=== PATIENT | male | born 2000 | race Caucasian/White ===

== ENCOUNTER 2020-09-17 20:11 | Emergency (ER) | payer OTHER, SELFPAY ==
[2020-09-17 20:17] VITALS: BP 132/70; BP 144/84; PULSE 76; PULSE 92; RESP 16; TEMP 37.2; O2SAT 97; O2SAT 98; BMI 31.1
--- NOTE | 2020-09-17 20:51 | ECG_ITS ---
Test Reason : ABDPAIN Blood Pressure : / mmHG Vent. Rate : 075 BPM Atrial Rate : 075 BPM P-R Int : 170 ms QRS Dur : 098 ms QT Int : 378 ms P-R-T Axes : 050 078 019 degrees QTc Int : 422 ms Normal sinus rhythm Nonspecific ST abnormality Abnormal ECG When compared with ECG of 02-JUN-2020 20:26, No significant change was found Referred By: Mara Burris Electronically Signed By:AMPARO HARRY MD
--- NOTE | 2020-09-17 20:52 | CT_ITS ---
EXAM: Noncontrast CT scan of the head and cervical spine. INDICATION: Syncopal episode with fall and head trauma/neck pain COMPARISON: Head CT 06/17/2020 TECHNIQUE: Axial slices were obtained from skull base to vertex and displayed. This was followed by helical, multislice, multidetector axial images from the occiput to the upper thorax. Coronal and sagittal reformats of the cervical spine in addition to coronal reformats of the head were obtained at the technologist workstation. DLP: 1928 mGy-cm FINDINGS: HEAD: There is no evidence of acute intracranial hemorrhage or territorial infarction. No abnormal mass effect or midline shift is appreciated. Cuadra-white differentiation is well preserved. No extra-axial fluid collections. The ventricular system and cortical sulci are normal in size. The osseous structures and soft tissues are normal. The visualized paranasal sinuses and mastoid air cells are well aerated. SPINE: Normal alignment of the cervical spine. Normal C1/C2 articulation. Vertebral body heights and disc spaces are well-maintained. No prevertebral soft tissue swelling. No degenerative changes of the cervical spine. Visualized lung apices are well aerated. The thyroid gland is unremarkable. CT/CT cervical spine wo con IMPRESSION: 1. No acute intracranial pathology. 2. No fractures or dislocations of the cervical spine. This CT examination was performed using dose optimization techniques as appropriate, variously including the following: *Automated exposure control *Adjustment of mA and/or kV according to patient size (this includes techniques or standardized protocols for targeted exams where dose is matched to indication/reason for exam; i.e. extremities or head) *Use of iterative reconstruction technique
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
[2020-09-17 21:13] LABS: Basophils Percent Auto 0.5 % (0-2); Eosinophils Absolute Auto 0.2 X10*3/uL (0.0-0.4); Eosinophils Percent Auto 2.5 % (0-4); Hematocrit 48.6 % (42-52); Hemoglobin 16.7 g/dl (14.0-18.0); Imm Gran Abs Auto 0.02 X10*3/uL (0.00-0.03); Imm Gran Pct Auto 0.3 % (0.0-0.4); Lymphocytes Absolute Auto 1.3 X10*3/uL (1.2-4.9); Lymphocytes Percent Auto 20.1 % (20-40); Mean Corpuscular HGB Conc 34.4 g/dl (31.0-36.0); Mean Corpuscular Hemoglobin 29.5 pg (27.0-33.0); Mean Corpuscular Volume 85.9 fL (80-98); Mean Platelet Volume 10.7 fL (9.4-12.4); Monocytes Absolute Auto 0.4 X10*3/uL (0.1-1.2); Monocytes Percent Auto 6.5 % (2-11); Neutrophils Absolute Auto 4.4 X10*3/uL (2.0-8.3); Neutrophils Percent Auto 70.1 % (45-73); Platelet Count 174 X10*3/uL (160-400); Red Blood Count 5.66 X10*6/uL (4.60-5.80); Red Cell Distribution Width 11.9 % (11.0-16.0); White Blood Count 6.3 X10*3/uL (4.8-10.8)
[2020-09-17 21:14] LABS: MANUAL DIFF FLAG NO
[2020-09-17 21:39] LABS: Alanine Aminotransferase 23 U/L (0-40); Albumin Level 4.3 g/dL (3.5-5.0); Alkaline Phosphatase 69 U/L (39-117); Anion Gap 13 (12-20); Aspartate Amino Transferase 15 U/L (5-37); Bilirubin Direct < 0.2 mg/dL (0.0-0.5); Bilirubin Total 0.5 mg/dL (0.0-1.0); Blood Urea Nitrogen 13 mg/dL (9-16); Calcium 8.7 mg/dL (8.4-10.2); Carbon Dioxide 28 mmol/L (22-29); Chloride 105 mmol/L (96-108); Creatinine Clr Calc Pharmacy 165.3; Estimated Glomerular Filt Rate > 60; Glucose Random 82 mg/dL (60-115); Lipase 31 U/L (8-78); Potassium 4.2 mmol/l (3.3-5.1); Sodium 142 mmol/L (135-145)
[2020-09-17 21:45] LABS: Troponin-I High Sensitivity < 3.5 ng/L (<3.5-35.0)
[2020-09-17 21:46] VITALS: BP 130/67; PULSE 75; PULSE 81; RESP 14; TEMP 36.6; O2SAT 96; O2SAT 97
== END 2020-09-17 22:40 | disposition home or self-care (01) ==
PROVIDERS: Emergency Provider Emergency Medicine; PCP Pediatrics
DX: R55 Syncope and collapse (principal); R42 Dizziness and giddiness; Z79.899 Other long term (current) drug therapy
CPT/HCPCS: 36415; 70450; 72125; 80048; 80076; 83690; 84484; 85025; 93005; 99284; 99285

== ENCOUNTER 2020-10-14 19:23 | Emergency (ER) | payer OTHER, SELFPAY ==
[2020-10-14 19:55] VITALS: BP 139/69; PULSE 66; RESP 18; TEMP 36.9; O2SAT 96; BMI 24.4
[2020-10-14 20:00] VITALS: BP 139/69; PULSE 65; RESP 18; TEMP 36.9; O2SAT 96
--- NOTE | 2020-10-14 20:06 | ED.HA ---
HPI - Headache General Chief Complaint: Headache Stated Complaint: Headache Time Seen by Provider: 10/14/20 19:34 Source: patient Mode of arrival: ambulatory Limitations: no limitations History of Present Illness HPI Narrative: 19-year-old male presents with 3 days of a headache and upper respiratory symptoms. He is asking for a COVID-19 test. MD elicited complaint: headache Onset (ago): day(s) (3) Onset description: gradually Severity: moderate Pain scale (0-10): 5 Quality & Timing: aching Exacerbating factors: none Relieving factors: nothing Associated symptoms: cough Treatments prior to arrival: none Related Data Home Medications Medication Instructions Recorded Confirmed aripiprazole 15 mg PO QAM 09/17/20 09/17/20 hydroxyzine HCl 25 mg PO TID 09/17/20 09/17/20 oxcarbazepine 300 mg PO DAILY 09/17/20 09/17/20 prazosin 5 mg PO BEDTIME PRN 09/17/20 09/17/20 trazodone 150 mg PO BEDTIME PRN 09/17/20 09/17/20 Allergies Allergy/AdvReac Type Severity Reaction Status Date / Time apple AdvReac Severe DIARRHEA Verified 09/17/20 20:25 POTATO JUICE Allergy Intermediate RASH Uncoded 09/17/20 21:43 Review of Systems Review of Systems: Constitutional: No Fever, No Chills, positive headache ENT/Mouth: No Ear Pain, No Hoarseness, No sore throat Eyes: No Eye Pain, No Swelling, No Redness, No Foreign Body Cardiovascular: No Chest Pain, No SOB Respiratory: Positive Cough, No Dyspnea Gastrointestinal: No Nausea, No Vomiting, No Diarrhea, No abdominal Pain Genitourinary: No Dysuria, No Hematuria Musculoskeletal: No joint pain, No Myalgias, No Joint Swelling Skin: No Skin lacerations, No rash Neuro: No Weakness, No Numbness, No Paresthesias, No Loss of Consciousness, No Dizziness, No Headache Psych: No Anxiety/Panic, No Depression Heme/Lymph: no easy bruising, no Lymphadenopathy Endocrine: No Polyuria, No Polydipsia Yes all other systems are reviewed and are negative [facility] Past Medical History Attestation statement: The following information was validated with the patient. Source: old records reviewed Medical History (Updated 10/14/20 @ 20:08 by Lucy Rees NP) No known health problems Social History Social History Alcohol intake: never Smoking Status: Heavy tobacco smoker Smoked in Last 30 Days: No Use of substances other than those prescribed or required for medical reasons: No Advance Directives: No Advance Directives Information Provided: No Physical Exam Vital Signs: Vital Signs: Last Vital Signs Temp 98.4 F 10/14/20 20:00 Pulse 65 10/14/20 20:00 Resp 18 10/14/20 20:00 BP 139/69 10/14/20 20:00 Pulse Ox 96 10/14/20 20:00 Body Mass Index 24.4 Appearance: Alert. Oriented X3. No acute distress. Eyes: Pupils equal, round and reactive to light. ENT: Pharynx normal. Neck: Normal inspection. Neck supple. CVS: Normal heart rate and rhythm. Pulses normal. Respiratory: No respiratory distress. Breath sounds normal. Abdomen: Soft and nontender. Skin: Skin warm and dry. Normal skin color. Normal skin turgor. Extremities: No lower extremity edema. Neuro: No motor deficit. No sensory deficit. Course Course Course Narrative: 19-year-old male presents with upper respiratory symptoms and headache requesting a COVID-19 test. He appears nontoxic, vital signs are hemodynamically stable, lung sounds clear to auscultation all lobes. Patient does appear to have academic impairment, but is able to answer all questions appropriately. Plan of care is for COVID-19 test and did discharge home. Patient does understand that he must socially isolate per state and Federal guidelines. MDM - Headache MDM Narrative Medical decision making narrative: COVID-19, upper respiratory viral infection Differential Diagnosis Differential diagnosis: Likely headache Medical Records Attestation: I reviewed the patient's medical records. Lab Data Attestation: I reviewed the patient's lab results. Discharge Plan Discharge Clinical Impression: COVID-19 Headache Qualifiers: Headache type: unspecified Headache chronicity pattern: acute headache Intractability: not intractable Qualified Code(s): R51.9 - Headache, unspecified Patient Disposition: Home, Self-Care Instructions: COVID-19 (Coronavirus Disease 2019) (ED) Additional Instructions: You were evaluated for headache and requested a COVID-19 test. Please maintain social isolation per state and Federal guidelines. It is your responsibility to maintain these guidelines. Your test results will return in 4 days. We will call you with the results. Thank you for choosing this emergency department for evaluation. Please follow-up with primary care physician as needed. Return to the emergency department for any new, concerning, or worsening symptoms. Prescriptions: No Action oxcarbazepine 300 mg tablet 300 mg PO DAILY RF: 0 prazosin 5 mg capsule 5 mg PO BEDTIME PRN (Reason: Sleep) RF: 0 trazodone 150 mg tablet 150 mg PO BEDTIME PRN (Reason: Sleep) RF: 0 hydroxyzine HCl 25 mg tablet 25 mg PO TID RF: 0 aripiprazole 15 mg tablet 15 mg PO QAM RF: 0 Interventions: ED Discharge Assessment Last Done: 10/14/20 20:25 Discharge Date/Time: 10/14/20 20:26
== END 2020-10-14 20:26 | disposition home or self-care (01) ==
PROVIDERS: Nurse Practitioner Family; Emergency Provider Emergency Medicine
DX: U07.1 COVID-19 (principal); R51.9 Headache, unspecified; F17.200 Nicotine dependence, unspecified, uncomplicated; Z71.6 Tobacco abuse counseling; Z79.899 Other long term (current) drug therapy
CPT/HCPCS: 99283; 99284; U0003

== ENCOUNTER 2020-12-04 21:16 | Emergency (ER) | payer OTHER, SELFPAY ==
[2020-12-04 21:52] VITALS: BP 128/88; PULSE 106; RESP 18; TEMP 37; O2SAT 97; BMI 33.0
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
[2020-12-05 00:25] LABS: Basophils Percent Auto 0.5 % (0-2); Eosinophils Absolute Auto 0.2 X10*3/uL (0.0-0.4); Eosinophils Percent Auto 2.9 % (0-4); Hematocrit 46.2 % (42-52); Imm Gran Abs Auto 0.04 X10*3/uL (0.00-0.03); Imm Gran Pct Auto 0.5 % (0.0-0.4); Lymphocytes Absolute Auto 1.9 X10*3/uL (1.2-4.9); Lymphocytes Percent Auto 23.6 % (20-40); MANUAL DIFF FLAG NO; Mean Corpuscular HGB Conc 34.6 g/dl (31.0-36.0); Mean Corpuscular Hemoglobin 29.5 pg (27.0-33.0); Mean Corpuscular Volume 85.2 fL (80-98); Mean Platelet Volume 10.8 fL (9.4-12.4); Monocytes Absolute Auto 0.5 X10*3/uL (0.1-1.2); Monocytes Percent Auto 6.6 % (2-11); Neutrophils Absolute Auto 5.2 X10*3/uL (2.0-8.3); Neutrophils Percent Auto 65.9 % (45-73); Platelet Count 191 X10*3/uL (160-400); Red Blood Count 5.42 X10*6/uL (4.60-5.80); Red Cell Distribution Width 11.6 % (11.0-16.0); White Blood Count 7.9 X10*3/uL (4.8-10.8)
[2020-12-05 00:50] LABS: Ethanol < 10 mg/dL
[2020-12-05 00:53] LABS: Alanine Aminotransferase 32 U/L (0-40); Alkaline Phosphatase 73 U/L (39-117); Anion Gap 14 (12-20); Aspartate Amino Transferase 23 U/L (5-37); Bilirubin Direct < 0.2 mg/dL (0.0-0.5); Bilirubin Total 0.2 mg/dL (0.0-1.0); Blood Urea Nitrogen 13 mg/dL (9-16); Calcium 8.6 mg/dL (8.4-10.2); Carbon Dioxide 26 mmol/L (22-29); Chloride 105 mmol/L (96-108); Creatinine Clr Calc Pharmacy 170.8; Estimated Glomerular Filt Rate > 60; Glucose Random 95 mg/dL (60-115); Potassium 4.1 mmol/L (3.3-5.1); Sodium 141 mmol/L (135-145); Total Protein 6.7 g/dL (6.5-8.0)
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
--- NOTE | 2020-12-05 02:23 | PC.NURSE ---
FRANSICO faxed and called.
[2020-12-05] MEDS: Acetaminophen 325 MG TABLET 650 MG PO (06:42)
[2020-12-05 06:45] VITALS: BP 145/76; PULSE 99; RESP 17; TEMP 36.7; O2SAT 96
--- NOTE | 2020-12-05 06:57 | PC.NURSE ---
Report received. Pt currently attempting to give urine sample, pt calm and cooperative. Denies complaints, polite in conversation. Pt waiting to be seen by N.
[2020-12-05 07:32] LABS: Amphetamine Screen Urine Not Detected (Not Detect); Barbiturates, Urine Not Detected (Not Detect); Benzodiazepines Screen Urine Not Detected (Not Detect); Cannabinoid Screen Urine Not Detected (Not Detect); Cocaine Screen Urine Not Detected (Not Detect); Opiate Screen Urine Not Detected (Not Detect); Phencyclidine Screen Urine Not Detected (Not Detect)
[2020-12-05 08:43] VITALS: BP 107/62; PULSE 78; RESP 16; TEMP 36.3; O2SAT 95
--- NOTE | 2020-12-05 09:17 | PC.NURSE ---
[facility] at bedside for eval.
[2020-12-05] MEDS: OXcarbazepine 300 MG TABLET PO (09:43)
[2020-12-05] MEDS: ARIPiprazole 15 MG TABLET PO (09:43)
--- NOTE | 2020-12-05 13:07 | PC.NURSE ---
PT calm and cooperative, pleasant in conversation. Pt denies complaints. PT currently resting. [facility] to follow up with PT later today or tomorrow.
--- NOTE | 2020-12-05 15:11 | PC.NURSE ---
Report received. Pt resting in bed at current, no signs of distress
--- NOTE | 2020-12-05 16:59 | PC.NURSE ---
Pt resting in bed at current, no signs of distress, respirations even and unlabored.
[2020-12-05 18:42] VITALS: BP 133/70; PULSE 80; RESP 18; TEMP 36.6; O2SAT 94
--- NOTE | 2020-12-05 18:44 | PC.NURSE ---
Pt using restroom at current. No complaints. Calm and cooperative.
--- NOTE | 2020-12-05 19:01 | PC.NURSE ---
REPORT RECEIVED. PATIENT RESTING IN ROOM WATCHING TV. BREATHING EVEN, NON-LABORED. NO APPARENT DISTRESS.
[2020-12-05] MEDS: OXcarbazepine 300 MG TABLET 450 MG PO (20:32)
[2020-12-06] VITALS (7 sets, daily range): BP systolic 132–148; BP diastolic 78–91; PULSE 90–104; RESP 16–20; TEMP 36–36.8; O2SAT 95–97
--- NOTE | 2020-12-06 07:05 | PC.NURSE ---
Report received from DIONICIO Temple. Pt awake, affect even, no concerns reported.
[2020-12-06] MEDS: OXcarbazepine 300 MG TABLET PO (08:02)
[2020-12-06] MEDS: ARIPiprazole 15 MG TABLET PO (08:02)
--- NOTE | 2020-12-06 09:21 | PC.NURSE ---
Pt resting, resp unlabored, awaiting crisis evaluation.
--- NOTE | 2020-12-06 10:41 | PC.NURSE ---
Pt resting, resp unlabored. [facility] called re: evaluation- state they will not be able to arrive after noon, unable to specify time range. CARE team aware.
--- NOTE | 2020-12-06 11:51 | PC.NURSE ---
Pt resting, resp unlabored.
--- NOTE | 2020-12-06 11:52 | PC.NURSE ---
Pt resting, resp unlabored
--- NOTE | 2020-12-06 13:20 | PC.NURSE ---
Pt awake- showered, ate lunch. Pt pleasant, cooperative with care, no concerns reported.
[2020-12-06 13:57] LABS: COVID-19 Test Negative (Negative); IDNOW Serial# 9DD0AD1C
--- NOTE | 2020-12-06 15:37 | PC.NURSE ---
Pt pleasant, out on unit briefly, conversing with staff at times.
--- NOTE | 2020-12-06 16:23 | PC.NURSE ---
Pt seen by FRANSICO
--- NOTE | 2020-12-06 17:49 | PC.NURSE ---
Pt awake, alert- anxious about dispo, conversing with staff.
[2020-12-06] MEDS: OXcarbazepine 300 MG TABLET 450 MG PO (20:10)
[2020-12-06] MEDS: traZODone HCL 50 MG TABLET 150 MG PO (20:10)
[2020-12-06] MEDS: Prazosin HCL 5 MG CAPSULE PO (20:11)
--- NOTE | 2020-12-06 20:31 | PC.NURSE ---
Patient in hallway socializing with staff member, pleasant mood, denied distress, VSS, compliant with HS PO medication, will continue to monitor.
[2020-12-06] MEDS: Magnesium Hydrox/Alum Hydrox 30 ML ORAL.SUSP 15 ML PO (23:30)
[2020-12-07 05:56] VITALS: BP 142/76; PULSE 87; RESP 17; TEMP 36.8; O2SAT 96
--- NOTE | 2020-12-07 07:16 | PC.NURSE ---
report received from arthur Yoon walking freely about the pod, socialable, ate 100% of his breakfast.
[2020-12-07 09:20] VITALS: BP 138/72; PULSE 95; RESP 16; TEMP 36.6; O2SAT 96
[2020-12-07] MEDS: ARIPiprazole 15 MG TABLET PO (09:28)
[2020-12-07] MEDS: OXcarbazepine 300 MG TABLET PO (09:29)
--- NOTE | 2020-12-07 09:47 | PC.NURSE ---
Pt is alert, rr even, speaks in full sentences,skin is pwdi, and he is in nad. He is calm and cooperative when in engaging with staff. He is awaiting N re-eval.
[2020-12-07] MEDS: hydrOXYzine HCL 25 MG TABLET PO (13:09)
--- NOTE | 2020-12-07 15:13 | PC.NURSE ---
Per N, bed search exhausted. They plan on re-evaluating today.
[2020-12-07 17:08] VITALS: BP 125/74; PULSE 92; RESP 20; TEMP 37.2; O2SAT 95
[2020-12-07 20:33] VITALS: BP 159/89; PULSE 150
[2020-12-07] MEDS: Prazosin HCL 5 MG CAPSULE PO (20:33)
[2020-12-07] MEDS: traZODone HCL 50 MG TABLET 150 MG PO (20:34)
[2020-12-07] MEDS: OXcarbazepine 300 MG TABLET 450 MG PO (20:34)
[2020-12-08 01:13] VITALS: BP 136/80; PULSE 119; RESP 20; TEMP 36.2; O2SAT 96
== END 2020-12-08 02:10 | disposition home or self-care (01) ==
PROVIDERS: Nurse Practitioner Family; Physician Assistant; Emergency Provider Emergency Medicine
DX: R06.00 Dyspnea, unspecified (principal); Z63.79 Other stressful life events affecting family and household; Z20.822 Contact with and (suspected) exposure to COVID-19; Z79.899 Other long term (current) drug therapy
CPT/HCPCS: 36415; 80053; 80076; 80307; 80320; 82248; 85025; 87635; 99285

== ENCOUNTER 2021-01-10 16:38 | Emergency (ER) | payer OTHER, SELFPAY ==
--- NOTE | ~2021-01-10 | XR_ITS ---
EXAMINATION: XR CHEST CLINICAL INFORMATION: Chest pain COMPARISON: Chest 06/02/2020 TECHNIQUE: 2 views of the chest were obtained. FINDINGS: No significant abnormality is noted involving the heart, lungs, mediastinum, bony thorax or soft tissues. XR/XR chest 2V IMPRESSION: Unremarkable chest examination.
[2021-01-10 16:45] VITALS: BP 141/83; PULSE 115; RESP 20; TEMP 36.9; O2SAT 96; BMI 30.4
--- NOTE | 2021-01-10 16:50 | ECG_ITS ---
Test Reason : CP Blood Pressure : / mmHG Vent. Rate : 098 BPM Atrial Rate : 098 BPM P-R Int : 156 ms QRS Dur : 096 ms QT Int : 360 ms P-R-T Axes : 034 073 011 degrees QTc Int : 459 ms Normal sinus rhythm Normal ECG When compared with ECG of 17-SEP-2020 20:56, No significant change was found Referred By: Generic ED Physician Electronically Signed By:LYNDSEY IVEY MD
[2021-01-10 18:04] VITALS: BP 119/72; PULSE 87; RESP 16; TEMP 37.2; O2SAT 98
[2021-01-10 18:18] LABS: MANUAL DIFF FLAG NO
[2021-01-10 18:22] LABS: Basophils Absolute Auto 0.1 X10*3/uL (0.0-0.2); Basophils Percent Auto 0.7 % (0-2); Eosinophils Absolute Auto 0.2 X10*3/uL (0.0-0.4); Eosinophils Percent Auto 2.6 % (0-4); Hematocrit 46.6 % (42-52); Imm Gran Abs Auto 0.05 X10*3/uL (0.00-0.03); Imm Gran Pct Auto 0.7 % (0.0-0.4); Lymphocytes Absolute Auto 1.7 X10*3/uL (1.2-4.9); Lymphocytes Percent Auto 23.9 % (20-40); Mean Corpuscular HGB Conc 34.3 g/dl (31.0-36.0); Mean Corpuscular Hemoglobin 29.6 pg (27.0-33.0); Mean Corpuscular Volume 86.1 fL (80-98); Mean Platelet Volume 11.2 fL (9.4-12.4); Monocytes Absolute Auto 0.6 X10*3/uL (0.1-1.2); Neutrophils Absolute Auto 4.5 X10*3/uL (2.0-8.3); Neutrophils Percent Auto 64.1 % (45-73); Platelet Count 187 X10*3/uL (160-400); Red Blood Count 5.41 X10*6/uL (4.60-5.80); Red Cell Distribution Width 12.1 % (11.0-16.0)
[2021-01-10] MEDS: Ibuprofen 800 MG TABLET PO (18:25)
[2021-01-10 18:39] LABS: D Dimer < 200 NG/ML
[2021-01-10 18:46] LABS: Alanine Aminotransferase 53 U/L (0-40); Albumin Level 4.2 g/dL (3.5-5.0); Alkaline Phosphatase 75 U/L (39-117); Anion Gap 15 (12-20); Aspartate Amino Transferase 29 U/L (5-37); Bilirubin Total 0.6 mg/dL (0.0-1.0); Blood Urea Nitrogen 12 mg/dL (9-16); Calcium 8.8 mg/dL (8.4-10.2); Carbon Dioxide 23 mmol/L (22-29); Chloride 105 mmol/L (96-108); Estimated Glomerular Filt Rate > 60; Glucose Random 88 mg/dL (60-115); Potassium 3.9 mmol/L (3.3-5.1); Sodium 139 mmol/L (135-145)
--- NOTE | 2021-01-10 19:05 | ED_ITS ---
HPI - General Adult General Chief complaint: General Medical Stated complaint: chest pain Time Seen by Provider: 01/10/21 17:34 Source: patient Mode of arrival: ambulatory Limitations: no limitations History of Present Illness HPI narrative: Patient presents to ED for chest pain that began at 15:00 after shooting a basketball. Patient states left chest wall pain that is worse on movement of torso and bilateral upper extremities. Patient states he probably pulled a muscle in his chest wall showing the basketball but came to the ED to be evaluated. Patient denied passing out while playing basketball. Patient denies any shortness of breath, coughing, fever, or chills. Patient denies any swelling of lower extremity, calf pain, coughing up blood, recent long travel, recent surgery, estrogen hormone use, or history of blood clots. Related Data Home Medications Medication Instructions Recorded Confirmed aripiprazole 15 mg PO QAM 09/17/20 12/05/20 hydroxyzine HCl 25 mg PO BID PRN 09/17/20 12/05/20 oxcarbazepine 300 mg PO DAILY 09/17/20 12/05/20 prazosin 5 mg PO BEDTIME PRN 09/17/20 12/05/20 trazodone 150 mg PO BEDTIME PRN 09/17/20 12/05/20 oxcarbazepine 450 mg PO BEDTIME 12/05/20 12/05/20 Allergies Allergy/AdvReac Type Severity Reaction Status Date / Time apple AdvReac Severe DIARRHEA Verified 09/17/20 20:25 POTATO JUICE Allergy Intermediate RASH Uncoded 09/17/20 21:43 Review of Systems Review of Systems: Yes all other systems are reviewed and are negative Constitutional: Constitutional: Reports as per HPI and Reports no additional constitutional complaints Eyes: Eyes: Reports as per HPI and Reports no additional eye complaints ENT: Reports system reviewed and no additional complaints, except as documented and Reports as per HPI Cardiovascular: Cardiovascular: Reports as per HPI, Reports no additional cardiovascular complaints and Reports chest pain Respiratory: Respiratory: Reports as per HPI and Reports no additional respiratory complaints Gastrointestinal: Gastrointestinal: Reports as per HPI and Reports no additional gastrointestinal complaints Genitourinary: Genitourinary: Reports no additional male genitourinary complaints and Reports as per HPI Musculoskeletal: Musculoskeletal: Reports no additional musculoskeletal complaints and Reports as per HPI Neurologic: Reports system reviewed and no additional complaints, except as documented and Reports as per HPI Psychiatric: Psychiatric: Reports no additional psychiatric complaints and Reports as per HPI [facility] Past Medical History Medical History No known health problems Social History Social History Alcohol intake: never Smoking Status: Never smoker Advance Directives: No Advance Directives Information Provided: No Physical Exam Vital Signs: Vital Signs: Last Vital Signs Temp 97.9 F 01/10/21 20:27 Pulse 82 01/10/21 20:27 Resp 20 01/10/21 20:27 BP 127/68 01/10/21 20:27 Pulse Ox 97 01/10/21 20:27 Body Mass Index 30.4 Const: General: cooperative, healthy appearing, comfortable, no acute distress, well developed, alert and awake Orientation/consciousness: patient oriented x3 HENMT: Head: Yes normal to inspection, Yes No palpable skull fracture present, Yes normocephalic and Yes atraumatic Eyes: General: appearance normal, both eyes and all related structures Neck: Neck: Yes normal visual inspection, Yes full ROM, Yes no lymphadenopathy, Yes no meningeal signs, Yes trachea midline, Yes supple and No tender Chest: Other: Positive for midsternal chest wall tenderness on palpation. Negative for any crepitus, erythema, or redness. Chest palpation & inspection: normal inspection of the chest Resp: Effort & Inspection: normal respiratory effort and able to speak in complete sentences Auscultation: clear to auscultation bilaterally Cardio: Jugular venous distension: no JVD Heart sounds: S1 normal heart sound present and S2 normal heart sound present GI: Inspection: Yes normal to inspection and No abdominal wall ecchymosis Palpation (GI): Soft to palpation, not firm, nontender, no guarding and not rigid : General: No CVA tenderness and Yes no CVA tenderness Back/Spine/Pelvis: Back: no CVA tenderness, No CVA tenderness and No back tend erness Skin: General skin exam: no rashes or lesions noted and elasticity normal Neuro: General: patient oriented x3, no meningeal signs and CN's II-XI intact bilaterally Cranial nerves: Yes CN's II-XII intact bilaterally Extrem: General: Yes normal to inspection and Yes full ROM Psych: Appearance: grossly normal, well kempt and not disheveled Course Course Course Narrative: Chest wall pain. Reevaluation(s) Reevaluation #1: Chest x-ray came back negative. Initial troponin came back negative. D-dimer negative. Perc score 1. EKG Time: 21:51 Reevaluation #2: Repeat troponin came back negative Time: 22:02 Medical Decision Making MDM Narrative Medical decision making narrative: Chest wall strain Lab Data Result diagrams: 01/10/21 18:12 01/10/21 18:12 Labs: Lab Results 01/10/21 01/10/21 01/10/21 Range/Units 18:12 18:12 18:12 WBC 7.0 (4.8-10.8) X10*3/uL RBC 5.41 (4.60-5.80) X10*6/uL Hgb 16.0 (14.0-18.0) g/dl Hct 46.6 (42-52) % MCV 86.1 (80-98) fL MCH 29.6 (27.0-33.0) pg MCHC 34.3 (31.0-36.0) g/dl RDW 12.1 (11.0-16.0) % Plt Count 187 (160-400) X10*3/uL MPV 11.2 (9.4-12.4) fL Immature Gran % (Auto) 0.7 H (0.0-0.4) % Neut % (Auto) 64.1 (45-73) % Lymph % (Auto) 23.9 (20-40) % [place] % (Auto) 8.0 (2-11) % Eos % (Auto) 2.6 (0-4) % Baso % (Auto) 0.7 (0-2) % Lymph # (Auto) 1.7 (1.2-4.9) X10*3/uL [place] # (Auto) 0.6 (0.1-1.2) X10*3/uL Eos # (Auto) 0.2 (0.0-0.4) X10*3/uL Baso # (Auto) 0.1 (0.0-0.2) X10*3/uL Abs Immat Gran (auto) 0.05 H (0.00-0.03) X10*3/uL Absolute Neuts (auto) 4.5 (2.0-8.3) X10*3/uL Absolute Nucleated RBC 0.000 (0.0-0.012) X10*3/uL Nucleated RBC % (auto) 0.0 (0.0-0.2) /100WBC D-Dimer < 200 NG/ML Sodium 139 (135-145) mmol/L Potassium 3.9 (3.3-5.1) mmol/L Chloride 105 (96-108) mmol/L Carbon Dioxide 23 (22-29) mmol/L Anion Gap 15 (12-20) BUN 12 (9-16) mg/dL Creatinine 0.83 (0.5-1.4) mg/dL Estim Creat Clear Calc 194.0 Estimated GFR > 60 Random Glucose 88 (60-115) mg/dL Calcium 8.8 (8.4-10.2) mg/dL Total Bilirubin 0.6 (0.0-1.0) mg/dL AST 29 (5-37) U/L ALT 53 H (0-40) U/L Alkaline Phosphatase 75 (39-117) U/L Troponin I High Sens (<3.5-35.0) ng/L B-Natriuretic Peptide (<100) pg/mL Total Protein 7.0 (6.5-8.0) g/dL Albumin 4.2 (3.5-5.0) g/dL 01/10/21 01/10/21 Range/Units 18:12 21:18 WBC (4.8-10.8) X10*3/uL RBC (4.60-5.80) X10*6/uL Hgb (14.0-18.0) g/dl Hct (42-52) % MCV (80-98) fL MCH (27.0-33.0) pg MCHC (31.0-36.0) g/dl RDW (11.0-16.0) % Plt Count (160-400) X10*3/uL MPV (9.4-12.4) fL Immature Gran % (Auto) (0.0-0.4) % Neut % (Auto) (45-73) % Lymph % (Auto) (20-40) % [place] % (Auto) (2-11) % Eos % (Auto) (0-4) % Baso % (Auto) (0-2) % Lymph # (Auto) (1.2-4.9) X10*3/uL [place] # (Auto) (0.1-1.2) X10*3/uL Eos # (Auto) (0.0-0.4) X10*3/uL Baso # (Auto) (0.0-0.2) X10*3/uL Abs Immat Gran (auto) (0.00-0.03) X10*3/uL Absolute Neuts (auto) (2.0-8.3) X10*3/uL Absolute Nucleated RBC (0.0-0.012) X10*3/uL Nucleated RBC % (auto) (0.0-0.2) /100WBC D-Dimer NG/ML Sodium (135-145) mmol/L Potassium (3.3-5.1) mmol/L Chloride (96-108) mmol/L Carbon Dioxide (22-29) mmol/L Anion Gap (12-20) BUN (9-16) mg/dL Creatinine (0.5-1.4) mg/dL Estim Creat Clear Calc Estimated GFR Random Glucose (60-115) mg/dL Calcium (8.4-10.2) mg/dL Total Bilirubin (0.0-1.0) mg/dL AST (5-37) U/L ALT (0-40) U/L Alkaline Phosphatase (39-117) U/L Troponin I High Sens < 3.5 < 3.5 (<3.5-35.0) ng/L B-Natriuretic Peptide < 10 (<100) pg/mL Total Protein (6.5-8.0) g/dL Albumin (3.5-5.0) g/dL ECG Data Interpretation: Normal sinus rhythm. Normal EKG. Ventricular rate 98. Parenting 156. QRS 96. QTC 459. Negative STEMI Discharge Plan Discharge Clinical Impression: Acute chest wall pain Patient Disposition: Home, Self-Care Instructions: Chest Pain (ED), Chest Wall Pain (ED) Additional Instructions: Return to the ED immediately for chest pain, shortness of breath, chest pain on inspiration, swelling of lower extremities, calf pain, coughing up blood, fever, chills, or any other concerning symptoms. He can take [id number] Motrin. EKG came back normal. Chest x-ray came back normal. Two troponins were negative. And D-dimer came back negative. Prescriptions: No Action oxcarbazepine 300 mg tablet 300 mg PO DAILY RF: 0 prazosin 5 mg capsule 5 mg PO BEDTIME PRN (Reason: Sleep) RF: 0 trazodone 150 mg tablet 150 mg PO BEDTIME PRN (Reason: Sleep) RF: 0 hydroxyzine HCl 25 mg tablet 25 mg PO BID PRN (Reason: Anxiety) RF: 0 aripiprazole 15 mg tablet 15 mg PO QAM RF: 0 oxcarbazepine 300 mg Tablet 450 mg PO BEDTIME RF: 0 Print Language: Divehi
[2021-01-10 19:08] LABS: B Type Natriuretic Peptide < 10 pg/mL (<100); Troponin-I High Sensitivity < 3.5 ng/L (<3.5-35.0)
[2021-01-10 20:27] VITALS: BP 127/68; PULSE 82; RESP 20; TEMP 36.6; O2SAT 97
[2021-01-10 21:53] LABS: Troponin-I High Sensitivity < 3.5 ng/L (<3.5-35.0)
== END 2021-01-10 22:22 | disposition home or self-care (01) ==
PROVIDERS: Physician Assistant; Emergency Provider Emergency Medicine
DX: R07.89 Other chest pain (principal); Z86.16 Personal history of COVID-19
CPT/HCPCS: 36415; 71046; 80053; 83880; 84484; 85025; 85379; 93005; 99283; 99284

== ENCOUNTER 2021-01-13 19:06 | Emergency (ER) | payer OTHER, SELFPAY ==
--- NOTE | 2021-01-13 | ECG_ITS ---
Test Reason : CHEST PAIN,DIZZY Blood Pressure : / mmHG Vent. Rate : 077 BPM Atrial Rate : 077 BPM P-R Int : 164 ms QRS Dur : 102 ms QT Int : 370 ms P-R-T Axes : 021 083 024 degrees QTc Int : 418 ms Normal sinus rhythm Normal ECG When compared with ECG of 10-JAN-2021 17:13, No significant change was found Referred By: Generic ED Physician Electronically Signed By:LYNDSEY IVEY MD
--- NOTE | ~2021-01-13 | XR_ITS ---
EXAMINATION: XR CHEST CLINICAL INFORMATION: Chest pain COMPARISON: 01/10/2021 TECHNIQUE: 2 views of the chest were obtained. FINDINGS: No significant abnormality is noted involving the heart, lungs, mediastinum, bony thorax or soft tissues. XR/XR chest 2V IMPRESSION: Unremarkable examination.
[2021-01-13 19:31] VITALS: BP 129/70; PULSE 87; RESP 20; TEMP 36.8; O2SAT 96; BMI 29.2
[2021-01-13 21:26] LABS: MANUAL DIFF FLAG NO
[2021-01-13 21:28] LABS: Basophils Percent Auto 0.5 % (0-2); Eosinophils Absolute Auto 0.3 X10*3/uL (0.0-0.4); Hematocrit 47.1 % (42-52); Imm Gran Abs Auto 0.03 X10*3/uL (0.00-0.03); Imm Gran Pct Auto 0.5 % (0.0-0.4); Lymphocytes Absolute Auto 1.6 X10*3/uL (1.2-4.9); Lymphocytes Percent Auto 25.9 % (20-40); Mean Corpuscular Hemoglobin 29.6 pg (27.0-33.0); Mean Corpuscular Volume 87.1 fL (80-98); Monocytes Absolute Auto 0.5 X10*3/uL (0.1-1.2); Monocytes Percent Auto 7.2 % (2-11); Neutrophils Absolute Auto 3.8 X10*3/uL (2.0-8.3); Neutrophils Percent Auto 61.9 % (45-73); Platelet Count 201 X10*3/uL (160-400); Red Blood Count 5.41 X10*6/uL (4.60-5.80); Red Cell Distribution Width 11.9 % (11.0-16.0); White Blood Count 6.2 X10*3/uL (4.8-10.8)
--- NOTE | 2021-01-13 21:38 | PC.NURSE ---
Pt ambulating from the waiting room into room 6 with a steady gait. Pt pain free at this time, denies SOB. VSS. NSR on the monitor. Continue to monitor.
[2021-01-13 21:39] VITALS: BP 130/84; PULSE 78; RESP 16
[2021-01-13 21:46] LABS: Anion Gap 13 (12-20); Blood Urea Nitrogen 16 mg/dL (9-16); Calcium 8.7 mg/dL (8.4-10.2); Carbon Dioxide 25 mmol/L (22-29); Chloride 104 mmol/L (96-108); Creatinine Clr Calc Pharmacy 195.1; Estimated Glomerular Filt Rate > 60; Glucose Random 97 mg/dL (60-115); Potassium 4.1 mmol/L (3.3-5.1); Sodium 138 mmol/L (135-145)
[2021-01-13 21:53] LABS: Troponin-I High Sensitivity < 3.5 ng/L (<3.5-35.0)
--- NOTE | 2021-01-13 21:57 | ED_ITS ---
HPI - Chest Pain General Chief Complaint: Chest Pain Stated Complaint: chest pain Time Seen by Provider: 01/13/21 21:46 History of Present Illness HPI narrative: Patient is 20 years old presented today with having chest pain. Patient has lots of stressors as now he is going back to school. He was going to [employer] at the time. Patient had chest pain as sharp. Did not pass out. No nausea no vomiting. No diaphoresis came back to the emergency department for further evaluation. Patient was seen in the emergency department for chest pain while playing basketball 2 days ago. Had a D-dimer and cardiac enzymes done they are all negative. Patient claims the pain is very similar. He has a history of being autistic. No leg swelling. No diaphoresis. No loss of consciousness. Patient is from home. Related Data Home Medications Medication Instructions Recorded Confirmed aripiprazole 15 mg PO QAM 09/17/20 12/05/20 hydroxyzine HCl 25 mg PO BID PRN 09/17/20 12/05/20 oxcarbazepine 300 mg PO DAILY 09/17/20 12/05/20 prazosin 5 mg PO BEDTIME PRN 09/17/20 12/05/20 trazodone 150 mg PO BEDTIME PRN 09/17/20 12/05/20 oxcarbazepine 450 mg PO BEDTIME 12/05/20 12/05/20 Allergies Allergy/AdvReac Type Severity Reaction Status Date / Time apple AdvReac Severe DIARRHEA Verified 09/17/20 20:25 POTATO JUICE Allergy Intermediate RASH Uncoded 09/17/20 21:43 Review of Systems Review of Systems: Constitutional: No Weight loss, No Fever, No Chills, No Night Sweats, No Fatigue, No Malaise ENT/Mouth: No Hearing loss, No Ear Pain, No Nasal Congestion, No Sinus Pain, No Hoarseness, No sore throat, No Rhinorrhea, No Swallowing Difficulty Eyes: No Eye Pain, No Swelling, No Redness, No Foreign Body, No Discharge, No Vision Changes Cardiovascular: Positive chest pain Respiratory: No Cough, No Sputum, No Wheezing, No Smoke Exposure, No Dyspnea Gastrointestinal: No Nausea, No Vomiting, No Diarrhea, No Constipation, No abdominal Pain, No Hematochezia, No Melena Genitourinary: no irregular bleeding, No Dysuria, No Urinary Frequency, No Hematuria, No Urinary Incontinence, No Urgency, No Flank Pain, No Urinary Flow Changes, No Hesitancy Musculoskeletal: No joint pain, No Myalgias, No Joint Swelling Skin: No Skin Lesions, No rash Neuro: No Weakness, No Numbness, No Paresthesias, No Loss of Consciousness, No Dizziness, No Headache Psych: No Anxiety/Panic, No Depression, No SI/HI/AH/VH, No Social Issues, Heme/Lymph: No Bruising, No Bleeding,No Lymphadenopathy Endocrine: No Polyuria, No Polydipsia, No Temperature Intolerance [facility] Past Medical History Attestation statement: The following information was validated with the patient. Medical History No known health problems Social History Social History Alcohol intake: never Smoking Status: Never smoker Advance Directives: No Advance Directives Information Provided: Yes Physical Exam Vital Signs: Vital Signs: Last Vital Signs Temp 98.2 F 01/13/21 19:31 Pulse 78 01/13/21 21:39 Resp 16 01/13/21 21:39 BP 130/84 01/13/21 21:39 Pulse Ox 96 01/13/21 19:31 Body Mass Index 29.2 Appearance: Alert. Oriented X3. No acute distress. Eyes: Pupils equal, round and reactive to light. ENT: Pharynx normal. Neck: Normal inspection. Neck supple. No lymph nodes noted. No crepitus CVS: Normal heart rate and rhythm. Pulses normal. Normal S1 and S2 Respiratory: No respiratory distress. Breath sounds normal. No Wheezing. No rales Abdomen: Soft and nontender. No rigidity. No distention. good BS x4 Skin: Skin warm and dry. Normal skin color. Normal skin turgor. Extremities: No lower extremity edema. Neurovascular intact to all extremities. No Lacerations. No Rash Neuro: Oriented X 3. No motor deficit. No sensory deficit. Moving all extermities. No slurred speech MDM - Chest Pain MDM Narrative Medical decision making narrative: Patient's electrolytes were unremarkable. Just had D-dimer and cardiac enzymes done 2 days prior that were negative. Chest x-ray showed no focal infiltrate. No pneumothorax. Patient well-appearing. Will ask family to keep patient away from sports for now. Follow-up with Pediatric on an outpatient basis. In stable condition. Question secondary to stress. Lab Data Attestation: I reviewed the patient's lab results. Result diagrams: 01/13/21 21:21 01/13/21 21:21 Labs: Lab Results 01/13/21 01/13/21 01/13/21 Range/Units 21:21 21:21 21:21 WBC 6.2 (4.8-10.8) X10*3/uL RBC 5.41 (4.60-5.80) X10*6/uL Hgb 16.0 (14.0-18.0) g/dl Hct 47.1 (42-52) % MCV 87.1 (80-98) fL MCH 29.6 (27.0-33.0) pg MCHC 34.0 (31.0-36.0) g/dl RDW 11.9 (11.0-16.0) % Plt Count 201 (160-400) X10*3/uL MPV 11.0 (9.4-12.4) fL Immature Gran % (Auto) 0.5 H (0.0-0.4) % Neut % (Auto) 61.9 (45-73) % Lymph % (Auto) 25.9 (20-40) % [place] % (Auto) 7.2 (2-11) % Eos % (Auto) 4.0 (0-4) % Baso % (Auto) 0.5 (0-2) % Lymph # (Auto) 1.6 (1.2-4.9) X10*3/uL [place] # (Auto) 0.5 (0.1-1.2) X10*3/uL Eos # (Auto) 0.3 (0.0-0.4) X10*3/uL Baso # (Auto) 0.0 (0.0-0.2) X10*3/uL Abs Immat Gran (auto) 0.03 (0.00-0.03) X10*3/uL Absolute Neuts (auto) 3.8 (2.0-8.3) X10*3/uL Absolute Nucleated RBC 0.000 (0.0-0.012) X10*3/uL Nucleated RBC % (auto) 0.0 (0.0-0.2) /100WBC Hold Blue Top SEE NOTE Sodium 138 (135-145) mmol/L Potassium 4.1 (3.3-5.1) mmol/L Chloride 104 (96-108) mmol/L Carbon Dioxide 25 (22-29) mmol/L Anion Gap 13 (12-20) BUN 16 (9-16) mg/dL Creatinine 0.81 (0.5-1.4) mg/dL Estim Creat Clear Calc 195.1 Estimated GFR > 60 Random Glucose 97 (60-115) mg/dL Calcium 8.7 (8.4-10.2) mg/dL Troponin I High Sens (<3.5-35.0) ng/L 01/13/21 Range/Units 21:21 WBC (4.8-10.8) X10*3/uL RBC (4.60-5.80) X10*6/uL Hgb (14.0-18.0) g/dl Hct (42-52) % MCV (80-98) fL MCH (27.0-33.0) pg MCHC (31.0-36.0) g/dl RDW (11.0-16.0) % Plt Count (160-400) X10*3/uL MPV (9.4-12.4) fL Immature Gran % (Auto) (0.0-0.4) % Neut % (Auto) (45-73) % Lymph % (Auto) (20-40) % [place] % (Auto) (2-11) % Eos % (Auto) (0-4) % Baso % (Auto) (0-2) % Lymph # (Auto) (1.2-4.9) X10*3/uL [place] # (Auto) (0.1-1.2) X10*3/uL Eos # (Auto) (0.0-0.4) X10*3/uL Baso # (Auto) (0.0-0.2) X10*3/uL Abs Immat Gran (auto) (0.00-0.03) X10*3/uL Absolute Neuts (auto) (2.0-8.3) X10*3/uL Absolute Nucleated RBC (0.0-0.012) X10*3/uL Nucleated RBC % (auto) (0.0-0.2) /100WBC Hold Blue Top Sodium (135-145) mmol/L Potassium (3.3-5.1) mmol/L Chloride (96-108) mmol/L Carbon Dioxide (22-29) mmol/L Anion Gap (12-20) BUN (9-16) mg/dL Creatinine (0.5-1.4) mg/dL Estim Creat Clear Calc Estimated GFR Random Glucose (60-115) mg/dL Calcium (8.4-10.2) mg/dL Troponin I High Sens < 3.5 (<3.5-35.0) ng/L Discharge Plan Discharge Clinical Impression: Atypical chest pain Patient Disposition: Home, Self-Care Instructions: Chest Pain (ED) Prescriptions: No Action oxcarbazepine 300 mg tablet 300 mg PO DAILY RF: 0 prazosin 5 mg capsule 5 mg PO BEDTIME PRN (Reason: Sleep) RF: 0 trazodone 150 mg tablet 150 mg PO BEDTIME PRN (Reason: Sleep) RF: 0 hydroxyzine HCl 25 mg tablet 25 mg PO BID PRN (Reason: Anxiety) RF: 0 aripiprazole 15 mg tablet 15 mg PO QAM RF: 0 oxcarbazepine 300 mg Tablet 450 mg PO BEDTIME RF: 0 Referrals: Dana Crockett MD [Primary Care Provider] - 2 days
[2021-01-13 22:15] VITALS: BP 136/77; PULSE 78; RESP 21; O2SAT 96
== END 2021-01-13 22:35 | disposition home or self-care (01) ==
PROVIDERS: Emergency Provider Emergency Medicine Emergency Medical Services; PCP Pediatrics
DX: R07.9 Chest pain, unspecified (principal); F43.9 Reaction to severe stress, unspecified; Z79.899 Other long term (current) drug therapy
CPT/HCPCS: 36415; 71046; 80048; 84484; 85025; 93005; 99284

== ENCOUNTER 2021-04-28 18:51 | Emergency (ER) | payer OTHER, SELFPAY ==
[2021-04-28 18:53] VITALS: BP 130/91; PULSE 104; RESP 15; TEMP 36.6; O2SAT 98; BMI 34.7
[2021-04-28 19:52] LABS: COVID-19 Test Negative (Negative)
[2021-04-28 20:02] LABS: Amphetamine Screen Urine Not Detected (Not Detect); Barbiturates, Urine Not Detected (Not Detect); Benzodiazepines Screen Urine Not Detected (Not Detect); Cannabinoid Screen Urine Not Detected (Not Detect); Cocaine Screen Urine Not Detected (Not Detect); Opiate Screen Urine Not Detected (Not Detect); Phencyclidine Screen Urine Not Detected (Not Detect)
--- NOTE | 2021-04-28 20:14 | ED_ITS ---
HPI - Psych General Chief Complaint: Psychiatric Symptoms <Ellen Lennon PA-C - Last Filed: 04/28/21 20:19> Stated Complaint: CRISIS <BIBI Marcelino Last Filed: 04/28/21 20:19> Time Seen by Provider: 04/28/21 20:07 <BIBI Marcelino Last Filed: 04/28/21 20:19> Source: patient <BIBI Marcelino Last Filed: 04/28/21 20:19> Mode of arrival: ambulatory <BIBI Marcelino Last Filed: 04/28/21 20:19> Limitations: no limitations <BIBI Marcelino Last Filed: 04/28/21 20:19> History of Present Illness HPI Narrative: Patient is a 20-year-old male with a past medical history of ASD who was BIBA from his home after he was throwing items. Patient tells me he got upset and he has trouble regulating his emotions so he grabbed something and threw it. He states he lives at home with his mom and dad. He tells me he has no thoughts of hurting his mom or his dad her anyone else who lives in his house. He also states he has no thoughts of hurting himself. He has no physical complaints at this time but he would like to go home because he feels he is very calm <BIBI Marcelino Last Filed: 04/28/21 20:19> Related Data Home Medications: Home Medications Medication Instructions Recorded Confirmed aripiprazole 15 mg PO QAM 09/17/20 04/28/21 hydroxyzine HCl 25 mg PO BID PRN 09/17/20 04/28/21 oxcarbazepine 300 mg PO DAILY 09/17/20 04/28/21 prazosin 5 mg PO BEDTIME PRN 09/17/20 04/28/21 trazodone 150 mg PO BEDTIME PRN 09/17/20 04/28/21 oxcarbazepine 450 mg PO BEDTIME 12/05/20 04/28/21 <BIBI Marcelino Last Filed: 04/28/21 20:19> Allergies/Adverse Reactions: Allergies Allergy/AdvReac Type Severity Reaction Status Date / Time apple AdvReac Severe DIARRHEA Verified 09/17/20 20:25 POTATO JUICE Allergy Intermediate RASH Uncoded 09/17/20 21:43 <Ellen Lennon PA-C - Last Filed: 04/28/21 20:19> Review of Systems Review of Systems: Yes all other systems are reviewed and are negative <Ellen Lennon PA-C - Last Filed: 04/28/21 20:19> [facility] Past Medical History Medical History: Medical History No known health problems <Ellen Lennon PA-C - Last Filed: 04/28/21 20:19> Social History Social History: Social History Alcohol intake: never Advance Directives: No Advance Directives Information Provided: Yes <Ellen Lennon PA-C - Last Filed: 04/28/21 20:19> Physical Exam Vital Signs: Vital Signs: Last Vital Signs Temp 97.0 F 04/29/21 07:44 Pulse 81 04/29/21 07:44 Resp 04/29/21 07:44 BP 142/81 H 04/29/21 07:44 Pulse Ox 98 04/28/21 18:53 Body Mass Index 34.7 <Ellen Lennon PA-C - Last Filed: 04/28/21 20:19> Vital Signs: Last Vital Signs Temp 97.0 F 04/29/21 07:44 Pulse 81 04/29/21 07:44 Resp 04/29/21 07:44 BP 142/81 H 04/29/21 07:44 Pulse Ox 98 04/28/21 18:53 Body Mass Index 34.7 <Lorraine Wilson MD - Last Filed: 04/29/21 02:29> Vital Signs: Last Vital Signs Temp 97.0 F 04/29/21 07:44 Pulse 81 04/29/21 07:44 Resp 04/29/21 07:44 BP 142/81 H 04/29/21 07:44 Pulse Ox 98 04/28/21 18:53 Body Mass Index 34.7 <VIVI Sim Last Filed: 04/29/21 10:05> Const: General: cooperative, healthy appearing, comfortable and no acute distress <Ellen Lennon PA-C - Last Filed: 04/28/21 20:19> Nutritional Appearance: obese <KESHA Marcelino - Last Filed: 04/28/21 20:19> Orientation/consciousness: patient oriented x3 <KESHA Marcelino - Last Filed: 04/28/21 20:19> HENMT: Head: Yes normal to inspection, Yes No palpable skull fracture present, Yes normocephalic and Yes atraumatic <KESHA Marcelino - Last Filed: 04/28/21 20:19> Ears: hearing grossly normal bilaterally <KESHA Marcelino - Last Filed: 04/28/21 20:19> General nose exam: Normal external nose present <Ellen Lennon PA-C - Last Filed: 04/28/21 20:19> Eyes: General: appearance normal, both eyes and all related structures <KESHA Marcelino - Last Filed: 04/28/21 20:19> Resp: Effort & Inspection: normal respiratory effort and able to speak in complete sentences <Ellen Lennon PA-C - Last Filed: 04/28/21 20:19> Neuro: General: patient oriented x3 <KESHA Marcelino - Last Filed: 04/28/21 20:19> Psych: Appearance: grossly normal <BIBI Marcelino Last Filed: 04/28/21 20:19> Mental Status: mental status grossly normal <KESHA Marcelino [employer] Last Filed: 04/28/21 20:19> Speech and movement: Normal speech and movement present <BIBI Marcelino Last Filed: 04/28/21 20:19> Affect: normal affect <KESHA Marcelino - Last Filed: 04/28/21 20:19> Attitude: cooperative <Ellen Lennon PA-C - Last Filed: 04/28/21 20:19> Thought process: Normal thought process present <BIBI Marcelino Last Filed: 04/28/21 20:19> Thought content: suicidality, no homicidality, no delusions, No delusions and no hallucinations <Ellen Lennon PA-C - Last Filed: 04/28/21 20:19> Insight: Fair insight present (Psych) <Ellen Lennon PA-C - Last Filed: 04/28/21 20:19> Judgement: Fair judgement present (Psych) <Ellen Lennon PA-C - Last Filed: 04/28/21 20:19> Course Course Course Narrative: Patient is a 20-year-old male with a past medical history of ASD who was BIBA from his home after he was throwing items. vital signs are stable, patient is very calm and would like to return home. Care Team consult to evaluate and discussed with patient's parents to see if they are agreeable to have him return home. Tox screen is negative, COVID negative. <Ellen Lennon PA-C - Last Filed: 04/28/21 20:19> I discuss the case with if behavioral team who states that the patient has good outpatient support systems and although he does have a history grabbing knives when he becomes overwhelmed he otherwise has no history of suicide attempt or injury to others and that a component of the underlying problem is his autism in an otherwise busy household ( approximately 5 inhabitants). The behavioral team feels that patient has good outpatient support systems and had a lengthy discussion with the mom regarding arrangements with [facility] for possible future residential planning, but that currently the patient has all decision making capacity and that if the mother wishes to pursue guardianship she will need to start proceedings through the court system. On re-evaluation the patient is denying any suicidal or homicidal ideation and denies any AVH. He appears to be remorseful, and otherwise has been cleared by the behavioral team for discharge to home. <Lorraine Wilson MD - Last Filed: 04/29/21 02:29> MDM - Psych Lab Data Labs: Lab Results 04/28/21 04/28/21 Range/Units 19:28 19:28 Urine Opiates Screen Not Detected (Not Detect) Ur Barbiturates Screen Not Detected (Not Detect) Ur Phencyclidine Scrn Not Detected (Not Detect) Ur Amphetamines Screen Not Detected (Not Detect) U Benzodiazepines Scrn Not Detected (Not Detect) Urine Cocaine Screen Not Detected (Not Detect) U Marijuana (THC) Screen Not Detected (Not Detect) COVID-19 (MARCIO) Negative (Negative) COVID-19 Clin Com See Note <Ellen Lennon PA-C - Last Filed: 04/28/21 20:19> Lab Results 04/28/21 04/28/21 Range/Units 19:28 19:28 Urine Opiates Screen Not Detected (Not Detect) Ur Barbiturates Screen Not Detected (Not Detect) Ur Phencyclidine Scrn Not Detected (Not Detect) Ur Amphetamines Screen Not Detected (Not Detect) U Benzodiazepines Scrn Not Detected (Not Detect) Urine Cocaine Screen Not Detected (Not Detect) U Marijuana (THC) Screen Not Detected (Not Detect) COVID-19 (MARCIO) Negative (Negative) COVID-19 Clin Com See Note <Lorraine Wilson MD - Last Filed: 04/29/21 02:29> Lab Results 04/28/21 04/28/21 Range/Units 19:28 19:28 Urine Opiates Screen Not Detected (Not Detect) Ur Barbiturates Screen Not Detected (Not Detect) Ur Phencyclidine Scrn Not Detected (Not Detect) Ur Amphetamines Screen Not Detected (Not Detect) U Benzodiazepines Scrn Not Detected (Not Detect) Urine Cocaine Screen Not Detected (Not Detect) U Marijuana (THC) Screen Not Detected (Not Detect) COVID-19 (MARCIO) Negative (Negative) COVID-19 Clin Com See Note <VIVI Sim - Last Filed: 04/29/21 10:05> Discharge Plan Discharge Clinical Impression: Bipolar 2 disorder, Autism, Outbursts of explosive behavior <Ellen Lennon PA-C - Last Filed: 04/28/21 20:19> Patient Disposition: Home, Self-Care <Ellen Lennon PA-C - Last Filed: 04/28/21 20:19> Prescriptions: No Action oxcarbazepine 300 mg tablet 300 mg PO DAILY RF: 0 prazosin 5 mg capsule 5 mg PO BEDTIME PRN (Reason: Sleep) RF: 0 trazodone 150 mg tablet 150 mg PO BEDTIME PRN (Reason: Sleep) RF: 0 hydroxyzine HCl 25 mg tablet 25 mg PO BID PRN (Reason: Anxiety) RF: 0 aripiprazole 15 mg tablet 15 mg PO QAM RF: 0 oxcarbazepine 300 mg Tablet 450 mg PO BEDTIME RF: 0 <Ellen Lennno PA-C - Last Filed: 04/28/21 20:19> ED Observation ED Observation Progress Notes 1: Progress Note: 04/29/21 - 10:04 VIVI Sim - Patient was placed in position observation because the patient needed more time to be evaluated by crisis. The patient had an uneventful night. Was evaluated by crisis overnight and patient was remorseful denied any SI/ HI/auditory visual sensation or thoughts of self injury therefore patient was cleared by crisis and patient will be picked up by family this morning. Otherwise patient denies any additional complaints or concerns at this time. No focal Neuro deficits are noted. Lungs clear to auscultation. CV RRR. Abdomen is soft and nontender. Will continue to monitor patient's picked up this morning. <VIVI Sim - Last Filed: 04/29/21 10:05>
[2021-04-28 22:50] VITALS: BP 144/83; PULSE 84
[2021-04-28] MEDS: Prazosin HCL 5 MG CAPSULE PO (22:50)
[2021-04-28] MEDS: ARIPiprazole 15 MG TABLET PO (22:51)
[2021-04-28] MEDS: hydrOXYzine HCL 25 MG TABLET PO (22:51)
[2021-04-28] MEDS: OXcarbazepine 150 MG TABLET 450 MG PO (22:51)
[2021-04-28] MEDS: traZODone HCL 50 MG TABLET 150 MG PO (22:52)
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
--- NOTE | 2021-04-29 02:00 | PC.NURSE ---
[facility] at bedside
--- NOTE | 2021-04-29 06:15 | PC.NURSE ---
Patient was up until 329 and appears sleeping since then, disposition is d/c in the morning by calling his mother [place] at [phone], patient is in good behavioral control, VSS, will continue to monitor.
--- NOTE | 2021-04-29 07:15 | PC.NURSE ---
patient awakened early this am smiling and friendly toward staff. appears in no distress
[2021-04-29 07:44] VITALS: BP 142/81; PULSE 81; RESP 19; TEMP 36.1
[2021-04-29] MEDS: OXcarbazepine 300 MG TABLET PO (09:07)
[2021-04-29] MEDS: ARIPiprazole 15 MG TABLET PO (09:07)
--- NOTE | 2021-04-29 10:44 | PC.NURSE ---
called and left message with mother's VM summarizing readiness for dc of client
== END 2021-04-29 12:42 | disposition home or self-care (01) ==
PROVIDERS: Physician Assistant; Emergency Provider Emergency Medicine Emergency Medical Services
DX: F31.81 Bipolar II disorder (principal); F63.81 Intermittent explosive disorder; F84.0 Autistic disorder; Z79.899 Other long term (current) drug therapy; Z20.822 Contact with and (suspected) exposure to COVID-19
CPT/HCPCS: 36415; 80307; 87635; 99283; 99285

== ENCOUNTER 2021-05-12 22:27 | Emergency (ER) | payer OTHER, SELFPAY ==
[2021-05-12 22:54] VITALS: BP 123/77; PULSE 98; RESP 16; TEMP 36.6; O2SAT 95; BMI 34.7
--- NOTE | 2021-05-13 00:50 | ED.EYEPROB ---
HPI - Eye Problem General Chief complaint: Eye Problems Stated complaint: ?pink eye Time Seen by Provider: 05/13/21 00:50 Source: patient and other Mode of arrival: ambulatory History of Present Illness HPI Narrative: 20-year-old male sent in from senior living for redness in bilateral eyes that started this morning, but left is noted to be greater than the right, and reports were that patient was sent home from the summer program for possible pinkeye. Patient denies any itchiness, discolored drainage from either eye, change in vision, or pain on eye movement. Related Data Home Medications Medication Instructions Recorded Confirmed aripiprazole 15 mg PO QAM 09/17/20 04/28/21 hydroxyzine HCl 25 mg PO BID PRN 09/17/20 04/28/21 oxcarbazepine 300 mg PO DAILY 09/17/20 04/28/21 prazosin 5 mg PO BEDTIME PRN 09/17/20 04/28/21 trazodone 150 mg PO BEDTIME PRN 09/17/20 04/28/21 oxcarbazepine 450 mg PO BEDTIME 12/05/20 04/28/21 Allergies Allergy/AdvReac Type Severity Reaction Status Date / Time apple AdvReac Severe DIARRHEA Verified 09/17/20 20:25 POTATO JUICE Allergy Intermediate RASH Uncoded 09/17/20 21:43 Review of Systems Review of Systems: Pertinent positives and negatives as stated in HPI 10 point review of systems is otherwise negative. PMFSH Past Medical History Source: nursing notes reviewed Medical History No known health problems Social History Social History Alcohol intake: never Advance Directives: No Physical Exam Vital Signs: Vital Signs: Last Vital Signs Temp 97.8 F 05/12/21 22:54 Pulse 98 05/12/21 22:54 Resp 16 05/12/21 22:54 BP 123/77 05/12/21 22:54 Pulse Ox 95 05/12/21 22:54 Body Mass Index 34.7 VITAL SIGNS: Reviewed. GENERAL: Well developed, well nourished, in no acute distress. HEAD: Normocephalic/atraumatic EYES: PERRLA, EOMI, bilateral conjunctival injection with cobblestoning noted, no evidence of mucopus purulence at discharge, no evidence of abscess at eye lash base EARS: Ext canals without abnormality NOSE: Nares patent bilateral OROPHARYNX: no oral lesions noted, posterior pharynx clear LUNGS: Normal breath sounds. No adventitious sounds or accessory muscle use. SpO2<95> CARDIOVASCULAR: Regular rate and rhythm without noted murmurs ABDOMEN: Soft, non-tender, non-distended with bowel sounds. SKIN: Inspection of the skin reveals no rashes NEUROLOGIC: Alert and oriented x 4. Course Course Course Narrative: 20-year-old male with history and clinical presentation consistent with allergic conjunctivitis and recommendations will be given for the use of [id number] eyedrops designed to reduce irritation and redness. Discharge Plan Discharge Clinical Impression: Allergic conjunctivitis Patient Disposition: Home, Self-Care Instructions: Conjunctivitis (ED) Additional Instructions: Recommend using [id number] Visine or generic brand allergy eyedrops as directed on the outside packaging for symptom relief of bilateral conjunctivitis. Return to the ER for acute worsening of symptoms. Prescriptions: No Action oxcarbazepine 300 mg tablet 300 mg PO DAILY RF: 0 prazosin 5 mg capsule 5 mg PO BEDTIME PRN (Reason: Sleep) RF: 0 trazodone 150 mg tablet 150 mg PO BEDTIME PRN (Reason: Sleep) RF: 0 hydroxyzine HCl 25 mg tablet 25 mg PO BID PRN (Reason: Anxiety) RF: 0 aripiprazole 15 mg tablet 15 mg PO QAM RF: 0 oxcarbazepine 300 mg Tablet 450 mg PO BEDTIME RF: 0 Referrals: Physician,None [Primary Care Provider] - 2 days
== END 2021-05-13 01:38 | disposition home or self-care (01) ==
PROVIDERS: Emergency Provider Student in an Organized Health Care Education/Training Program
DX: H10.10 Acute atopic conjunctivitis, unspecified eye (principal)
CPT/HCPCS: 99282; 99283

== ENCOUNTER 2021-06-01 11:51 | Emergency (ER) | payer OTHER, SELFPAY ==
[2021-06-01 12:11] VITALS: BP 131/89; PULSE 200; RESP 16; TEMP 36.7; O2SAT 99; BMI 27.0
--- NOTE | 2021-06-01 12:22 | PC.NURSE ---
at triage pt monitored with pulse oximeter to obtain HR. He was noted to have rate 260 via the monitor. pulse taken manually, too fast to count. EKG obtained, while pt was waiting for EKG his HR lowered to 113 and was regular and strong on palpation. EGG obtained
[2021-06-01 13:33] VITALS: BP 144/90; PULSE 89; RESP 16; O2SAT 95
--- NOTE | 2021-06-01 13:48 | ECG_ITS ---
Test Reason : CP Blood Pressure : / mmHG Vent. Rate : 100 BPM Atrial Rate : 100 BPM P-R Int : 152 ms QRS Dur : 092 ms QT Int : 352 ms P-R-T Axes : 052 120 029 degrees QTc Int : 454 ms Normal sinus rhythm Right axis deviation Abnormal ECG When compared with ECG of 13-JAN-2021 19:26, QRS axis Shifted right Referred By: Marcie Salazar Electronically Signed By:Brandon Tolliver
[2021-06-01] MEDS: 0.9 % Sodium Chloride 1,000 ML 999 ML IVCONT (14:02)
[2021-06-01 14:10] LABS: MANUAL DIFF FLAG NO
[2021-06-01 14:15] LABS: Basophils Percent Auto 0.3 % (0-2); Eosinophils Absolute Auto 0.2 X10*3/uL (0.0-0.4); Hematocrit 50.1 % (42-52); Hemoglobin 17.2 g/dl (14.0-18.0); Imm Gran Abs Auto 0.03 X10*3/uL (0.00-0.03); Imm Gran Pct Auto 0.3 % (0.0-0.4); Lymphocytes Percent Auto 9.9 % (20-40); Mean Corpuscular HGB Conc 34.3 g/dl (31.0-36.0); Mean Corpuscular Hemoglobin 28.8 pg (27.0-33.0); Mean Corpuscular Volume 83.9 fL (80-98); Mean Platelet Volume 11.2 fL (9.4-12.4); Monocytes Absolute Auto 0.6 X10*3/uL (0.1-1.2); Monocytes Percent Auto 5.6 % (2-11); Neutrophils Absolute Auto 8.6 X10*3/uL (2.0-8.3); Neutrophils Percent Auto 81.9 % (45-73); Platelet Count 211 X10*3/uL (160-400); Red Blood Count 5.97 X10*6/uL (4.60-5.80); White Blood Count 10.5 X10*3/uL (4.8-10.8)
[2021-06-01 14:27] LABS: COVID-19 Test Negative (Negative)
--- NOTE | 2021-06-01 14:28 | ED.ABDPAIN ---
HPI - Abdominal Pain General Chief Complaint: Abdominal Pain Stated Complaint: abd pain, diarrhea Time Seen by Provider: 06/01/21 13:47 Source: patient and family Mode of arrival: ambulatory Limitations: no limitations History of Present Illness HPI narrative: 20 y/o male with history of Autism who presents to the ED with 1 day history of nausea, vomiting, diarrhea and epigastric abdominal pain. He denies fever, chills, bloody diarrhea or bloody vomitus. No sick contacts or food borne illness exposure. No one at home is ill. He did not sleep well last night because he kept having to do to the bathroom to have diarrhea. He last vomited this morning. His abdominal pain is in the epigastric area and described as burning in nature. It radiates down toward his umbilicius. It comes and goes. MD elicited complaint: abdominal pain Pertinent past history: none Onset (ago): day(s) (1) Pain Consistency: intermittent Location: epigastric Severity: moderate Quality: stabbing Radiation: other (periumbilical) Migration to: no migration Exacerbating factors: eating Relieving factors: nothing Associated symptoms: nausea, vomiting and diarrhea Related Data Home Medications Medication Instructions Recorded Confirmed aripiprazole 15 mg tablet 15 mg PO QAM 09/17/20 04/28/21 hydroxyzine HCl 25 mg tablet 25 mg PO BID PRN 09/17/20 04/28/21 oxcarbazepine 300 mg tablet 300 mg PO DAILY 09/17/20 04/28/21 prazosin 5 mg capsule 5 mg PO BEDTIME PRN 09/17/20 04/28/21 trazodone 150 mg tablet 150 mg PO BEDTIME PRN 09/17/20 04/28/21 oxcarbazepine 300 mg tablet 450 mg PO BEDTIME 12/05/20 04/28/21 Previous Rx's Medication Instructions Recorded ondansetron 4 mg disintegrating 4 mg PO Q8H PRN #10 tab 06/01/21 tablet Allergies Allergy/AdvReac Type Severity Reaction Status Date / Time apple AdvReac Severe DIARRHEA Verified 06/01/21 12:11 POTATO JUICE Allergy Intermediate RASH Uncoded 09/17/20 21:43 Review of Systems Constitutional: Denies chills, Denies fever(s), Reports malaise and Denies weakness Eyes: Reports no additional eye complaints Reports system reviewed and no additional complaints, except as documented Cardiovascular: Denies Abdominal Distension, Reports chest pain, Reports Epigastric Pain, Denies rapid heart rate, Denies lightheadedness and Denies dyspnea Respiratory: Denies cough, Denies dyspnea and Denies wheezing Gastrointestinal: Reports abdominal pain, Denies melena, Reports bloating, Denies constipation, Reports GI cramping, Reports dyspepsia, Reports diarrhea, Reports nausea, Reports vomiting and Denies hematemesis Genitourinary: Denies dysuria Musculoskeletal: Reports myalgias Skin/Breast: Reports system reviewed and no additional complaints, except as docu Reports system reviewed and no additional complaints, except as documented and Denies weakness Endocrine: Reports no additional endocrine complaints Hematologic/Lymphatic: Reports no additional hematologic/lymphatic complaints Allergic/Immunologic: Reports no additional allergic/immunologic complaints and Denies wheezing Physical Exam Vital Signs: Vital Signs: Last Vital Signs Temp 98.1 F 06/01/21 12:11 Pulse 83 06/01/21 14:57 Resp 16 06/01/21 14:57 BP 136/85 06/01/21 14:57 Pulse Ox 97 06/01/21 14:57 Body Mass Index 27.0 Appearance: Alert. Oriented X3. No acute distress. Eyes: Pupils equal, round and reactive to light. ENT: Pharynx normal. Neck: Normal inspection. Neck supple. CVS: Normal heart rate and rhythm. Pulses normal. Respiratory: No respiratory distress. Breath sounds normal. Abdomen: Obese, soft with mild epigastric tenderness, no rebound or guarding. no RUQ or RLQ tenderness.. +BS x4 Skin: Skin warm and dry. Normal skin color. Normal skin turgor. No rashes. Extremities: No lower extremity edema. Neuro: Oriented X 3. No motor deficit. No sensory deficit. Course Course Course Narrative: 20 y/o male with history of Autism presenting with N/V/D and abdominal pain since last night. In triage his HR was documented as 200 ?error. When placed on the monitor and storage bin tender HR 80-90's. EKG ordered as well as basic labs, IVF and zofran. Reevaluation(s) Reevaluation #1: Labs are unremarkable. UA negative for infection. COVID negative. Patient feels improved. Given PO trial. Reevaluation #2: Tolerating PO well and feels much improved. Stable for d/c home. Discussed likely gastroenteritis, management and expected course. KATIANAN joshua sent to pharmacy. Stable for d/c home with supportive care. MDM - Abdominal Pain Lab Data Result diagrams: 06/01/21 14:01 06/01/21 14:01 Labs: Lab Results 06/01/21 06/01/21 06/01/21 Range/Units 14:01 14:01 14:01 WBC 10.5 (4.8-10.8) X10*3/uL RBC 5.97 H (4.60-5.80) X10*6/uL Hgb 17.2 (14.0-18.0) g/dl Hct 50.1 (42-52) % MCV 83.9 (80-98) fL MCH 28.8 (27.0-33.0) pg MCHC 34.3 (31.0-36.0) g/dl RDW 12.0 (11.0-16.0) % Plt Count 211 (160-400) X10*3/uL MPV 11.2 (9.4-12.4) fL Immature Gran % (Auto) 0.3 (0.0-0.4) % Neut % (Auto) 81.9 H (45-73) % Lymph % (Auto) 9.9 L (20-40) % [place] % (Auto) 5.6 (2-11) % Eos % (Auto) 2.0 (0-4) % Baso % (Auto) 0.3 (0-2) % Lymph # (Auto) 1.0 L (1.2-4.9) X10*3/uL [place] # (Auto) 0.6 (0.1-1.2) X10*3/uL Eos # (Auto) 0.2 (0.0-0.4) X10*3/uL Baso # (Auto) 0.0 (0.0-0.2) X10*3/uL Abs Immat Gran (auto) 0.03 (0.00-0.03) X10*3/uL Absolute Neuts (auto) 8.6 H (2.0-8.3) X10*3/uL Absolute Nucleated RBC 0.000 (0.0-0.012) X10*3/uL Nucleated RBC % (auto) 0.0 (0.0-0.2) /100WBC Sodium 139 (135-145) mmol/L Potassium 4.6 (3.3-5.1) mmol/L Chloride 108 (96-108) mmol/L Carbon Dioxide 24 (22-29) mmol/L Anion Gap 12 (12-20) BUN 13 (9-16) mg/dL Creatinine 0.87 (0.5-1.4) mg/dL Estim Creat Clear Calc 178.0 Estimated GFR > 60 Random Glucose 105 (60-115) mg/dL Calcium 9.5 D (8.4-10.2) mg/dL Magnesium 1.7 (1.6-2.6) mg/dL Total Bilirubin 0.4 (0.0-1.0) mg/dL Direct Bilirubin 0.2 (0.0-0.5) mg/dL AST 31 (5-37) U/L ALT 63 H (0-40) U/L Alkaline Phosphatase 85 (39-117) U/L Troponin I High Sens < 3.5 (<3.5-35.0) ng/L Total Protein 7.2 (6.5-8.0) g/dL Albumin 4.3 (3.5-5.0) g/dL Lipase (8-78) U/L Urine Color Urine Appearance Urine pH (5.0-8.0) Ur Specific [place] (1.005-1.025) Urine Protein (NEG-TRACE) MG/DL Urine Glucose (UA) (NEG) MG/DL Urine Ketones (NEG) MG/DL Urine Blood (NEG) Urine Nitrite (NEG) Ur Leukocyte Esterase (NEG) Urine Opiates Screen (Not Detect) Ur Barbiturates Screen (Not Detect) Ur Phencyclidine Scrn (Not Detect) Ur Amphetamines Screen (Not Detect) U Benzodiazepines Scrn (Not Detect) Urine Cocaine Screen (Not Detect) U Marijuana (THC) Screen (Not Detect) Ethyl Alcohol mg/dL COVID-19 (MARCIO) (Negative) COVID-19 Clin Com 06/01/21 06/01/21 06/01/21 Range/Units 14:01 14:01 14:06 WBC (4.8-10.8) X10*3/uL RBC (4.60-5.80) X10*6/uL Hgb (14.0-18.0) g/dl Hct (42-52) % MCV (80-98) fL MCH (27.0-33.0) pg MCHC (31.0-36.0) g/dl RDW (11.0-16.0) % Plt Count (160-400) X10*3/uL MPV (9.4-12.4) fL Immature Gran % (Auto) (0.0-0.4) % Neut % (Auto) (45-73) % Lymph % (Auto) (20-40) % [place] % (Auto) (2-11) % Eos % (Auto) (0-4) % Baso % (Auto) (0-2) % Lymph # (Auto) (1.2-4.9) X10*3/uL [place] # (Auto) (0.1-1.2) X10*3/uL Eos # (Auto) (0.0-0.4) X10*3/uL Baso # (Auto) (0.0-0.2) X10*3/uL Abs Immat Gran (auto) (0.00-0.03) X10*3/uL Absolute Neuts (auto) (2.0-8.3) X10*3/uL Absolute Nucleated RBC (0.0-0.012) X10*3/uL Nucleated RBC % (auto) (0.0-0.2) /100WBC Sodium (135-145) mmol/L Potassium (3.3-5.1) mmol/L Chloride (96-108) mmol/L Carbon Dioxide (22-29) mmol/L Anion Gap (12-20) BUN (9-16) mg/dL Creatinine (0.5-1.4) mg/dL Estim Creat Clear Calc Estimated GFR Random Glucose (60-115) mg/dL Calcium (8.4-10.2) mg/dL Magnesium (1.6-2.6) mg/dL Total Bilirubin (0.0-1.0) mg/dL Direct Bilirubin (0.0-0.5) mg/dL AST (5-37) U/L ALT (0-40) U/L Alkaline Phosphatase (39-117) U/L Troponin I High Sens (<3.5-35.0) ng/L Total Protein (6.5-8.0) g/dL Albumin (3.5-5.0) g/dL Lipase 20 (8-78) U/L Urine Color Urine Appearance Urine pH (5.0-8.0) Ur Specific [place] (1.005-1.025) Urine Protein (NEG-TRACE) MG/DL Urine Glucose (UA) (NEG) MG/DL Urine Ketones (NEG) MG/DL Urine Blood (NEG) Urine Nitrite (NEG) Ur Leukocyte Esterase (NEG) Urine Opiates Screen (Not Detect) Ur Barbiturates Screen (Not Detect) Ur Phencyclidine Scrn (Not Detect) Ur Amphetamines Screen (Not Detect) U Benzodiazepines Scrn (Not Detect) Urine Cocaine Screen (Not Detect) U Marijuana (THC) Screen (Not Detect) Ethyl Alcohol < 10 mg/dL COVID-19 (MARCIO) Negative (Negative) COVID-19 Clin Com See Note 06/01/21 06/01/21 Range/Units 15:01 15:01 WBC (4.8-10.8) X10*3/uL RBC (4.60-5.80) X10*6/uL Hgb (14.0-18.0) g/dl Hct (42-52) % MCV (80-98) fL MCH (27.0-33.0) pg MCHC (31.0-36.0) g/dl RDW (11.0-16.0) % Plt Count (160-400) X10*3/uL MPV (9.4-12.4) fL Immature Gran % (Auto) (0.0-0.4) % Neut % (Auto) (45-73) % Lymph % (Auto) (20-40) % [place] % (Auto) (2-11) % Eos % (Auto) (0-4) % Baso % (Auto) (0-2) % Lymph # (Auto) (1.2-4.9) X10*3/uL [place] # (Auto) (0.1-1.2) X10*3/uL Eos # (Auto) (0.0-0.4) X10*3/uL Baso # (Auto) (0.0-0.2) X10*3/uL Abs Immat Gran (auto) (0.00-0.03) X10*3/uL Absolute Neuts (auto) (2.0-8.3) X10*3/uL Absolute Nucleated RBC (0.0-0.012) X10*3/uL Nucleated RBC % (auto) (0.0-0.2) /100WBC Sodium (135-145) mmol/L Potassium (3.3-5.1) mmol/L Chloride (96-108) mmol/L Carbon Dioxide (22-29) mmol/L Anion Gap (12-20) BUN (9-16) mg/dL Creatinine (0.5-1.4) mg/dL Estim Creat Clear Calc Estimated GFR Random Glucose (60-115) mg/dL Calcium (8.4-10.2) mg/dL Magnesium (1.6-2.6) mg/dL Total Bilirubin (0.0-1.0) mg/dL Direct Bilirubin (0.0-0.5) mg/dL AST (5-37) U/L ALT (0-40) U/L Alkaline Phosphatase (39-117) U/L Troponin I High Sens (<3.5-35.0) ng/L Total Protein (6.5-8.0) g/dL Albumin (3.5-5.0) g/dL Lipase (8-78) U/L Urine Color YELLOW Urine Appearance CLEAR Urine pH 6.0 (5.0-8.0) Ur Specific [place] >= 1.030 H (1.005-1.025) Urine Protein TRACE (NEG-TRACE) MG/DL Urine Glucose (UA) NEG (NEG) MG/DL Urine Ketones NEG (NEG) MG/DL Urine Blood NEG (NEG) Urine Nitrite NEG (NEG) Ur Leukocyte Esterase NEG (NEG) Urine Opiates Screen Not Detected (Not Detect) Ur Barbiturates Screen Not Detected (Not Detect) Ur Phencyclidine Scrn Not Detected (Not Detect) Ur Amphetamines Screen Not Detected (Not Detect) U Benzodiazepines Scrn Not Detected (Not Detect) Urine Cocaine Screen Not Detected (Not Detect) U Marijuana (THC) Screen Not Detected (Not Detect) Ethyl Alcohol mg/dL COVID-19 (MARCIO) (Negative) COVID-19 Clin Com Critical Care Time Critical Care Time Critical Care Time: No Discharge Plan Discharge Clinical Impression: Gastroenteritis Patient Disposition: Home, Self-Care Instructions: Gastroenteritis (ED) Additional Instructions: Your lab workup today was unremarkable. Your COVID test was negative. Recommend taking the prescribed medication as needed for nausea. Recommend over the counter Pepto Bismol or Imodium as needed for upset stomach and diarrhea. Rest and stay hydrated. Stick to a bland diet while you are not feeling well. Follow up with your doctor as needed. If you develop new or worsening symptoms call 911 or come back to the ER for further evaluation. Prescriptions: New ondansetron 4 mg tablet,disintegrating 4 mg PO Q8H PRN (Reason: nausea and vomiting) Qty: 10 RF: 0 No Action oxcarbazepine 300 mg tablet 300 mg PO DAILY RF: 0 prazosin 5 mg capsule 5 mg PO BEDTIME PRN (Reason: Sleep) RF: 0 trazodone 150 mg tablet 150 mg PO BEDTIME PRN (Reason: Sleep) RF: 0 hydroxyzine HCl 25 mg tablet 25 mg PO BID PRN (Reason: Anxiety) RF: 0 aripiprazole 15 mg tablet 15 mg PO QAM RF: 0 oxcarbazepine 300 mg Tablet 450 mg PO BEDTIME RF: 0 PMFSH Past Medical History Medical History No known health problems Social History Social History Alcohol intake: never Advance Directives: No Advance Directives Information Provided: No
[2021-06-01 14:39] LABS: Ethanol < 10 mg/dL
[2021-06-01 14:41] LABS: Alanine Aminotransferase 63 U/L (0-40); Albumin Level 4.3 g/dL (3.5-5.0); Alkaline Phosphatase 85 U/L (39-117); Anion Gap 12 (12-20); Aspartate Amino Transferase 31 U/L (5-37); Bilirubin Direct 0.2 mg/dL (0.0-0.5); Bilirubin Total 0.4 mg/dL (0.0-1.0); Blood Urea Nitrogen 13 mg/dL (9-16); Calcium 9.5 mg/dL (8.4-10.2); Carbon Dioxide 24 mmol/L (22-29); Chloride 108 mmol/L (96-108); Estimated Glomerular Filt Rate > 60; Glucose Random 105 mg/dL (60-115); Lipase 20 U/L (8-78); Magnesium 1.7 mg/dL (1.6-2.6); Potassium 4.6 mmol/L (3.3-5.1); Sodium 139 mmol/L (135-145); Total Protein 7.2 g/dL (6.5-8.0)
[2021-06-01 14:44] LABS: Troponin-I High Sensitivity < 3.5 ng/L (<3.5-35.0)
[2021-06-01 14:57] VITALS: BP 136/85; PULSE 83; RESP 16; O2SAT 97
[2021-06-01 15:16] LABS: Glucose Urine UA NEG (NEG); Leukocyte Esterase Urine NEG (NEG); Nitrite Urine NEG (NEG); Specific Gravity - Urine >= 1.030 (1.005-1.025); Urine Blood NEG (NEG); Urine Ketones NEG (NEG); Urine Protein TRACE MG/DL (NEG-TRACE)
[2021-06-01 15:17] LABS: Appearance Urine CLEAR; Color Urine YELLOW
[2021-06-01 15:38] LABS: Amphetamine Screen Urine Not Detected (Not Detect); Barbiturates, Urine Not Detected (Not Detect); Benzodiazepines Screen Urine Not Detected (Not Detect); Cannabinoid Screen Urine Not Detected (Not Detect); Cocaine Screen Urine Not Detected (Not Detect); Opiate Screen Urine Not Detected (Not Detect); Phencyclidine Screen Urine Not Detected (Not Detect)
== END 2021-06-01 15:59 | disposition home or self-care (01) ==
PROVIDERS: Physician Assistant; Emergency Provider Emergency Medicine
DX: K52.9 Noninfective gastroenteritis and colitis, unspecified (principal); Z20.822 Contact with and (suspected) exposure to COVID-19; R11.2 Nausea with vomiting, unspecified; F84.0 Autistic disorder; Z79.899 Other long term (current) drug therapy
CPT/HCPCS: 36415; 80048; 80076; 80307; 81003; 82077; 83690; 83735; 84484; 85025; 87635; 93005; 96361; 96374; 99284; J2405

== ENCOUNTER 2021-06-12 19:12 | Emergency (ER) | payer OTHER, SELFPAY ==
--- NOTE | ~2021-06-12 | CT_ITS ---
EXAMINATION: CT HEAD WITHOUT CONTRAST CT CERVICAL SPINE WITHOUT CONTRAST CLINICAL INFORMATION: Syncope. COMPARISON: CT head and CT cervical spine September 17, 2020 TECHNIQUE: Imaging was performed from the skull base to vertex without intravenous administration of contrast. In addition, helical noncontrast CT imaging was acquired through the cervical spine and source images were reviewed along with axial reconstructions and sagittal and coronal MPRs. [This CT examination was performed using dose optimization techniques as appropriate, variously including the following: *Automated exposure control *Adjustment of mA and/or kV according to patient size (this includes techniques or standardized protocols for targeted exams where dose is matched to indication/reason for exam; i.e. extremities or head) *Use of iterative reconstruction technique] DLP: 1587 mGy-cm FINDINGS: HEAD: No intracranial mass, hemorrhage, or midline shift is visualized. The ventricles and sulci are proportional. No extra-axial collections are identified. The paranasal sinuses and mastoid air cells are well aerated. CERVICAL SPINE: There is no evidence of acute cervical spine fracture. Vertebral bodies remain normal in height. Cervical vertebrae have normal alignment. Cervical disc heights are normal. The facet joints are normal. No pre- or paravertebral soft tissue abnormality is identified. Limited assessment of the lung apices is unremarkable. CT/CT cervical spine wo con IMPRESSION: 1. No acute intracranial pathology. 2. No CT evidence of acute cervical spine fracture or traumatic subluxation
--- NOTE | ~2021-06-12 | CT_ITS ---
EXAMINATION: CT HEAD WITHOUT CONTRAST CT CERVICAL SPINE WITHOUT CONTRAST CLINICAL INFORMATION: Syncope. COMPARISON: CT head and CT cervical spine September 17, 2020 TECHNIQUE: Imaging was performed from the skull base to vertex without intravenous administration of contrast. In addition, helical noncontrast CT imaging was acquired through the cervical spine and source images were reviewed along with axial reconstructions and sagittal and coronal MPRs. [This CT examination was performed using dose optimization techniques as appropriate, variously including the following: *Automated exposure control *Adjustment of mA and/or kV according to patient size (this includes techniques or standardized protocols for targeted exams where dose is matched to indication/reason for exam; i.e. extremities or head) *Use of iterative reconstruction technique] DLP: 1587 mGy-cm FINDINGS: HEAD: No intracranial mass, hemorrhage, or midline shift is visualized. The ventricles and sulci are proportional. No extra-axial collections are identified. The paranasal sinuses and mastoid air cells are well aerated. CERVICAL SPINE: There is no evidence of acute cervical spine fracture. Vertebral bodies remain normal in height. Cervical vertebrae have normal alignment. Cervical disc heights are normal. The facet joints are normal. No pre- or paravertebral soft tissue abnormality is identified. Limited assessment of the lung apices is unremarkable. CT/CT head/brain wo con IMPRESSION: 1. No acute intracranial pathology. 2. No CT evidence of acute cervical spine fracture or traumatic subluxation
[2021-06-12 19:30] VITALS: BP 138/80; BP 147/85; PULSE 70; PULSE 71; RESP 18; TEMP 36.7; O2SAT 96; O2SAT 98; BMI 41.0
[2021-06-12 19:34] VITALS: O2SAT 96
--- NOTE | 2021-06-12 19:40 | ECG_ITS ---
Test Reason : SYNCOPEE Blood Pressure : / mmHG Vent. Rate : 068 BPM Atrial Rate : 068 BPM P-R Int : 164 ms QRS Dur : 098 ms QT Int : 392 ms P-R-T Axes : 023 073 020 degrees QTc Int : 416 ms Normal sinus rhythm Normal ECG When compared with ECG of 01-JUN-2021 12:22, QRS axis Shifted left Referred By: Joyce Sims Electronically Signed By:MARK COSTA
--- NOTE | 2021-06-12 20:21 | ED_ITS ---
HPI - Syncope General Chief Complaint: Syncope Stated Complaint: SYNCOPE Time Seen by Provider: 06/12/21 19:40 Source: patient and family (Dad) Mode of arrival: EMS Limitations: other (autism, cognitive delay) History of Present Illness HPI narrative: 20-year-old male who is autistic with a cognitive delay presents for syncope that occurred just prior to arrival. Patient states his body was shaking when he was lying in bed, he stood up to walk and he passed out. He is here with his dad today at bedside, dad states that patient may have been unconscious for as long as 15 minutes. Dad observed patient breathing, but not arousable until EMS arrived, and he was able to be aroused. Dad states pt is at his baseline now. Dad reports patient had diarrhea yesterday, and did not eat any food today. EMS did point of care glucose which was 65, gave patient glucose. MD complaint: loss of consciousness Onset (ago): hour(s) (2) Duration of episode: 10 -: minutes(s) Witnessed: Yes - by Bystander Context: getting out of bed, standing up and recent illness Injuries sustained associated with event: neck Current symptoms: back to baseline Treatments prior to arrival: glucose Related Data Home Medications Medication Instructions Recorded Confirmed aripiprazole 15 mg tablet 15 mg PO QAM 09/17/20 04/28/21 hydroxyzine HCl 25 mg tablet 25 mg PO BID PRN 09/17/20 04/28/21 oxcarbazepine 300 mg tablet 300 mg PO DAILY 09/17/20 04/28/21 prazosin 5 mg capsule 5 mg PO BEDTIME PRN 09/17/20 04/28/21 trazodone 150 mg tablet 150 mg PO BEDTIME PRN 09/17/20 04/28/21 oxcarbazepine 300 mg tablet 450 mg PO BEDTIME 12/05/20 04/28/21 Previous Rx's Medication Instructions Recorded ondansetron 4 mg disintegrating 4 mg PO Q8H PRN #10 tab 06/01/21 tablet Allergies Allergy/AdvReac Type Severity Reaction Status Date / Time apple AdvReac Severe DIARRHEA Verified 06/01/21 12:11 POTATO JUICE Allergy Intermediate RASH Uncoded 09/17/20 21:43 Review of Systems Constitutional: Constitutional: Reports anorexia, Denies chills, Denies fatigue, Denies fever(s), Reports headache(s), Denies malaise and Denies weakness Eyes: Eyes: Denies blurry vision, Denies change in vision, Denies diplopia, Denies loss of vision and Denies spots in vision ENT: Reports dizziness, Denies otalgia, Reports headache(s), Reports neck pain and Denies sore throat Cardiovascular: Cardiovascular: Denies chest pain, Reports syncope, Denies leg edema, Reports Loss of Consciousness, Denies palpitations and Denies dyspnea Respiratory: Respiratory: Denies chest congestion, Denies cough and Denies d yspnea Gastrointestinal: Gastrointestinal: Denies abdominal pain, Denies hematochezia, Denies constipation, Reports diarrhea (yesterday) and Denies vomiting Musculoskeletal: Musculoskeletal: Denies back pain and Reports neck pain Integumentary/Breasts: Skin/Breast: Denies rash Neurologic: Denies behavioral changes, Reports dizziness, Reports syncope, Reports headache(s), Denies focal weakness, Denies loss of vision and Denies weakness Psychiatric: Psychiatric: Denies behavioral changes Endocrine: Endocrine: Denies fatigue and Denies palpitations [facility] Past Medical History Medical History (Updated 06/12/21 @ 21:09 by VIVI Munroe) Intellectual disability Syncope Social History Social History Alcohol intake: never Patient Tobacco Use Status: Never used Tobacco Use of substances other than those prescribed or required for medical reasons: No Advance Directives: No Advance Directives Information Provided: No Physical Exam Vital Signs: Vital Signs: Last Vital Signs Temp 98.1 F 06/12/21 19:30 Pulse 71 06/12/21 19:30 Resp 18 06/12/21 19:30 BP 147/85 H 06/12/21 19:30 Pulse Ox 96 06/12/21 19:34 Body Mass Index 41.0 Const: Other: Patient neurological baseline per dad. Dad states patient does not usually no what month it is General: comfortable, no acute distress, alert and awake Nutritional Appearance: overweight Orientation/consciousness: oriented to person and oriented to place Limitations: no limitations HENMT: Head: Yes normal to inspection, Yes normocephalic and Yes atraumatic Ears: hearing grossly normal bilaterally, TM's normal bilaterally and EAC's normal General nose exam: Normal external nose present Face and sinus: Yes normal facial exam Eyes: Conjunctivae: conjunctivae normal Pupils: Equal, round and reactive pupils present EOM: EOMs intact bilaterally Neck: Neck: Yes full ROM, Yes no lymphadenopathy and Yes supple Resp: Effort & Inspection: normal respiratory effort and able to speak in complete sentences Auscultation: clear to auscultation bilaterally, no crackles, no rales, no rhonchi and no wheezes Cardio: Rate: regular rate Rhythm: regular rhythm Heart sounds: S1 normal heart sound present and S2 normal heart sound present GI: Inspection: Yes normal to inspection Palpation (GI): Soft to palpation, nontender, no guarding and not rigid Percussion: Yes normal to percussion Auscultation: normal bowel sounds Skin: General skin exam: no rashes or lesions noted Neuro: General: oriented to person, oriented to place and Unable to assess gait Cranial nerves: Yes Equal, round and reactive pupils present, Yes Nystagmus not present, Yes Normal facial strength present, Yes Midline tongue present and Yes Ability to bilaterally elevate shoulders present Gait exam (Neuro): Unable to assess gait Motor exam (neuro): 5/5 motor strength present throughout and Pronator motor function not present Coordination: [id number] test normal Pupils: Normal pupillary reactivity/response: bilateral Extrem: General: Yes normal to inspection and Yes full ROM Psych: Appearance: disheveled Attitude: cooperative Course Course Course Narrative: 20-year-old male here with his father for syncopal episode that occurred just prior to arrival. Patient got up out of bed to walk, fell and struck his head, and was unconscious for as much as possibly 15 minutes. Patient now has a headache, and neck pain. Patient reports not eating today, point of clear blood glucose after given glucose by EMS here is 94. EKG shows normal sinus. On exam, patient is autistic and has some difficulty following commands, speech is hard to understand, dad says this is patient's baseline. Patient is grossly neurologically intact. Will get labs, CT head and neck. Patient is on trileptal; however, dad states that patient does not have a seizure history and is not followed by Neurology Clarified with dad, who called mom and she states that patient is on Trileptal for his bipolar Siogn[facility] pt out to Marcie Salazar PA-C MDM - Syncope Differential Diagnosis Differential diagnosis: Likely syncope due to orthostatic hypotension, vasovagal syncope and dehydration Lab Data Result diagrams: 06/12/21 20:35 06/12/21 20:35 Labs: Lab Results 06/12/21 06/12/21 Range/Units 20:35 20:36 WBC 6.8 (4.8-10.8) X10*3/uL RBC 5.51 (4.60-5.80) X10*6/uL Hgb 16.0 (14.0-18.0) g/dl Hct 46.1 (42-52) % MCV 83.7 (80-98) fL MCH 29.0 (27.0-33.0) pg MCHC 34.7 (31.0-36.0) g/dl RDW 11.9 (11.0-16.0) % Plt Count 179 (160-400) X10*3/uL MPV 10.9 (9.4-12.4) fL Immature Gran % (Auto) 0.4 (0.0-0.4) % Neut % (Auto) 67.7 (45-73) % Lymph % (Auto) 20.5 (20-40) % [place] % (Auto) 7.0 (2-11) % Eos % (Auto) 3.7 (0-4) % Baso % (Auto) 0.7 (0-2) % Lymph # (Auto) 1.4 (1.2-4.9) X10*3/uL [place] # (Auto) 0.5 (0.1-1.2) X10*3/uL Eos # (Auto) 0.3 (0.0-0.4) X10*3/uL Baso # (Auto) 0.1 (0.0-0.2) X10*3/uL Abs Immat Gran (auto) 0.03 (0.00-0.03) X10*3/uL Absolute Neuts (auto) 4.6 (2.0-8.3) X10*3/uL Absolute Nucleated RBC 0.000 (0.0-0.012) X10*3/uL Nucleated RBC % (auto) 0.0 (0.0-0.2) /100WBC POC Glucose 94 (60-115) mg/dL ECG Data Interpretation: EKG shows normal sinus at a rate of 68, SD interval 164, QRS 968, QTC 416. [place] is normal. No ST elevations or depressions, no T-wave flattening or inversions. Discharge Plan Discharge Clinical Impression: Syncope and collapse Prescriptions: No Action ondansetron 4 mg tablet,disintegrating 4 mg PO Q8H PRN (Reason: nausea and vomiting) Qty: 10 RF: 0 oxcarbazepine 300 mg tablet 300 mg PO DAILY RF: 0 prazosin 5 mg capsule 5 mg PO BEDTIME PRN (Reason: Sleep) RF: 0 trazodone 150 mg tablet 150 mg PO BEDTIME PRN (Reason: Sleep) RF: 0 hydroxyzine HCl 25 mg tablet 25 mg PO BID PRN (Reason: Anxiety) RF: 0 aripiprazole 15 mg tablet 15 mg PO QAM RF: 0 oxcarbazepine 300 mg Tablet 450 mg PO BEDTIME RF: 0
[2021-06-12 20:40] LABS: MANUAL DIFF FLAG NO
[2021-06-12 20:40] LABS: Glucose, Whole Blood 94 mg/dL (60-115)
[2021-06-12 20:41] LABS: Basophils Absolute Auto 0.1 X10*3/uL (0.0-0.2); Basophils Percent Auto 0.7 % (0-2); Eosinophils Absolute Auto 0.3 X10*3/uL (0.0-0.4); Eosinophils Percent Auto 3.7 % (0-4); Hematocrit 46.1 % (42-52); Imm Gran Abs Auto 0.03 X10*3/uL (0.00-0.03); Imm Gran Pct Auto 0.4 % (0.0-0.4); Lymphocytes Absolute Auto 1.4 X10*3/uL (1.2-4.9); Lymphocytes Percent Auto 20.5 % (20-40); Mean Corpuscular HGB Conc 34.7 g/dl (31.0-36.0); Mean Corpuscular Volume 83.7 fL (80-98); Mean Platelet Volume 10.9 fL (9.4-12.4); Monocytes Absolute Auto 0.5 X10*3/uL (0.1-1.2); Neutrophils Absolute Auto 4.6 X10*3/uL (2.0-8.3); Neutrophils Percent Auto 67.7 % (45-73); Platelet Count 179 X10*3/uL (160-400); Red Blood Count 5.51 X10*6/uL (4.60-5.80); Red Cell Distribution Width 11.9 % (11.0-16.0); White Blood Count 6.8 X10*3/uL (4.8-10.8)
--- NOTE | 2021-06-12 20:41 | PC.NURSE ---
patient a&ox2, monitor worker nsr, vss, poc 94, labs drawn, covid swab performed, father at bedside, will continue to monitor.
[2021-06-12] MEDS: 0.9 % Sodium Chloride 1,000 ML 999 ML IV (20:42)
--- NOTE | 2021-06-12 21:41 | PC.NURSE ---
pt to ct scan
[2021-06-12 21:55] LABS: Alanine Aminotransferase 35 U/L (0-40); Alkaline Phosphatase 68 U/L (39-117); Anion Gap 12 (12-20); Aspartate Amino Transferase 15 U/L (5-37); Bilirubin Total 0.5 mg/dL (0.0-1.0); Blood Urea Nitrogen 11 mg/dL (9-16); Calcium 8.6 mg/dL (8.4-10.2); Carbon Dioxide 24 mmol/L (22-29); Chloride 108 mmol/L (96-108); Creatinine Clr Calc Pharmacy 185.9; Estimated Glomerular Filt Rate > 60; Glucose Random 82 mg/dL (60-115); Potassium 3.9 mmol/L (3.3-5.1); Sodium 140 mmol/L (135-145); Total Protein 6.7 g/dL (6.5-8.0)
[2021-06-12 21:59] LABS: Influenza A PCR NEGATIVE (Negative); Influenza B PCR NEGATIVE (Negative); Resp Syncy Virus RNA Qual PCR NEGATIVE (Negative); SARS COV2 PCR INHOUSE NEGATIVE (Negative)
[2021-06-12 22:00] VITALS: BP 123/65; PULSE 69; RESP 16; TEMP 36.6; O2SAT 99
[2021-06-12 23:38] VITALS: BP 133/86; BP 134/68; PULSE 70; PULSE 83
[2021-06-12 23:39] VITALS: BP 142/78; PULSE 91
[2021-06-12 23:41] VITALS: BP 142/78; PULSE 77; RESP 16; TEMP 36.6; O2SAT 99
[2021-06-17 01:36] LABS: Oxcarbazepine 12.1 mcg/mL (8.0-35.0)
== END 2021-06-13 00:14 | disposition home or self-care (01) ==
PROVIDERS: Physician Assistant; Emergency Provider Emergency Medicine
DX: R55 Syncope and collapse (principal); M54.2 Cervicalgia; R51.9 Headache, unspecified; Z79.899 Other long term (current) drug therapy; Z20.822 Contact with and (suspected) exposure to COVID-19
CPT/HCPCS: 0241U; 36415; 70450; 72125; 80053; 80339; 82947; 85025; 93005; 96360; 99284; 99285

== ENCOUNTER 2021-07-07 13:01 | Emergency (ER) | payer OTHER, SELFPAY ==
--- NOTE | ~2021-07-07 | XR_ITS ---
EXAMINATION: XR CHEST CLINICAL INFORMATION: Chest pain COMPARISON: Chest radiographs 01/13/2021, 01/10/2021 TECHNIQUE: 2 views of the chest were obtained. FINDINGS: The lungs are clear. There is no airspace consolidation, groundglass opacity, or effusion. The costophrenic sulci are well-defined. There is no pneumothorax or pneumomediastinum. The heart is normal in size. The hilar and mediastinal contours and visualized bony structures are unremarkable. XR/XR chest 2V IMPRESSION: Unremarkable examination.
--- NOTE | 2021-07-07 13:18 | ECG_ITS ---
Test Reason : CHEST PAIN Blood Pressure : / mmHG Vent. Rate : 094 BPM Atrial Rate : 094 BPM P-R Int : 160 ms QRS Dur : 092 ms QT Int : 346 ms P-R-T Axes : 040 055 023 degrees QTc Int : 432 ms Normal sinus rhythm Normal ECG When compared with ECG of 12-JUN-2021 19:54, No significant change was found Referred By: Generic ED Physician Electronically Signed By:MARK COSTA
[2021-07-07 13:21] VITALS: BP 122/70; BP 134/85; PULSE 115; PULSE 98; RESP 16; TEMP 36.6; O2SAT 96; BMI 32.3
--- NOTE | 2021-07-07 13:33 | ED_ITS ---
HPI - Chest Pain General Chief Complaint: Chest Pain Stated Complaint: PAIN WITH DEEP BREATH S/P PANIC ATTACK Time Seen by Provider: 07/07/21 13:20 Source: family and EMS Mode of arrival: EMS Limitations: no limitations History of Present Illness HPI narrative: 20-year-old male with a past medical history of autism, bipolar, anxiety, depression, panic attacks with complaints of some chest discomfort, shortness of breath and cough after eating something. Patient tells me he was eating chicken nuggets and [place] fries and then started to have some chest pain. Chest pain is worsened with palpation. He also reports some shortness of breath after this started with some coughing. He does not feel like anything is stuck. He was able to drink some water prior to arrival with no nausea, vomiting, or abdominal pain. Per dad patient has had similar episodes in the past which are related to his anxiety. Patient denies anxiety, depression, suicidal thoughts. On arrival he is telling me that he is overall feeling improved but still has some mild chest discomfort. Related Data Home Medications Medication Instructions Recorded Confirmed aripiprazole 15 mg tablet 15 mg PO QAM 09/17/20 04/28/21 hydroxyzine HCl 25 mg tablet 25 mg PO BID PRN 09/17/20 04/28/21 oxcarbazepine 300 mg tablet 300 mg PO DAILY 09/17/20 04/28/21 prazosin 5 mg capsule 5 mg PO BEDTIME PRN 09/17/20 04/28/21 trazodone 150 mg tablet 150 mg PO BEDTIME PRN 09/17/20 04/28/21 oxcarbazepine 300 mg tablet 450 mg PO BEDTIME 12/05/20 04/28/21 Previous Rx's Medication Instructions Recorded ondansetron 4 mg disintegrating 4 mg PO Q8H PRN #10 tab 06/01/21 tablet Allergies Allergy/AdvReac Type Severity Reaction Status Date / Time apple AdvReac Severe DIARRHEA Verified 06/01/21 12:11 POTATO JUICE Allergy Intermediate RASH Uncoded 09/17/20 21:43 Review of Systems Review of Systems: Yes all other systems are reviewed and are negative Constitutional: Constitutional: Reports no additional constitutional complaints, Denies body ache(s), Denies chills, Denies fever(s), Denies headache(s) and Denies weakness Eyes: Eyes: Reports no additional eye complaints and Denies change in vision ENT: Reports system reviewed and no additional complaints, except as documented, Denies dizziness, Denies headache(s), Denies nasal congestion, Denies nasal discharge and Denies neck pain Cardiovascular: Cardiovascular: Reports no additional cardiovascular complaints, Reports chest pain, Denies leg edema and Reports dyspnea Respiratory: Respiratory: Reports no additional respiratory complaints, Reports cough and Reports dyspnea Gastrointestinal: Gastrointestinal: Reports no additional gastrointestinal complaints, Denies abdominal pain, Denies diarrhea, Denies nausea and Denies vomiting Genitourinary: Genitourinary: Denies urinary incontinence Musculoskeletal: Musculoskeletal: Reports no additional musculoskeletal complaints, Denies back pain, Denies arthralgias, Denies joint swelling, Denies neck pain, Denies numbness and Denies tingling Integumentary/Breasts: Skin/Breast: Reports system reviewed and no additional complaints, except as docu and Denies rash Neurologic: Reports system reviewed and no additional complaints, except as documented, Denies Abnormal speech present, Denies dizziness, Denies headache(s), Denies numbness, Denies tingling and Denies weakness [facility] Past Medical History Attestation statement: The following information was validated with the patient. Source: old records reviewed and nursing notes reviewed Medical History Intellectual disability Syncope Social History Social History Alcohol intake: never Patient Tobacco Use Status: Never used Tobacco Advance Directives: No Physical Exam Vital Signs: Vital Signs: Last Vital Signs Temp 98.3 F 07/07/21 14:45 Pulse 98 07/07/21 14:45 Resp 14 07/07/21 14:45 BP 139/74 07/07/21 14:45 Pulse Ox 95 07/07/21 14:45 Body Mass Index 32.3 Const: General: cooperative, healthy appearing, comfortable and no acute distress Orientation/consciousness: patient oriented x3 Limitations: no limitations HENMT: Head: Yes normal to inspection Ears: hearing grossly normal bilaterally and TM's normal bilaterally General nose exam: Normal external nose present Face and sinus: Yes normal facial exam Mouth: Normal oral and palatal mucosa present Throat: Yes posterior oropharynx normal, Yes tonsils normal and Yes uvula midline Eyes: General: appearance normal, both eyes and all related structures Pupils: Equal, round and reactive pupils present Neck: Neck: Yes normal visual inspection Chest: Chest palpation & inspection: normal inspection of the chest and tenderness (Mild tenderness to central chest) Resp: Other: No wheezing or stridor Effort & Inspection: normal respiratory effort Auscultation: clear to auscultation bilaterally Cardio: Rate: regular rate Rhythm: regular rhythm Peripheral pulses: Peripheral pulses 2+ throughout GI: Inspection: Yes normal to inspection Palpation (GI): Soft to palpation and nontender Auscultation: normal bowel sounds Back/Spine/Pelvis: Thoracic/Lumbar Spine: thoracic and lumbar spine normal to inspection Skin: General skin exam: no rashes or lesions noted Neuro: General: patient oriented x3, no focal motor deficits and normal sensation to monofilament Cranial nerves: Yes Equal, round and reactive pupils present Cognition (Neuro): normal cognition Speech: No Abnormal spe ech present Gait exam (Neuro): Normal gait present Motor exam (neuro): 5/5 motor strength present throughout Extrem: General: Yes normal to inspection Course Course Course Narrative: 20-year-old male with past medical history of autism, panic attacks, anxiety, bipolar disease here with complaints of some chest discomfort which began after eating chicken nuggets and [place] fries with associated short ness of breath and cough. On arrival the patient tells me all his symptoms are resolved exception of some mild chest discomfort which is worsened with palpation. Dad reports similar episodes in the past related to anxiety. He denies any history of choking or difficulty swallowing. The patient was able to drink water prior to arrival and is drinking bárbara srinivas during my exam with no vomiting or drooling. He has no stridor or wheezing on exam. Will chest chest x-ray, EKG 1454-EKG and chest x-ray unremarkable. Patient is feeling improved when I re- evaluated him. Denies any pain. He drank 8 oz of bárbara srinivas with no difficulty. ?reflux vs anxiety. Discussed with father was at the bedside. Reviewed worrisome signs and symptoms when to return to the emergency department. Comfortable discharge home. MDM - Chest Pain MDM Narrative Medical decision making narrative: Anxiety, food impaction, GERD Medical Records Data Attestation: I reviewed the patient's medical records. Lab Data Attestation: I reviewed the patient's lab results. Imaging Data Chest x-ray: Attestation: I personally reviewed and interpreted this imaging study as follows: Radiologist's impression: EXAMINATION: XR CHEST CLINICAL INFORMATION: Chest pain COMPARISON: Chest radiographs 01/13/2021, 01/10/2021 TECHNIQUE: 2 views of the chest were obtained. FINDINGS: The lungs are clear. There is no airspace consolidation, groundglass opacity, or effusion. The costophrenic sulci are well-defined. There is no pneumothorax or pneumomediastinum. The heart is normal in size. The hilar and mediastinal contours and visualized bony structures are unremarkable. XR/XR chest 2V IMPRESSION: Unremarkable examination. ECG Data ECG #1: Attestation: I personally reviewed and interpreted this ECG as follows: ECG interpretation date: 07/07/21 ECG interpretation time: 11:40 Interpretation: Normal sinus rhythm with a rate of 94, normal MN, normal QRS, normal QT Discharge Plan Discharge Clinical Impression: Atypical chest pain Patient Disposition: Home, Self-Care Instructions: Chest Wall Pain (ED) Additional Instructions: EKG and chest x-ray with normal Prescriptions: No Action ondansetron 4 mg tablet,disintegrating 4 mg PO Q8H PRN (Reason: nausea and vomiting) Qty: 10 RF: 0 oxcarbazepine 300 mg tablet 300 mg PO DAILY RF: 0 prazosin 5 mg capsule 5 mg PO BEDTIME PRN (Reason: Sleep) RF: 0 trazodone 150 mg tablet 150 mg PO BEDTIME PRN (Reason: Sleep) RF: 0 hydroxyzine HCl 25 mg tablet 25 mg PO BID PRN (Reason: Anxiety) RF: 0 aripiprazole 15 mg tablet 15 mg PO QAM RF: 0 oxcarbazepine 300 mg Tablet 450 mg PO BEDTIME RF: 0 Referrals: Physician,None [Primary Care Provider] - 2 days
[2021-07-07 14:45] VITALS: BP 139/74; PULSE 98; RESP 14; TEMP 36.8; O2SAT 95
== END 2021-07-07 15:02 | disposition home or self-care (01) ==
PROVIDERS: Emergency Provider Emergency Medicine
DX: R07.89 Other chest pain (principal); F84.0 Autistic disorder; Z79.899 Other long term (current) drug therapy
CPT/HCPCS: 71046; 93005; 99283; 99284

== ENCOUNTER 2021-08-12 11:44 | Emergency (ER) | payer OTHER, SELFPAY ==
--- NOTE | ~2021-08-12 | CT_ITS ---
EXAMINATION: CT ANKLE WITHOUT CONTRAST, RIGHT CLINICAL INFORMATION: Pain. Evaluate for a fracture. COMPARISON: Right ankle and foot radiographs done earlier the same day. TECHNIQUE: Contiguous axial CT images of the right ankle were obtained without contrast. Multiplanar reformats were provided and reviewed. This CT examination was performed using dose optimization techniques as appropriate, variously including the following: *Automated exposure control *Adjustment of mA and/or kV according to patient size (this includes techniques or standardized protocols for targeted exams where dose is matched to indication/reason for exam; i.e. extremities or head) *Use of iterative reconstruction technique DOSE: 168 mGy-cm. FINDINGS: No acute fracture. The linear lucency seen on the recent radiographs correspond to a vascular channel along the medial aspect of the talus. No dislocation. The ankle mortise is maintained. Tiny tibiotalar marginal osteophytes. Small bone islands. No lytic osseous lesion. Mild soft tissue stranding/edema adjacent to the deltoid ligament, likely representing acute ligament sprain. The visualized flexor and extensor tendons are grossly intact, however, evaluation is limited on CT. No abnormal soft tissue mass or fluid collection. CT/CT ankle RT wo con IMPRESSION: 1. No acute fracture. Previously seen cortical lucency on the recent radiographs correspond to a vascular channel along the medial aspect of the talus. 2. Stranding adjacent to the deltoid ligament, consistent with an acute ligament sprain.
--- NOTE | ~2021-08-12 | XR_ITS ---
EXAMINATION: XR ANKLE, RIGHT XR FOOT, RIGHT CLINICAL INFORMATION: Fall. COMPARISON: Right lower leg radiographs dated 11/08/2015 TECHNIQUE: AP, oblique, and lateral views of the right ankle and foot. FINDINGS: Possible nondisplaced avulsion fracture through the medial aspect of the talus. Medial overlying soft tissue swelling. No dislocation. The ankle mortise is maintained. No joint space narrowing or marginal osteophytes. No osseous erosion. XR/XR ankle RT min 3V IMPRESSION: Possible nondisplaced avulsion fracture of the medial aspect of the talus with medial soft tissue swelling.
--- NOTE | ~2021-08-12 | XR_ITS ---
EXAMINATION: XR ANKLE, RIGHT XR FOOT, RIGHT CLINICAL INFORMATION: Fall. COMPARISON: Right lower leg radiographs dated 11/08/2015 TECHNIQUE: AP, oblique, and lateral views of the right ankle and foot. FINDINGS: Possible nondisplaced avulsion fracture through the medial aspect of the talus. Medial overlying soft tissue swelling. No dislocation. The ankle mortise is maintained. No joint space narrowing or marginal osteophytes. No osseous erosion. XR/XR foot RT min 3V IMPRESSION: Possible nondisplaced avulsion fracture of the medial aspect of the talus with medial soft tissue swelling.
[2021-08-12 12:19] VITALS: BP 130/80; PULSE 78; RESP 18; TEMP 36.7; O2SAT 96; BMI 28.8
[2021-08-12] MEDS: Acetaminophen 325 MG TABLET 650 MG PO (12:23)
--- NOTE | 2021-08-12 14:35 | ED.LOWEXIN ---
HPI - Extremity Injury (Lower) General Chief Complaint: Extremity Injury, Lower Stated Complaint: rt ankle injury Time Seen by Provider: 08/12/21 13:44 History of Present Illness HPI Narrative: Patient is a 20-year-old male presented today with having pain to the right ankle. Patient twisted the ankle complaining of pain c/o localized to the area. There is no fever no chills. No nausea no vomiting. No systemic complaints. No head injury. Patient is from home. Related Data Home Medications Medication Instructions Recorded Confirmed aripiprazole 15 mg tablet 15 mg PO QAM 09/17/20 04/28/21 hydroxyzine HCl 25 mg tablet 25 mg PO BID PRN 09/17/20 04/28/21 oxcarbazepine 300 mg tablet 300 mg PO DAILY 09/17/20 04/28/21 prazosin 5 mg capsule 5 mg PO BEDTIME PRN 09/17/20 04/28/21 trazodone 150 mg tablet 150 mg PO BEDTIME PRN 09/17/20 04/28/21 oxcarbazepine 300 mg tablet 450 mg PO BEDTIME 12/05/20 04/28/21 Previous Rx's Medication Instructions Recorded ondansetron 4 mg disintegrating 4 mg PO Q8H PRN #10 tab 06/01/21 tablet ibuprofen 400 mg tablet 400 mg PO Q6H PRN #20 tab 08/12/21 Allergies Allergy/AdvReac Type Severity Reaction Status Date / Time apple AdvReac Severe DIARRHEA Verified 08/12/21 12:18 POTATO JUICE Allergy Intermediate RASH Uncoded 09/17/20 21:43 Review of Systems Review of Systems: No fever no chills no systemic complaints Positive pain to the right ankle PMFSH Past Medical History Medical History Intellectual disability Syncope Social History Social History Alcohol intake: never Patient Tobacco Use Status: Never used Tobacco Advance Directives: No Physical Exam Vital Signs: Vital Signs: Last Vital Signs Temp 98.1 F 08/12/21 12:19 Pulse 78 08/12/21 12:19 Resp 18 08/12/21 12:19 BP 130/80 08/12/21 12:19 Pulse Ox 96 08/12/21 12:19 Body Mass Index 28.8 Appearance: Alert. Oriented X3. No acute distress. Eyes: Pupils equal, round and reactive to light. ENT: Pharynx normal. Neck: Normal inspection. Neck supple. No lymph nodes noted. No crepitus CVS: Normal heart rate and rhythm. Pulses normal. Normal S1 and S2 Respiratory: No respiratory distress. Breath sounds normal. No Wheezing. No rales Abdomen: Soft and nontender. No rigidity. No distention. good BS x4 Skin: Skin warm and dry. Normal skin color. Normal skin turgor. Extremities: No lower extremity edema. Neurovascular intact to all extremities. No Lacerations. No Rash. Positive swelling to the medial malleolus. There is no pain on palpation at the base of the 5th metatarsal. Pulse 2 +. Capillary refill less than 2 seconds. Movement of the toes intact. Sensation over the toe intact. Skin intact. Neuro: Oriented X 3. No motor deficit. No sensory deficit. Moving all extermities. No slurred speech MDM - Extremity Injury (Lower) MDM Narrative Medical decision making narrative: X-ray showed a possible avulsion fracture. Will get a CT scan of the ankle to better delineate the possible fracture. Currently in stable condition. Initial x-ray showed a possible avulsion fracture. CT was ordered. It did not show any acute fracture. Only strain deltoid ligament. Will discharge patient home. Aircast crutches for comfort. In stable condition. Differential Diagnosis Differential diagnosis: Likely ankle sprain and strain Medical Records Attestation: I reviewed the patient's medical records. Lab Data Attestation: I reviewed the patient's lab results. Discharge Plan Discharge Clinical Impression: Ankle sprain and strain Patient Disposition: Home, Self-Care Instructions: Ankle Sprain (ED) Additional Instructions: Ice elevate air cast for comfort crutches for comfort Prescriptions: New ibuprofen 400 mg tablet 400 mg PO Q6H PRN (Reason: pain) Qty: 20 RF: 0 No Action ondansetron 4 mg tablet,disintegrating 4 mg PO Q8H PRN (Reason: nausea and vomiting) Qty: 10 RF: 0 oxcarbazepine 300 mg tablet 300 mg PO DAILY RF: 0 prazosin 5 mg capsule 5 mg PO BEDTIME PRN (Reason: Sleep) RF: 0 trazodone 150 mg tablet 150 mg PO BEDTIME PRN (Reason: Sleep) RF: 0 hydroxyzine HCl 25 mg tablet 25 mg PO BID PRN (Reason: Anxiety) RF: 0 aripiprazole 15 mg tablet 15 mg PO QAM RF: 0 oxcarbazepine 300 mg Tablet 450 mg PO BEDTIME RF: 0 Referrals: Jose Yo MD [Physician] - 2 days
--- NOTE | 2021-08-12 16:01 | PC.NURSE ---
PT EVALUATED BY PROVIDER. IMAGING COMPLETED. PLAN IS FOR AIRCAST AND CRUTCHES. PT AWAKE, ALERT AND ORIENTED. FAMILY MEMBER AT BEDSIDE. NO ACUTE DISTRESS NOTED. +CMS. AIRCAST APPLIED BY PCT. CRUTCH TEACHING PROVIDED WITH RETURN DEMO AND TEACHBACK. PT TOLERATED WELL. AGREEABLE TO DC PLAN.
== END 2021-08-12 16:05 | disposition home or self-care (01) ==
PROVIDERS: Emergency Provider Emergency Medicine Emergency Medical Services
DX: M25.571 Pain in right ankle and joints of right foot (principal); M79.671 Pain in right foot; Z79.899 Other long term (current) drug therapy
CPT/HCPCS: 73610; 73630; 73700; 99283; 99284

== ENCOUNTER → 2021-08-29 12:27 | Outpatient (BNVA) | payer OTHER, SELFPAY | PROVIDERS: PCP Internal Medicine; Visit Provider Orthopaedic Surgery | DX: S93.401A Sprain of unspecified ligament of right ankle, initial encounter (principal); F79 Unspecified intellectual disabilities | CPT/HCPCS: 99202 ==

== ENCOUNTER 2021-08-30 12:56 | Emergency (ER) | payer OTHER, SELFPAY ==
--- NOTE | ~2021-08-30 | XR_ITS ---
EXAMINATION: XR ELBOW, LEFT CLINICAL INFORMATION: Status post fall complaining of elbow pain. COMPARISON: No similar priors. TECHNIQUE: AP, lateral, and oblique views of the left elbow. FINDINGS: No acute fractures or malalignment. Joint spaces are maintained. Mild soft tissue edema. No joint effusion or unexpected radiopaque foreign bodies. XR/XR elbow LT min 3V IMPRESSION: No acute fractures or malalignment.
[2021-08-30 13:02] VITALS: BP 130/88; PULSE 98; RESP 16; TEMP 36.6; O2SAT 97; BMI 32.1
--- NOTE | 2021-08-30 13:54 | ED.UPPEXIN ---
HPI - Extremity Injury (Upper) General Chief Complaint: Extremity Injury, Upper Stated Complaint: arm pain & numbness Time Seen by Provider: 08/30/21 13:30 Source: patient and family (Father at bedside) Mode of arrival: ambulatory Limitations: no limitations History of Present Illness HPI narrative: 20-year-old male who has a history of autism and intellectual disability presenting with his father at bedside after he had a mechanical fall where he slipped on some of his steps at home where there is a plastic per the father and he landed on his left elbow and since then he has been having pain. Father reports that he did not hit his head or lose consciousness. He denies any other injuries complaints or concerns at this time. Denies any symptoms prior to the fall. Reports only pain to the left elbow after the fall. MD complaint: injury to: left and elbow Onset (ago): minute(s) (Prior to arrival) Other Extremity Injury: left: elbow Other injuries: none Place: home Severity: mild Relieving factors: none Exacerbating factors: other (Flexion of the joint) Context: fall Associated symptoms: denies other symptoms Related Data Home Medications Medication Instructions Recorded Confirmed aripiprazole 15 mg tablet 15 mg PO QAM 09/17/20 04/28/21 hydroxyzine HCl 25 mg tablet 25 mg PO BID PRN 09/17/20 04/28/21 oxcarbazepine 300 mg tablet 300 mg PO DAILY 09/17/20 04/28/21 prazosin 5 mg capsule 5 mg PO BEDTIME PRN 09/17/20 04/28/21 trazodone 150 mg tablet 150 mg PO BEDTIME PRN 09/17/20 04/28/21 oxcarbazepine 300 mg tablet 450 mg PO BEDTIME 12/05/20 04/28/21 Previous Rx's Medication Instructions Recorded ondansetron 4 mg disintegrating 4 mg PO Q8H PRN #10 tab 06/01/21 tablet ibuprofen 400 mg tablet 400 mg PO Q6H PRN #20 tab 08/12/21 Allergies Allergy/AdvReac Type Severity Reaction Status Date / Time apple AdvReac Severe DIARRHEA Verified 08/12/21 12:18 POTATO JUICE Allergy Intermediate RASH Uncoded 09/17/20 21:43 Review of Systems Review of Systems: Constitutional : No Fever, No Chills ENT/Mouth : No Ear Pain, No Hoarseness, No sore throat Eyes: No Eye Pain, No Swelling, No Redness, No Foreign Body Cardiovascular : No Chest Pain, No SOB Respiratory : No Cough, No Dyspnea Gastrointestinal : No Nausea, No Vomiting, No Diarrhea, No abdominal Pain Genitourinary : No Dysuria, No Hematuria Musculoskeletal : + left elbow joint pain, No Myalgias, No Joint Swelling Skin : No Skin lacerations, No rash Neuro : No Weakness, No Numbness, No Paresthesias, No Loss of Consciousness, No Dizziness, No Headache Psych : No Anxiety/Panic, No Depression Heme/Lymph: no easy bruising, no Lymphadenopathy Endocrine : No Polyuria, No Polydipsia Yes all other systems are reviewed and are negative [facility] Past Medical History Attestation statement: The following information was validated with the patient. Medical History Intellectual disability Syncope Social History Social History Alcohol intake: never Patient Tobacco Use Status: Never used Tobacco Advance Directives: No Advance Directives Information Provided: Yes Physical Exam Vital Signs: Vital Signs: Last Vital Signs Temp 97.8 F 08/30/21 13:02 Pulse 98 08/30/21 13:02 Resp 16 08/30/21 13:02 BP 130/88 08/30/21 13:02 Pulse Ox 97 08/30/21 13:02 Body Mass Index 32.1 vital signs have been reviewed as normal and appeared to be correct. Blood pressure normal Heart rate normal. Respiration rate normal. Temperature normal. Oxygen saturation normal. Appearance: Alert. Oriented X3. No acute distress. Head: Normal external exam. Normocephalic. Atraumatic. Eyes: PERRLA. EOMI. Conjunctiva and sclera normal. Eyelids normal. ENT: Pharynx normal. Uvula midline. Moist mucous membranes. Neck: Normal inspection. Neck supple. FROM. Nontender. No signs of trauma. CVS: Normal heart rate and rhythm. Respiratory: No respiratory distress. Painless inspiration. Skin: Skin warm and dry. Normal skin color. Normal skin turgor. No rashes/lesions/lacerations noted. Extremities: Patient with tenderness palpation to left elbow at the olecranon process he has full range of motion although complains of pain with flexion of the left elbow. No obvious deformity. No obvious ligamentous or tendon injury. No signs of infection. No abrasions or lacerations noted. No ecchymosis noted. Otherwise all other Extremities exhibit normal range of motion and nontender. Neuro: Oriented X 3. No motor deficit. No sensory deficit. Reflexes normal. Normal steady gait. No focal neuro deficits noted. Vascular: + radial pulses Normal cap refill. No cyanosis noted to upper extremity nails Course Course Course Narrative: 13:35pm - 20-year-old male who has a history of autism and intellectual disability presenting with his father at bedside after he had a mechanical fall where he slipped on some of his steps at home where there is a plastic per the father and he landed on his left elbow and since then he has been having pain. Father reports that he did not hit his head or lose consciousness. He denies any other injuries complaints or concerns at this time. Denies any symptoms prior to the fall. Reports only pain to the left elbow after the fall. Will obtain an x-ray of left elbow then re-evaluate. MDM - Extremity Injury (Upper) Medical Records Attestation: I reviewed the patient's medical records. Imaging Data Left elbow x-ray: Attestation: I personally reviewed and interpreted this imaging study as follows: Radiologist's impression: FINDINGS: No acute fractures or malalignment. Joint spaces are maintained. Mild soft tissue edema. No joint effusion or unexpected radiopaque foreign bodies.? XR/XR elbow LT min 3V IMPRESSION: No acute fractures or malalignment. Procedures Orthopedic Splinting/Casting Injury #1: Side: left Upper Extremity Injury Location: elbow Upper Extremity Immobilizer: Abdirashid wrap Discharge Plan Discharge Clinical Impression: Fall, Sprain of elbow, left Patient Disposition: Home, Self-Care Instructions: How to Use an Elastic Bandage (ED), Elbow Sprain (ED) Prescriptions: No Action ondansetron 4 mg tablet,disintegrating 4 mg PO Q8H PRN (Reason: nausea and vomiting) Qty: 10 RF: 0 oxcarbazepine 300 mg tablet 300 mg PO DAILY RF: 0 prazosin 5 mg capsule 5 mg PO BEDTIME PRN (Reason: Sleep) RF: 0 trazodone 150 mg tablet 150 mg PO BEDTIME PRN (Reason: Sleep) RF: 0 hydroxyzine HCl 25 mg tablet 25 mg PO BID PRN (Reason: Anxiety) RF: 0 aripiprazole 15 mg tablet 15 mg PO QAM RF: 0 oxcarbazepine 300 mg Tablet 450 mg PO BEDTIME RF: 0 ibuprofen 400 mg tablet 400 mg PO Q6H PRN (Reason: pain) Qty: 20 RF: 0 Referrals: Kamran Lee MD [Primary Care Provider] - 2 days Stand Alone Forms: Work/School Release Print Language: [place]
== END 2021-08-30 14:46 | disposition home or self-care (01) ==
PROVIDERS: Emergency Provider Emergency Medicine Emergency Medical Services; PCP Internal Medicine
DX: S53.402A Unspecified sprain of left elbow, initial encounter (principal); M25.522 Pain in left elbow; W10.9XXA Fall (on) (from) unspecified stairs and steps, initial encounter; Y93.9 Activity, unspecified; Y92.009 Unspecified place in unspecified non-institutional (private) residence as the place of occurrence of the external cause; Y99.9 Unspecified external cause status; Z79.899 Other long term (current) drug therapy
CPT/HCPCS: 29105; 73080; 99283

== ENCOUNTER 2021-09-02 20:58 | Emergency (ER) | payer OTHER, SELFPAY ==
[2021-09-02 22:11] VITALS: BP 137/89; PULSE 88; RESP 20; TEMP 36.7; O2SAT 100; BMI 36.5
== END 2021-09-02 23:14 | disposition left against medical advice (07) ==
PROVIDERS: Emergency Provider Emergency Medicine
DX: S90.811A Abrasion, right foot, initial encounter (principal); X58.XXXA Exposure to other specified factors, initial encounter; Y93.9 Activity, unspecified; Y92.9 Unspecified place or not applicable; Y99.9 Unspecified external cause status
CPT/HCPCS: 99281; 99282

== ENCOUNTER 2021-09-17 13:06 | Emergency (ER) | payer OTHER, SELFPAY ==
--- NOTE | ~2021-09-17 | CT_ITS ---
EXAMINATION: HEAD CT WITHOUT CONTRAST CERVICAL SPINE CT WITHOUT CONTRAST CLINICAL INFORMATION: Injury. Neck pain. COMPARISON: None. TECHNIQUE: Contiguous axial imaging of the head was performed without the administration of IV contrast. Axial multidetector volumetric images were also performed through the cervical spine without contrast. Multiplanar reconstructed images in coronal and sagittal orientations were submitted. This CT examination was performed using dose optimization techniques as appropriate, variously including the following: *Automated exposure control *Adjustment of mA and/or kV according to patient size (this includes techniques or standardized protocols for targeted exams where dose is matched to indication/reason for exam; i.e. extremities or head) *Use of iterative reconstruction technique DOSE: 1511 mGy-cm FINDINGS: HEAD: There is no evidence of acute intracranial hemorrhage or territorial infarction. No abnormal mass-effect or midline shift. No extra-axial fluid collections. Cuadra to white matter differentiation is well preserved. The ventricles are normal in size and configuration. . The soft tissues and osseous structures are normal. The sinuses and mastoid air cells are clear. CERVICAL SPINE: Straightening/slight reversal of the spinal curvature. No subluxation. Craniocervical, atlantoaxial articulation is maintained. No evidence of acute fracture. Vertebral body heights are maintained. Disc spaces are maintained. No suspicious thyroid findings. No adenopathy seen. Mild emphysema in the lung apices. CT/CT head/brain wo con IMPRESSION: 1. No CT evidence acute intracranial pathology. 2. No CT evidence of acute fracture in the cervical spine.
--- NOTE | ~2021-09-17 | CT_ITS ---
EXAMINATION: HEAD CT WITHOUT CONTRAST CERVICAL SPINE CT WITHOUT CONTRAST CLINICAL INFORMATION: Injury. Neck pain. COMPARISON: None. TECHNIQUE: Contiguous axial imaging of the head was performed without the administration of IV contrast. Axial multidetector volumetric images were also performed through the cervical spine without contrast. Multiplanar reconstructed images in coronal and sagittal orientations were submitted. This CT examination was performed using dose optimization techniques as appropriate, variously including the following: *Automated exposure control *Adjustment of mA and/or kV according to patient size (this includes techniques or standardized protocols for targeted exams where dose is matched to indication/reason for exam; i.e. extremities or head) *Use of iterative reconstruction technique DOSE: 1511 mGy-cm FINDINGS: HEAD: There is no evidence of acute intracranial hemorrhage or territorial infarction. No abnormal mass-effect or midline shift. No extra-axial fluid collections. Cuadra to white matter differentiation is well preserved. The ventricles are normal in size and configuration. . The soft tissues and osseous structures are normal. The sinuses and mastoid air cells are clear. CERVICAL SPINE: Straightening/slight reversal of the spinal curvature. No subluxation. Craniocervical, atlantoaxial articulation is maintained. No evidence of acute fracture. Vertebral body heights are maintained. Disc spaces are maintained. No suspicious thyroid findings. No adenopathy seen. Mild emphysema in the lung apices. CT/CT cervical spine wo con IMPRESSION: 1. No CT evidence acute intracranial pathology. 2. No CT evidence of acute fracture in the cervical spine.
[2021-09-17 13:14] VITALS: BP 141/67; PULSE 99; RESP 20; O2SAT 96; BMI 24.3
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
[2021-09-17] MEDS: Acetaminophen 325 MG TABLET 650 MG PO (13:36)
[2021-09-17 13:38] VITALS: TEMP 36.9
== END 2021-09-17 15:42 | disposition home or self-care (01) ==
PROVIDERS: Emergency Provider Emergency Medicine Emergency Medical Services; PCP Internal Medicine
DX: S06.0X0A Concussion without loss of consciousness, initial encounter (principal); W03.XXXA Other fall on same level due to collision with another person, initial encounter; R51.9 Headache, unspecified; Y93.89 Activity, other specified; Y92.039 Unspecified place in apartment as the place of occurrence of the external cause; Y99.9 Unspecified external cause status; F84.0 Autistic disorder; F79 Unspecified intellectual disabilities
CPT/HCPCS: 70450; 72125; 99283; 99284

== ENCOUNTER 2021-10-12 08:19 | Outpatient (REF) | payer OTHER, SELFPAY ==
[2021-10-12 08:48] LABS: COVID-19 Test Positive (Negative)
== END 2021-10-12 08:20 | disposition home or self-care (01) ==
LOC: HO.LAB 08:19
PROVIDERS: Visit Provider Internal Medicine
DX: Z20.822 Contact with and (suspected) exposure to COVID-19 (principal)
CPT/HCPCS: 36415; 87635; C9803

== ENCOUNTER 2021-10-20 10:08 | Outpatient (REF) | payer OTHER, SELFPAY | END 2021-10-20 10:09 | disposition home or self-care (01) | LOC: HO.LAB 10:08 | PROVIDERS: Visit Provider Internal Medicine | DX: Z20.822 Contact with and (suspected) exposure to COVID-19 (principal) | CPT/HCPCS: C9803; U0003; U0005 ==

== ENCOUNTER 2021-11-11 10:19 | Outpatient (REF) | payer OTHER, SELFPAY ==
--- NOTE | ~2021-11-11 | XR_ITS ---
EXAMINATION: XR KNEE, RIGHT. XR TIBIA/FIBULA, RIGHT. CLINICAL INFORMATION: Right knee pain COMPARISON: Right ankle CT 08/12/2021 TECHNIQUE: 4 views of the right knee. AP and lateral views of the right lower leg. FINDINGS: Normal alignment of the right knee. No fracture. No joint space narrowing or joint effusion. Normal mineralization of the right tibia and fibula. No fracture or focal osseous lesion. Anterior osteophyte is noted of the tibia at the tibiotalar joint. This was demonstrated on a prior CT of the ankle. XR/XR tibia fibula RT 2V IMPRESSION: Normal right knee. No acute abnormality of the right lower leg.
--- NOTE | ~2021-11-11 | XR_ITS ---
EXAMINATION: XR KNEE, RIGHT. XR TIBIA/FIBULA, RIGHT. CLINICAL INFORMATION: Right knee pain COMPARISON: Right ankle CT 08/12/2021 TECHNIQUE: 4 views of the right knee. AP and lateral views of the right lower leg. FINDINGS: Normal alignment of the right knee. No fracture. No joint space narrowing or joint effusion. Normal mineralization of the right tibia and fibula. No fracture or focal osseous lesion. Anterior osteophyte is noted of the tibia at the tibiotalar joint. This was demonstrated on a prior CT of the ankle. XR/XR knee RT 4V IMPRESSION: Normal right knee. No acute abnormality of the right lower leg.
[2021-11-11 10:36] LABS: MANUAL DIFF FLAG NO
[2021-11-11 11:23] LABS: Basophils Percent Auto 0.6 % (0-2); Eosinophils Absolute Auto 0.1 X10*3/uL (0.0-0.4); Eosinophils Percent Auto 2.3 % (0-4); Hematocrit 47.7 % (42.0-52.0); Hemoglobin 16.5 g/dl (14.0-18.0); Imm Gran Abs Auto 0.03 X10*3/uL (0.00-0.03); Imm Gran Pct Auto 0.6 % (0.0-0.4); Lymphocytes Absolute Auto 1.4 X10*3/uL (1.2-4.9); Lymphocytes Percent Auto 26.8 % (20-40); Mean Corpuscular HGB Conc 34.6 g/dl (31.0-36.0); Mean Corpuscular Hemoglobin 29.3 pg (27.0-33.0); Mean Corpuscular Volume 84.6 fL (80.0-98.0); Mean Platelet Volume 11.2 fL (9.4-12.4); Monocytes Absolute Auto 0.5 X10*3/uL (0.1-1.2); Monocytes Percent Auto 8.8 % (2-11); Neutrophils Absolute Auto 3.1 x10*3/uL (2.0-8.3); Neutrophils Percent Auto 60.9 % (45-73); Platelet Count 187 X10*3/uL (160-400); Red Blood Count 5.64 X10*6/uL (4.60-5.80); Red Cell Distribution Width 11.9 % (11.0-16.0); White Blood Count 5.1 X10*3/uL (4.8-10.8)
[2021-11-11 11:55] LABS: Alanine Aminotransferase 37 U/L (0-40); Albumin Level 4.2 g/dL (3.5-5.0); Alkaline Phosphatase 76 U/L (39-117); Anion Gap 13 (12-20); Aspartate Amino Transferase 25 U/L (5-37); Bilirubin Total 0.3 mg/dL (0.0-1.0); Blood Urea Nitrogen 11 mg/dL (9-16); Calcium 9.2 mg/dL (8.4-10.2); Carbon Dioxide 24 mmol/L (22-29); Chloride 106 mmol/L (96-108); Cholesterol 196 mg/dL; Estimated Glomerular Filt Rate > 60; Glucose Random 90 mg/dL (60-115); Potassium 4.3 mmol/L (3.3-5.1); Sodium 139 mmol/L (135-145); Total Protein 7.3 g/dL (6.5-8.0)
[2021-11-11 12:14] LABS: Appearance Urine CLEAR; Color Urine YELLOW; Glucose Urine UA NEG (NEG); Leukocyte Esterase Urine NEG (NEG); Nitrite Urine NEG (NEG); Urine Blood NEG (NEG); Urine Ketones NEG (NEG); Urine Protein NEG (NEG-TRACE)
[2021-11-11 12:17] LABS: TSH reflex Free T4 1.83 uIU/mL (0.32-4.0); Vitamin D 25-OH Total 23.8 ng/mL (>30)
== END 2021-11-11 10:20 | disposition home or self-care (01) ==
LOC: HO.XRAY 10:19
PROVIDERS: PCP Internal Medicine; Visit Provider Internal Medicine
DX: Z00.00 Encounter for general adult medical examination without abnormal findings (principal); E55.9 Vitamin D deficiency, unspecified; M79.604 Pain in right leg; M25.561 Pain in right knee
CPT/HCPCS: 36415; 73564; 73590; 80053; 81003; 82306; 82465; 84443; 85025

== ENCOUNTER 2022-02-04 22:07 | Emergency (ER) | payer OTHER, SELFPAY ==
--- NOTE | ~2022-02-04 | XR_ITS ---
EXAMINATION: XR HAND, RIGHT CLINICAL INFORMATION: Right hand pain COMPARISON: 06/10/2019 TECHNIQUE: PA, lateral, and oblique views of the right hand. FINDINGS: Osseous alignment is anatomic. No acute fracture is seen. There is suggestion of some dorsal soft tissue swelling overlying the MCP joints. XR/XR hand RT min 3V IMPRESSION: No acute osseous findings identified.
[2022-02-04 22:09] VITALS: BP 145/92; PULSE 120; RESP 18; TEMP 36.4; O2SAT 95; BMI 35.5
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
[2022-02-04 23:02] VITALS: BP 138/86; PULSE 107; RESP 16; O2SAT 96
[2022-02-04] MEDS: Acetaminophen 325 MG TABLET 650 MG PO (23:48)
== END 2022-02-05 00:01 | disposition home or self-care (01) ==
LOC: HO.ED 23:11
PROVIDERS: Emergency Provider Emergency Medicine; PCP Internal Medicine
DX: S60.221A Contusion of right hand, initial encounter (principal); W22.09XA Striking against other stationary object, initial encounter; F84.0 Autistic disorder; F79 Unspecified intellectual disabilities; F31.9 Bipolar disorder, unspecified; Y93.9 Activity, unspecified; Y92.29 Other specified public building as the place of occurrence of the external cause; Y99.8 Other external cause status
CPT/HCPCS: 73130; 99283; 99284

== ENCOUNTER 2022-04-28 21:07 | Emergency (ER) | payer OTHER, SELFPAY ==
--- NOTE | ~2022-04-28 | XR_ITS ---
EXAMINATION: XR ANKLE, LEFT CLINICAL INFORMATION: Left ankle swelling and pain. COMPARISON: Radiograph of the left ankle dated from 08/07/2019. TECHNIQUE: AP, lateral, and mortise views of the left ankle. FINDINGS: Asymmetric soft tissue edema along the lateral surface of the ankle. No discrete fractures or malalignment. The ankle mortise is congruent. No unexpected radiopaque foreign bodies. XR/XR ankle LT min 3V IMPRESSION: Asymmetric soft tissue swelling along the lateral surface of the ankle with no evidence of acute fractures or subluxation.
[2022-04-28 21:12] VITALS: BP 141/78; PULSE 82; O2SAT 98
[2022-04-28 21:46] VITALS: BP 127/76; PULSE 110; RESP 18; TEMP 36.8; O2SAT 96; BMI 30.4
[2022-04-28] MEDS: Ibuprofen 600 MG TABLET PO (22:59)
--- NOTE | 2022-04-28 23:00 | ED.LOWEXIN ---
HPI - Extremity Injury (Lower) General Chief Complaint: Extremity Injury, Lower Stated Complaint: ANKLE INJURY Time Seen by Provider: 04/28/22 22:39 Source: patient Mode of arrival: ambulatory Limitations: no limitations History of Present Illness complaint: ankle injury Onset (ago): minute(s) (prior to arrival ) Injury: Left: ankle Type of Injury: inversion Place: street/outdoors (basketball court) Severity: moderate Relieving factors: immobilization Exacerbating factors: weight bearing and palpation Context: jumping Associated symptoms: snap/pop sensation and swelling Other symptoms: none Treatments prior to arrival: cold therapy and bandage Related Data Home Medications Medication Instructions Recorded Confirmed aripiprazole 15 mg tablet 15 mg PO QAM 09/17/20 11/10/21 hydroxyzine HCl 25 mg tablet 25 mg PO BID PRN Anxiety 09/17/20 11/10/21 prazosin 5 mg capsule 5 mg PO BEDTIME PRN Sleep 09/17/20 11/10/21 trazodone 150 mg tablet 150 mg PO BEDTIME PRN Sleep 09/17/20 11/10/21 oxcarbazepine 300 mg tablet See Rx Instructions PO .COMPLEX 11/10/21 11/10/21 Allergies Allergy/AdvReac Type Severity Reaction Status Date / Time apple AdvReac Severe DIARRHEA Verified 02/04/22 22:09 POTATO JUICE Allergy Intermediate RASH Uncoded 02/04/22 22:09 Review of Systems Review of Systems: Constitutional : No Fever, No Chills ENT/Mouth : No Ear Pain, No Hoarseness, No sore throat Eyes: No Eye Pain, No Swelling, No Redness, No Foreign Body Cardiovascular : No Chest Pain, No SOB Respiratory : No Cough, No Dyspnea Gastrointestinal : No Nausea, No Vomiting, No Diarrhea, No abdominal Pain Genitourinary : No Dysuria, No Hematuria Musculoskeletal : positive joint pain, No Myalgias, pos Joint Swelling Skin : No Skin lacerations, No rash Neuro : No Weakness, No Numbness, No Loss of Consciousness, No Dizziness, No Headache PMFSH Past Medical History Attestation statement: The following information was validated with the patient. Medical History Autism spectrum disorder Bipolar disorder Intellectual disability Obesity (BMI 30-39.9) Syncope Surgical History History of placement of ear tubes Family History Family History Father No problems noted. Mother Heart problem Social History Social History Housing: House Alcohol intake: never Patient Tobacco Use Status: Never used Tobacco Second Hand Smoke Exposure: Yes Advance Directives Date on File: 11/10/21 service: No Current occupational status: disabled Physical Exam Vital Signs: Vital Signs: Last Vital Signs Temp 98.3 F 04/28/22 21:46 Pulse 110 H 04/28/22 21:46 Resp 18 04/28/22 21:46 BP 127/76 04/28/22 21:46 Pulse Ox 96 04/28/22 21:46 O2 Del Method 04/28/22 21:46 BMI result Body Mass Index 30.4 Appearance: Alert. Oriented X3. No acute distress. Eyes: Pupils equal, round and reactive to light. ENT: Pharynx normal. Neck: Normal inspection. Neck supple. CVS: Pulses normal. Respiratory: No respiratory distress. Abdomen: Soft and nontender. Skin: Skin warm and dry. Normal skin color. Extremities: L ankle - SILT intact, 2+ DP pulses, moderate swelling lateral malleolus ttp no prox fibula ttp Neuro: Oriented X 3. No motor deficit. No sensory deficit. MDM - Extremity Injury (Lower) MDM Narrative Medical decision making narrative: 21 yo male with no sig PMH here with c/o inversion injury while playing basketball tonight NV intact, xrays show no fracture will place in aircast and give crutches. No other injuries reported. Stable for DC Procedures Orthopedic Splinting/Casting Injury #1: Side: left Lower Extremity Injury Location: ankle Lower Extremity Immobilizer: AirCast Other Orthopedic Equipment: crutches Additional Comments: NV intact Discharge Plan Discharge Clinical Impression: Ankle sprain and strain Patient Disposition: Home, Self-Care Instructions: Ankle Sprain (ED), Crutch Instructions (ED), Ankle Stirrup Splint (ED) Additional Instructions: return to ED for any worsening symptoms or concerns aircast for 1 week crutches for 1 week may try to bear weight on day 5 if no pain can apply light weight if painful weight for day 7 take tylenol and motrin for pain rest ice every couple of hours while awake for 15 minutes (use cloth in between ice and skin) for 2 days if not better in 5 days talk to your primary care doctor Prescriptions: No Action prazosin 5 mg capsule 5 mg PO BEDTIME PRN (Reason: Sleep) trazodone 150 mg tablet 150 mg PO BEDTIME PRN (Reason: Sleep) hydroxyzine HCl 25 mg tablet 25 mg PO BID PRN (Reason: Anxiety) Rx Instructions: Pharmacy noted prescription was 1-2 25 mg tabs BID PRN aripiprazole 15 mg tablet 15 mg PO QAM oxcarbazepine 300 mg tablet See Rx Instructions PO .COMPLEX Rx Instructions: 1 tablet in AM and 2 tablets at night PO; Stand Alone Forms: Work/School Release
== END 2022-04-28 23:42 | disposition home or self-care (01) ==
PROVIDERS: Emergency Provider Emergency Medicine
DX: S93.402A Sprain of unspecified ligament of left ankle, initial encounter (principal); Y93.67 Activity, basketball; Y92.310 Basketball court as the place of occurrence of the external cause; Y99.9 Unspecified external cause status; Z79.899 Other long term (current) drug therapy
CPT/HCPCS: 29515; 73610; 99283

== ENCOUNTER 2022-05-15 12:31 | Emergency (ER) | payer OTHER, SELFPAY ==
[2022-05-15 12:40] VITALS: BP 129/85; PULSE 110; RESP 18; TEMP 36.7; O2SAT 96; BMI 25.3
== END 2022-05-15 22:15 | disposition left against medical advice (07) ==
LOC: HO.ED 21:41
PROVIDERS: Emergency Provider Emergency Medicine; PCP Internal Medicine
DX: R10.9 Unspecified abdominal pain (principal); K92.1 Melena
CPT/HCPCS: 99281

== ENCOUNTER 2022-05-18 14:58 | Emergency (ER) | payer OTHER, SELFPAY ==
[2022-05-18 16:18] VITALS: BP 144/83; PULSE 90; RESP 18; TEMP 37.1; O2SAT 96; BMI 34.0
--- NOTE | 2022-05-18 16:55 | ED_ITS ---
HPI - Skin/Abscess/Foreign Bdy General Chief complaint: Skin/Abscess/Foreign Body Stated complaint: abscess L underarm Time Seen by Provider: 05/18/22 16:47 Source: patient and family Mode of arrival: ambulatory Limitations: physical limitation History of Present Illness HPI narrative: Patient presents emergency department with his father for evaluation of a painful red lump to the left axilla. First noticed 1.5 weeks ago. Is becoming more painful. No active drainage. Denies fevers or chills. Related Data Home Medications Medication Instructions Recorded Confirmed aripiprazole 15 mg tablet 15 mg PO QAM 09/17/20 11/10/21 hydroxyzine HCl 25 mg tablet 25 mg PO BID PRN Anxiety 09/17/20 11/10/21 prazosin 5 mg capsule 5 mg PO BEDTIME PRN Sleep 09/17/20 11/10/21 trazodone 150 mg tablet 150 mg PO BEDTIME PRN Sleep 09/17/20 11/10/21 oxcarbazepine 300 mg tablet See Rx Instructions PO .COMPLEX 11/10/21 11/10/21 Previous Rx's Medication Instructions Recorded doxycycline hyclate 100 mg tablet 100 mg PO BID 7 days #14 tabs 05/18/22 Allergies Allergy/AdvReac Type Severity Reaction Status Date / Time apple AdvReac Severe DIARRHEA Verified 05/18/22 16:18 POTATO JUICE Allergy Intermediate RASH Uncoded 02/04/22 22:09 Review of Systems Review of Systems: Skin: Positive lump to left axilla Yes all other systems are reviewed and are negative PMFSH Past Medical History Medical History Autism spectrum disorder Bipolar disorder Intellectual disability Obesity (BMI 30-39.9) Syncope Surgical History History of placement of ear tubes Family History Family History Father No problems noted. Mother Heart problem Social History Social History Housing: House Alcohol intake: never Patient Tobacco Use Status: Never used Tobacco Second Hand Smoke Exposure: Yes Advance Directives: Yes Advance Directives on File: Yes Advance Directives Date on File: 11/10/21 service: No Current occupational status: disabled Physical Exam Vital Signs: Vital Signs: Last Vital Signs Temp 98.8 F 05/18/22 16:18 Pulse 90 05/18/22 16:18 Resp 18 05/18/22 16:18 BP 144/83 H 05/18/22 16:18 Pulse Ox 96 05/18/22 16:18 O2 Del Method 05/18/22 16:18 BMI result Body Mass Index 34.0 Appearance: Alert.?Oriented to person, place and time. No acute distress.? Eyes: Pupils equal, round and reactive to light.? ENT: Pharynx normal.?? Neck: Normal inspection.? Neck supple.?? CVS: Heart sounds normal. Normal heart rate and rhythm.? Pulses normal.?? Respiratory: No respiratory distress.? Lung sounds clear to auscultation bilaterally?? Abdomen: Soft and non-tender. Normoactive bowel sounds. Skin: Skin warm and dry.? Normal skin color.? Abscess to left axilla with mild surrounding erythema, central fluctuance Extremities: No lower extremity edema.? ? Neuro: Moves all extremities spontaneously. Sensation intact bilaterally. Ambulates with normal steady gait. Course Course Course Narrative: Patient is a 21-year-old male presenting to emergency department for evaluation of an abscess to the left axilla. No systemic toxicity, and patient is well- appearing. There is surrounding cellulitis. Not consistent with necrotizing fasciitis, myositis, DVT, osteomyelitis. Patient is now status post incision and drainage of abscess and tolerated the procedure well. No complications. No labs or imaging indicated at this time. Will discharge home with course of oral antibiotics and symptomatic treatment instructions. Discussed reasons to return to the emergency department, and follow-up with primary care provider. Patient and father agreeable with plan of care. Procedures Abscess I/D Site: other (Axilla) Side (if applicable): left Local Anesthetic: lidocaine 1% Amount of anesthesia used (mL): 2 Technique: incised with blade Irrigation: Yes Packing used?: none Discharge Plan Discharge Clinical Impression: Abscess Patient Disposition: Home, Self-Care Instructions: Abscess (ED) Additional Instructions: You have been given a prescription for an antibiotic, please complete this entire course. The antibiotic may make you more sensitive to the sun, making you more likely to burn, avoid any prolonged time in the sun while taking this medication, and use sunscreen Please contact primary care provider to schedule a follow-up visit within 3 days. Return to the emergency department with any new or worsening symptoms or concerns such as fever, chills, increasing redness, swelling, pain, drainage from the site. Prescriptions: New doxycycline hyclate 100 mg tablet 100 mg PO BID 7 Days Qty: 14 0RF No Action prazosin 5 mg capsule 5 mg PO BEDTIME PRN (Reason: Sleep) trazodone 150 mg tablet 150 mg PO BEDTIME PRN (Reason: Sleep) hydroxyzine HCl 25 mg tablet 25 mg PO BID PRN (Reason: Anxiety) Rx Instructions: Pharmacy noted prescription was 1-2 25 mg tabs BID PRN aripiprazole 15 mg tablet 15 mg PO QAM oxcarbazepine 300 mg tablet See Rx Instructions PO .COMPLEX Rx Instructions: 1 tablet in AM and 2 tablets at night PO; Referrals: Kamran Lee MD [Primary Care Provider] - Interventions: ED Discharge Assessment Last Done: 05/18/22 17:42 Discharge Date/Time: 05/18/22 17:44
[2022-05-18] MEDS: Lidocaine HCl 1 % MPF 5 ML VIAL SUBCUT (17:14)
== END 2022-05-18 17:44 | disposition home or self-care (01) ==
PROVIDERS: Emergency Provider Internal Medicine; PCP Internal Medicine
DX: L02.412 Cutaneous abscess of left axilla (principal); F84.0 Autistic disorder; E66.9 Obesity, unspecified; Z68.34 Body mass index [BMI] 34.0-34.9, adult; Z79.899 Other long term (current) drug therapy
CPT/HCPCS: 10060; 99282; 99284

== ENCOUNTER 2022-07-05 16:06 | Emergency (ER) | payer OTHER, SELFPAY ==
--- NOTE | 2022-07-05 16:21 | ED.PSYCH ---
HPI - Psych General Chief Complaint: Psychiatric Symptoms <Catalina Amaro MD - Last Filed: 07/05/22 16:27> Stated Complaint: SI no plan <Catalina Amaro MD - Last Filed: 07/05/22 16:27> Time Seen by Provider: 07/05/22 16:20 <Catalina Amaro MD - Last Filed: 07/05/22 16:27> Source: patient and EMS <Catalina Amaro MD - Last Filed: 07/05/22 16:27> Mode of arrival: EMS <Catalina Amaro MD - Last Filed: 07/05/22 16:27> History of Present Illness HPI Narrative: Patient comes to the emergency room via EMS from home. Patient states that he ?flipped out?. Patient denies suicidal or homicidal ideation. According to EMS, the patient's family reported to EMS that the patient made vague suicidal statements. <Catalina Amaro MD - Last Filed: 07/05/22 16:27> Related Data Home Medications: Home Medications Medication Instructions Recorded Confirmed aripiprazole 15 mg tablet 15 mg PO QAM 09/17/20 07/05/22 hydroxyzine HCl 25 mg tablet 25 mg PO BID PRN Anxiety 09/17/20 07/05/22 prazosin 5 mg capsule 5 mg PO BEDTIME PRN Sleep 09/17/20 07/05/22 trazodone 150 mg tablet 150 mg PO BEDTIME PRN Sleep 09/17/20 07/05/22 oxcarbazepine 300 mg tablet 300 mg PO QAM 07/05/22 07/05/22 oxcarbazepine 300 mg tablet 600 mg PO BEDTIME 07/05/22 07/05/22 <Catalina Amaro MD - Last Filed: 07/05/22 16:27> Allergies/Adverse Reactions: Allergies Allergy/AdvReac Type Severity Reaction Status Date / Time apple AdvReac Severe DIARRHEA Verified 05/18/22 16:18 POTATO JUICE Allergy Intermediate RASH Uncoded 02/04/22 22:09 <Catalina Amaro MD - Last Filed: 07/05/22 16:27> Review of Systems Review of Systems: Constitutional : No Weight loss, No Fever, No Chills, No Night Sweats, No Fatigue, No Malaise ENT/Mouth : No Hearing loss, No Ear Pain, No Nasal Congestion, No Sinus Pain, No Hoarseness, No sore throat, No Rhinorrhea, No Swallowing Difficulty Eyes: No Eye Pain, No Swelling, No Redness, No Foreign Body, No Discharge, No Vision Changes Cardiovascular : No Chest Pain, No SOB, No Dyspnea on Exertion, No Orthopnea, No Edema, No Palpitations Respiratory : No Cough, No Sputum, No Wheezing, No Smoke Exposure, No Dyspnea Gastrointestinal : No Nausea, No Vomiting, No Diarrhea, No Constipation, No abdominal Pain, No Hematochezia, No Melena Genitourinary : no irregular bleeding, No Dysuria, No Urinary Frequency, No Hematuria, No Urinary Incontinence, No Urgency, No Flank Pain, No Urinary Flow Changes, No Hesitancy Musculoskeletal : No joint pain, No Myalgias, No Joint Swelling Skin : No Skin Lesions, No rash Neuro : No Weakness, No Numbness, No Paresthesias, No Loss of Consciousness, No Dizziness, No Headache Psych : No Anxiety/Panic, No Depression, for family vague SI, patient denies SI or HI Heme/Lymph: No Bruising, No Bleeding,No Lymphadenopathy Endocrine : No Polyuria, No Polydipsia, No Temperature Intolerance <Catalina Amaro MD - Last Filed: 07/05/22 16:27> FORMERLY [facility], [facility] Past Medical History Medical History: Medical History Autism spectrum disorder Bipolar disorder Intellectual disability Obesity (BMI 30-39.9) Syncope <Catalina Amaro MD - Last Filed: 07/05/22 16:27> Surgical History: Surgical History History of placement of ear tubes <Catalina Amaro MD - Last Filed: 07/05/22 16:27> Family History Family History: Family History Father No problems noted. Mother Heart problem <Catalina Amaro MD - Last Filed: 07/05/22 16:27> Social History Social History: Social History Housing: House Alcohol intake: never Patient Tobacco Use Status: Never used Tobacco Second Hand Smoke Exposure: Yes Advance Directives: Yes Advance Directives on File: Yes Advance Directives Date on File: 11/10/21 service: No Current occupational status: disabled <Catalina Amaro MD - Last Filed: 07/05/22 16:27> Physical Exam Vital Signs: Vital Signs: Last Vital Signs Temp 97.8 F 07/05/22 16:45 Pulse 87 07/05/22 16:45 Resp 18 07/05/22 16:45 BP 139/73 07/05/22 16:45 Pulse Ox 96 07/05/22 16:45 O2 Del Method 07/05/22 16:45 BMI result Body Mass Index 29.0 <Catalina Amaro MD - Last Filed: 07/05/22 16:27> Vital Signs: Last Vital Signs Temp 97.8 F 07/05/22 16:45 Pulse 87 07/05/22 16:45 Resp 18 07/05/22 16:45 BP 139/73 07/05/22 16:45 Pulse Ox 96 07/05/22 16:45 O2 Del Method 07/05/22 16:45 BMI result Body Mass Index 29.0 <VIVI Yarbrough - Last Filed: 07/06/22 01:42> Const: Other: Appearance: Alert. Oriented X3. No acute distress. Holding his stuffed animal Eyes: Pupils equal, round and reactive to light. ENT: Pharynx normal. Neck: Normal inspection. Neck supple. No lymph nodes noted. No crepitus CVS: Normal heart rate and rhythm. Pulses normal. Normal S1 and S2 Respiratory: No respiratory distress. Breath sounds normal. No Wheezing. No rales Abdomen: Soft and nontender. No rigidity. No distention. Skin: Skin warm and dry. Normal skin color. Normal skin turgor. Extremities: No lower extremity edema. No Lacerations. No Rash Neuro: Oriented X 3. No motor deficit. No sensory deficit. Moving all extremities. No slurred speech. CN 2 through 12 grossly intact Psych: calm, cooperative, normal affect <Catalina Amaro MD - Last Filed: 07/05/22 16:27> Course Course Course Narrative: Patient denies suicidal or homicidal ideation, seems that earlier today he made vague SI statements. BPH and pending. At this time, patient is not on a Section 12. Patient is, cooperative. <Catalina Amaro MD - Last Filed: 07/05/22 16:27> Reevaluation(s) Reevaluation #1: Evaluated by Jaimee BATEMAN Patient denies SI and HI to FRANSICO, reports his GF broke up with him today. FRANSICO recommends fu w/ outpatient providers, recommends following up with his psychiatrist and therapist which he has. Mother feels comfortable with patient going home, patient requesting to go home as well, mother and patient feel comfortable with going home, they will follow up with outpatient providers. Patient feeling well, no acute distress, no comments. At this time I feel comfortable with plan. Patient will be discharged home with outpatient providers. <VIVI Yarbrough - Last Filed: 07/06/22 01:42> Time: 01:41 <VIVI Yarbrough - Last Filed: 07/06/22 01:42> MDM - Psych Lab Data Labs: Lab Results 07/05/22 07/05/22 Range/Units 16:52 16:57 Urine Opiates Screen Not Detected (Not Detect) Urine Fentanyl Screen POSITIVE H (Not Detect) Ur Barbiturates Screen Not Detected (Not Detect) Ur Phencyclidine Scrn Not Detected (Not Detect) Ur Amphetamines Screen Not Detected (Not Detect) U Benzodiazepines Scrn Not Detected (Not Detect) Urine Cocaine Screen Not Detected (Not Detect) U Marijuana (THC) Screen Not Detected (Not Detect) COVID-19 (MARCIO) Negative (Negative) COVID-19 Clin Com See Note <Catalina Amaro MD - Last Filed: 07/05/22 16:27> Lab Results 07/05/22 07/05/22 Range/Units 16:52 16:57 Urine Opiates Screen Not Detected (Not Detect) Urine Fentanyl Screen POSITIVE H (Not Detect) Ur Barbiturates Screen Not Detected (Not Detect) Ur Phencyclidine Scrn Not Detected (Not Detect) Ur Amphetamines Screen Not Detected (Not Detect) U Benzodiazepines Scrn Not Detected (Not Detect) Urine Cocaine Screen Not Detected (Not Detect) U Marijuana (THC) Screen Not Detected (Not Detect) COVID-19 (MARCIO) Negative (Negative) COVID-19 Clin Com See Note <VIVI Yarbrough - Last Filed: 07/06/22 01:42> Discharge Plan Discharge Clinical Impression: Intellectual disability, Bipolar disorder <Catalina Amaro MD - Last Filed: 07/05/22 16:27> Patient Disposition: Home, Self-Care <Catalina Amaro MD - Last Filed: 07/05/22 16:27> Instructions: Bipolar Disorder (ED) <Catalina Amaro MD - Last Filed: 07/05/22 16:27> Additional Instructions: Take your medications as prescribed. If you were prescribed antibiotics today, it is important that you take your medication to their entirety, do not skip any doses, do not finish them early. Follow-up with your primary care provider this week. Return to the emergency department with new or worsening symptoms. Such as fevers, chills, chest pain, shortness of breath, nausea, vomiting, dizziness, headache, vision changes, lethargy, suicidal and homicidal ideation, anxiety, depression, visual, auditory and tactile hallucinations In case of emergency call 911 <Catalina Amaro MD - Last Filed: 07/05/22 16:27> Prescriptions: No Action prazosin 5 mg capsule 5 mg PO BEDTIME PRN (Reason: Sleep) trazodone 150 mg tablet 150 mg PO BEDTIME PRN (Reason: Sleep) hydroxyzine HCl 25 mg tablet 25 mg PO BID PRN (Reason: Anxiety) Rx Instructions: Pharmacy noted prescription was 1-2 25 mg tabs BID PRN aripiprazole 15 mg tablet 15 mg PO QAM oxcarbazepine 300 mg tablet 600 mg PO BEDTIME oxcarbazepine 300 mg tablet 300 mg PO QAM <Catalina Amaro MD - Last Filed: 07/05/22 16:27> Referrals: [facility] [Provider Group] - 1 day Kamran Lee MD [Primary Care Provider] - 2 days <Catalina Amaro MD - Last Filed: 07/05/22 16:27> Stand Alone Forms: Work/School Release <Catalina Amaro MD - Last Filed: 07/05/22 16:27>
[2022-07-05 16:45] VITALS: BP 130/80; BP 139/73; PULSE 87; PULSE 88; RESP 18; TEMP 36.6; O2SAT 96; O2SAT 98; BMI 29.0
[2022-07-05 17:27] LABS: COVID-19 Test Negative (Negative); IDNOW Serial# 16C4AD1C
[2022-07-05 17:29] LABS: Amphetamine Screen Urine Not Detected (Not Detect); Barbiturates, Urine Not Detected (Not Detect); Benzodiazepines Screen Urine Not Detected (Not Detect); Cannabinoid Screen Urine Not Detected (Not Detect); Cocaine Screen Urine Not Detected (Not Detect); Fentanyl, urine POSITIVE (Not Detect); Opiate Screen Urine Not Detected (Not Detect); Phencyclidine Screen Urine Not Detected (Not Detect)
== END 2022-07-06 02:11 | disposition home or self-care (01) ==
PROVIDERS: Emergency Provider Emergency Medicine; PCP Internal Medicine
DX: F84.0 Autistic disorder (principal); F31.9 Bipolar disorder, unspecified; Z20.822 Contact with and (suspected) exposure to COVID-19; Z79.899 Other long term (current) drug therapy
CPT/HCPCS: 80307; 87635; 99282; 99283

== ENCOUNTER 2022-08-04 20:16 | Emergency (ER) | payer OTHER, SELFPAY ==
[2022-08-04 20:18] VITALS: BP 134/97; PULSE 103; RESP 20; TEMP 37.2; O2SAT 96; BMI 24.3
--- NOTE | 2022-08-04 20:24 | ECG_ITS ---
Test Reason : chest pain Blood Pressure : / mmHG Vent. Rate : 107 BPM Atrial Rate : 107 BPM P-R Int : 144 ms QRS Dur : 094 ms QT Int : 346 ms P-R-T Axes : 039 095 028 degrees QTc Int : 461 ms Sinus tachycardia Rightward axis Intra-ventricular conduction delay Borderline ECG When compared with ECG of 07-JUL-2021 14:40, No significant change was found Referred By: Generic ED Physician Electronically Signed By:AMPARO HARRY MD
[2022-08-04 22:43] LABS: Basophils Absolute Auto 0.1 X10*3/uL (0.0-0.2); Eosinophils Absolute Auto 0.2 X10*3/uL (0.0-0.4); Hematocrit 46.7 % (42.0-52.0); Hemoglobin 16.3 g/dl (14.0-18.0); Imm Gran Abs Auto 0.02 X10*3/uL (0.00-0.03); Imm Gran Pct Auto 0.3 % (0.0-0.4); Lymphocytes Absolute Auto 2.1 X10*3/uL (1.2-4.9); Lymphocytes Percent Auto 30.6 % (20-40); MANUAL DIFF FLAG NO; Mean Corpuscular HGB Conc 34.9 g/dl (31.0-36.0); Mean Corpuscular Volume 83.1 fL (80.0-98.0); Monocytes Absolute Auto 0.6 X10*3/uL (0.1-1.2); Monocytes Percent Auto 8.4 % (2-11); Neutrophils Absolute Auto 3.9 x10*3/uL (2.0-8.3); Neutrophils Percent Auto 56.7 % (45-73); Platelet Count 208 X10*3/uL (160-400); Red Blood Count 5.62 X10*6/uL (4.60-5.80); Red Cell Distribution Width 11.9 % (11.0-16.0); White Blood Count 6.9 X10*3/uL (4.8-10.8)
[2022-08-04 23:10] LABS: Alanine Aminotransferase 31 U/L (0-40); Albumin Level 4.2 g/dL (3.5-5.0); Alkaline Phosphatase 77 U/L (39-117); Anion Gap 16 (12-20); Aspartate Amino Transferase 18 U/L (5-37); Bilirubin Total < 0.2 mg/dL (0.0-1.0); Blood Urea Nitrogen 12 mg/dL (9-16); Calcium 8.9 mg/dL (8.4-10.2); Carbon Dioxide 23 mmol/L (22-29); Chloride 108 mmol/L (96-108); Creatinine Clr Calc Pharmacy 171.3; Estimated Glomerular Filt Rate > 60; Glucose Random 116 mg/dL (60-115); Potassium 3.8 mmol/L (3.3-5.1); Sodium 143 mmol/L (135-145); Total Protein 7.3 g/dL (6.5-8.0)
[2022-08-04 23:27] LABS: Troponin-I High Sensitivity < 3.5 ng/L (<3.5-35.0)
[2022-08-05 01:22] VITALS: BP 148/88; PULSE 93; RESP 16; TEMP 36.6; O2SAT 96
--- NOTE | 2022-08-05 01:36 | ED.CHESTPAIN ---
HPI - Chest Pain General Chief Complaint: Chest Pain Stated Complaint: has opening under arm? Time Seen by Provider: 08/05/22 01:30 Source: patient and family Mode of arrival: ambulatory Limitations: no limitations History of Present Illness HPI narrative: 21-year-old male presents to the emergency department for left armpit pain patient has history of abscesses he noticed increased pain and swelling to the area yesterday they were 3 small lumps patient denies fevers chills cough Related Data Home Medications Medication Instructions Recorded Confirmed aripiprazole 15 mg tablet 15 mg PO QAM 09/17/20 07/05/22 hydroxyzine HCl 25 mg tablet 25 mg PO BID PRN Anxiety 09/17/20 07/05/22 prazosin 5 mg capsule 5 mg PO BEDTIME PRN Sleep 09/17/20 07/05/22 trazodone 150 mg tablet 150 mg PO BEDTIME PRN Sleep 09/17/20 07/05/22 oxcarbazepine 300 mg tablet 300 mg PO QAM 07/05/22 07/05/22 oxcarbazepine 300 mg tablet 600 mg PO BEDTIME 07/05/22 07/05/22 Previous Rx's Medication Instructions Recorded doxycycline hyclate 100 mg capsule 100 mg PO BID Cellulitis #20 caps 08/05/22 Allergies Allergy/AdvReac Type Severity Reaction Status Date / Time apple AdvReac Severe DIARRHEA Verified 05/18/22 16:18 POTATO JUICE Allergy Intermediate RASH Uncoded 02/04/22 22:09 Review of Systems Review of Systems: Review of systems: General: Patient denies any fever chills recent illness or falls Musculoskeletal: Denies back pain or body aches or other injuries HEENT: denies headache, runny nose, ear pain Respiratory: denies shortness of breath, cough Cardiovascular: no chest pain or palpitations : denies dysuria, frequency Abdomen: no nausea vomiting denies abdominal pain Extremities: no swelling, no pain Skin: no diaphoresis Yes all other systems are reviewed and are negative [facility] Past Medical History Medical History Autism spectrum disorder Bipolar disorder Intellectual disability Obesity (BMI 30-39.9) Syncope Surgical History History of placement of ear tubes Family History Family History Father No problems noted. Mother Heart problem Social History Social History Housing: House Alcohol intake: never Patient Tobacco Use Status: Never used Tobacco Second Hand Smoke Exposure: Yes Advance Directives: Yes Advance Directives on File: Yes Advance Directives Date on File: 11/10/21 service: No Current occupational status: disabled Physical Exam Vital Signs: Vital Signs: Last Vital Signs Temp 98 F 08/05/22 01:22 Pulse 93 08/05/22 01:22 Resp 16 08/05/22 01:22 BP 148/88 H 08/05/22 01:22 Pulse Ox 96 08/05/22 01:22 O2 Del Method 08/05/22 01:22 BMI result Body Mass Index 24.3 General: Well-appearing well-nourished in no signs of distress HEENT: Normocephalic atraumatic Neck: No signs of JVD, no masses no tenderness or lymphadenopathy Cardiovascular: Regular rate and rhythm Respiratory: Clear to auscultation bilaterally Abdomen: Soft nontender no masses Extremities: Normal pedal pulses no signs of edema Skin: Dry warm no rashes Back: No tenderness full ROM MDM - Chest Pain MDM Narrative Medical decision making narrative: Patient with 3 areas of redness there is no abscess underneath there are small and indurated educated them on putting warm compresses will start on doxycycline have the patient follow-up Lab Data Result diagrams: 08/04/22 22:36 08/04/22 22:36 Labs: Lab Results 08/04/22 08/04/22 08/04/22 Range/Units 22:36 22:36 22:36 WBC 6.9 (4.8-10.8) X10*3/uL RBC 5.62 (4.60-5.80) X10*6/uL Hgb 16.3 (14.0-18.0) g/dl Hct 46.7 (42.0-52.0) % MCV 83.1 (80.0-98.0) fL MCH 29.0 (27.0-33.0) pg MCHC 34.9 (31.0-36.0) g/dl RDW 11.9 (11.0-16.0) % Plt Count 208 (160-400) X10*3/uL MPV 11.0 (9.4-12.4) fL Immature Gran % (Auto) 0.3 (0.0-0.4) % Neut % (Auto) 56.7 (45-73) % Lymph % (Auto) 30.6 (20-40) % Brule % (Auto) 8.4 (2-11) % Eos % (Auto) 3.0 (0-4) % Baso % (Auto) 1.0 (0-2) % Lymph # (Auto) 2.1 (1.2-4.9) X10*3/uL Brule # (Auto) 0.6 (0.1-1.2) X10*3/uL Eos # (Auto) 0.2 (0.0-0.4) X10*3/uL Baso # (Auto) 0.1 (0.0-0.2) X10*3/uL Abs Immat Gran (auto) 0.02 (0.00-0.03) X10*3/uL Absolute Neuts (auto) 3.9 (2.0-8.3) x10*3/uL Absolute Nucleated RBC 0.000 (0.0-0.012) X10*3/uL Nucleated RBC % (auto) 0.0 (0.0-0.2) /100WBC Sodium 143 (135-145) mmol/L Potassium 3.8 (3.3-5.1) mmol/L Chloride 108 (96-108) mmol/L Carbon Dioxide 23 (22-29) mmol/L Anion Gap 16 (12-20) BUN 12 (9-16) mg/dL Creatinine 0.83 (0.5-1.4) mg/dL Estim Creat Clear Calc 171.3 Estimated GFR > 60 Random Glucose 116 H (60-115) mg/dL Calcium 8.9 (8.4-10.2) mg/dL Total Bilirubin < 0.2 (0.0-1.0) mg/dL AST 18 (5-37) U/L ALT 31 (0-40) U/L Alkaline Phosphatase 77 (39-117) U/L Troponin I High Sens < 3.5 (<3.5-35.0) ng/L Total Protein 7.3 (6.5-8.0) g/dL Albumin 4.2 (3.5-5.0) g/dL Discharge Plan Discharge Clinical Impression: Cellulitis of axilla, left Patient Disposition: Home, Self-Care Instructions: Cellulitis (ED) Additional Instructions: Please call to follow up. Use warm compresss three times a day for 30 minutes at a time to see if it forms a abscess. Please take the antibiotics as prescribed. Prescriptions: New doxycycline hyclate 100 mg capsule 100 mg PO BID Qty: 20 0RF No Action prazosin 5 mg capsule 5 mg PO BEDTIME PRN (Reason: Sleep) trazodone 150 mg tablet 150 mg PO BEDTIME PRN (Reason: Sleep) hydroxyzine HCl 25 mg tablet 25 mg PO BID PRN (Reason: Anxiety) Rx Instructions: Pharmacy noted prescription was 1-2 25 mg tabs BID PRN aripiprazole 15 mg tablet 15 mg PO QAM oxcarbazepine 300 mg tablet 600 mg PO BEDTIME oxcarbazepine 300 mg tablet 300 mg PO QAM
== END 2022-08-05 02:03 | disposition home or self-care (01) ==
PROVIDERS: Emergency Provider Student in an Organized Health Care Education/Training Program; PCP Internal Medicine
DX: L03.112 Cellulitis of left axilla (principal)
CPT/HCPCS: 36415; 80053; 84484; 85025; 93005; 99283; 99284

== ENCOUNTER 2022-09-08 00:52 | Emergency (ER) | payer OTHER, SELFPAY ==
[2022-09-08 01:28] VITALS: BP 142/87; PULSE 113; RESP 16; TEMP 37.4; O2SAT 98; BMI 33.0
== END 2022-09-08 04:33 | disposition left against medical advice (07) ==
PROVIDERS: Emergency Provider Emergency Medicine; PCP Internal Medicine
DX: M79.601 Pain in right arm (principal)
CPT/HCPCS: 99281

== ENCOUNTER 2022-09-11 22:43 | Emergency (ER) | payer OTHER, SELFPAY ==
[2022-09-11 22:51] VITALS: BP 116/77; PULSE 105; RESP 18; TEMP 36.3; O2SAT 97; BMI 30.8
--- NOTE | 2022-09-11 23:46 | ED_ITS ---
HPI - Skin/Abscess/Foreign Bdy General Chief complaint: Skin/Abscess/Foreign Body Stated complaint: bump on armpit Time Seen by Provider: 09/11/22 23:45 Source: patient Mode of arrival: ambulatory Limitations: no limitations History of Present Illness HPI narrative: 21-year-old male with history of autism, bipolar disorder, obesity, intellectual disability who presents to the ER for evaluation of an abscess to his right under arm that started 1 week ago. Patient has been putting warm compresses on the area and it just started to drain a little bit today. He states his foul- smelling. The tenderness and redness has gotten worse over last 48 hours. Patient has a history of the same. He has required incision and drainage in the past. No fever or chills. MD complaint: abscess/boil Onset (ago): week(s) (1) Tetanus up to date: yes Location: RUE Severity: moderate Severity scale (1-10): 7 Quality: stabbing and aching Pain Consistency: constant Relieving factors: none Exacerbating factors: palpation and movement Context: none Associated symptoms: denies other symptoms Treatments prior to arrival: attempted to drain pus at home Related Data Home Medications Medication Instructions Recorded Confirmed aripiprazole 15 mg tablet 15 mg PO QAM 09/17/20 07/05/22 hydroxyzine HCl 25 mg tablet 25 mg PO BID PRN Anxiety 09/17/20 07/05/22 prazosin 5 mg capsule 5 mg PO BEDTIME PRN Sleep 09/17/20 07/05/22 trazodone 150 mg tablet 150 mg PO BEDTIME PRN Sleep 09/17/20 07/05/22 oxcarbazepine 300 mg tablet 300 mg PO QAM 07/05/22 07/05/22 oxcarbazepine 300 mg tablet 600 mg PO BEDTIME 07/05/22 07/05/22 Previous Rx's Medication Instructions Recorded doxycycline hyclate 100 mg capsule 100 mg PO BID Cellulitis #20 caps 08/05/22 cephalexin 500 mg tablet 500 mg PO Q6H 7 days #28 tabs 09/11/22 doxycycline monohydrate 100 mg 100 mg PO BID #14 caps 09/11/22 capsule Allergies Allergy/AdvReac Type Severity Reaction Status Date / Time apple AdvReac Severe DIARRHEA Verified 05/18/22 16:18 POTATO JUICE Allergy Intermediate RASH Uncoded 02/04/22 22:09 Review of Systems Review of Systems: Constitutional: No Fever, No Chills ENT/Mouth: No sore throat, No Rhinorrhea Cardiovascular: No Chest Pain, No SOB Respiratory: No Cough, No Sputum, No Wheezing, No dyspnea Gastrointestinal: No Nausea, No Vomiting, No Diarrhea, No abdominal Pain Musculoskeletal: No joint pain, No Myalgias Skin: +Skin Lesions, No rash Neuro: No Weakness, No Numbness, No Dizziness, No Headache Psych: + Anxiety/Panic, No Depression Heme/Lymph: No Bruising, + Lymphadenopathy PMFSH Past Medical History Medical History Autism spectrum disorder Bipolar disorder Intellectual disability Obesity (BMI 30-39.9) Syncope Surgical History History of placement of ear tubes Family History Family History Father No problems noted. Mother Heart problem Social History Social History Housing: House Alcohol intake: never Patient Tobacco Use Status: Never used Tobacco Smoked in Last 30 Days: No Second Hand Smoke Exposure: Yes Use of substances other than those prescribed or required for medical reasons: No Advance Directives: Yes Advance Directives on File: Yes Advance Directives Date on File: 11/10/21 service: No Current occupational status: disabled Physical Exam Vital Signs: Vital Signs: Last Vital Signs Temp 97.4 F 09/11/22 22:51 Pulse 105 H 09/11/22 22:51 Resp 18 09/11/22 22:51 BP 116/77 09/11/22 22:51 Pulse Ox 97 09/11/22 22:51 O2 Del Method 09/11/22 22:51 BMI result Body Mass Index 30.8 Appearance: Alert. Oriented X3. No acute distress. HEENT: normal inspection CVS: Normal heart rate and rhythm. Pulses normal. Respiratory: No respiratory distress. Skin: Skin warm and dry. Normal skin color. Normal skin turgor. No rashes. Extremities: right axillary area with diffuse erythema and tenderness, palpable indurated mass with central fluctuance and foul smelling green/yellow drainage. Neuro: Oriented X 3. No motor deficit. No sensory deficit. Course Course Course Narrative: 21-year-old male with history of autism, obesity, bipolar who presents to the ER for evaluation of painful abscess worsening under his right axillary area for the last 1 week. On examination today he has an open area and foul-smelling purulent material was able to be expressed. Patient tolerated the procedure well. Will prescribed oral antibiotics for surrounding cellulitis. Wound care and management discussed with patient and his father. Stable for discharge home. Procedures Abscess I/D Site: upper extremity Side (if applicable): right Technique: other (direct pressure and manipulation ) Sent for culture/gram staining?: No Irrigation: Yes Packing used?: none Complications: pain Critical Care Time Critical Care Time Critical Care Time: No Discharge Plan Discharge Clinical Impression: Abscess of skin or subcutaneous tissue, Cellulitis Patient Disposition: Home, Self-Care Instructions: Abscess Incision and Drainage (DC), Warm Compress or Soak (ED) Additional Instructions: Take the prescribed antibiotic as directed. Start 1st thing tomorrow morning. Your given 1st doses in the ER today. Use warm compresses to the area several times per day. If you develop new or worsening symptoms call 911 or come back to the ER for further evaluation. Prescriptions: New doxycycline monohydrate 100 mg capsule 100 mg PO BID Qty: 14 0RF cephalexin 500 mg tablet 500 mg PO Q6H 7 Days Qty: 28 0RF No Action prazosin 5 mg capsule 5 mg PO BEDTIME PRN (Reason: Sleep) trazodone 150 mg tablet 150 mg PO BEDTIME PRN (Reason: Sleep) hydroxyzine HCl 25 mg tablet 25 mg PO BID PRN (Reason: Anxiety) Rx Instructions: Pharmacy noted prescription was 1-2 25 mg tabs BID PRN aripiprazole 15 mg tablet 15 mg PO QAM doxycycline hyclate 100 mg capsule 100 mg PO BID Qty: 20 0RF oxcarbazepine 300 mg tablet 600 mg PO BEDTIME oxcarbazepine 300 mg tablet 300 mg PO QAM
[2022-09-11 23:54] VITALS: BP 119/72; PULSE 97; RESP 16; TEMP 37.1; O2SAT 99
[2022-09-11] MEDS: Doxycycline Monohydrate 100 MG CAPSULE PO (23:59)
[2022-09-11] MEDS: Ibuprofen 600 MG TABLET PO (23:59)
[2022-09-11] MEDS: cephALEXin 500 MG CAPSULE PO (23:59)
== END 2022-09-12 00:07 | disposition home or self-care (01) ==
PROVIDERS: Emergency Provider Internal Medicine
DX: L02.411 Cutaneous abscess of right axilla (principal); L03.111 Cellulitis of right axilla; E66.9 Obesity, unspecified; Z68.30 Body mass index [BMI] 30.0-30.9, adult; Z79.899 Other long term (current) drug therapy
CPT/HCPCS: 99283; 99284

== ENCOUNTER 2022-10-28 17:18 | Emergency (ER) | payer OTHER, SELFPAY ==
[2022-10-28 17:35] VITALS: BP 128/97; PULSE 106; RESP 18; TEMP 36.1; O2SAT 96; BMI 34.8
--- NOTE | 2022-10-28 17:38 | ED.GENADULT ---
HPI - General Adult General Chief complaint: Fall Stated complaint: Fall Time Seen by Provider: 10/28/22 17:38 Source: patient Mode of arrival: ambulatory Limitations: no limitations History of Present Illness HPI narrative: Patient is a 21 year old assigned male at with a history of autism and intellectual disability presenting to the emergency department today with left shoulder abrasions. Patient states that he tripped on a rug and accidentally put his left shoulder into a glass door. Patient denies hitting his head. Patient denies any loss of consciousness. Patient states that he is up to date on his tetanus. Patient denies any dizziness, lightheadedness, abdominal pain, nausea, vomiting, fever, chills, blurry vision, double vision, loss of vision, chest pain, difficulty breathing, shortness of breath, back pain, night sweats, pain with urination, increased urinary frequency, increased urinary urgency, blood in his urine or stool, syncope or a near syncopal episode, bowel incontinence, bladder incontinence, bowel retention, bladder retention, or any other complaints at this time. Onset (ago): minute(s) Location: left and upper extremity Radiation: non-radiation Severity: mild Severity scale (1-10): 3 Quality: dull Pain Consistency: constant Relieving factors: none Exacerbating factors: none Associated symptoms: denies other symptoms Treatments prior to arrival: none Related Data Home Medications Medication Instructions Recorded Confirmed aripiprazole 15 mg tablet 15 mg PO QAM 09/17/20 10/16/22 hydroxyzine HCl 25 mg tablet 25 mg PO BID PRN Anxiety 09/17/20 10/16/22 prazosin 5 mg capsule 5 mg PO BEDTIME PRN Sleep 09/17/20 10/16/22 trazodone 150 mg tablet 150 mg PO BEDTIME PRN Sleep 09/17/20 10/16/22 oxcarbazepine 300 mg tablet 300 mg PO QAM 07/05/22 10/16/22 oxcarbazepine 300 mg tablet 600 mg PO BEDTIME 07/05/22 10/16/22 Previous Rx's Medication Instructions Recorded cholecalciferol (vitamin D3) 50 50 mcg PO DAILY 90 days #90 caps 10/16/22 mcg (2,000 unit) capsule Allergies Allergy/AdvReac Type Severity Reaction Status Date / Time apple AdvReac Severe DIARRHEA Verified 10/16/22 09:12 POTATO JUICE Allergy Intermediate RASH Uncoded 10/16/22 09:12 Review of Systems Constitutional: Constitutional: Reports no additional constitutional complaints, Denies chills, Denies fever(s) and Denies night sweats Eyes: Eyes: Reports no additional eye complaints, Denies blurry vision, Denies change in vision, Denies diplopia, Denies eye discharge, Denies loss of vision and Denies eye pain ENT: Denies dizziness Cardiovascular: Cardiovascular: Reports no additional cardiovascular complaints, Denies chest pain, Denies lightheadedness, Denies Loss of Consciousness and Denies dyspnea Respiratory: Respiratory: Reports no additional respiratory complaints and Denies dyspnea Gastrointestinal: Gastrointestinal: Reports no additional gastrointestinal complaints, Denies abdominal pain, Denies melena, Denies hematochezia, Denies change in bowel habits and Denies change in stool character Genitourinary: Genitourinary: Reports no additional male genitourinary complaints, Denies hematuria, Denies oliguria, Denies difficulty urinating, Denies dysuria, Denies urinary frequency, Denies urinary hesitancy, Denies urinary incontinence and Denies urinary urgency Musculoskeletal: Musculoskeletal: Reports no additional musculoskeletal complaints, Denies numbness and Denies tingling Integumentary/Breasts: Comments: left shoulder abrasion Neurologic: Denies dizziness, Denies loss of vision, Denies numbness and Denies tingling Psychiatric: Psychiatric: Reports no additional psychiatric complaints Endocrine: Endocrine: Reports no additional endocrine complaints Hematologic/Lymphatic: Hematologic/Lymphatic: Reports no additional hematologic/lymphatic complaints Allergic/Immunologic: Allergic/Immunologic: Reports no additional allergic/immunologic complaints [facility] Past Medical History Attestation statement: The following information was validated with the patient. Source: old records reviewed, obtained from family (patient's father) and nursing notes reviewed Medical History Autism spectrum disorder Bipolar disorder Intellectual disability Obesity (BMI 30-39.9) Syncope Vitamin D deficiency Surgical History History of placement of ear tubes Family History Family History Father No problems noted. Mother Heart problem Social History Social History (Reviewed 10/28/22 @ 17:43 by LAWRENCE Chavez Housing: House Alcohol intake: never Patient Tobacco Use Status: Never used Tobacco e-Cigarette/Vaping Use: Never Used Second Hand Smoke Exposure: Yes Advance Directives: Yes Advance Directives on File: Yes Advance Directives Date on File: 11/10/21 service: No Current occupational status: disabled Cognitive needs: No Hearing needs: No Vision needs: No Physical Exam ED Vital Signs: Vital Signs - 24 hr 10/28/22 17:35 Temperature 97.0 F Pulse Rate 106 H Respiratory Rate 18 Blood Pressure 128/97 H Pulse Oximetry 96 Oxygen Delivery Method Room Air BMI result Body Mass Index 34.8 Const General: cooperative, no acute distress, alert and awake Nutritional Appearance: well nourished Orientation/consciousness: patient oriented x3 Limitations: no limitations HENMT Head: Yes normal to inspection and Yes atraumatic Ears: hearing grossly normal bilaterally and external ears normal General nose exam: Normal external nose present, no nasal discharge noted and no epistaxis Face and sinus: Yes normal facial exam, No abrasion and No laceration Mouth: Normal oral and palatal mucosa present, no drooling and no muffled voice Eyes General: appearance normal, both eyes and all related structures Periorbital: periorbital findings normal Eyelids: Yes eyelids normal Conjunctivae: conjunctivae normal Pupils: Equal, round and reactive pupils present EOM: EOMs intact bilaterally Neck Neck: Yes normal visual inspection, Yes full ROM and Yes no lymphadenopathy Chest Chest palpation & inspection: normal inspection of the chest Resp Effort & Inspection: normal respiratory effort and able to speak in complete sentences Auscultation: clear to auscultation bilaterally Cardio Rate: regular rate Rhythm: regular rhythm GI Inspection: Yes normal to inspection Skin Other: superficial abrasions to the left shoulder - no active bleeding Neuro General: patient oriented x3 and moves all extremities Cranial nerves: Yes Equal, round and reactive pupils present Cognition (Neuro): normal cognition Motor exam (neuro): 5/5 motor strength present throughout Sensory Exam: Normal double simultaneous stimulation for sensation Coordination: [id number] test normal Extrem General: Yes normal to inspection, Yes full ROM and Yes capillary refill normal Psych Appearance: grossly normal Mental Status: mental status grossly normal Affect: normal affect Attitude: cooperative Thought process: Normal thought process present Thought content: Normal thought content present Insight: Good insight present (Psych) Medical Decision Making Medical Decision Making MDM Narrative: Patient is a 21 year old assigned male at with a history of intellectual disbility and autism presenting to the emergency department today with left shoulder abrasions. Patient's physical exam showed superficial abrasions to the left shoulder with no active bleeding. I explained my physical exam findings to the patient. I answered all questions asked by the patient. I stressed the importance of the patient taking his medication as prescribed. I stressed the importance of the patient following up with his primary care provider. I stressed the importance of the patient returning to the emergency department immediately if his symptoms were to worsen or if he were to develop any dizziness, shortness of breath, difficulty breathing, chest pain, blurry vision, loss of vision, nausea, vomiting, abdominal pain, fever, chills, back pain, or any other complaints. Patient verbalized agreement and understanding with this treatment plan and discharge. Differential Diagnosis Differential Diagnoses: The differential diagnosis associated with the presentation includes abrasions Discharge Plan Discharge Clinical Impression: Abrasion Patient Disposition: Home, Self-Care Instructions: Abrasion (ED) Additional Instructions: Apply antibacterial ointment to the area. Follow up with your primary care provider. Return to the emergency department immediately if your symptoms worsen or if you develop any dizziness, shortness of breath, difficulty breathing, chest pain, blurry vision, loss of vision, nausea, vomiting, abdominal pain, fever, chills, back pain, or any other complaints. Prescriptions: No Action prazosin 5 mg capsule 5 mg PO BEDTIME PRN (Reason: Sleep) trazodone 150 mg tablet 150 mg PO BEDTIME PRN (Reason: Sleep) hydroxyzine HCl 25 mg tablet 25 mg PO BID PRN (Reason: Anxiety) Rx Instructions: Pharmacy noted prescription was 1-2 25 mg tabs BID PRN aripiprazole 15 mg tablet 15 mg PO QAM oxcarbazepine 300 mg tablet 600 mg PO BEDTIME oxcarbazepine 300 mg tablet 300 mg PO QAM cholecalciferol (vitamin D3) 50 mcg (2,000 unit) capsule 50 mcg PO DAILY 90 Days Qty: 90 3RF Referrals: [facility] Family Medicine [Provider Group] (Call to establish and follow up with a primary care provider. If you already have a primary care provider, please follow up with them. ) [facility] [Provider Group] (Call to establish and follow up with a primary care provider. If you already have a primary care provider, please follow up with them. ) [facility] [Provider Group] (Call to establish and follow up with a primary care provider. If you already have a primary care provider, please follow up with them. ) Print Language: Tongan
== END 2022-10-28 17:50 | disposition home or self-care (01) ==
PROVIDERS: Emergency Provider Internal Medicine
DX: S40.212A Abrasion of left shoulder, initial encounter (principal); W13.8XXA Fall from, out of or through other building or structure, initial encounter; Y93.89 Activity, other specified; Y92.038 Other place in apartment as the place of occurrence of the external cause; Y99.9 Unspecified external cause status
CPT/HCPCS: 99282

== ENCOUNTER 2023-03-18 20:55 | Emergency (ER) | payer OTHER, SELFPAY ==
[2023-03-18 21:25] VITALS: BP 153/93; PULSE 101; RESP 20; TEMP 37.1; O2SAT 96; BMI 33.9
--- NOTE | 2023-03-19 01:11 | ED.SKABFB ---
HPI - Skin/Abscess/Foreign Bdy General Chief complaint: Skin/Abscess/Foreign Body Stated complaint: infection on under arm Time Seen by Provider: 03/19/23 01:06 Source: patient Mode of arrival: ambulatory Limitations: no limitations History of Present Illness HPI narrative: Patient comes to the emergency room complaining of 2 months of redness and pain in the right axilla. Patient has had a night a suppurative a and is recurring. Patient denies fever chills. Patient denies drainage. Related Data Home Medications Medication Instructions Recorded Confirmed aripiprazole 15 mg tablet 15 mg PO QAM 09/17/20 02/12/23 hydroxyzine HCl 25 mg tablet 25 mg PO BID PRN Anxiety 09/17/20 02/12/23 prazosin 5 mg capsule 5 mg PO BEDTIME PRN Sleep 09/17/20 02/12/23 trazodone 150 mg tablet 150 mg PO BEDTIME PRN Sleep 09/17/20 02/12/23 oxcarbazepine 300 mg tablet 300 mg PO QAM 07/05/22 02/12/23 oxcarbazepine 300 mg tablet 600 mg PO BEDTIME 07/05/22 02/12/23 Previous Rx's Medication Instructions Recorded cholecalciferol (vitamin D3) 50 50 mcg PO DAILY 90 days #90 caps 10/16/22 mcg (2,000 unit) capsule cephalexin 500 mg capsule 500 mg PO BID #14 caps 03/19/23 doxycycline hyclate 100 mg tablet 100 mg PO BID #14 tabs 03/19/23 Allergies Allergy/AdvReac Type Severity Reaction Status Date / Time apple AdvReac Severe DIARRHEA Verified 03/18/23 21:27 POTATO JUICE Allergy Intermediate RASH Uncoded 02/12/23 09:40 Review of Systems Review of Systems: Constitutional : No Weight loss, No Fever, No Chills, No Night Sweats, No Fatigue, No Malaise ENT/Mouth : No Hearing loss, No Ear Pain, No Nasal Congestion, No Sinus Pain, No Hoarseness, No sore throat, No Rhinorrhea, No Swallowing Difficulty Eyes: No Eye Pain, No Swelling, No Redness, No Foreign Body, No Discharge, No Vision Changes Cardiovascular : No Chest Pain, No SOB, No Dyspnea on Exertion, No Orthopnea, No Edema, No Palpitations Respiratory : No Cough, No Sputum, No Wheezing, No Smoke Exposure, No Dyspnea Gastrointestinal : No Nausea, No Vomiting, No Diarrhea, No Constipation, No abdominal Pain, No Hematochezia, No Melena Genitourinary : no irregular bleeding, No Dysuria, No Urinary Frequency, No Hematuria, No Urinary Incontinence, No Urgency, No Flank Pain, No Urinary Flow Changes, No Hesitancy Musculoskeletal : No joint pain, No Myalgias, No Joint Swelling Skin : Complaining of skin erythema and pain in the right axilla, recurring Neuro : No Weakness, No Numbness, No Paresthesias, No Loss of Consciousness, No Dizziness, No Headache Psych : No Anxiety/Panic, No Depression, No SI/HI/AH/VH, No Social Issues, Heme/Lymph: No Bruising, No Bleeding,No Lymphadenopathy Endocrine : No Polyuria, No Polydipsia, No Temperature Intolerance PMF Past Medical History Medical History Autism spectrum disorder Bipolar disorder Intellectual disability Obesity (BMI 30-39.9) Syncope Vitamin D deficiency Surgical History History of placement of ear tubes Family History Family History Father No problems noted. Mother Heart problem Social History Social History Housing: House Alcohol intake: never Patient Tobacco Use Status: Never used Tobacco e-Cigarette/Vaping Use: Never Used Second Hand Smoke Exposure: Yes Advance Directives: Yes Advance Directives on File: Yes Advance Directives Date on File: 11/10/21 service: No Current occupational status: disabled Cognitive needs: No Hearing needs: No Vision needs: No Physical Exam Vital Signs: Vital Signs: Last Vital Signs Temp 98.7 F 03/18/23 21:25 Pulse 101 H 03/18/23 21:25 Resp 20 03/18/23 21:25 BP 153/93 H 03/18/23 21:25 Pulse Ox 96 03/18/23 21:25 O2 Del Method Room Air 03/18/23 21:25 BMI result Body Mass Index 33.9 Const: Other: Appearance: Alert. Oriented X3. No acute distress. Eyes: Pupils equal, round and reactive to light. ENT: Pharynx normal. Neck: Normal inspection. Neck supple. No lymph nodes noted. No crepitus CVS: Normal heart rate and rhythm. Pulses normal. Normal S1 and S2 Respiratory: No respiratory distress. Breath sounds normal. No Wheezing. No rales Abdomen: Soft and nontender. No rigidity. No distention. Skin: Cellulitis, adenoiditis suppurative a present in the right axilla, bedside ultrasound shows cobblestoning pattern, no abscesses that could be drained Extremities: No lower extremity edema. No Lacerations. No Rash Neuro: Oriented X 3. No motor deficit. No sensory deficit. Moving all extremities. No slurred speech. CN 2 through 12 grossly intact Psych: calm, cooperative, normal affect Medical Decision Making Medical Decision Making MDM Narrative: -patient has hidradenitis suppurative a reoccurring, patient instructed to follow-up with PCP and Dermatology. Patient was given the 1st dose of antibiotics in the emergency room, doxycycline and Keflex. Discharge Plan Discharge Clinical Impression: Hidradenitis suppurativa of right axilla Patient Disposition: Home, Self-Care Instructions: Hidradenitis Suppurativa (ED) Additional Instructions: Please follow-up with your primary care physician tomorrow. If you have any worsening or new symptoms, please return to the emergency room or call 911 Prescriptions: New cephalexin 500 mg capsule 500 mg PO BID Qty: 14 0RF doxycycline hyclate 100 mg tablet 100 mg PO BID Qty: 14 0RF No Action prazosin 5 mg capsule 5 mg PO BEDTIME PRN (Reason: Sleep) trazodone 150 mg tablet 150 mg PO BEDTIME PRN (Reason: Sleep) hydroxyzine HCl 25 mg tablet 25 mg PO BID PRN (Reason: Anxiety) Rx Instructions: Pharmacy noted prescription was 1-2 25 mg tabs BID PRN aripiprazole 15 mg tablet 15 mg PO QAM oxcarbazepine 300 mg tablet 600 mg PO BEDTIME oxcarbazepine 300 mg tablet 300 mg PO QAM cholecalciferol (vitamin D3) 50 mcg (2,000 unit) capsule 50 mcg PO DAILY 90 Days Qty: 90 3RF
[2023-03-19] MEDS: Doxycycline Monohydrate 100 MG CAPSULE PO (01:35)
[2023-03-19] MEDS: Ibuprofen 600 MG TABLET PO (01:35)
[2023-03-19] MEDS: cephALEXin 500 MG CAPSULE PO (01:35)
== END 2023-03-19 01:41 | disposition home or self-care (01) ==
PROVIDERS: Emergency Provider Emergency Medicine; PCP Internal Medicine
DX: L73.2 Hidradenitis suppurativa (principal); Z79.899 Other long term (current) drug therapy
CPT/HCPCS: 99283

== ENCOUNTER 2023-04-17 15:41 | Emergency (ER) | payer OTHER, SELFPAY ==
--- NOTE | ~2023-04-17 | XR_ITS ---
EXAMINATION: XR ELBOW, LEFT XR WRIST, LEFT CLINICAL INFORMATION: Left elbow pain. Left wrist pain. COMPARISON: 08/30/2021 and 05/12/2017 TECHNIQUE: AP, lateral, and oblique views of the left elbow. PA, lateral and oblique view of the left wrist. FINDINGS: Left elbow: Alignment is anatomic. Joint spaces are maintained. No displaced fracture or dislocation. No significant joint effusion. Left wrist: Alignment is anatomic. Joint spaces are maintained. No displaced fracture or dislocation. No focal radiographic soft tissue swelling. XR/XR wrist LT min 3V IMPRESSION: No acute abnormality.
--- NOTE | ~2023-04-17 | XR_ITS ---
EXAMINATION: XR ELBOW, LEFT XR WRIST, LEFT CLINICAL INFORMATION: Left elbow pain. Left wrist pain. COMPARISON: 08/30/2021 and 05/12/2017 TECHNIQUE: AP, lateral, and oblique views of the left elbow. PA, lateral and oblique view of the left wrist. FINDINGS: Left elbow: Alignment is anatomic. Joint spaces are maintained. No displaced fracture or dislocation. No significant joint effusion. Left wrist: Alignment is anatomic. Joint spaces are maintained. No displaced fracture or dislocation. No focal radiographic soft tissue swelling. XR/XR elbow LT min 3V IMPRESSION: No acute abnormality.
[2023-04-17 15:52] VITALS: BP 138/86; BP 156/88; PULSE 117; PULSE 91; RESP 18; TEMP 36.4; O2SAT 97; O2SAT 98; BMI 32.1
--- NOTE | 2023-04-17 17:25 | ED.GENADULT ---
HPI - General Adult General Chief complaint: General Medical Stated complaint: FEELING SHAKY, LEFT HAND PAIN Time Seen by Provider: 04/17/23 16:14 Source: patient and RN notes reviewed Mode of arrival: ambulatory Limitations: no limitations History of Present Illness HPI narrative: This is a 22-year-old male with a past medical history of autism and intellectual disability, presenting to the emergency department with complaints of left arm pain and weakness today. Patient reports that his left arm was shaking earlier today, unable to report how long this was happening for. He states that since this shakiness stopped he now has pain from his left hand extending up into his left elbow. Patient reports that he is otherwise feeling okay, denies any headaches, fevers, chills, chest pain, headaches, shortness of breath, abdominal pain, nausea, vomiting or diarrhea. Denies taking any medications to treat his current pain. Denies any trauma or injury to his left hand or arm. No other complaints or concerns at this time. MD complaint: Left arm pain Onset (ago): day(s) Related Data Home Medications Medication Instructions Recorded Confirmed aripiprazole 15 mg tablet 15 mg PO QAM 09/17/20 02/12/23 hydroxyzine HCl 25 mg tablet 25 mg PO BID PRN Anxiety 09/17/20 02/12/23 prazosin 5 mg capsule 5 mg PO BEDTIME PRN Sleep 09/17/20 02/12/23 trazodone 150 mg tablet 150 mg PO BEDTIME PRN Sleep 09/17/20 02/12/23 oxcarbazepine 300 mg tablet 300 mg PO QAM 07/05/22 02/12/23 oxcarbazepine 300 mg tablet 600 mg PO BEDTIME 07/05/22 02/12/23 Previous Rx's Medication Instructions Recorded cholecalciferol (vitamin D3) 50 50 mcg PO DAILY 90 days #90 caps 10/16/22 mcg (2,000 unit) capsule cephalexin 500 mg capsule 500 mg PO BID #14 caps 03/19/23 doxycycline hyclate 100 mg tablet 100 mg PO BID #14 tabs 03/19/23 Allergies Allergy/AdvReac Type Severity Reaction Status Date / Time apple AdvReac Severe DIARRHEA Verified 03/18/23 21:27 POTATO JUICE Allergy Intermediate RASH Uncoded 02/12/23 09:40 Review of Systems Review of Systems: Constitutional: No Weight loss, No Fever, No Chills ENT/Mouth: No Ear Pain, No Nasal Congestion, No Sinus Pain, No Hoarseness, No sore throat, No Rhinorrhea, No Swallowing Difficulty Cardiovascular: No Chest Pain, No SOB Respiratory: No Cough, No Sputum, No Wheezing Gastrointestinal: No Nausea, No Vomiting, No Diarrhea, No Constipation, No Abdominal pain Genitourinary: No Dysuria, No Urinary Frequency, No Hematuria, No Urinary Incontinence/retention, No Urgency, No Flank Pain Musculoskeletal: No joint pain, No Myalgias, No Joint Swelling Skin: No Skin Lesions, No rash Neuro: No Weakness, No Numbness, No Paresthesias PMFSH Past Medical History Medical History Autism spectrum disorder Bipolar disorder Intellectual disability Obesity (BMI 30-39.9) Syncope Vitamin D deficiency Surgical History History of placement of ear tubes Family History Family History Father No problems noted. Mother Heart problem Social History Social History Housing: House Alcohol intake: never Patient Tobacco Use Status: Never used Tobacco e-Cigarette/Vaping Use: Never Used Second Hand Smoke Exposure: Yes Advance Directives: Yes Advance Directives on File: Yes Advance Directives Date on File: 11/10/21 service: No Current occupational status: disabled Cognitive needs: No Hearing needs: No Vision needs: No Physical Exam ED Vital Signs: Vital Signs - 24 hr 04/17/23 15:52 Temperature 97.6 F Pulse Rate 91 Respiratory Rate 18 Blood Pressure 156/88 H Pulse Oximetry 97 Oxygen Delivery Method Room Air BMI result Body Mass Index 32.1 Const Other: General: Awake, alert, and oriented X3. No acute distress. HEENT: Normal inspection CVS: Normal heart rate and rhythm. Pulses normal. Respiratory: No respiratory distress Skin: Warm, dry, no rashes noted to exposed skin. Normal skin color. Normal skin turgor. Extremities: Left hand, wrist, elbow, with no step-off or bony abnormalities. Left upper arm well perfused, warm. Patient's left arm from left elbow extending distally into the fingers are diffusely tender without any point tenderness. Endorsing numbness and tingling. Radial pulse is strong and 2+. Capillary refill in 2 seconds. Able to actively extend and flex left elbow and left wrist. Neuro: Oriented X 3. No motor deficit. No sensory deficit. Course Reevaluation(s) Reevaluation #1: All labs within normal limits, patient has no leukocytosis, CPK within normal limits. Sign-out given to my colleague, Perfecto Campbell PA-C pending x-rays. Time: 19:25 Reevaluation #2: Patient is seen in sign-out pending x-rays which are unremarkable. The patient was able to move the extremity with encouragement. Medications Administered Discontinued Medications Generic Name Dose Route Start Last Admin Trade Name Freq PRN Reason Stop Dose Admin Ibuprofen 600 mg 04/17/23 18:13 04/17/23 18:29 Ibuprofen 600 Mg Tablet PO 04/17/23 18:14 600 mg ONCE ONE Administration Medical Decision Making Medical Decision Making MDM Narrative: 22-year-old male with a history of autism spectrum disorder, and intellectual disability presenting to the emergency department with left arm numbness starting today. On examination patient reports he is unable to feel his arm and has difficulty moving it. Given patient's developmental disability it is difficult to fully assess symptoms and get Physical examination. Will obtain labs and x-rays for further management and evaluation of symptoms. Patient medicated with ibuprofen by mouth. Differential Diagnosis Differential Diagnoses: The differential diagnosis associated with the presentation includes Fracture, contusion, sprain, rhabdomylysis, compartment syndrome-unlikely Lab Data 04/17/23 18:20 04/17/23 18:20 Labs: Lab Results 04/17/23 04/17/23 Range/Units 18:20 18:20 WBC 6.1 (4.8-10.8) X10*3/uL RBC 5.58 (4.60-5.80) X10*6/uL Hgb 16.4 (14.0-18.0) g/dl Hct 47.2 (42.0-52.0) % MCV 84.6 (80.0-98.0) fL MCH 29.4 (27.0-33.0) pg MCHC 34.7 (31.0-36.0) g/dl RDW 12.0 (11.0-16.0) % Plt Count 177 (160-400) X10*3/uL MPV 11.4 (9.4-12.4) fL Immature Gran % (Auto) 1.1 H (0.0-0.4) % Neut % (Auto) 63.3 (45-73) % Lymph % (Auto) 26.4 (20-40) % [place] % (Auto) 6.9 (2-11) % Eos % (Auto) 1.8 (0-4) % Baso % (Auto) 0.5 (0-2) % Lymph # (Auto) 1.6 (1.2-4.9) X10*3/uL [place] # (Auto) 0.4 (0.1-1.2) X10*3/uL Eos # (Auto) 0.1 (0.0-0.4) X10*3/uL Baso # (Auto) 0.0 (0.0-0.2) X10*3/uL Abs Immat Gran (auto) 0.07 H (0.00-0.03) X10*3/uL Absolute Neuts (auto) 3.9 (2.0-8.3) x10*3/uL Absolute Nucleated RBC 0.000 (0.0-0.012) X10*3/uL Nucleated RBC % (auto) 0.0 (0.0-0.2) /100WBC Sodium 140 (135-145) mmol/L Potassium 3.8 (3.3-5.1) mmol/L Chloride 108 (96-108) mmol/L Carbon Dioxide 24 (22-29) mmol/L Anion Gap 12 (12-20) BUN 14 (9-16) mg/dL Creatinine 0.86 (0.5-1.4) mg/dL Estim Creat Clear Calc 178.8 Estimated GFR > 60 Random Glucose 92 (60-115) mg/dL Calcium 9.2 (8.4-10.2) mg/dL Magnesium 2.0 (1.6-2.6) mg/dL Total Bilirubin 0.2 (0.0-1.0) mg/dL Direct Bilirubin < 0.2 (0.0-0.5) mg/dL AST 21 (5-37) U/L ALT 28 (0-40) U/L Alkaline Phosphatase 74 (39-117) U/L Total Creatine Kinase 51 (38-174) U/L Total Protein 7.3 (6.5-8.0) g/dL Albumin 4.2 (3.5-5.0) g/dL Discharge Plan Discharge Clinical Impression: Arm pain, left Patient Disposition: Home, Self-Care Instructions: Arm Pain (ED) Additional Instructions: Your labs performed today were reassuring. Please follow-up with your primary care physician. If any new or worsening symptoms occur please return for re-evaluation. Your blood work was reassuring. Your x-ray did not show any evidence of fracture Prescriptions: No Action prazosin 5 mg capsule 5 mg PO BEDTIME PRN (Reason: Sleep) trazodone 150 mg tablet 150 mg PO BEDTIME PRN (Reason: Sleep) hydroxyzine HCl 25 mg tablet 25 mg PO BID PRN (Reason: Anxiety) Rx Instructions: Pharmacy noted prescription was 1-2 25 mg tabs BID PRN aripiprazole 15 mg tablet 15 mg PO QAM oxcarbazepine 300 mg tablet 600 mg PO BEDTIME oxcarbazepine 300 mg tablet 300 mg PO QAM cephalexin 500 mg capsule 500 mg PO BID Qty: 14 0RF doxycycline hyclate 100 mg tablet 100 mg PO BID Qty: 14 0RF cholecalciferol (vitamin D3) 50 mcg (2,000 unit) capsule 50 mcg PO DAILY 90 Days Qty: 90 3RF
[2023-04-17 18:24] LABS: MANUAL DIFF FLAG NO
[2023-04-17] MEDS: Ibuprofen 600 MG TABLET PO (18:29)
[2023-04-17 18:35] LABS: Basophils Percent Auto 0.5 % (0-2); Eosinophils Absolute Auto 0.1 X10*3/uL (0.0-0.4); Eosinophils Percent Auto 1.8 % (0-4); Hematocrit 47.2 % (42.0-52.0); Hemoglobin 16.4 g/dl (14.0-18.0); Imm Gran Abs Auto 0.07 X10*3/uL (0.00-0.03); Imm Gran Pct Auto 1.1 % (0.0-0.4); Lymphocytes Absolute Auto 1.6 X10*3/uL (1.2-4.9); Lymphocytes Percent Auto 26.4 % (20-40); Mean Corpuscular HGB Conc 34.7 g/dl (31.0-36.0); Mean Corpuscular Hemoglobin 29.4 pg (27.0-33.0); Mean Corpuscular Volume 84.6 fL (80.0-98.0); Mean Platelet Volume 11.4 fL (9.4-12.4); Monocytes Absolute Auto 0.4 X10*3/uL (0.1-1.2); Monocytes Percent Auto 6.9 % (2-11); Neutrophils Absolute Auto 3.9 x10*3/uL (2.0-8.3); Neutrophils Percent Auto 63.3 % (45-73); Platelet Count 177 X10*3/uL (160-400); Red Blood Count 5.58 X10*6/uL (4.60-5.80); White Blood Count 6.1 X10*3/uL (4.8-10.8)
[2023-04-17 18:42] LABS: Alanine Aminotransferase 28 U/L (0-40); Albumin Level 4.2 g/dL (3.5-5.0); Alkaline Phosphatase 74 U/L (39-117); Anion Gap 12 (12-20); Aspartate Amino Transferase 21 U/L (5-37); Bilirubin Direct < 0.2 mg/dL (0.0-0.5); Bilirubin Total 0.2 mg/dL (0.0-1.0); Blood Urea Nitrogen 14 mg/dL (9-16); Calcium 9.2 mg/dL (8.4-10.2); Carbon Dioxide 24 mmol/L (22-29); Chloride 108 mmol/L (96-108); Creatinine Clr Calc Pharmacy 178.8; Estimated Glomerular Filt Rate > 60; Glucose Random 92 mg/dL (60-115); Potassium 3.8 mmol/L (3.3-5.1); Sodium 140 mmol/L (135-145); Total Protein 7.3 g/dL (6.5-8.0)
== END 2023-04-17 21:02 | disposition home or self-care (01) ==
PROVIDERS: Physician Assistant Medical; Emergency Provider Emergency Medicine; PCP Internal Medicine
DX: M79.602 Pain in left arm (principal); M25.532 Pain in left wrist; Z79.899 Other long term (current) drug therapy
CPT/HCPCS: 36415; 73080; 73110; 80048; 80076; 82550; 83735; 85025; 99283; 99284

== ENCOUNTER 2023-06-08 19:47 | Emergency (ER) | payer OTHER, SELFPAY ==
--- NOTE | ~2023-06-08 | XR_ITS ---
EXAMINATION: XR ANKLE, LEFT CLINICAL INFORMATION: Left ankle swelling and pain. COMPARISON: Radiograph left ankle 04/28/2022. TECHNIQUE: AP, lateral, and mortise views of the left ankle. FINDINGS: No acute fractures or subluxation. Again noted os trigonum. Mild diffuse soft tissue thickening, decreased compared to 04/28/2022. No unexpected radiopaque foreign bodies. XR/XR ankle LT min 3V IMPRESSION: 1. No acute fractures or subluxation. 2. Decreased soft tissue thickening when compared to 04/28/2022.
--- NOTE | 2023-06-08 19:50 | ED_ITS ---
HPI - General Adult General Chief complaint: Fall Stated complaint: L Ankle injury Time Seen by Provider: 06/08/23 21:35 Source: patient and family (patient's father) Mode of arrival: wheelchair Limitations: no limitations History of Present Illness HPI narrative: 22 y/o M with PMHx of autism spectrum disorder and bipolar disorder presents with left ankle pain. The pain started about 2 hours ago when he was stepping out of a vehicle and twisted his left ankle. He states that he fell to the ground and felt a popping noise. He was not able to ambulate after d/t pain. He reports increased pain with movement. Patient reports that he did not hit his head or lose consciousness. He denies any other injuries in the incident. He denies chest pain, shortness of breath, abdominal pain, N/V/D. Onset (ago): hour(s) Location: lower extremity Radiation: non-radiation Severity: mild Severity scale (1-10): 3 Quality: aching and dull Pain Consistency: constant Relieving factors: none Exacerbating factors: movement Associated symptoms: denies other symptoms Treatments prior to arrival: none Related Data Home Medications Medication Instructions Recorded Confirmed aripiprazole 15 mg tablet 15 mg PO QAM 09/17/20 02/12/23 hydroxyzine HCl 25 mg tablet 25 mg PO BID PRN Anxiety 09/17/20 02/12/23 prazosin 5 mg capsule 5 mg PO BEDTIME PRN Sleep 09/17/20 02/12/23 trazodone 150 mg tablet 150 mg PO BEDTIME PRN Sleep 09/17/20 02/12/23 oxcarbazepine 300 mg tablet 300 mg PO QAM 07/05/22 02/12/23 oxcarbazepine 300 mg tablet 600 mg PO BEDTIME 07/05/22 02/12/23 Previous Rx's Medication Instructions Recorded cholecalciferol (vitamin D3) 50 50 mcg PO DAILY 90 days #90 caps 10/16/22 mcg (2,000 unit) capsule cephalexin 500 mg capsule 500 mg PO BID #14 caps 03/19/23 doxycycline hyclate 100 mg tablet 100 mg PO BID #14 tabs 03/19/23 Allergies Allergy/AdvReac Type Severity Reaction Status Date / Time apple AdvReac Severe DIARRHEA Verified 03/18/23 21:27 POTATO JUICE Allergy Intermediate RASH Uncoded 02/12/23 09:40 Review of Systems Constitutional: Constitutional: Reports no additional constitutional co mplaints, Denies chills, Denies fever(s) and Denies night sweats Eyes: Eyes: Reports no additional eye complaints, Denies blurry vision, Denies change in vision, Denies diplopia, Denies eye discharge, Denies loss of vision and Denies eye pain ENT: Denies dizziness Cardiovascular: Cardiovascular: Reports no additional cardiovascular complaints, Denies chest pain, Denies lightheadedness, Denies Loss of Consciousness and Denies dyspnea Respiratory: Respiratory: Reports no additional respiratory complaints and Denies dyspnea Gastrointestinal: Gastrointestinal: Reports no additional gastrointestinal complaints, Denies abdominal pain, Denies melena, Denies hematochezia, Denies change in bowel habits and Denies change in stool character Genitourinary: Genitourinary: Reports no additional male genitourinary complaints, Denies hematuria, Denies oliguria, Denies difficulty urinating, Denies dysuria, Denies urinary frequency, Denies urinary hesitancy, Denies urinary incontinence and Denies urinary urgency Musculoskeletal: Musculoskeletal: Reports no additional musculoskeletal complaints, Denies numbness and Denies tingling Comments: left ankle pain Neurologic: Denies dizziness, Denies loss of vision, Denies numbness and Denies tingling Psychiatric: Psychiatric: Reports no additional psychiatric complaints Endocrine: Endocrine: Reports no additional endocrine complaints Hematologic/Lymphatic: Hematologic/Lymphatic: Reports no additional hematologic/lymphatic complaints Allergic/Immunologic: Allergic/Immunologic: Reports no additional allergic/immunologic complaints PMF Past Medical History Attestation statement: The following information was validated with the patient. Source: old records reviewed and nursing notes reviewed Medical History (Updated 06/09/23 @ 01:24 by VIVI Chavez) Annual physical exam Autism spectrum disorder Bipolar disorder Cellulitis of right axilla COVID-19 Intellectual disability Inversion sprain of right ankle Obesity (BMI 30-39.9) Pain of right anterior lower extremity Right knee pain Syncope Vitamin D deficiency Surgical History History of placement of ear tubes Family History Family History Father No problems noted. Mother Heart problem Social History Social History Housing: House Alcohol intake: never Patient Tobacco Use Status: Never used Tobacco e-Cigarette/Vaping Use: Never Used Second Hand Smoke Exposure: Yes Advance Directives: Yes Advance Directives on File: Yes Advance Directives Date on File: 11/10/21 service: No Current occupational status: disabled Cognitive needs: No Hearing needs: No Vision needs: No Physical Exam ED Vital Signs: Vital Signs - 24 hr 06/08/23 20:12 Temperature 98.0 F Pulse Rate 95 Respiratory Rate 16 Blood Pressure 160/88 H Pulse Oximetry 98 BMI result Body Mass Index 27.4 Const General: cooperative, no acute distress, alert and awake Nutritional Appearance: well nourished Orientation/consciousness: patient oriented x3 Limitations: no limitations HENMT Head: Yes normal to inspection and Yes atraumatic Ears: hearing grossly normal bilaterally and external ears normal General nose exam: Normal external nose present, no nasal discharge noted and no epistaxis Face and sinus: Yes normal facial exam, No abrasion and No laceration Mouth: Normal oral and palatal mucosa present, no drooling and no muffled voice Eyes General: appearance normal, both eyes and all related structures Periorbital: periorbital findings normal Eyelids: Yes eyelids normal Conjunctivae: conjunctivae normal Pupils: Equal, round and reactive pupils present EOM: EOMs intact bilaterally Neck Neck: Yes normal visual inspection, Yes full ROM and Yes no lymphadenopathy Chest Chest palpation & inspection: normal inspection of the chest Resp Effort & Inspection: normal respiratory effort and able to speak in complete sentences GI Inspection: Yes normal to inspection Neuro General: patient oriented x3 and moves all extremities Cranial nerves: Yes Equal, round and reactive pupils present Cognition (Neuro): normal cognition Motor exam (neuro): 5/5 motor strength present throughout Sensory Exam: Normal double simultaneous stimulation for sensation Coordination: [id number] test normal Extrem General: Yes normal to inspection, Yes full ROM and Yes capillary refill normal Psych Appearance: grossly normal Mental Status: mental status grossly normal Affect: normal affect Attitude: cooperative Thought process: Normal thought process present Thought content: Normal thought content present Insight: Good insight present (Psych) Course Course Course Narrative: This is an RME: Additional HPI, ROS, PE not included below will be deferred to primary provider. ? 20-year-old male with history of autism and intellectual disability presents to the emergency department with cc l ankle pain x 1 hour. Patient rolled ankle when getting out of van, then he hit the groun, no head strike or loc. No numbness or tingling Plan xray Procedures Orthopedic Splinting/Casting Injury #1: Side: left Upper Extremity Immobilizer: Abdirashid wrap Lower Extremity Injury Location: ankle Other Orthopedic Equipment: crutches Medical Decision Making Medical Decision Making MDM Narrative: Patient is a 22 year old assigned male at with a history of autism presenting to the emergency department today with left ankle pain. Patient's physical exam was unremarkable. Patient's left ankle x-ray showed no acute process. I explained my physical exam findings as well as all test results to the patient and the patient's father. I answered all questions asked by the patient and the patient's father. Patient's left ankle was wrapped with an ABDIRASHID wrap and the patient was given crutches with crutch instructions. Patient's PMS was intact prior to and after being wrapped with an ABDIRASHID wrap. I stressed the importance of the patient taking his medication as prescribed. I stressed the importance of the patient following up with his primary care provider. I stressed the importance of the patient returning to the emergency department immediately if his symptoms were to worsen or if he were to develop any dizziness, shortness of breath, difficulty breathing, chest pain, blurry vision, loss of vision, nausea, vomiting, abdominal pain, fever, chills, back pain, or any other complaints. Patient and the patient's father verbalized agreement and understanding with this treatment plan and discharge. Differential Diagnosis Differential Diagnoses: The differential diagnosis associated with the presentation includes Left ankle sprain Left ankle strain Left ankle pain Independent Interpretation I performed an independent interpretation of an: Plain X-Ray Interpretation: My interpretation is in agreement with the radiologist's impression of this imaging study. EXAMINATION: XR ANKLE, LEFT CLINICAL INFORMATION: Left ankle swelling and pain.? COMPARISON: Radiograph left ankle 04/28/2022.? TECHNIQUE: AP, lateral, and mortise views of the left ankle. FINDINGS: No acute fractures or subluxation. Again noted os trigonum. Mild diffuse soft tissue thickening, decreased compared to 04/28/2022. No unexpected radiopaque foreign bodies.? XR/XR ankle LT min 3V IMPRESSION: 1.? No acute fractures or subluxation. 2.? Decreased soft tissue thickening when compared to 04/28/2022. Dictated By: Donna Medina Signed By: Electronically signed by Ryanne 06/08/232024 Radiology Impression Discussion of test interpretation with radiology: I have reviewed the radiologist's reading. Independent Historian Clinical information obtained from an independent historian. History obtained from or confirmed by: Parent (patient's father provided additional history and confirmed the history provided by the patient.) Discharge Plan Discharge Clinical Impression: Ankle sprain Patient Disposition: Home, Self-Care Instructions: Ankle Sprain (DC) Additional Instructions: Follow up with your primary care provider. Return to the emergency department immediately if your symptoms worsen or if you develop any dizziness, shortness of breath, difficulty breathing, chest pain, blurry vision, loss of vision, nausea, vomiting, abdominal pain, fever, chills, back pain, or any other complaints. Prescriptions: No Action prazosin 5 mg capsule 5 mg PO BEDTIME PRN (Reason: Sleep) trazodone 150 mg tablet 150 mg PO BEDTIME PRN (Reason: Sleep) hydroxyzine HCl 25 mg tablet 25 mg PO BID PRN (Reason: Anxiety) Rx Instructions: Pharmacy noted prescription was 1-2 25 mg tabs BID PRN aripiprazole 15 mg tablet 15 mg PO QAM oxcarbazepine 300 mg tablet 600 mg PO BEDTIME oxcarbazepine 300 mg tablet 300 mg PO QAM cephalexin 500 mg capsule 500 mg PO BID Qty: 14 0RF doxycycline hyclate 100 mg tablet 100 mg PO BID Qty: 14 0RF cholecalciferol (vitamin D3) 50 mcg (2,000 unit) capsule 50 mcg PO DAILY 90 Days Qty: 90 3RF Referrals: Kamran Lee MD [Primary Care Provider] - Interventions: ED Discharge Assessment Last Done: 06/08/23 22:10 Discharge Date/Time: 06/08/23 22:10 Print Language: [place]
[2023-06-08 20:12] VITALS: BP 160/88; PULSE 95; RESP 16; TEMP 36.7; O2SAT 98; BMI 27.4
== END 2023-06-08 22:10 | disposition home or self-care (01) ==
PROVIDERS: Emergency Provider Emergency Medicine; PCP Internal Medicine
DX: S93.402A Sprain of unspecified ligament of left ankle, initial encounter (principal); V78.4XXA Person boarding or alighting from bus injured in noncollision transport accident, initial encounter; Y93.89 Activity, other specified; Y92.414 Local residential or business street as the place of occurrence of the external cause; Y99.9 Unspecified external cause status
CPT/HCPCS: 73610; 99282; 99283

== ENCOUNTER 2023-08-13 15:51 | Emergency (ER) | payer OTHER, SELFPAY ==
--- NOTE | ~2023-08-13 | XR_ITS ---
EXAMINATION: XR CHEST CLINICAL INFORMATION: Chest pain. COMPARISON: 07/07/2021. TECHNIQUE: 2 views of the chest were obtained. FINDINGS: The cardiomediastinal silhouette is normal. There is no focal lung consolidation or pleural effusion. The bony structures and soft tissues are unremarkable. XR/XR chest 2V IMPRESSION: No active cardiopulmonary disease.
[2023-08-13 15:59] VITALS: BP 170/102; PULSE 70; O2SAT 96
--- NOTE | 2023-08-13 16:02 | ECG_ITS ---
Test Reason : cp Blood Pressure : / mmHG Vent. Rate : 075 BPM Atrial Rate : 075 BPM P-R Int : 164 ms QRS Dur : 084 ms QT Int : 390 ms P-R-T Axes : 054 053 029 degrees QTc Int : 435 ms Normal sinus rhythm RSR' or QR pattern in V1 suggests right ventricular conduction delay Nonspecific ST abnormality Abnormal ECG When compared with ECG of 04-AUG-2022 20:29, Heart rate has decreased Referred By: Generic ED Physician Electronically Signed By:AMPARO HARRY MD
[2023-08-13 16:34] VITALS: BP 148/82; PULSE 73; RESP 18; TEMP 36.7; O2SAT 96; BMI 35.4
--- NOTE | 2023-08-13 16:36 | ED_ITS ---
HPI - Chest Pain General Chief Complaint: Chest Pain Stated Complaint: CHEST PAIN STABBING PAIN History of Present Illness HPI narrative: left before completion of treatment by ED Provider. Related Data Home Medications Medication Instructions Recorded Confirmed aripiprazole 15 mg tablet 15 mg PO QAM 09/17/20 02/12/23 hydroxyzine HCl 25 mg tablet 25 mg PO BID PRN Anxiety 09/17/20 02/12/23 prazosin 5 mg capsule 5 mg PO BEDTIME PRN Sleep 09/17/20 02/12/23 trazodone 150 mg tablet 150 mg PO BEDTIME PRN Sleep 09/17/20 02/12/23 oxcarbazepine 300 mg tablet 300 mg PO QAM 07/05/22 02/12/23 oxcarbazepine 300 mg tablet 600 mg PO BEDTIME 07/05/22 02/12/23 Previous Rx's Medication Instructions Recorded cholecalciferol (vitamin D3) 50 50 mcg PO DAILY 90 days #90 caps 10/16/22 mcg (2,000 unit) capsule cephalexin 500 mg capsule 500 mg PO BID #14 caps 03/19/23 doxycycline hyclate 100 mg tablet 100 mg PO BID #14 tabs 03/19/23 Allergies Allergy/AdvReac Type Severity Reaction Status Date / Time apple AdvReac Severe DIARRHEA Verified 03/18/23 21:27 POTATO JUICE Allergy Intermediate RASH Uncoded 02/12/23 09:40 [facility] Past Medical History Medical History (Updated 08/14/23 @ 10:08 by VIVI Hodge) Vitamin D deficiency Cellulitis of right axilla Pain of right anterior lower extremity Right knee pain Obesity (BMI 30-39.9) Bipolar disorder Autism spectrum disorder Annual physical exam Inversion sprain of right ankle Syncope Intellectual disability COVID-19 Surgical History History of placement of ear tubes Family History Family History Father No problems noted. Mother Heart problem Social History Social History Housing: House Alcohol intake: never Patient Tobacco Use Status: Never used Tobacco e-Cigarette/Vaping Use: Never Used Second Hand Smoke Exposure: Yes Advance Directives: Yes Advance Directives on File: Yes Advance Directives Date on File: 11/10/21 service: No Current occupational status: disabled Cognitive needs: No Hearing needs: No Vision needs: No Physical Exam 2 Vital Signs: Vital Signs: Last Vital Signs Temp 98.0 F 08/13/23 19:28 Pulse 86 08/13/23 19:28 Resp 14 08/13/23 19:28 BP 129/76 08/13/23 19:28 Pulse Ox 97 08/13/23 19:28 O2 Del Method Room Air 08/13/23 19:28 BMI result Body Mass Index 35.4 Course Course Course Narrative: RME: 22 yold male presents to the ED chest pain and pleurisy. Patient states no URI. labs, chest xray, EKG, and covid ordered Medical Decision Making Lab Data 08/13/23 17:59 08/13/23 17:59 Labs: Lab Results 08/13/23 Range/Units 17:59 WBC 4.5 L (4.8-10.8) X10*3/uL RBC 5.59 (4.60-5.80) X10*6/uL Hgb 16.2 (14.0-18.0) g/dl Hct 46.8 (42.0-52.0) % MCV 83.7 (80.0-98.0) fL MCH 29.0 (27.0-33.0) pg MCHC 34.6 (31.0-36.0) g/dl RDW 12.1 (11.0-16.0) % Plt Count 163 (160-400) X10*3/uL MPV 11.5 (9.4-12.4) fL Immature Gran % (Auto) 0.4 (0.0-0.4) % Neut % (Auto) 60.3 (45-73) % Lymph % (Auto) 27.2 (20-40) % Hubbard % (Auto) 9.4 (2-11) % Eos % (Auto) 2.0 (0-4) % Baso % (Auto) 0.7 (0-2) % Lymph # (Auto) 1.2 (1.2-4.9) X10*3/uL Hubbard # (Auto) 0.4 (0.1-1.2) X10*3/uL Eos # (Auto) 0.1 (0.0-0.4) X10*3/uL Baso # (Auto) 0.0 (0.0-0.2) X10*3/uL Abs Immat Gran (auto) 0.02 (0.00-0.03) X10*3/uL Absolute Neuts (auto) 2.7 (2.0-8.3) x10*3/uL Absolute Nucleated RBC 0.000 (0.0-0.012) X10*3/uL Nucleated RBC % (auto) 0.0 (0.0-0.2) /100WBC PT 12.0 (11.1-13.3) SEC INR 1.0 (0.9-1.1) APTT 33.1 (26.0-36.4) SEC Sodium 140 (135-145) mmol/L Potassium 4.0 (3.3-5.1) mmol/L Chloride 106 (96-108) mmol/L Carbon Dioxide 22 (22-29) mmol/L Anion Gap 16 (12-20) BUN 12 (9-16) mg/dL Creatinine 0.84 (0.5-1.4) mg/dL Estim Creat Clear Calc 192.1 Estimated GFR > 60 Random Glucose 94 (60-115) mg/dL Calcium 9.5 (8.4-10.2) mg/dL Total Bilirubin 0.3 (0.0-1.0) mg/dL AST 15 (5-37) U/L ALT 17 (0-40) U/L Alkaline Phosphatase 67 (39-117) U/L Troponin I High Sens < 2.7 (<3.5-35.0) ng/L B-Natriuretic Peptide < 10 (<100) pg/mL Total Protein 7.4 (6.5-8.0) g/dL Albumin 4.1 (3.5-5.0) g/dL COVID-19 (MARCIO) Negative (Negative) COVID-19 Clin Com See Note Influenza Type A (HUMBERTO) Negative (Negative) Influenza Type B (HUMBERTO) Negative (Negative) Influenza A & B Note See Note Discharge Plan Discharge Clinical Impression: Chest pain Patient Disposition: Left W/O Completing Treatment Prescriptions: No Action prazosin 5 mg capsule 5 mg PO BEDTIME PRN (Reason: Sleep) trazodone 150 mg tablet 150 mg PO BEDTIME PRN (Reason: Sleep) hydroxyzine HCl 25 mg tablet 25 mg PO BID PRN (Reason: Anxiety) Rx Instructions: Pharmacy noted prescription was 1-2 25 mg tabs BID PRN aripiprazole 15 mg tablet 15 mg PO QAM oxcarbazepine 300 mg tablet 600 mg PO BEDTIME oxcarbazepine 300 mg tablet 300 mg PO QAM cephalexin 500 mg capsule 500 mg PO BID Qty: 14 0RF doxycycline hyclate 100 mg tablet 100 mg PO BID Qty: 14 0RF cholecalciferol (vitamin D3) 50 mcg (2,000 unit) capsule 50 mcg PO DAILY 90 Days Qty: 90 3RF Discharge Date/Time: 08/13/23 21:29
[2023-08-13 18:07] LABS: MANUAL DIFF FLAG NO
[2023-08-13 18:19] LABS: Partial Thromboplastin Time 33.1 SEC (26.0-36.4)
[2023-08-13 18:24] LABS: COVID-19 Test Negative (Negative); IDNOW Serial# 9DB6401D; IDNOW Serial# BCCEAD1C; Influenza A Negative (Negative); Influenza B2 Negative (Negative)
[2023-08-13 18:25] LABS: Alanine Aminotransferase 17 U/L (0-40); Albumin Level 4.1 g/dL (3.5-5.0); Alkaline Phosphatase 67 U/L (39-117); Anion Gap 16 (12-20); Aspartate Amino Transferase 15 U/L (5-37); Basophils Percent Auto 0.7 % (0-2); Bilirubin Total 0.3 mg/dL (0.0-1.0); Blood Urea Nitrogen 12 mg/dL (9-16); Calcium 9.5 mg/dL (8.4-10.2); Carbon Dioxide 22 mmol/L (22-29); Chloride 106 mmol/L (96-108); Creatinine Clr Calc Pharmacy 192.1; Eosinophils Absolute Auto 0.1 X10*3/uL (0.0-0.4); Estimated Glomerular Filt Rate > 60; Glucose Random 94 mg/dL (60-115); Hematocrit 46.8 % (42.0-52.0); Hemoglobin 16.2 g/dl (14.0-18.0); Imm Gran Abs Auto 0.02 X10*3/uL (0.00-0.03); Imm Gran Pct Auto 0.4 % (0.0-0.4); Lymphocytes Absolute Auto 1.2 X10*3/uL (1.2-4.9); Lymphocytes Percent Auto 27.2 % (20-40); Mean Corpuscular HGB Conc 34.6 g/dl (31.0-36.0); Mean Corpuscular Volume 83.7 fL (80.0-98.0); Mean Platelet Volume 11.5 fL (9.4-12.4); Monocytes Absolute Auto 0.4 X10*3/uL (0.1-1.2); Monocytes Percent Auto 9.4 % (2-11); Neutrophils Absolute Auto 2.7 x10*3/uL (2.0-8.3); Neutrophils Percent Auto 60.3 % (45-73); Platelet Count 163 X10*3/uL (160-400); Red Blood Count 5.59 X10*6/uL (4.60-5.80); Red Cell Distribution Width 12.1 % (11.0-16.0); Sodium 140 mmol/L (135-145); Total Protein 7.4 g/dL (6.5-8.0); White Blood Count 4.5 X10*3/uL (4.8-10.8)
[2023-08-13 18:31] LABS: B Type Natriuretic Peptide < 10 pg/mL (<100)
[2023-08-13 18:34] LABS: Troponin-I High Sensitivity < 2.7 ng/L (<3.5-35.0)
[2023-08-13 19:28] VITALS: BP 129/76; PULSE 86; RESP 14; TEMP 36.7; O2SAT 97
== END 2023-08-13 21:29 | disposition left against medical advice (07) ==
PROVIDERS: Physician Assistant; Emergency Provider Emergency Medicine
DX: R07.89 Other chest pain (principal); R06.02 Shortness of breath; Z79.899 Other long term (current) drug therapy; Z11.52 Encounter for screening for COVID-19; Z20.822 Contact with and (suspected) exposure to COVID-19
CPT/HCPCS: 36415; 71046; 80053; 83880; 84484; 85025; 85610; 85730; 87502; 87635; 93005; 99283; 99284

== ENCOUNTER 2023-10-15 21:55 | Emergency (ER) | payer OTHER, SELFPAY ==
--- NOTE | ~2023-10-15 | CT_ITS ---
EXAMINATION: CT CHEST WITHOUT CONTRAST CLINICAL INFORMATION: Injury with left shoulder pain COMPARISON: Chest radiograph 08/13/2023 TECHNIQUE: Multidetector volumetric CT imaging of the chest was done. Axial MIP volume rendering provided. Sagittal and coronal reformatted images were obtained. This CT examination was performed using dose optimization techniques as appropriate, variously including the following: *Automated exposure control *Adjustment of mA and/or kV according to patient size (this includes techniques or standardized protocols for targeted exams where dose is matched to indication/reason for exam; i.e. extremities or head) *Use of iterative reconstruction technique DLP: 769 mGy-cm FINDINGS: GAME DESIGNER/CREATIVE DIRECTOR: Unremarkable LUNGS: There is a tubular 4 mm long density in the right middle lobe along the minor fissure which may represent a perifissural lymph node (4:321). There is a tiny 3 mm subpleural right lower lobe pulmonary nodule (4:383). The lungs are otherwise clear with no evidence of inflammation or concerning masses. MEDIASTINUM: The mediastinum is normal. CORONARY ARTERY CALCIFICATION: None visualized on this study. PLEURA: There is no pleural effusion. No pleural mass or thickening. AXILLA: No lymphadenopathy. UPPER ABDOMEN: Spleen is enlarged measuring 16.2 cm in greatest dimension. Upper abdomen otherwise unremarkable. OSSEOUS STRUCTURES: Unremarkable. CT/CT chest wo IV con IMPRESSION: 1. No evidence of a traumatic injury in the chest. 2. Tiny lung nodules as described above the largest 4 mm. 3. Splenomegaly. According to the UPDATED 2017 Fleischner Society recommendations, the advised follow-up imaging for solid nodules <6 mm in the middle/lower lobes is no routine follow up.
--- NOTE | ~2023-10-15 | CT_ITS ---
EXAMINATION: NONCONTRAST HEAD CT NONCONTRAST CERVICAL SPINE CT INDICATION INFORMATION: Head injury COMPARISON: 09/17/2021 TECHNIQUE: Separate noncontrast CT examinations of the head and cervical spine were performed. Coronal and sagittal images were created for each examination at the technologist workstation. This CT examination was performed using dose optimization techniques as appropriate, variously including the following: *Automated exposure control *Adjustment of mA and/or kV according to patient size (this includes techniques or standardized protocols for targeted exams where dose is matched to indication/reason for exam; i.e. extremities or head) *Use of iterative reconstruction technique DLP: 1526 mGy-cm FINDINGS: Head: There is no evidence of acute intracranial hemorrhage or territorial infarction. No abnormal mass effect or midline shift is seen. [place]adra to white matter differentiation is well preserved. No extra-axial fluid collections are identified. No hydrocephalus. No significant volume loss. There is no abnormal attenuation within the brain parenchyma. No acute osseous or soft tissue abnormality. The mastoid air cells and visualized portions of the paranasal sinuses are well aerated. Cervical spine: There is anatomic alignment of the vertebral bodies and posterior elements. The atlantoaxial and atlantooccipital articulations are intact. Vertebral body heights and intervertebral disc spaces are maintained. No evidence of acute fracture. No prevertebral soft tissue swelling. Visualized portions of the lung apices are unremarkable. The thyroid gland is unremarkable. CT/CT head/brain wo IV con IMPRESSION: * No acute intracranial findings. * No acute fracture or malalignment of the cervical spine.
--- NOTE | ~2023-10-15 | CT_ITS ---
EXAMINATION: NONCONTRAST HEAD CT NONCONTRAST CERVICAL SPINE CT INDICATION INFORMATION: Head injury COMPARISON: 09/17/2021 TECHNIQUE: Separate noncontrast CT examinations of the head and cervical spine were performed. Coronal and sagittal images were created for each examination at the technologist workstation. This CT examination was performed using dose optimization techniques as appropriate, variously including the following: *Automated exposure control *Adjustment of mA and/or kV according to patient size (this includes techniques or standardized protocols for targeted exams where dose is matched to indication/reason for exam; i.e. extremities or head) *Use of iterative reconstruction technique DLP: 1526 mGy-cm FINDINGS: Head: There is no evidence of acute intracranial hemorrhage or territorial infarction. No abnormal mass effect or midline shift is seen. Cuadra to white matter differentiation is well preserved. No extra-axial fluid collections are identified. No hydrocephalus. No significant volume loss. There is no abnormal attenuation within the brain parenchyma. No acute osseous or soft tissue abnormality. The mastoid air cells and visualized portions of the paranasal sinuses are well aerated. Cervical spine: There is anatomic alignment of the vertebral bodies and posterior elements. The atlantoaxial and atlantooccipital articulations are intact. Vertebral body heights and intervertebral disc spaces are maintained. No evidence of acute fracture. No prevertebral soft tissue swelling. Visualized portions of the lung apices are unremarkable. The thyroid gland is unremarkable. CT/CT cervical spine wo IV con IMPRESSION: * No acute intracranial findings. * No acute fracture or malalignment of the cervical spine.
[2023-10-15 22:05] VITALS: BP 144/92; PULSE 74; RESP 16; O2SAT 95; O2SAT 96; BMI 38.7
[2023-10-15 22:10] VITALS: BP 140/73
[2023-10-15 22:48] LABS: MANUAL DIFF FLAG NO
--- NOTE | 2023-10-15 22:55 | ED.FALL ---
HPI - Fall General Chief Complaint: Fall Stated Complaint: FELL DOWN STAIRS HEAD PAIN NECK PAIN Time Seen by Provider: 10/15/23 22:16 Source: patient, family and old records reviewed Mode of arrival: EMS Limitations: no limitations History of Present Illness HPI Narrative: 22 yo male with PMH of bipolar, autism, intellectual disability, not on blood thinners who tripped on his socks - fell down 12 stairs landed on carpet hit his head reports LOC for 1 to 2 minutes. Family was right there with him. They note he has head, neck and L shoulder pain. He is at his baseline currently. MD complaint: fall Onset (ago): hour(s) (just prior to arrival ) Fall from: standing and down stairs (#) (12) Fall witnessed: yes, by family Place fall occurred: home Loss of consciousness: yes Length of LOC: minutes(s) (2) Prolonged down time: no Symptoms prior to fall: none Context: tripped/slipped Location of injury: head and neck Location of injury - extremities: left: shoulder Severity: moderate Quality: dull and aching Associated symptoms (after fall): headache and neck pain Related Data Home Medications Medication Instructions Recorded Confirmed aripiprazole 15 mg tablet 15 mg PO QAM 09/17/20 02/12/23 hydroxyzine HCl 25 mg tablet 25 mg PO BID PRN Anxiety 09/17/20 02/12/23 prazosin 5 mg capsule 5 mg PO BEDTIME PRN Sleep 09/17/20 02/12/23 trazodone 150 mg tablet 150 mg PO BEDTIME PRN Sleep 09/17/20 02/12/23 oxcarbazepine 300 mg tablet 300 mg PO QAM 07/05/22 02/12/23 oxcarbazepine 300 mg tablet 600 mg PO BEDTIME 07/05/22 02/12/23 Previous Rx's Medication Instructions Recorded cephalexin 500 mg capsule 500 mg PO BID #14 caps 03/19/23 doxycycline hyclate 100 mg tablet 100 mg PO BID #14 tabs 03/19/23 cholecalciferol (vitamin D3) 50 50 mcg PO DAILY 90 days #90 caps 09/03/23 mcg (2,000 unit) capsule Allergies Allergy/AdvReac Type Severity Reaction Status Date / Time apple AdvReac Severe DIARRHEA Verified 03/18/23 21:27 POTATO JUICE Allergy Intermediate RASH Uncoded 02/12/23 09:40 Review of Systems Review of Systems: Constitutional : No Fever, No Chills ENT/Mouth : No Ear Pain, No Hoarseness, No sore throat Eyes: No Eye Pain, No Swelling, No Redness, No Foreign Body Cardiovascular : No Chest Pain, No SOB Respiratory : No Cough, No Dyspnea Gastrointestinal : No Nausea, No Vomiting, No Diarrhea, No abdominal Pain Genitourinary : No Dysuria, No Hematuria Musculoskeletal : positive joint pain, No Myalgias, No Joint Swelling, pos neck apin Skin : No Skin lacerations, No rash Neuro : No Weakness, No Numbness, pos Loss of Consciousness, No Dizziness, pos Headache Psych : No Anxiety/Panic, No Depression Heme/Lymph: no easy bruising, no Lymphadenopathy Endocrine : No Polyuria, No Polydipsia All other systems reviewed and are negative [facility] Past Medical History Attestation statement: The following information was validated with the patient. Source: old records reviewed Medical History Vitamin D deficiency Cellulitis of right axilla Pain of right anterior lower extremity Right knee pain Obesity (BMI 30-39.9) Bipolar disorder Autism spectrum disorder Annual physical exam Inversion sprain of right ankle Syncope Intellectual disability COVID-19 Surgical History History of placement of ear tubes Family History Family History Father No problems noted. Mother Heart problem Social History Social History Housing: House Alcohol intake: never Patient Tobacco Use Status: Never used Tobacco Smoked in Last 30 Days: No e-Cigarette/Vaping Use: Never Used Second Hand Smoke Exposure: Yes Use of substances other than those prescribed or required for medical reasons: No Advance Directives: Yes Advance Directives on File: Yes Advance Directives Date on File: 11/10/21 service: No Current occupational status: disabled Cognitive needs: No Hearing needs: No Vision needs: No Physical Exam Vital Signs: Vital Signs: Last Vital Signs Pulse 74 10/15/23 22:05 Resp 16 10/15/23 22:05 BP 140/73 H 10/15/23 22:10 Pulse Ox 96 10/15/23 22:05 O2 Del Method Room Air 10/15/23 22:05 BMI result Body Mass Index 38.7 Appearance: Alert. Oriented X3. No acute distress. Eyes: Pupils equal, round and reactive to light. ENT: Pharynx normal. Atraumatic Neck: Normal inspection. Neck supple. mild lower cervical ttp no step offs CVS: Normal heart rate and rhythm. Pulses normal. Respiratory: No respiratory distress. Breath sounds normal. Abdomen: Soft and nontender. Skin: Skin warm and dry. Normal skin color. Normal skin turgor. Extremities: No lower extremity edema. No calf ttp L shoulder ttp along AC joint distal NV intact Neuro: Oriented X 3. No motor deficit. No sensory deficit. Course Course Course Narrative: removed collar no issues, using L arm raised above head Medications Administered Discontinued Medications Generic Name Dose Route Start Last Admin Trade Name Freq PRN Reason Stop Dose Admin Acetaminophen 650 mg 10/15/23 22:23 10/15/23 23:46 Acetaminophen 325 Mg Tablet PO 10/15/23 22:24 650 mg ONCE ONE Administration Medical Decision Making Medical Decision Making [facility] Narrative: 22 yo male with PMH of bipolar, autism, intellectual disability at this time with mechanical fall down 12 steps will obtain basic labs, PO tylenol for pain, CT head/cspine, chest CT and L shoulder xray - GCS 15 and NV intact. Differential Diagnosis Differential Diagnoses: The differential diagnosis associated with the presentation includes trauma, sprain strain head injury fracture Admission/Observation Consideration of admission/observation: Escalation of care including admission/observation considered not toxic, GCS 15 stable for DC Lab Data [facility] Lab Attestation statement: I reviewed the patient's lab results. 10/15/23 22:44 10/15/23 22:44 Labs: Lab Results 10/15/23 Range/Units 22:44 WBC 6.3 (4.8-10.8) X10*3/uL RBC 5.46 (4.60-5.80) X10*6/uL Hgb 15.6 (14.0-18.0) g/dl Hct 45.4 (42.0-52.0) % MCV 83.2 (80.0-98.0) fL MCH 28.6 (27.0-33.0) pg MCHC 34.4 (31.0-36.0) g/dl RDW 11.9 (11.0-16.0) % Plt Count 172 (160-400) X10*3/uL MPV 10.7 (9.4-12.4) fL Immature Gran % (Auto) 0.3 (0.0-0.4) % Neut % (Auto) 64.5 (45-73) % Lymph % (Auto) 23.8 (20-40) % [place] % (Auto) 8.5 (2-11) % Eos % (Auto) 1.9 (0-4) % Baso % (Auto) 1.0 (0-2) % Lymph # (Auto) 1.5 (1.2-4.9) X10*3/uL [place] # (Auto) 0.5 (0.1-1.2) X10*3/uL Eos # (Auto) 0.1 (0.0-0.4) X10*3/uL Baso # (Auto) 0.1 (0.0-0.2) X10*3/uL Abs Immat Gran (auto) 0.02 (0.00-0.03) X10*3/uL Absolute Neuts (auto) 4.0 (2.0-8.3) x10*3/uL Absolute Nucleated RBC 0.000 (0.0-0.012) X10*3/uL Nucleated RBC % (auto) 0.0 (0.0-0.2) /100WBC Sodium 140 (135-145) mmol/L Potassium 3.8 (3.3-5.1) mmol/L Chloride 109 H (96-108) mmol/L Carbon Dioxide 26 (22-29) mmol/L Anion Gap 9 L (12-20) BUN 14 (9-16) mg/dL Creatinine 1.04 (0.5-1.4) mg/dL Estim Creat Clear Calc 144.8 Estimated GFR > 60 Random Glucose 96 (60-115) mg/dL Calcium 8.9 D (8.4-10.2) mg/dL Total Bilirubin 0.2 (0.0-1.0) mg/dL Direct Bilirubin < 0.2 (0.0-0.5) mg/dL AST 19 (5-37) U/L ALT 29 (0-40) U/L Alkaline Phosphatase 77 (39-117) U/L Total Protein 7.2 (6.5-8.0) g/dL Albumin 3.8 (3.5-5.0) g/dL Lipase 33 (8-78) U/L Independent Interpretation I performed an independent interpretation of an: Plain X-Ray and CT Scan (no trauma) Radiology Impression Discussion of test interpretation with radiology: I have reviewed the radiologist's reading. Independent Historian Clinical information obtained from an independent historian. History obtained from or confirmed by: Parent and EMS External Record Review External record reviewed: Inpatient record Discharge Plan Discharge Clinical Impression: Head injury, acute, with loss of consciousness Qualifiers: Encounter type: initial encounter Qualified Code(s): S06.9X9A - Unspecified intracranial injury with loss of consciousness of unspecified duration, initial encounter Neck strain Qualifiers: Encounter type: initial encounter Qualified Code(s): S16.1XXA - Strain of muscle, fascia and tendon at neck level, initial encounter Left shoulder strain Qualifiers: Encounter type: initial encounter Qualified Code(s): S46.912A - Strain of unspecified muscle, fascia and tendon at shoulder and upper arm level, left arm, initial encounter Patient Disposition: Home, Self-Care Instructions: Cervical Sprain (ED), Head Injury (ED), Shoulder Sprain (ED) Additional Instructions: no acute trauma on CT scans incidental findings on lung nodules that your doctor can follow up with and enlarged spleen - your labs were normal. otherwise no acute trauma. return for worsening symptoms, confusion, vomiting, severe pain or any other concerns Prescriptions: No Action cholecalciferol (vitamin D3) 50 mcg (2,000 unit) capsule 50 mcg PO DAILY 90 Days Qty: 90 3RF prazosin 5 mg capsule 5 mg PO BEDTIME PRN (Reason: Sleep) trazodone 150 mg tablet 150 mg PO BEDTIME PRN (Reason: Sleep) hydroxyzine HCl 25 mg tablet 25 mg PO BID PRN (Reason: Anxiety) Rx Instructions: Pharmacy noted prescription was 1-2 25 mg tabs BID PRN aripiprazole 15 mg tablet 15 mg PO QAM oxcarbazepine 300 mg tablet 600 mg PO BEDTIME oxcarbazepine 300 mg tablet 300 mg PO QAM cephalexin 500 mg capsule 500 mg PO BID Qty: 14 0RF doxycycline hyclate 100 mg tablet 100 mg PO BID Qty: 14 0RF
[2023-10-15 22:59] LABS: Basophils Absolute Auto 0.1 X10*3/uL (0.0-0.2); Eosinophils Absolute Auto 0.1 X10*3/uL (0.0-0.4); Eosinophils Percent Auto 1.9 % (0-4); Hematocrit 45.4 % (42.0-52.0); Hemoglobin 15.6 g/dl (14.0-18.0); Imm Gran Abs Auto 0.02 X10*3/uL (0.00-0.03); Imm Gran Pct Auto 0.3 % (0.0-0.4); Lymphocytes Absolute Auto 1.5 X10*3/uL (1.2-4.9); Lymphocytes Percent Auto 23.8 % (20-40); Mean Corpuscular HGB Conc 34.4 g/dl (31.0-36.0); Mean Corpuscular Hemoglobin 28.6 pg (27.0-33.0); Mean Corpuscular Volume 83.2 fL (80.0-98.0); Mean Platelet Volume 10.7 fL (9.4-12.4); Monocytes Absolute Auto 0.5 X10*3/uL (0.1-1.2); Monocytes Percent Auto 8.5 % (2-11); Neutrophils Percent Auto 64.5 % (45-73); Platelet Count 172 X10*3/uL (160-400); Red Blood Count 5.46 X10*6/uL (4.60-5.80); Red Cell Distribution Width 11.9 % (11.0-16.0); White Blood Count 6.3 X10*3/uL (4.8-10.8)
[2023-10-15 23:02] LABS: Alanine Aminotransferase 29 U/L (0-40); Albumin Level 3.8 g/dL (3.5-5.0); Alkaline Phosphatase 77 U/L (39-117); Anion Gap 9 (12-20); Aspartate Amino Transferase 19 U/L (5-37); Bilirubin Direct < 0.2 mg/dL (0.0-0.5); Bilirubin Total 0.2 mg/dL (0.0-1.0); Blood Urea Nitrogen 14 mg/dL (9-16); Calcium 8.9 mg/dL (8.4-10.2); Carbon Dioxide 26 mmol/L (22-29); Chloride 109 mmol/L (96-108); Creatinine Clr Calc Pharmacy 144.8; Estimated Glomerular Filt Rate > 60; Glucose Random 96 mg/dL (60-115); Lipase 33 U/L (8-78); Potassium 3.8 mmol/L (3.3-5.1); Sodium 140 mmol/L (135-145); Total Protein 7.2 g/dL (6.5-8.0)
[2023-10-15] MEDS: Acetaminophen 325 MG TABLET 650 MG PO (23:46)
--- NOTE | 2023-10-15 23:58 | PC.NURSE ---
pt medicated per mar for pain. no changes to previous assessment by this RN.
[2023-10-16 01:34] VITALS: BP 129/77; PULSE 84; RESP 18; O2SAT 94
== END 2023-10-16 01:36 | disposition home or self-care (01) ==
PROVIDERS: Emergency Provider Emergency Medicine
DX: S06.9X9A Unspecified intracranial injury with loss of consciousness of unspecified duration, initial encounter (principal); S16.1XXA Strain of muscle, fascia and tendon at neck level, initial encounter; S46.912A Strain of unspecified muscle, fascia and tendon at shoulder and upper arm level, left arm, initial encounter; M54.2 Cervicalgia; R51.9 Headache, unspecified; M25.512 Pain in left shoulder; W10.9XXA Fall (on) (from) unspecified stairs and steps, initial encounter; Y93.9 Activity, unspecified; Y92.9 Unspecified place or not applicable; Y99.9 Unspecified external cause status; Z79.899 Other long term (current) drug therapy
CPT/HCPCS: 36415; 70450; 71250; 72125; 80048; 80076; 83690; 85025; 99284

== ENCOUNTER 2023-12-10 17:14 | Emergency (ER) | payer OTHER, SELFPAY ==
--- NOTE | ~2023-12-10 | CT_ITS ---
EXAMINATION: CT ABDOMEN AND PELVIS WITHOUT CONTRAST CLINICAL INFORMATION: bilateral upper quadrant pain/lower CP COMPARISON: 12/30/2015 TECHNIQUE: Multidetector volumetric imaging was performed from the superior aspect of the liver through the pubic symphysis. Sagittal and coronal reformatted images were obtained on the technologist's workstation. This CT examination was performed using dose optimization techniques as appropriate, variously including the following: *Automated exposure control *Adjustment of mA and/or kV according to patient size (this includes techniques or standardized protocols for targeted exams where dose is matched to indication/reason for exam; i.e. extremities or head) *Use of iterative reconstruction technique DLP: 907 mGy-cm FINDINGS: LUNG BASES: The visualized lung bases are unremarkable. LIVER, GALLBLADDER, AND BILIARY TREE: The liver is normal in size, shape, and attenuation. No focal hepatic lesion or biliary ductal dilatation is identified on this noncontrast exam. The gallbladder is unremarkable with no evidence of radiopaque gallstones, gallbladder wall thickening, or obvious pericholecystic inflammatory changes. PANCREAS: Unremarkable. SPLEEN: Slightly enlarged, measuring approximately 14 cm in the axial plane. ADRENAL GLANDS: Unremarkable. KIDNEYS AND URETERS: No hydronephrosis or obstructing calculus bilaterally. BLADDER: Unremarkable. GASTROINTESTINAL TRACT: No evidence of bowel obstruction. There is prominent submucosal fat within the ascending colon, a finding which can be associated with prior inflammation. No pericolonic stranding to strongly suggest acute inflammation. The appendix is unremarkable. No free fluid or free air is seen. ABDOMINAL WALL: No significant hernia is appreciated. LYMPH NODES: Normal. VASCULAR: Left-sided infrarenal IVC noted. PELVIC VISCERA: Unremarkable. OSSEOUS STRUCTURES: Unremarkable. CT/CT abdomen pelvis wo IV con IMPRESSION: No acute findings identified in the abdomen/pelvis. Mild splenomegaly.
[2023-12-10 17:43] VITALS: BP 145/84; PULSE 100; PULSE 89; RESP 14; TEMP 37; O2SAT 94; BMI 37.1
[2023-12-10 20:13] VITALS: PULSE 98; RESP 14; O2SAT 97
--- NOTE | 2023-12-10 20:14 | PC.NURSE ---
Pt is resting on stretcher, yelling in pain when this RN enters room. Pt reports bilateral rib pain, denies abd pain. When leaving room, patient stops yelling
--- NOTE | 2023-12-10 21:02 | ECG_ITS ---
Test Reason : CHEST PAIN Blood Pressure : / mmHG Vent. Rate : 078 BPM Atrial Rate : 078 BPM P-R Int : 176 ms QRS Dur : 096 ms QT Int : 386 ms P-R-T Axes : 016 051 018 degrees QTc Int : 440 ms Normal sinus rhythm Nonspecific ST abnormality Abnormal ECG When compared with ECG of 13-AUG-2023 16:13, No significant change was found Referred By: Catalina Amaro Electronically Signed By:Brandon Tolliver
--- NOTE | 2023-12-10 21:03 | ED_ITS ---
HPI - General Adult General Chief complaint: General Medical Stated complaint: autistic male w/ chest pain and 08/07 stomach pain Time Seen by Provider: 12/10/23 20:51 Source: patient Mode of arrival: EMS Limitations: no limitations History of Present Illness HPI narrative: Patient comes to the emergency room from home via ambulance. Patient has history of autism, patient is able to state that he has pain , able to give a fair history. Seems that patient is complaining of bilateral flank pain question delicia upper abdomen, bilateral chest pain. Patient states it started today. Denies nausea vomiting diarrhea. No fever or chills. Patient denies recent URI or UTI symptoms Related Data Home Medications Medication Instructions Recorded Confirmed aripiprazole 15 mg tablet 15 mg PO QAM 09/17/20 02/12/23 hydroxyzine HCl 25 mg tablet 25 mg PO BID PRN Anxiety 09/17/20 02/12/23 prazosin 5 mg capsule 5 mg PO BEDTIME PRN Sleep 09/17/20 02/12/23 trazodone 150 mg tablet 150 mg PO BEDTIME PRN Sleep 09/17/20 02/12/23 oxcarbazepine 300 mg tablet 300 mg PO QAM 07/05/22 02/12/23 oxcarbazepine 300 mg tablet 600 mg PO BEDTIME 07/05/22 02/12/23 Previous Rx's Medication Instructions Recorded cephalexin 500 mg capsule 500 mg PO BID #14 caps 03/19/23 doxycycline hyclate 100 mg tablet 100 mg PO BID #14 tabs 03/19/23 cholecalciferol (vitamin D3) 50 50 mcg PO DAILY 90 days #90 caps 09/03/23 mcg (2,000 unit) capsule Allergies Allergy/AdvReac Type Severity Reaction Status Date / Time apple AdvReac Severe DIARRHEA Verified 03/18/23 21:27 POTATO JUICE Allergy Intermediate RASH Uncoded 02/12/23 09:40 Review of Systems 2 Review of Systems: Constitutional : No Weight loss, No Fever, No Chills, No Night Sweats, No Fatigue, No Malaise ENT/Mouth : No Hearing loss, No Ear Pain, No Nasal Congestion, No Sinus Pain, No Hoarseness, No sore throat, No Rhinorrhea, No Swallowing Difficulty Eyes: No Eye Pain, No Swelling, No Redness, No Foreign Body, No Discharge, No Vision Changes Cardiovascular : No Chest Pain, No SOB, No Dyspnea on Exertion, No Orthopnea, No Edema, No Palpitations Respiratory : No Cough, No Sputum, No Wheezing, No Smoke Exposure, No Dyspnea Gastrointestinal : No Nausea, No Vomiting, No Diarrhea, No Constipation, complaining of bilateral upper quadrant pain Genitourinary : no irregular bleeding, No Dysuria, No Urinary Frequency, No Hematuria, No Urinary Incontinence, No Urgency, No Flank Pain, No Urinary Flow Changes, No Hesitancy Musculoskeletal : No joint pain, No Myalgias, No Joint Swelling Skin : No Skin Lesions, No rash Neuro : No Weakness, No Numbness, No Paresthesias, No Loss of Consciousness, No Dizziness, No Headache Psych : No Anxiety/Panic, No Depression, No SI/HI/AH/VH, No Social Issues, Heme/Lymph: No Bruising, No Bleeding,No Lymphadenopathy Endocrine : No Polyuria, No Polydipsia, No Temperature Intolerance PMFSH Past Medical History Medical History Vitamin D deficiency Cellulitis of right axilla Pain of right anterior lower extremity Right knee pain Obesity (BMI 30-39.9) Bipolar disorder Autism spectrum disorder Annual physical exam Inversion sprain of right ankle Syncope Intellectual disability COVID-19 Surgical History History of placement of ear tubes Family History Family History Father No problems noted. Mother Heart problem Social History Social History Housing: House Alcohol intake: never Patient Tobacco Use Status: Never used Tobacco Smoked in Last 30 Days: No e-Cigarette/Vaping Use: Never Used Second Hand Smoke Exposure: Yes Use of substances other than those prescribed or required for medical reasons: No Advance Directives: Yes Advance Directives on File: Yes Advance Directives Date on File: 11/10/21 service: No Current occupational status: disabled Cognitive needs: No Hearing needs: No Vision needs: No Physical Exam ED Vital Signs: Vital Signs - 24 hr 12/10/23 17:43 12/10/23 20:13 Temperature 98.6 F Pulse Rate 100 98 Respiratory Rate 14 14 Blood Pressure 145/84 H Pulse Oximetry 94 97 Oxygen Delivery Method Room Air Room Air BMI result Body Mass Index 37.1 Const Other: Appearance: Alert. Oriented X3. No acute distress. Well-appearing Eyes: Pupils equal, round and reactive to light. ENT: Pharynx normal. Neck: Normal inspection. Neck supple. No lymph nodes noted. No crepitus CVS: Normal heart rate and rhythm. Pulses normal. Normal S1 and S2 Respiratory: No respiratory distress. Breath sounds normal. No Wheezing. No rales Abdomen: Soft , [id number] tenderness noted to palpation in bilateral upper quadrants, bilateral flanks Skin: Skin warm and dry. Normal skin color. Normal skin turgor. Extremities: No lower extremity edema. No Lacerations. No Rash Neuro: Oriented X 3. No motor deficit. No sensory deficit. Moving all extremities. No slurred speech. CN 2 through 12 grossly intact Psych: calm, cooperative, normal affect Course Course Course Narrative: -patient's labs and imaging pending Medications Administered Discontinued Medications Generic Name Dose Route Start Last Admin Trade Name Freq PRN Reason Stop Dose Admin Ibuprofen 600 mg 12/10/23 21:03 12/10/23 21:06 Ibuprofen 600 Mg Tablet PO 12/10/23 21:04 600 mg ONCE ONE Administration Medical Decision Making Medical Decision Making [facility] Narrative: My interpretation of labs: Normal hematology and chemistry -my interpretation of CT abdomen: No obvious abnormalities. -patient given p.o. Tylenol, patient feeling better Differential Diagnosis Differential Diagnoses: The differential diagnosis associated with the presentation includes (Small-bowel obstruction, pancreatitis, cholecystitis, functional abdominal pain, musculoskeletal pain) Admission/Observation Consideration of admission/observation: Escalation of care including admission/observation considered (Given patient's symptoms and history, patient considered) Lab Data [facility] Lab Attestation statement: I reviewed the patient's lab results. 12/10/23 21:14 12/10/23 21:14 Labs: Lab Results 12/10/23 Range/Units 21:14 WBC 7.3 (4.8-10.8) X10*3/uL RBC 5.94 H (4.60-5.80) X10*6/uL Hgb 16.9 (14.0-18.0) g/dl Hct 48.5 (42.0-52.0) % MCV 81.6 (80.0-98.0) fL MCH 28.5 (27.0-33.0) pg MCHC 34.8 (31.0-36.0) g/dl RDW 12.1 (11.0-16.0) % Plt Count 206 (160-400) X10*3/uL MPV 11.0 (9.4-12.4) fL Immature Gran % (Auto) 0.6 H (0.0-0.4) % Neut % (Auto) 65.3 (45-73) % Lymph % (Auto) 23.7 (20-40) % [place] % (Auto) 7.9 (2-11) % Eos % (Auto) 1.8 (0-4) % Baso % (Auto) 0.7 (0-2) % Lymph # (Auto) 1.7 (1.2-4.9) X10*3/uL [place] # (Auto) 0.6 (0.1-1.2) X10*3/uL Eos # (Auto) 0.1 (0.0-0.4) X10*3/uL Baso # (Auto) 0.1 (0.0-0.2) X10*3/uL Abs Immat Gran (auto) 0.04 H (0.00-0.03) X10*3/uL Absolute Neuts (auto) 4.8 (2.0-8.3) x10*3/uL Absolute Nucleated RBC 0.000 (0.0-0.012) X10*3/uL Nucleated RBC % (auto) 0.0 (0.0-0.2) /100WBC PT 11.7 (11.1-13.3) SEC INR 1.0 (0.9-1.1) Sodium 140 (135-145) mmol/L Potassium 4.0 (3.3-5.1) mmol/L Chloride 106 (96-108) mmol/L Carbon Dioxide 24 (22-29) mmol/L Anion Gap 14 (12-20) BUN 14 (9-16) mg/dL Creatinine 0.79 (0.5-1.4) mg/dL Estim Creat Clear Calc 203.5 Estimated GFR > 60 Random Glucose 100 (60-115) mg/dL Calcium 9.2 (8.4-10.2) mg/dL Total Bilirubin 0.3 (0.0-1.0) mg/dL Direct Bilirubin 0.1 (0.0-0.5) mg/dL AST 30 (5-37) U/L ALT 44 H (0-40) U/L Alkaline Phosphatase 84 (39-117) U/L Troponin I High Sens < 2.7 (<3.5-35.0) ng/L Total Protein 7.3 (6.5-8.0) g/dL Albumin 4.0 (3.5-5.0) g/dL Lipase 29 (8-78) U/L COVID-19 (MARCIO) Negative (Negative) COVID-19 Clin Com See Note Independent Interpretation I performed an independent interpretation of an: CT Scan Radiology Impression Discussion of test interpretation with radiology: I have reviewed the radiologist's reading. Radiologist Impression: FINDINGS: LUNG BASES: The visualized lung bases are unremarkable. LIVER, GALLBLADDER, AND BILIARY TREE: The liver is normal in size, shape, and attenuation. No focal hepatic lesion or biliary ductal dilatation is identified on this noncontrast exam. The gallbladder is unremarkable with no evidence of radiopaque gallstones, gallbladder wall thickening, or obvious pericholecystic inflammatory changes. PANCREAS: Unremarkable. SPLEEN: Slightly enlarged, measuring approximately 14 cm in the axial plane. ADRENAL GLANDS: Unremarkable. KIDNEYS AND URETERS: No hydronephrosis or obstructing calculus bilaterally. BLADDER: Unremarkable. GASTROINTESTINAL TRACT: No evidence of bowel obstruction. There is prominent submucosal fat within the ascending colon, a finding which can be associated with prior inflammation. No pericolonic stranding to strongly suggest acute inflammation. The appendix is unremarkable. No free fluid or free air is seen. ABDOMINAL WALL: No significant hernia is appreciated. LYMPH NODES: Normal. VASCULAR: Left-sided infrarenal IVC noted. PELVIC VISCERA: Unremarkable. OSSEOUS STRUCTURES: Unremarkable. CT/CT abdomen pelvis wo IV con IMPRESSION: No acute findings identified in the abdomen/pelvis. Mild splenomegaly. Critical Care Time Critical Care Time Critical Care Time: Yes Total Critical Care Time: 45 Attestation: I have personally provided critical care time. Time includes review of lab data, radiology results, discussion with consultants, and monitoring for potential decompensation. Intervention performed as documented. Discharge Plan Discharge Clinical Impression: Abdominal pain Patient Disposition: Home, Self-Care Instructions: Abdominal Pain (ED) Additional Instructions: Please follow-up with your primary care physician tomorrow. If you have any worsening or new symptoms, please return to the emergency room or call 911 Prescriptions: No Action cholecalciferol (vitamin D3) 50 mcg (2,000 unit) capsule 50 mcg PO DAILY 90 Days Qty: 90 3RF prazosin 5 mg capsule 5 mg PO BEDTIME PRN (Reason: Sleep) trazodone 150 mg tablet 150 mg PO BEDTIME PRN (Reason: Sleep) hydroxyzine HCl 25 mg tablet 25 mg PO BID PRN (Reason: Anxiety) Rx Instructions: Pharmacy noted prescription was 1-2 25 mg tabs BID PRN aripiprazole 15 mg tablet 15 mg PO QAM oxcarbazepine 300 mg tablet 600 mg PO BEDTIME oxcarbazepine 300 mg tablet 300 mg PO QAM cephalexin 500 mg capsule 500 mg PO BID Qty: 14 0RF doxycycline hyclate 100 mg tablet 100 mg PO BID Qty: 14 0RF
[2023-12-10] MEDS: Ibuprofen 600 MG TABLET PO (21:06)
[2023-12-10 21:18] LABS: MANUAL DIFF FLAG NO
[2023-12-10 21:22] LABS: Basophils Absolute Auto 0.1 X10*3/uL (0.0-0.2); Basophils Percent Auto 0.7 % (0-2); Eosinophils Absolute Auto 0.1 X10*3/uL (0.0-0.4); Eosinophils Percent Auto 1.8 % (0-4); Hematocrit 48.5 % (42.0-52.0); Hemoglobin 16.9 g/dl (14.0-18.0); Imm Gran Abs Auto 0.04 X10*3/uL (0.00-0.03); Imm Gran Pct Auto 0.6 % (0.0-0.4); Lymphocytes Absolute Auto 1.7 X10*3/uL (1.2-4.9); Lymphocytes Percent Auto 23.7 % (20-40); Mean Corpuscular HGB Conc 34.8 g/dl (31.0-36.0); Mean Corpuscular Hemoglobin 28.5 pg (27.0-33.0); Mean Corpuscular Volume 81.6 fL (80.0-98.0); Monocytes Absolute Auto 0.6 X10*3/uL (0.1-1.2); Monocytes Percent Auto 7.9 % (2-11); Neutrophils Absolute Auto 4.8 x10*3/uL (2.0-8.3); Neutrophils Percent Auto 65.3 % (45-73); Platelet Count 206 X10*3/uL (160-400); Red Blood Count 5.94 X10*6/uL (4.60-5.80); Red Cell Distribution Width 12.1 % (11.0-16.0); White Blood Count 7.3 X10*3/uL (4.8-10.8)
[2023-12-10 21:33] LABS: Prothrombin Time 11.7 SEC (11.1-13.3)
[2023-12-10 21:35] LABS: Alanine Aminotransferase 44 U/L (0-40); Alkaline Phosphatase 84 U/L (39-117); Anion Gap 14 (12-20); Aspartate Amino Transferase 30 U/L (5-37); Bilirubin Direct 0.1 mg/dL (0.0-0.5); Bilirubin Total 0.3 mg/dL (0.0-1.0); Blood Urea Nitrogen 14 mg/dL (9-16); Calcium 9.2 mg/dL (8.4-10.2); Carbon Dioxide 24 mmol/L (22-29); Chloride 106 mmol/L (96-108); Creatinine Clr Calc Pharmacy 203.5; Estimated Glomerular Filt Rate > 60; Glucose Random 100 mg/dL (60-115); Lipase 29 U/L (8-78); Sodium 140 mmol/L (135-145); Total Protein 7.3 g/dL (6.5-8.0)
[2023-12-10 21:42] LABS: COVID-19 Test Negative (Negative); IDNOW Serial# 08D9AD1C
[2023-12-10 21:43] LABS: Troponin-I High Sensitivity < 2.7 ng/L (<3.5-35.0)
--- NOTE | 2023-12-10 21:46 | PC.NURSE ---
father called looking for update, update given. [phone]
[2023-12-10 23:46] VITALS: BP 134/84; PULSE 72; RESP 17; TEMP 36.6; O2SAT 97
== END 2023-12-10 23:50 | disposition home or self-care (01) ==
PROVIDERS: Emergency Provider Emergency Medicine; PCP Internal Medicine
DX: R10.9 Unspecified abdominal pain (principal); R07.89 Other chest pain; Z79.899 Other long term (current) drug therapy; Z11.52 Encounter for screening for COVID-19
CPT/HCPCS: 74176; 80048; 80076; 83690; 84484; 85025; 85610; 87635; 93005; 99284

== ENCOUNTER → 2023-12-10 21:02 | Outpatient (BNV) | payer OTHER, SELFPAY | PROVIDERS: Emergency Provider Emergency Medicine; PCP Internal Medicine; Visit Provider Internal Medicine Cardiovascular Disease | DX: R94.31 Abnormal electrocardiogram [ECG] [EKG] (principal) | CPT/HCPCS: 93010 ==

== ENCOUNTER 2023-12-17 22:39 | Emergency (ER) | payer OTHER, SELFPAY ==
[2023-12-17 22:55] VITALS: BP 130/87; PULSE 89; RESP 16; TEMP 37.1; O2SAT 95
[2023-12-17 22:57] VITALS: BMI 27.0
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
[2023-12-18 00:05] LABS: MANUAL DIFF FLAG NO
[2023-12-18 00:07] LABS: Basophils Absolute Auto 0.1 X10*3/uL (0.0-0.2); Basophils Percent Auto 0.7 % (0-2); Eosinophils Absolute Auto 0.1 X10*3/uL (0.0-0.4); Eosinophils Percent Auto 1.8 % (0-4); Hemoglobin 15.7 g/dl (14.0-18.0); Imm Gran Abs Auto 0.04 X10*3/uL (0.00-0.03); Imm Gran Pct Auto 0.6 % (0.0-0.4); Lymphocytes Absolute Auto 1.8 X10*3/uL (1.2-4.9); Lymphocytes Percent Auto 24.6 % (20-40); Mean Corpuscular HGB Conc 34.1 g/dl (31.0-36.0); Mean Corpuscular Hemoglobin 28.5 pg (27.0-33.0); Mean Corpuscular Volume 83.5 fL (80.0-98.0); Mean Platelet Volume 10.8 fL (9.4-12.4); Monocytes Absolute Auto 0.5 X10*3/uL (0.1-1.2); Monocytes Percent Auto 7.1 % (2-11); Neutrophils Absolute Auto 4.7 x10*3/uL (2.0-8.3); Neutrophils Percent Auto 65.2 % (45-73); Platelet Count 171 X10*3/uL (160-400); Red Blood Count 5.51 X10*6/uL (4.60-5.80); Red Cell Distribution Width 12.1 % (11.0-16.0); White Blood Count 7.2 X10*3/uL (4.8-10.8)
[2023-12-18 00:26] LABS: Alanine Aminotransferase 48 U/L (0-40); Alkaline Phosphatase 84 U/L (39-117); Anion Gap 15 (12-20); Aspartate Amino Transferase 33 U/L (5-37); Bilirubin Total 0.2 mg/dL (0.0-1.0); Blood Urea Nitrogen 19 mg/dL (9-16); Carbon Dioxide 22 mmol/L (22-29); Chloride 107 mmol/L (96-108); Creatinine Clr Calc Pharmacy 157.1; Estimated Glomerular Filt Rate > 60; Ethanol < 10 mg/dL; Glucose Random 88 mg/dL (60-115); Potassium 4.1 mmol/L (3.3-5.1); Sodium 140 mmol/L (135-145); Total Protein 7.4 g/dL (6.5-8.0)
[2023-12-18 00:33] LABS: COVID-19 Test Negative (Negative); IDNOW Serial# 152EDE1D
[2023-12-18 04:02] LABS: Appearance Urine Clear; Color Urine Yellow; Glucose Urine UA Negative (Negative); Leukocyte Esterase Urine Negative (Negative); Nitrite Urine Negative (Negative); Specific Gravity - Urine >= 1.030 (1.005-1.025); Urine Blood Negative (Negative); Urine Ketones Negative (Negative); Urine Protein Negative (Neg-Trace)
[2023-12-18 04:08] LABS: Amphetamine Screen Urine Not Detected (Not Detect); Barbiturates, Urine Not Detected (Not Detect); Benzodiazepines Screen Urine Not Detected (Not Detect); Cannabinoid Screen Urine Not Detected (Not Detect); Cocaine Screen Urine Not Detected (Not Detect); Fentanyl, urine Not Detected (Not Detect); Opiate Screen Urine Not Detected (Not Detect); Phencyclidine Screen Urine Not Detected (Not Detect)
[2023-12-18] MEDS: Acetaminophen 325 MG TABLET 650 MG PO ×2 (05:06→11:10)
[2023-12-18 06:32] VITALS: BP 123/80; PULSE 85; RESP 17; TEMP 36.7; O2SAT 94
[2023-12-18 08:21] VITALS: BP 138/78; PULSE 86; RESP 16; O2SAT 94
--- NOTE | 2023-12-18 14:01 | PC.NURSE ---
ate lunch. tylenol helped headache. waiting for clear to DC from care team after speaking with mom
== END 2023-12-18 16:28 | disposition home or self-care (01) ==
PROVIDERS: Nurse Practitioner Family; Emergency Provider Student in an Organized Health Care Education/Training Program
DX: R45.1 Restlessness and agitation (principal); F31.9 Bipolar disorder, unspecified; F84.0 Autistic disorder; F79 Unspecified intellectual disabilities; Z11.52 Encounter for screening for COVID-19; Z79.899 Other long term (current) drug therapy
CPT/HCPCS: 80053; 80307; 81003; 85025; 87635; 99285; S9485

== ENCOUNTER 2024-03-17 22:43 | Emergency (ER) | payer OTHER, SELFPAY ==
[2024-03-17 22:46] VITALS: BP 168/54; PULSE 86; O2SAT 99
== END 2024-03-17 23:32 | disposition left against medical advice (07) ==
PROVIDERS: Emergency Provider Emergency Medicine
DX: F41.9 Anxiety disorder, unspecified (principal); F84.0 Autistic disorder; F79 Unspecified intellectual disabilities; Z53.21 Procedure and treatment not carried out due to patient leaving prior to being seen by health care provider

== ENCOUNTER 2024-05-09 18:22 | Emergency (ER) | payer OTHER, SELFPAY ==
--- NOTE | ~2024-05-09 | CT_ITS ---
EXAMINATION CT HEAD WITHOUT CONTRAST CT CERVICAL SPINE WITHOUT CONTRAST CLINICAL INFORMATION: Head injury COMPARISON: None TECHNIQUE: CT of the head was performed without intravenous contrast. Reformatted axial, coronal, and sagittal images were reviewed. Then, multidetector CT of the cervical spine was performed without intravenous contrast. Reformatted axial, coronal and sagittal images were reviewed. This CT examination was performed using dose optimization techniques as appropriate, variously including the following: *Automated exposure control *Adjustment of mA and/or kV according to patient size (this includes techniques or standardized protocols for targeted exams where dose is matched to indication/reason for exam; i.e. extremities or head) *Use of iterative reconstruction technique DLP: 932 mGy-cm FINDINGS: HEAD: No intracranial hemorrhage, extra-axial fluid collection, or midline shift is identified. Cuadra-white matter differentiation is preserved. The ventricles are within normal limits. Basal cisterns are within normal limits. Paranasal sinuses are clear. Mastoid air cells and middle ear cavities are clear. No acute calvarial fractures. Cerumen within the external auditory canals bilaterally. CERVICAL SPINE: There is no fracture, malalignment or prevertebral soft tissue abnormality seen in the cervical spine. There is no abnormal widening of the predental space, separation of the lateral masses of C1 or facet joint distraction. Vertebral body and intervertebral disc height are normal. No significant central canal or neuroforaminal stenosis. The visualized portions of the lung parenchyma is unremarkable. CT/CT cervical spine wo IV con IMPRESSION: CT HEAD: 1. No acute intracranial abnormality. CT CERVICAL SPINE: 1. No acute fracture or malalignment of the cervical spine.
--- NOTE | ~2024-05-09 | CT_ITS ---
EXAMINATION CT HEAD WITHOUT CONTRAST CT CERVICAL SPINE WITHOUT CONTRAST CLINICAL INFORMATION: Head injury COMPARISON: None TECHNIQUE: CT of the head was performed without intravenous contrast. Reformatted axial, coronal, and sagittal images were reviewed. Then, multidetector CT of the cervical spine was performed without intravenous contrast. Reformatted axial, coronal and sagittal images were reviewed. This CT examination was performed using dose optimization techniques as appropriate, variously including the following: *Automated exposure control *Adjustment of mA and/or kV according to patient size (this includes techniques or standardized protocols for targeted exams where dose is matched to indication/reason for exam; i.e. extremities or head) *Use of iterative reconstruction technique DLP: 932 mGy-cm FINDINGS: HEAD: No intracranial hemorrhage, extra-axial fluid collection, or midline shift is identified. Cuadra-white matter differentiation is preserved. The ventricles are within normal limits. Basal cisterns are within normal limits. Paranasal sinuses are clear. Mastoid air cells and middle ear cavities are clear. No acute calvarial fractures. Cerumen within the external auditory canals bilaterally. CERVICAL SPINE: There is no fracture, malalignment or prevertebral soft tissue abnormality seen in the cervical spine. There is no abnormal widening of the predental space, separation of the lateral masses of C1 or facet joint distraction. Vertebral body and intervertebral disc height are normal. No significant central canal or neuroforaminal stenosis. The visualized portions of the lung parenchyma is unremarkable. CT/CT head/brain wo IV con IMPRESSION: CT HEAD: 1. No acute intracranial abnormality. CT CERVICAL SPINE: 1. No acute fracture or malalignment of the cervical spine.
[2024-05-09 18:34] VITALS: BP 135/82; BP 148/73; PULSE 74; PULSE 80; RESP 16; TEMP 37.1; O2SAT 94; O2SAT 98; BMI 37.8
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
[2024-05-09 22:31] VITALS: BP 135/87; PULSE 88; RESP 16; TEMP 37.1; O2SAT 98
== END 2024-05-09 22:32 | disposition home or self-care (01) ==
PROVIDERS: Emergency Provider Emergency Medicine
DX: S09.90XA Unspecified injury of head, initial encounter (principal); W19.XXXA Unspecified fall, initial encounter; Y93.11 Activity, swimming; Y92.016 Swimming-pool in single-family (private) house or garden as the place of occurrence of the external cause; Y99.9 Unspecified external cause status
CPT/HCPCS: 70450; 72125; 99283; 99284

== ENCOUNTER 2024-05-17 22:45 | Emergency (ER) | payer OTHER, SELFPAY ==
[2024-05-17 23:01] VITALS: BP 147/94; BP 162/82; PULSE 101; PULSE 92; RESP 18; TEMP 36.6; O2SAT 94; O2SAT 96; BMI 32.9
--- NOTE | 2024-05-17 23:02 | ED_ITS ---
HPI - Psych General Chief Complaint: Psychiatric Symptoms Stated Complaint: SI Source: patient and old records reviewed Mode of arrival: EMS Limitations: no limitations History of Present Illness ED Provider: ALBINO ABDUL Narrative: 23 yo male with PMH of autism, bipolar disorder, intellectual disability who comes in with c/o depression and SI after break up with his partner. He denies trauma or medical complaints. Has been treated and seen out our ED before. MD complaint: suicidal ideation and feels depressed Onset (ago): day(s) (today) Duration: changing over time History of same: Yes Relieving factors: none Exacerbating factors: other Context: significant life stressor Associated psychiatric symptoms: depression and suicidal ideation Associated symptoms: denies other symptoms Treatments prior to arrival: none If self harm: admits thoughts of self harm Related Data Home Medications ?Medication ?Instructions ?Recorded ?Confirmed aripiprazole 15 mg tablet 15 mg PO QAM 09/17/20 02/12/23 hydroxyzine HCl 25 mg tablet 25 mg PO BID PRN Anxiety 09/17/20 02/12/23 prazosin 5 mg capsule 5 mg PO BEDTIME PRN Sleep 09/17/20 02/12/23 trazodone 150 mg tablet 150 mg PO BEDTIME PRN Sleep 09/17/20 02/12/23 oxcarbazepine 300 mg tablet 300 mg PO QAM 07/05/22 02/12/23 oxcarbazepine 300 mg tablet 600 mg PO BEDTIME 07/05/22 02/12/23 Previous Rx's ?Medication ?Instructions ?Recorded cephalexin 500 mg capsule 500 mg PO BID #14 caps 03/19/23 doxycycline hyclate 100 mg tablet 100 mg PO BID #14 tabs 03/19/23 cholecalciferol (vitamin D3) 50 50 mcg PO DAILY 90 days #90 caps 09/03/23 mcg (2,000 unit) capsule Allergies Allergy/AdvReac Type Severity Reaction Status Date / Time apple AdvReac Severe DIARRHEA Verified 05/17/24 23:05 POTATO JUICE Allergy Intermediate RASH Uncoded 05/17/24 23:05 Review of Systems Review of Systems: Constitutional : No Fever, No Chills ENT/Mouth : No Ear Pain, No Nasal Congestion, No sore throat Eyes: No Eye Pain, No Swelling, No Redness Cardiovascular : No Chest Pain, No SOB Respiratory : No Cough, No Sputum, No Dyspnea Gastrointestinal : No Nausea, No Vomiting, No Diarrhea, No Hematochezia, No Melena Genitourinary : No Dysuria, No Urinary Frequency, No Hematuria Musculoskeletal : No Myalgias Skin : No Skin Lesions, No rash Neuro : No Weakness, No Numbness, No Paresthesias, No Dizziness, No Headache Psych : positive Anxiety, positive Depression, positive SI no HI All other systems reviewed and are negative [facility] Past Medical History Attestation statement: The following information was validated with the patient. Source: old records reviewed Medical History Vitamin D deficiency Cellulitis of right axilla Pain of right anterior lower extremity Right knee pain Obesity (BMI 30-39.9) Bipolar disorder Autism spectrum disorder Annual physical exam Inversion sprain of right ankle Syncope Intellectual disability COVID-19 Surgical History History of placement of ear tubes Family History Family History Father No problems noted. Mother Heart problem Social History Social History Housing: House Alcohol intake: never Patient Tobacco Use Status: Never used Tobacco e-Cigarette/Vaping Use: Never Used Second Hand Smoke Exposure: Yes Advance Directives: Yes Advance Directives on File: Yes Advance Directives Date on File: 11/10/21 Do you have a plan to hurt others: No Plan service: No Current occupational status: disabled Cognitive needs: No Hearing needs: No Vision needs: No Physical Exam Vital Signs: Vital Signs: Last Vital Signs Temp 97.8 F 05/17/24 23:01 Pulse 101 H 05/17/24 23:01 Resp 18 05/17/24 23:01 BP 147/94 H 05/17/24 23:01 Pulse Ox 94 05/17/24 23:01 O2 Del Method Room Air 05/17/24 23:01 BMI result Body Mass Index 32.9 Appearance: Alert. Oriented X3. No acute distress. calm and cooperative holding his pokemon stuffy Eyes: Pupils equal, round and reactive to light. ENT: Pharynx normal. Neck: Normal inspection. Neck supple. CVS: Normal heart rate and rhythm. Pulses normal. Respiratory: No respiratory distress. Breath sounds normal. Abdomen: Soft and nontender. Skin: Skin warm and dry. Normal skin color. Normal skin turgor. Extremities: No lower extremity edema. No calf ttp Neuro: Oriented X 3. No motor deficit. No sensory deficit. CN 2-12intact Medical Decision Making Medical Decision Making [facility]DM Narrative: 23 yo male with PMH of autism, bipolar disorder, intellectual disability who reports depression and SI after breakup with his partner he denies medical complaints at this time will need basic labs, CARE team consult Differential Diagnosis Differential Diagnoses: The differential diagnosis associated with the presentation includes depression, SI, situational reaction, adjustment disorder Admission/Observation Consideration of admission/observation: Escalation of care including admission/observation considered physician observation started at 11pm pending CARE team Consult Healthcare Provider Management of the patient was discussed with: Behavioral Health Provider Lab Data [facility] Lab Attestation statement: I reviewed the patient's lab results. Independent Historian Clinical information obtained from an independent historian. History obtained from or confirmed by: EMS External Record Review External record reviewed: Inpatient record Discharge Plan Discharge Clinical Impression: Bipolar disorder Qualifiers: Active/Remission status: remission status unspecified Qualified Code(s): F31.9 - Bipolar disorder, unspecified Patient Disposition: Still a Patient Prescriptions: No Action cholecalciferol (vitamin D3) 50 mcg (2,000 unit) capsule 50 mcg PO DAILY 90 Days Qty: 90 3RF prazosin 5 mg capsule 5 mg PO BEDTIME PRN (Reason: Sleep) trazodone 150 mg tablet 150 mg PO BEDTIME PRN (Reason: Sleep) hydroxyzine HCl 25 mg tablet 25 mg PO BID PRN (Reason: Anxiety) Rx Instructions: Pharmacy noted prescription was 1-2 25 mg tabs BID PRN aripiprazole 15 mg tablet 15 mg PO QAM oxcarbazepine 300 mg tablet 600 mg PO BEDTIME oxcarbazepine 300 mg tablet 300 mg PO QAM cephalexin 500 mg capsule 500 mg PO BID Qty: 14 0RF doxycycline hyclate 100 mg tablet 100 mg PO BID Qty: 14 0RF Print Language: Dutch
[2024-05-17 23:24] LABS: MANUAL DIFF FLAG NO
[2024-05-17 23:27] LABS: Basophils Percent Auto 0.5 % (0-2); Eosinophils Absolute Auto 0.2 X10*3/uL (0.0-0.4); Eosinophils Percent Auto 2.2 % (0-4); Hematocrit 45.8 % (42.0-52.0); Hemoglobin 16.2 g/dl (14.0-18.0); Imm Gran Abs Auto 0.02 X10*3/uL (0.00-0.03); Imm Gran Pct Auto 0.3 % (0.0-0.4); Lymphocytes Absolute Auto 1.5 X10*3/uL (1.2-4.9); Lymphocytes Percent Auto 19.4 % (20-40); Mean Corpuscular HGB Conc 35.4 g/dl (31.0-36.0); Mean Corpuscular Hemoglobin 29.3 pg (27.0-33.0); Mean Platelet Volume 10.8 fL (9.4-12.4); Monocytes Absolute Auto 0.5 X10*3/uL (0.1-1.2); Monocytes Percent Auto 5.8 % (2-11); Neutrophils Absolute Auto 5.6 x10*3/uL (2.0-8.3); Neutrophils Percent Auto 71.8 % (45-73); Platelet Count 196 X10*3/uL (160-400); Red Blood Count 5.52 X10*6/uL (4.60-5.80); Red Cell Distribution Width 12.4 % (11.0-16.0); White Blood Count 7.7 X10*3/uL (4.8-10.8)
[2024-05-17 23:44] LABS: Alanine Aminotransferase 28 U/L (0-40); Albumin Level 4.2 g/dL (3.5-5.0); Alkaline Phosphatase 73 U/L (39-117); Anion Gap 14 (12-20); Aspartate Amino Transferase 19 U/L (5-37); Bilirubin Direct < 0.2 mg/dL (0.0-0.5); Bilirubin Total 0.2 mg/dL (0.0-1.0); Blood Urea Nitrogen 14 mg/dL (9-16); Calcium 9.5 mg/dL (8.4-10.2); Carbon Dioxide 24 mmol/L (22-29); Chloride 109 mmol/L (96-108); Creatinine Clr Calc Pharmacy 189.3; Estimated Glomerular Filt Rate > 60; Ethanol < 10 mg/dL; Glucose Random 104 mg/dL (60-115); Potassium 3.9 mmol/L (3.3-5.1); Sodium 143 mmol/L (135-145); Total Protein 7.4 g/dL (6.5-8.0)
[2024-05-18] MEDS: Acetaminophen 325 MG TABLET 650 MG PO (02:54)
[2024-05-18 03:09] LABS: Amphetamine Screen Urine Not Detected (Not Detect); Barbiturates, Urine Not Detected (Not Detect); Benzodiazepines Screen Urine Not Detected (Not Detect); Buprenorphine Scr Not Detected (Not Detect); Cannabinoid Screen Urine Not Detected (Not Detect); Cocaine Screen Urine Not Detected (Not Detect); Fentanyl, urine Not Detected (Not Detect); Methadone Screen, Urine Not Detected (Not Detect); Opiate Screen Urine Not Detected (Not Detect); Oxycodone Screen Urine Not Detected (Not Detect); Phencyclidine Screen Urine Not Detected (Not Detect)
[2024-05-18 17:14] VITALS: BP 134/89; PULSE 100; RESP 18; TEMP 37.3; O2SAT 96
[2024-05-18 18:50] VITALS: BP 000/00; PULSE 80; RESP 18; TEMP 37; O2SAT 97
== END 2024-05-18 18:53 | disposition home or self-care (01) ==
PROVIDERS: Emergency Provider Emergency Medicine
DX: F31.9 Bipolar disorder, unspecified (principal); R45.851 Suicidal ideations; F84.0 Autistic disorder; Z79.899 Other long term (current) drug therapy
CPT/HCPCS: 36415; 80048; 80076; 80307; 83735; 85025; 99284; 99285; S9485

== ENCOUNTER 2024-05-22 11:18 | Outpatient (AMB) | payer OTHER, SELFPAY ==
[2024-05-22 11:18] VITALS: BP 110/82; PULSE 101; O2SAT 96; BMI 34.4
--- NOTE | 2024-05-22 11:18 | A.OFFPC_ITS ---
Vital Signs 05/22/24 11:18 Height 6 ft 4 in Weight 283 lb BMI 34.4 BP 110/82 Blood Pressure Location Lt brachial Position Sitting Pulse 101 H Pulse Source Pulse Oximeter Pulse Oximetry (%) 96 Oxygen Delivery Method Room Air Intake Visit Reasons: Follow Up Intake Note: Patient is here to follow up Address Change Clerk Required: No Allergies apple Adverse Reaction (Severe, Verified 05/22/24 12:02) DIARRHEA POTATO JUICE Allergy (Intermediate, Uncoded 05/22/24 12:02) RASH Medication List - Last Reconciled 05/22/24 by Kamran Lee MD aripiprazole 15 mg PO QAM hydroxyzine HCl 25 mg PO BID PRN oxcarbazepine 600 mg PO BID prazosin 5 mg PO BEDTIME PRN trazodone 150 mg PO BEDTIME PRN Tobacco use date assessed: 05/22/24 Dental Screening Dental Screen Date: 05/22/24 Did you have a dental visit in the last 12 months?: Yes Did you have a dental problem in the last 6 months where you did not have access to dental care?: No Was dental information given to patient?: Patient has dentist HPI Follow Up HPI Details Patient comes in today for his follow up visit Was seen at the ER a few days ago (last weekend) for increasing depression and suicidal ideation after breaking up with his partner He had labs done that were mostly within normal limits He was evaluated by the crisis team and was eventually deemed stable and safe to be discharged to home Patient states that he is currently doing better with his mood and depression He reports that he started experiencing increased pain in his right ear yesterday and it has continued to bother him since He denies any ear discharge; denies any fever or sore throat and denies any recent cough/cold symptoms He denies any headaches or dizziness Denies any chest pains, no SOB No nausea/vomiting, no abdominal pain No change in bowel habits noted [facility] Medical History (Updated 05/22/24 @ 13:57 by Kamran Lee MD) Vitamin D deficiency Right knee pain Obesity (BMI 30-39.9) Bipolar disorder Autism spectrum disorder Inversion sprain of right ankle Syncope Intellectual disability COVID-19 Surgical History History of placement of ear tubes Family History Father No problems noted. Mother Heart problem Social History Housing: House Alcohol intake: never Patient Tobacco Use Status: Never used Tobacco e-Cigarette/Vaping Use: Never Used Second Hand Smoke Exposure: Yes Advance Directives Date on File: 11/10/21 service: No Current occupational status: disabled Cognitive needs: No Hearing needs: No Vision needs: No Questionnaire PHQ-9 Over the last 2 weeks, how often have you been bothered by any of the following problems? 1. Little interest or pleasure in doing things: not at all 2. Feeling down, depressed, or hopeless: not at all 3. Trouble falling or staying asleep, or sleeping too much: not at all 4. Feeling tired or having little energy: not at all 5. Poor appetite or overeating: not at all 6. Feeling bad about yourself - or that you are a failure or have let yourself or your family down: not at all 7. Trouble concentrating on things, such as reading the newspaper or watching television: not at all 8. Moving or speaking so slowly that other people could have noticed. Or the opposite - being so fidgety or restless that you have been moving around a lot more than usual: not at all 9. Thoughts that you would be better off or of hurting yourself in some way: not at all Total score: 0 Depression Screening Interpretation: Negative Depression Screening Done: Yes 79337 - PHQ-9 Billing: Yes Source: Developed by Drs. Wilfrido Best, Bia Rodriguez, Yash Hahn and colleagues, with an educational vikki from [employer] Thrive Questionnaire Date Thrive assessed: 05/22/24 I am a: Parent/Caregiver What is your living situation today?: I have a steady place to live Within the past 12 months, did the food you bought not last and you didn't have the money to get more?: Never true Within the past 12 months, did you worry whether your food would run out before you got money to buy more?: Never true Do you have trouble paying for medicines?: No Do you have trouble getting transportation to medical appointments?: No Do you have trouble paying your heating and electricity bill?: No Do you have trouble taking care of your child, family member or friend?: No Do you have trouble with day-to-day activities such as bathing, preparing meals, shopping, managing finances, etc.?: No Are you currently unemployed and looking for a job?: No Are you interested in more education?: No Please select the resources that you would like help with: None Currently or been in a relationship where the following occur: No concerns reported THRIVE Score: 0 AUDIT C Alcohol Use Questionnaire (AUDIT-C) 1. How often do you have a drink containing alcohol?: Never 2. How many drinks containing alcohol do you have on a typical day when you are drinking?: 1 or 2 (0) 3. How often do you have six or more drinks on one occasion?: Never Total Score: 0 Score Reviewed/Action Taken: Yes ANGEL-7 AMB Questionnaire ANGEL-7 Date ANGEL - 7 assessed: 05/22/24 Feeling nervous, anxious, or on edge: 0 = Not at all Not being able to stop or control worryin = Not at all Worrying too much about different things: 0 = Not at all Trouble relaxin = Not at all Being so restless that it is hard to sit still: 0 = Not at all Becoming easily annoyed or irritable: 0 = Not at all Feeling afraid as if something awful might happen: 0 = Not at all Total ANGEL-7 score (0-4 normal; 5-9 mild; 10-14 moderate; 15-21 severe): 0 Source: Developed by Drs. Wilfrido Best, Bia Rodriguez, Yash Hhan and colleagues, with an educational vikki from [employer] Review of Systems Const Denies chills, Denies fatigue, Denies fever(s) and Denies headache(s) ENT Denies dysphagia, Denies dizziness, Denies ear discharge, Reports otalgia (right ear - see HPI), Denies headache(s), Denies neck pain, Denies odynophagia and Denies sore throat Card Denies chest pain, Denies palpitations and Denies dyspnea Resp Denies cough and Denies dyspnea GI Denies abdominal pain, Denies constipation, Denies dysphagia, Denies heartburn, Denies diarrhea, Denies nausea, Denies odynophagia and Denies vomiting Denies dysuria, Denies nocturia and Denies urinary frequency Musc Denies neck pain Neuro Denies dizziness and Denies headache(s) Endo Denies fatigue and Denies palpitations Physical exam (Primary Care) Vital Signs: Last Vital Signs Pulse 101 H 05/22/24 11:18 BP 110/82 05/22/24 11:18 Pulse Ox 96 05/22/24 11:18 Oxygen Delivery Method Room Air 05/22/24 11:18 BMI result Body Mass Index 34.4 Tobacco/Smoking Status: Tobacco use Status Tobacco use date assessed 05/22/24 05/22/24 11:20 Patient Tobacco Use Status Never used Tobacco 05/22/24 11:20 e-Cigarette/Vaping Use Never Used 05/22/24 11:20 PHQ-9: PHQ-9 Score PHQ-9: Total score 0 05/22/24 12:07 Depression Screening Interpretation: Negative Thrive Assessment: Date of Thrive Assessment Date Thrive assessed 05/22/24 05/22/24 11:32 Currently or been in a relationship where the following occur: No concerns reported Const General: no acute distress and alert HENMT Ears: TM normal on the left, EAC's normal (left ear) and TM abnormal wth effusion serous on the right and perforated with clear discharge on the right Throat: Yes posterior oropharynx normal and Yes tonsils normal (no TP congestion) Neck Neck: Yes no lymphadenopathy and Yes supple Thyroid: Thyroid normal Resp Auscultation: clear to auscultation bilaterally, no rales and no wheezes Cardio Rate: regular rate Rhythm: regular rhythm Heart sounds: no murmurs GI Palpation (GI): Soft to palpation and nontender Auscultation: normal bowel sounds General: Yes no CVA tenderness Back/Spine/Pelvis Back: no CVA tenderness Thoracic/Lumbar Spine: No lumbar spinal tenderness Skin Rashes: no rashes Extrem General: Yes no clubbing, cyanosis or edema Assessment and Plan Assessment & Plan (1) Otitis media of right ear: Code(s): H66.91 - Otitis media, unspecified, right ear Qualifiers: Otitis media type: serous Chronicity: acute Recurrence: non-recurrent Qualified Code(s): H65.01 - Acute serous otitis media, right ear Plan: Will start patient on Augmentin 875 mg BID x 10 days and also on Ofloxacin 0.3% ear drops to apply 5 to 10 drops into the right ear BID x 7 days (2) Vitamin D deficiency: Code(s): E55.9 - Vitamin D deficiency, unspecified Plan: Continue Vitamin D3 2000 units QD (3) Autism spectrum disorder: Code(s): F84.0 - Autistic disorder Plan: Follow up with psychiatry at [facility] as scheduled (4) Bipolar disorder: Code(s): F31.9 - Bipolar disorder, unspecified Qualifiers: Active/Remission status: remission status unspecified Qualified Code(s): F31.9 - Bipolar disorder, unspecified Plan: Patient went to the ER a few days ago reportedly for increased depression and suicidal ideation following a break up with his partner but he seems to be doing better currently with his mood Continue Oxcarbazepine 300 mg 2 tablets (600 mg) BID, Aripiprazole 15 mg Q AM, Hydroxyzine 25 mg BID PRN, Prazosin 5 mg Q HS PRN and Trazodone 150 mg Q HS PRN Follow up with psychiatry as scheduled (5) Intellectual disability: Code(s): F79 - Unspecified intellectual disabilities Plan: Sees his therapist/counselor at [facility] regularly (6) Obesity (BMI 30-39.9): Code(s): E66.9 - Obesity, unspecified Plan: Reinforced diet/exercise as tolerated/lose weight Plan To return in 6 months for his next annual physical examination Medications: New amoxicillin-pot clavulanate 875-125 mg 1 tab PO BID 20 tabs 0RF 10 days ofloxacin 0.3% 10 drps otic (ears) BID 10 mL 0RF 7 days Coding Level of Care Code Est Pt Level 3 (57424) Diagnoses Non-recurrent acute serous otitis media of right ear H65.01 Otitis media type: serous Chronicity: acute Recurrence: non-recurrent Vitamin D deficiency E55.9 Autism spectrum disorder F84.0 Bipolar affective disorder, current episode mixed, current episode severity unspecified F31.9 Active/Remission status: remission status unspecified Intellectual disability F79 Obesity (BMI 30-39.9) E66.9
== END 2024-05-22 12:09 | disposition home or self-care (01) ==
PROVIDERS: PCP Internal Medicine; Visit Provider Internal Medicine
DX: H65.01 Acute serous otitis media, right ear (principal); E55.9 Vitamin D deficiency, unspecified; F84.0 Autistic disorder; F31.9 Bipolar disorder, unspecified; F79 Unspecified intellectual disabilities
CPT/HCPCS: 99213

== ENCOUNTER 2024-06-30 19:08 | Emergency (ER) | payer OTHER, SELFPAY ==
--- NOTE | ~2024-06-30 | XR_ITS ---
EXAMINATION: CHEST 2 VIEWS CLINICAL INFORMATION: chest pain, cough. COMPARISON: 10/15/2023. TECHNIQUE: PA and lateral views of the chest obtained. FINDINGS: The lungs are well expanded. No focal infiltrate, effusion, edema, or pneumothorax. Cardiac and mediastinal silhouettes are within normal limits for technique. No acute bony abnormality seen XR/XR chest 2V IMPRESSION: No evidence of acute disease Electronically signed by: Ravi Lewis MD 06/30/2024 08:15 PM EDT
--- NOTE | 2024-06-30 19:09 | ECG_ITS ---
Test Reason : CP Blood Pressure : / mmHG Vent. Rate : 093 BPM Atrial Rate : 093 BPM P-R Int : 162 ms QRS Dur : 092 ms QT Int : 356 ms P-R-T Axes : 030 047 031 degrees QTc Int : 442 ms Normal sinus rhythm Nonspecific ST abnormality Abnormal ECG When compared with ECG of 10-DEC-2023 21:20, No significant change was found Referred By: Sandi Pond Electronically Signed By:MARK COSTA
[2024-06-30 19:13] VITALS: BP 125/70; PULSE 91; RESP 18; TEMP 36.3; O2SAT 94; BMI 35.2
--- NOTE | 2024-06-30 19:16 | ED_ITS ---
HPI - General Adult General Chief complaint: Upper Respiratory Symptoms Stated complaint: chest pain Time Seen by Provider: 06/30/24 22:20 Source: patient Mode of arrival: ambulatory Limitations: no limitations History of Present Illness ED Provider: yohannes ABDUL narrative: Patient complaining of sore throat cough for last 3 days mostly dry cough with occasional mucopurulent phlegm no fever no chills patient has a workup done prior to my evaluation which showed normal labs normal x-ray strep COVID flu RSV negative Related Data Home Medications ?Medication ?Instructions ?Recorded ?Confirmed aripiprazole 15 mg tablet 15 mg PO QAM 09/17/20 05/22/24 hydroxyzine HCl 25 mg tablet 25 mg PO BID PRN Anxiety 09/17/20 05/22/24 prazosin 5 mg capsule 5 mg PO BEDTIME PRN Sleep 09/17/20 05/22/24 trazodone 150 mg tablet 150 mg PO BEDTIME PRN Sleep 09/17/20 05/22/24 oxcarbazepine 300 mg tablet 600 mg PO BID 07/05/22 05/22/24 Previous Rx's ?Medication ?Instructions ?Recorded amoxicillin 875 mg-potassium 1 tab PO BID 10 days #20 tabs 05/22/24 clavulanate 125 mg tablet ofloxacin 0.3 % ear drops 10 drp otic (ears) BID 7 days #10 05/22/24 mL benzonatate 200 mg capsule 200 mg PO TID PRN cough #14 caps 06/30/24 Allergies Allergy/AdvReac Type Severity Reaction Status Date / Time apple AdvReac Severe DIARRHEA Verified 06/30/24 19:16 POTATO JUICE Allergy Intermediate RASH Uncoded 05/22/24 12:02 Review of Systems 2 Review of Systems: Yes all other systems are reviewed and are negative [facility] Past Medical History Medical History Vitamin D deficiency Right knee pain Obesity (BMI 30-39.9) Bipolar disorder Autism spectrum disorder Inversion sprain of right ankle Syncope Intellectual disability COVID-19 Surgical History History of placement of ear tubes Family History Family History Father No problems noted. Mother Heart problem Social History Social History Housing: House Alcohol intake: never Patient Tobacco Use Status: Never used Tobacco Smoked in Last 30 Days: No e-Cigarette/Vaping Use: Never Used Second Hand Smoke Exposure: Yes Use of substances other than those prescribed or required for medical reasons: No Advance Directives: Yes Advance Directives on File: Yes Advance Directives Date on File: 11/10/21 Do you have a plan to hurt others: No Plan service: No Current occupational status: disabled Cognitive needs: No Hearing needs: No Vision needs: No Physical Exam ED Vital Signs: Vital Signs - 24 hr 06/30/24 19:13 06/30/24 22:01 06/30/24 22:01 Temperature 97.4 F 98.2 F Pulse Rate 91 89 Respiratory Rate 18 20 Blood Pressure 125/70 137/84 Pulse Oximetry 94 96 96 Oxygen Delivery Method Room Air Room Air Room Air 06/30/24 22:55 Temperature 98.2 F Pulse Rate 89 Respiratory Rate 20 Blood Pressure 137/84 Pulse Oximetry 99 Oxygen Delivery Method Room Air BMI result Body Mass Index 35.2 Appearance: Alert. Oriented X3. No acute distress. Eyes: No pallor or icterus ENT: Pharynx normal. Oral Mucosa moist Neck: Normal inspection. Neck supple. CVS: Normal heart rate and rhythm. Pulses normal. Respiratory: No respiratory distress. Equal air entry bilateral, no wheezing/rales/rhonchi Abdomen: Soft and nontender. Skin: Skin warm and dry. Normal skin color. Normal skin turgor. Extremities: No lower extremity edema. No calf tenderness Neuro: Oriented X 3. Course Course Course Narrative: This is a Rapid Medical Examination (RME) performed by Lore Pond PA-C in triage. Full HPI, ROS, assessment and treatment plan per primary provider in the Main ED. 23 yo male hx of autism, bipolar disorder, intellecutal disability, here for eval of productive cough, nasal congestion, sore throat x2 days. reports constant chest pain, worsen when coughing/ breathing. denies known sick contacts. + well appearing male, actively coughing on exam. lungs clear. Plan: basic labs, trop, ekg, cxr, viral swabs ordered Medications Administered Discontinued Medications Generic Name Dose Route Start Last Admin Trade Name Freq PRN Reason Stop Dose Admin Benzonatate 200 mg 06/30/24 22:45 06/30/24 22:53 Benzonatate 100 Mg Capsule PO 06/30/24 22:46 200 mg ONCE ONE Administration Medical Decision Making Medical Decision Making [facility] Narrative: Patient with mild URI symptoms labs are stable patient did not have any cough while stay in the ER will discharge patient home on Tessalon for p.r.n. cough Lab Data [facility] Lab Attestation statement: I reviewed the patient's lab results. 06/30/24 19:26 06/30/24 19:26 Labs: Lab Results 06/30/24 Range/Units 19:26 WBC 4.6 L (4.8-10.8) X10*3/uL RBC 5.57 (4.60-5.80) X10*6/uL Hgb 16.2 (14.0-18.0) g/dl Hct 46.7 (42.0-52.0) % MCV 83.8 (80.0-98.0) fL MCH 29.1 (27.0-33.0) pg MCHC 34.7 (31.0-36.0) g/dl RDW 12.0 (11.0-16.0) % Plt Count 160 (160-400) X10*3/uL MPV 11.4 (9.4-12.4) fL Immature Gran % (Auto) 0.2 (0.0-0.4) % Neut % (Auto) 61.4 (45-73) % Lymph % (Auto) 28.1 (20-40) % Story % (Auto) 7.8 (2-11) % Eos % (Auto) 1.9 (0-4) % Baso % (Auto) 0.6 (0-2) % Lymph # (Auto) 1.3 (1.2-4.9) X10*3/uL Story # (Auto) 0.4 (0.1-1.2) X10*3/uL Eos # (Auto) 0.1 (0.0-0.4) X10*3/uL Baso # (Auto) 0.0 (0.0-0.2) X10*3/uL Abs Immat Gran (auto) 0.01 (0.00-0.03) X10*3/uL Absolute Neuts (auto) 2.8 (2.0-8.3) x10*3/uL Absolute Nucleated RBC 0.000 (0.0-0.012) X10*3/uL Nucleated RBC % (auto) 0.0 (0.0-0.2) /100WBC Sodium 139 (135-145) mmol/L Potassium 4.1 (3.3-5.1) mmol/L Chloride 108 (96-108) mmol/L Carbon Dioxide 23 (22-29) mmol/L Anion Gap 12 (12-20) BUN 16 (9-16) mg/dL Creatinine 0.96 (0.5-1.4) mg/dL Estim Creat Clear Calc 170.8 Estimated GFR > 60 Random Glucose 110 (60-115) mg/dL Calcium 9.7 (8.4-10.2) mg/dL Magnesium 1.8 (1.6-2.6) mg/dL Total Bilirubin 0.2 (0.0-1.0) mg/dL AST 15 (5-37) U/L ALT 18 (0-40) U/L Alkaline Phosphatase 71 (39-117) U/L Troponin I High Sens < 2.7 (<3.5-35.0) ng/L Total Protein 7.3 (6.5-8.0) g/dL Albumin 4.1 (3.5-5.0) g/dL Influenza Type A (PCR) NEGATIVE (Negative) Influenza Type B (PCR) NEGATIVE (Negative) RSV RNA Qual (PCR) NEGATIVE (Negative) SARS-CoV-2 RNA (RT-PCR) NEGATIVE (Negative) S. pyogenes GrpA HUMBERTO Negative (Negative) Independent Interpretation I performed an independent interpretation of an: Plain X-Ray Interpretation: Negative Radiology Impression Discussion of test interpretation with radiology: I have reviewed the radiologist's reading. Discharge Plan Discharge Clinical Impression: Upper respiratory infection Patient Disposition: Home, Self-Care Instructions: Upper Respiratory Infection (ED) Additional Instructions: Your COVID, flu, RSV and strep test negative chest x-ray is also normal Likely you have viral pharyngitis Take cough drops as prescribed Prescriptions: New benzonatate 200 mg capsule 200 mg PO TID PRN (Reason: cough) Qty: 14 0RF No Action prazosin 5 mg capsule 5 mg PO BEDTIME PRN (Reason: Sleep) trazodone 150 mg tablet 150 mg PO BEDTIME PRN (Reason: Sleep) hydroxyzine HCl 25 mg tablet 25 mg PO BID PRN (Reason: Anxiety) Rx Instructions: Pharmacy noted prescription was 1-2 25 mg tabs BID PRN aripiprazole 15 mg tablet 15 mg PO QAM oxcarbazepine 300 mg tablet 600 mg PO BID amoxicillin-pot clavulanate 875-125 mg tablet 1 tab PO BID 10 Days Qty: 20 0RF ofloxacin 0.3 % drops 10 drp otic (ears) BID 7 Days Qty: 10 0RF Interventions: ED Discharge Assessment Last Done: 06/30/24 22:55 Discharge Date/Time: 06/30/24 22:58 Print Language: Spanish
[2024-06-30 19:33] LABS: MANUAL DIFF FLAG NO
[2024-06-30 19:44] LABS: Basophils Percent Auto 0.6 % (0-2); Eosinophils Absolute Auto 0.1 X10*3/uL (0.0-0.4); Eosinophils Percent Auto 1.9 % (0-4); Hematocrit 46.7 % (42.0-52.0); Hemoglobin 16.2 g/dl (14.0-18.0); Imm Gran Abs Auto 0.01 X10*3/uL (0.00-0.03); Imm Gran Pct Auto 0.2 % (0.0-0.4); Lymphocytes Absolute Auto 1.3 X10*3/uL (1.2-4.9); Lymphocytes Percent Auto 28.1 % (20-40); Mean Corpuscular HGB Conc 34.7 g/dl (31.0-36.0); Mean Corpuscular Hemoglobin 29.1 pg (27.0-33.0); Mean Corpuscular Volume 83.8 fL (80.0-98.0); Mean Platelet Volume 11.4 fL (9.4-12.4); Monocytes Absolute Auto 0.4 X10*3/uL (0.1-1.2); Monocytes Percent Auto 7.8 % (2-11); Neutrophils Absolute Auto 2.8 x10*3/uL (2.0-8.3); Neutrophils Percent Auto 61.4 % (45-73); Platelet Count 160 X10*3/uL (160-400); Red Blood Count 5.57 X10*6/uL (4.60-5.80); White Blood Count 4.6 X10*3/uL (4.8-10.8)
[2024-06-30 19:49] LABS: IDNOW Serial# 6674DD1D; Strep A Nucleic Acid Negative (Negative)
[2024-06-30 19:56] LABS: Alanine Aminotransferase 18 U/L (0-40); Albumin Level 4.1 g/dL (3.5-5.0); Alkaline Phosphatase 71 U/L (39-117); Anion Gap 12 (12-20); Aspartate Amino Transferase 15 U/L (5-37); Bilirubin Total 0.2 mg/dL (0.0-1.0); Blood Urea Nitrogen 16 mg/dL (9-16); Calcium 9.7 mg/dL (8.4-10.2); Carbon Dioxide 23 mmol/L (22-29); Chloride 108 mmol/L (96-108); Creatinine Clr Calc Pharmacy 170.8; Estimated Glomerular Filt Rate > 60; Glucose Random 110 mg/dL (60-115); Magnesium 1.8 mg/dL (1.6-2.6); Potassium 4.1 mmol/L (3.3-5.1); Sodium 139 mmol/L (135-145); Total Protein 7.3 g/dL (6.5-8.0)
[2024-06-30 20:05] LABS: Troponin-I High Sensitivity < 2.7 ng/L (<3.5-35.0)
[2024-06-30 20:25] LABS: Influenza A PCR NEGATIVE (Negative); Influenza B PCR NEGATIVE (Negative); Resp Syncy Virus RNA Qual PCR NEGATIVE (Negative); SARS COV2 PCR INHOUSE NEGATIVE (Negative)
--- NOTE | 2024-06-30 21:55 | PC.NURSE ---
pt from waiting room, assume care of pt at this time
[2024-06-30 22:01] VITALS: BP 137/84; PULSE 89; RESP 20; TEMP 36.8; O2SAT 96
[2024-06-30] MEDS: Benzonatate 100 MG CAPSULE 200 MG PO (22:53)
[2024-06-30 22:55] VITALS: BP 137/84; PULSE 89; RESP 20; TEMP 36.8; O2SAT 99
== END 2024-06-30 22:58 | disposition home or self-care (01) ==
PROVIDERS: Physician Assistant Medical; Emergency Provider Internal Medicine
DX: J06.9 Acute upper respiratory infection, unspecified (principal); R05.9 Cough, unspecified; J02.9 Acute pharyngitis, unspecified; Z79.899 Other long term (current) drug therapy
CPT/HCPCS: 0241U; 36415; 71046; 80053; 83735; 84484; 85025; 87651; 93005; 99283; 99285

== ENCOUNTER 2024-08-04 21:58 | Emergency (ER) | payer OTHER, SELFPAY ==
[2024-08-04 22:00] VITALS: BP 155/76; PULSE 100; RESP 19; TEMP 37; O2SAT 100; BMI 34.1
[2024-08-05 02:00] VITALS: BP 124/79; PULSE 71; RESP 16; TEMP 36.8; O2SAT 96
--- NOTE | 2024-08-05 03:16 | PC.NURSE ---
Pt left from [facility]H prior to seeing MD after being frustrated at long wait to see provider.
== END 2024-08-05 03:18 | disposition left against medical advice (07) ==
PROVIDERS: Emergency Provider Emergency Medicine; PCP Internal Medicine
DX: R21 Rash and other nonspecific skin eruption (principal)
CPT/HCPCS: 99281; 99284

== ENCOUNTER 2024-08-21 08:48 | Outpatient (REF) | payer OTHER, SELFPAY ==
[2024-08-21 09:29] LABS: MANUAL DIFF FLAG NO
[2024-08-21 09:49] LABS: Basophils Percent Auto 0.5 % (0-2); Eosinophils Absolute Auto 0.1 X10*3/uL (0.0-0.4); Eosinophils Percent Auto 1.7 % (0-4); Hematocrit 45.6 % (42.0-52.0); Hemoglobin 16.3 g/dl (14.0-18.0); Imm Gran Abs Auto 0.03 X10*3/uL (0.00-0.03); Imm Gran Pct Auto 0.5 % (0.0-0.4); Lymphocytes Absolute Auto 1.8 X10*3/uL (1.2-4.9); Lymphocytes Percent Auto 29.8 % (20-40); Mean Corpuscular HGB Conc 35.7 g/dl (31.0-36.0); Mean Corpuscular Hemoglobin 29.3 pg (27.0-33.0); Mean Corpuscular Volume 81.9 fL (80.0-98.0); Mean Platelet Volume 11.2 fL (9.4-12.4); Monocytes Absolute Auto 0.4 X10*3/uL (0.1-1.2); Monocytes Percent Auto 6.5 % (2-11); Neutrophils Absolute Auto 3.6 x10*3/uL (2.0-8.3); Platelet Count 195 X10*3/uL (160-400); Red Blood Count 5.57 X10*6/uL (4.60-5.80); Red Cell Distribution Width 11.9 % (11.0-16.0); White Blood Count 5.9 X10*3/uL (4.8-10.8)
[2024-08-21 10:14] LABS: Estimated Average Glucose 100 mg/dL; Hemoglobin A1c % 5.1 % (<6.0); Total Hemoglobin (HGBA1C) 4086.1635 umol/L
[2024-08-21 10:28] LABS: Alanine Aminotransferase 20 U/L (0-40); Albumin Level 4.3 g/dL (3.5-5.0); Alkaline Phosphatase 73 U/L (39-117); Anion Gap 13 (12-20); Aspartate Amino Transferase 19 U/L (5-37); Bilirubin Total 0.4 mg/dL (0.0-1.0); Blood Urea Nitrogen 15 mg/dL (9-16); Calcium 9.4 mg/dL (8.4-10.2); Carbon Dioxide 26 mmol/L (22-29); Chloride 105 mmol/L (96-108); Cholesterol 190 mg/dL (<200); Estimated Glomerular Filt Rate > 60; Glucose Random 94 mg/dL (60-115); HDL Cholesterol 25 mg/dL (>40); LDL Cholesterol Calculated 127 mg/dL (<100); Potassium 3.7 mmol/L (3.3-5.1); Sodium 140 mmol/L (135-145); Total Protein 7.5 g/dL (6.5-8.0); Triglycerides 191 mg/dL (<150)
[2024-08-21 10:36] LABS: Thyroid Stimulating Hormone 3.63 uIU/mL (0.32-4.0)
== END 2024-08-21 08:49 | disposition home or self-care (01) ==
LOC: HO.LAB 08:48
PROVIDERS: PCP Internal Medicine; Visit Provider Nurse Practitioner Psychiatric/Mental Health
DX: Z79.899 Other long term (current) drug therapy (principal)
CPT/HCPCS: 36415; 80053; 80061; 83036; 84443; 85025

== ENCOUNTER 2024-11-20 10:50 | Outpatient (AMB) | payer OTHER, SELFPAY ==
[2024-11-20 11:21] VITALS: BP 124/80; PULSE 82; O2SAT 98; BMI 34.0
--- NOTE | 2024-11-20 11:21 | MHC.PC.OV ---
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: No Accompanied by: Self / Same As Patient Allergies apple Adverse Reaction (Severe, Verified 11/20/24 11:58) DIARRHEA POTATO JUICE Allergy (Intermediate, Uncoded 11/20/24 11:58) RASH Medication List - Last Reconciled 11/20/24 by Kamran Lee MD aripiprazole 15 mg PO QAM hydroxyzine HCl 25 mg PO BID PRN oxcarbazepine 600 mg PO BID prazosin 5 mg PO BEDTIME PRN trazodone 150 mg PO BEDTIME PRN Tobacco use date assessed: 11/20/24 Dental Screening Dental Screen Date: 11/20/24 Did you have a dental visit in the last 12 months?: No Did you have a dental problem in the last 6 months where you did not have access to dental care?: No Was dental information given to patient?: No HPI ANNUAL HPI Details Patient comes in today for his annual physical examination States that he feels okay Denies any headaches or dizziness Denies any chest pains, no SOB No nausea/vomiting, no abdominal pain No change in bowel habits noted He denies any acute urinary symptoms He needs his Vitamin D Rx refilled today He had some labs done back in July 2024 when he went to the ER for what apparently was a cellulitis of his left axilla - it seems like he had all of his previously ordered labs done around the same time [facility] Medical History (Updated 11/20/24 @ 12:20 by Kamran Lee MD) Mixed hyperlipidemia Vitamin D deficiency Right knee pain Obesity (BMI 30-39.9) Bipolar disorder Autism spectrum disorder Inversion sprain of right ankle Syncope Intellectual disability COVID-19 Surgical History History of placement of ear tubes Family History Father No problems noted. Mother Heart problem Social History Housing: House Alcohol intake: never Patient Tobacco Use Status: Never used Tobacco e-Cigarette/Vaping Use: Never Used Second Hand Smoke Exposure: Yes Advance Directives Date on File: 11/10/21 service: No Current occupational status: disabled Cognitive needs: No Hearing needs: No Vision needs: No Questionnaire PHQ-9 Over the last 2 weeks, how often have you been bothered by any of the following problems? 1. Little interest or pleasure in doing things: not at all 2. Feeling down, depressed, or hopeless: not at all 3. Trouble falling or staying asleep, or sleeping too much: not at all 4. Feeling tired or having little energy: not at all 5. Poor appetite or overeating: not at all 6. Feeling bad about yourself - or that you are a failure or have let yourself or your family down: not at all 7. Trouble concentrating on things, such as reading the newspaper or watching television: not at all 8. Moving or speaking so slowly that other people could have noticed. Or the opposite - being so fidgety or restless that you have been moving around a lot more than usual: not at all 9. Thoughts that you would be better off or of hurting yourself in some way: not at all Total score: 0 Depression Screening Interpretation: Negative Depression Screening Done: Yes 21287 - PHQ-9 Billing: Yes Source: Developed by Drs. Wilfrido Best, Bia Rodriguez, Yash Hahn and colleagues, with an educational vikki from [employer]. Thrive Questionnaire Date Thrive assessed: 11/20/24 I am a: Patient What is your living situation today?: I have a steady place to live Within the past 12 months, did the food you bought not last and you didn't have the money to get more?: I choose not to answer this question Within the past 12 months, did you worry whether your food would run out before you got money to buy more?: I choose not to answer this question Do you have trouble paying for medicines?: No Do you have trouble getting transportation to medical appointments?: No Do you have trouble paying your heating and electricity bill?: No Do you have trouble taking care of your child, family member or friend?: No Do you have trouble with day-to-day activities such as bathing, preparing meals, shopping, managing finances, etc.?: No Are you currently unemployed and looking for a job?: No Are you interested in more education?: No Please select the resources that you would like help with: None Currently or been in a relationship where the following occur: I choose not to answer THRIVE Score: 0 AUDIT C Alcohol Use Questionnaire (AUDIT-C) 1. How often do you have a drink containing alcohol?: Never 3. How often do you have six or more drinks on one occasion?: Never Total Score: 0 Score Reviewed/Action Taken: Yes ANGEL-7 AMB Questionnaire ANGEL-7 Date ANGEL - 7 assessed: 11/20/24 Feeling nervous, anxious, or on edge: 0 = Not at all Not being able to stop or control worryin = Not at all Worrying too much about different things: 0 = Not at all Trouble relaxin = Not at all Being so restless that it is hard to sit still: 0 = Not at all Becoming easily annoyed or irritable: 0 = Not at all Feeling afraid as if something awful might happen: 0 = Not at all Total ANGEL-7 score (0-4 normal; 5-9 mild; 10-14 moderate; 15-21 severe): 0 Source: Developed by Drs. Wilfrido Best, Bia Rodriguez, Yash Hahn and colleagues, with an educational vikki from [employer]. Review of Systems Const Denies chills, Denies fatigue, Denies fever(s), Denies headache(s), Denies malaise and Denies weakness Eyes Denies blurry vision, Denies change in vision, Denies irritation and Denies itchy eyes ENT Denies dysphagia, Denies dizziness, Denies otalgia, Denies headache(s), Denies nasal congestion, Denies neck pain, Denies odynophagia and Denies sore throat Card Denies chest pain, Denies rapid heart rate, Denies irregular heart rhythm, Denies palpitations and Denies dyspnea Resp Denies chest congestion, Denies cough, Denies dyspnea and Denies wheezing GI Denies abdominal pain, Denies bloating, Denies constipation, Denies dysphagia, Denies heartburn, Denies diarrhea, Denies nausea, Denies odynophagia and Denies vomiting Denies hematuria, Denies difficulty urinating, Denies dysuria, Denies urinary frequency and Denies urinary urgency Musc Denies back pain, Denies arthralgias, Denies joint swelling, Denies muscle weakness and Denies neck pain Skin/Breast Denies change in pigmentation, Denies lesions, Denies rash and Denies unusual bruising Neuro Denies dizziness, Denies headache(s), Denies paresthesias and Denies weakness Endo Denies fatigue and Denies palpitations Aller/Immun Denies itchy eyes and Denies wheezing Physical exam (Primary Care) Vital Signs: Last Vital Signs Pulse 82 11/20/24 11:21 BP 124/80 11/20/24 11:21 Pulse Ox 98 11/20/24 11:21 Oxygen Delivery Method Room Air 11/20/24 11:21 BMI result Body Mass Index 34.0 Tobacco/Smoking Status: Tobacco use Status Tobacco use date assessed 11/20/24 11/20/24 11:25 Patient Tobacco Use Status Never used Tobacco 11/20/24 11:25 e-Cigarette/Vaping Use Never Used 11/20/24 11:25 PHQ-9: PHQ-9 Score PHQ-9: Total score 0 11/20/24 11:25 Depression Screening Interpretation: Negative Thrive Assessment: Date of Thrive Assessment Date Thrive assessed 11/20/24 11/20/24 11:25 Currently or been in a relationship where the following occur: I choose not to answer Const General: no acute distress, alert and awake Orientation/consciousness: patient oriented x3 HENMT Head: Yes normocephalic and Yes atraumatic Ears: external ears normal, TM normal on the left, EAC's normal (on the left side), Abnormal EAC present excessive cerumen on the right and unable to visualize TM on the right (due to excessive cerumen although it is NOT impacted) General nose exam: No nasal discharge present Face and sinus: Yes normal facial exam and Yes sinuses nontender Teeth and gingiva: dentition normal Throat: Yes posterior oropharynx normal and Yes tonsils normal (no TP congestion) Eyes Eyelids: Yes eyelids normal Conjunctivae: conjunctivae normal Pupils: Equal, round and reactive pupils present EOM: EOMs intact bilaterally Neck Neck: Yes no lymphadenopathy and Yes supple Thyroid: Thyroid normal Resp Auscultation: clear to auscultation bilaterally, no rales and no wheezes Cardio Rate: regular rate Rhythm: regular rhythm Heart sounds: no murmurs GI Palpation (GI): Soft to palpation, nontender and No hepatosplenomegaly present Auscultation: normal bowel sounds General: Yes no CVA tenderness Back/Spine/Pelvis Back: no CVA tenderness Thoracic/Lumbar Spine: thoracic and lumbar spine normal to inspection Skin Lesions: no lesions Rashes: no rashes Neuro General: patient oriented x3, moves all extremities, no focal motor deficits and CN's II-XI intact bilaterally Cranial nerves: Yes Equal, round and reactive pupils present Cognition (Neuro): normal cognition Gait exam (Neuro): Normal gait present Extrem General: Yes no clubbing, cyanosis or edema Results Reviewed Results Reviewed: Laboratory Tests 05/17/24 08/21/24 23:18 09:26 WBC 7.7 5.9 Hgb 16.2 16.3 Hct 45.6 Plt Count 195 Sodium 140 Potassium 3.7 Creatinine 0.88 Estimated GFR > 60 Random Glucose 94 Hemoglobin A1c % 5.1 Calcium 9.4 AST 19 ALT 20 Triglycerides 191 H Cholesterol 190 LDL Cholesterol, Calc 127 H HDL Cholesterol 25 L TSH 3.63 Coding Level of Care Code Est Pt Prev Care 18-39y(75861) Diagnoses Annual physical exam Z00. Mixed hyperlipidemia E78.2 Vitamin D deficiency E55.9 Autism spectrum disorder F84.0 Bipolar affective disorder, current episode mixed, current episode severity unspecified F31.9 Active/Remission status: remission status unspecified Intellectual disability F79 Obesity (BMI 30-39.9) E66.9 Additional Codes PHQ-9 - 86754 - PHQ-9 Billing: Yes ([id number]) Assessment & Plan Assessment & Plan (1) Annual physical exam: Code(s): Z00.00 - Encounter for general adult medical examination without abnormal findings Category: Medical Plan: Results of his labs done back in July 2024 reviewed and discussed with patient (2) Mixed hyperlipidemia: Code(s): E78.2 - Mixed hyperlipidemia Category: Medical Plan: Have advised patient that his cholesterol numbers on his labs done back in July 2024 are borderline high - his serum triglyceride is elevated at 191 mg/dl and LDL cholesterol was borderline elevated at 127 mg/dl Reinforced low cholesterol diet Will have him recheck his labs and fasting lipids in 1 year for follow up (3) Vitamin D deficiency: Code(s): E55.9 - Vitamin D deficiency, unspecified Category: Medical Plan: Corrected - continue Vitamin D3 2000 units QD (Rx refilled) (4) Autism spectrum disorder: Code(s): F84.0 - Autistic disorder Category: Medical Plan: Follow up with psychiatry at [facility] as scheduled (5) Bipolar disorder: Code(s): F31.9 - Bipolar disorder, unspecified Category: Medical Qualifiers: Active/Remission status: remission status unspecified Qualified Code(s): F31.9 - Bipolar disorder, unspecified Plan: Continue Oxcarbazepine 300 mg 2 tablets (600 mg) BID, Aripiprazole 15 mg Q AM, Hydroxyzine 25 mg BID PRN, Prazosin 5 mg Q HS PRN and Trazodone 150 mg Q HS PRN Follow up with psychiatry as scheduled (6) Intellectual disability: Code(s): F79 - Unspecified intellectual disabilities Category: Medical Plan: Patient sees his therapist/counselor at [facility] regularly (7) Obesity (BMI 30-39.9): Code(s): E66.9 - Obesity, unspecified Category: Medical Plan: Reinforced diet/exercise as tolerated/lose weight Plan To return in 1 year for his next annual physical examination Orders: Orders Complete Blood Count Auto Diff 1 Year D64.9 - Anemia, unspecified, Z00.00 - Encounter for general adult medical examination without abnormal findings TSH reflex Free T4 1 Year E78.00 - Pure hypercholesterolemia, unspecified, Z00.00 - Encounter for general adult medical examination without abnormal findings UA CC w/rflx Micro + Cult 1 Year R30.0 - Dysuria, Z00.00 - Encounter for general adult medical examination without abnormal findings Comprehensive [place]. Panel Fast 1 Year E78.00 - Pure hypercholesterolemia, unspecified, Z00.00 - Encounter for general adult medical examination without abnormal findings Lipid Panel 1 Year E78.00 - Pure hypercholesterolemia, unspecified, Z00.00 - Encounter for general adult medical examination without abnormal findings Vitamin D 25-OH Total 1 Year E55.9 - Vitamin D deficiency, unspecified, Z00.00 - Encounter for general adult medical examination without abnormal findings Medications: Refilled cholecalciferol (vitamin D3) 50 mcg PO DAILY 90 days 90 caps 3RF E55.9 - Vitamin D deficiency, unspecified
--- OUTSIDE RECORDS SUMMARY | 2024-11-20 12:54 | XMS_ITS | Encounter Summary ---
Author Organization [facility] Address [address] [place] [id number] Phone Care Team Providers Care Fire Sprinkler Fitter Name Role Phone Unavailable Primary Care Provider Unavailabl e Encounter Details Date Type Department Care Team (Late st Contact Info) Description 05/14/2017 Documentation [facility] [place] Family Medicine [address] [place] [address] Family Medicine, Physician [place] [address] Social History Tobacco Use Types Packs/Day Years Used Date Smoking Tobacco: Never Comments:Never smoker Sex and Gender Information Value Date Recorded Sex Assigned at Male 06/04/2020 12:12 PM EDT Legal Sex Male 5:06 PM EDT Gender Identity Male 06/04/2020 12:12 PM EDT Sexual Orientation Straight 06/04/2020 12 :12 PM EDT documented as of this encounter Plan of Treatment Not on file documented as of this encounter Visit Diagnoses Not on filedocumented in this encounter
--- OUTSIDE RECORDS SUMMARY | 2024-11-20 12:54 | XMS_ITS | Encounter Summary ---
Author Organization [facility] Address [address] [place] [id number] Phone Care Team Providers Care Real Estate Salesperson Name Role Phone Unavailable Primary Care Provider Unavailabl e Encounter Details Date Type Department Care Team (Late st Contact Info) Description 01/03/2016 Documentation [facility] [place] [address] [place] [address] Family Medicine, Physician [facility] [place] [address] Social History Tobacco Use Types Packs/Day Years Used Date Smoking Tobacco: Never Assessed Sex and Gender Information Value Date Recorded [...]
--- OUTSIDE RECORDS SUMMARY | 2024-11-20 12:54 | XMS_ITS | Encounter Summary ---
Author Organization [facility] Address [address] [place] [id number] Phone Care Team Providers Care Harp Repairer Name Role Phone Unavailable Primary Care Provider Unavailabl e Encounter Details Date Type Department Care Team (Late st Contact Info) Description 11/09/2011 Documentation [facility] [place] Family Medicine [address] [place] [address] Family Medicine, Physician [facility] [place] [address] Social History Tobacco Use Types Packs/Day Years [...]
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
--- OUTSIDE RECORDS SUMMARY | 2024-11-20 12:54 | XMS_ITS | Encounter Summary ---
Author Organization [facility] Address [address] [place] [address] Phone Care Team Providers Care Branch Office Manager Name Role Phone Unavailable Primary Care Provider Unavailabl e Encounter Details Date Type Department Care Team (Late st Contact Info) Description 09/13/2016 Documentation [facility] Family Medicine [address] [place] [address] Family Medicine, Physician [facility] [place] [address] Social History Tobacco Use Types Packs/Day Years [...]
--- OUTSIDE RECORDS SUMMARY | 2024-11-20 12:54 | XMS_ITS | Encounter Summary ---
Author Organization [facility] Address [address] [place] [address] Phone Care Team Providers Care Dross Skimmer Name Role Phone Unavailable Primary Care Provider Unavailabl e Encounter Details Date Type Department Care Team (Late st Contact Info) Description 05/03/2017 Documentation [facility] Family Medicine [address] [place] [address] Family Medicine, Physician [facility] [place] [address] Social History Tobacco Use Types Packs/Day Years [...]
--- OUTSIDE RECORDS SUMMARY | 2024-11-20 12:54 | XMS_ITS | Encounter Summary ---
Author Organization [facility] Address [address] [place] [phone] Phone Care Team Providers Care Rn Documentation Specialist Name Role Phone Unavailable Primary Care Provider Unavailabl e Encounter Details Date Type Department Care Team (Late st Contact Info) Description 12/31/2015 Documentation [facility] Family Medicine [address] [place] [address] Family Medicine, Physician [facility] [place] [address] Social History Tobacco Use Types Packs/Day Years [...]
--- OUTSIDE RECORDS SUMMARY | 2024-11-20 12:54 | XMS_ITS | Encounter Summary ---
Author Organization [facility] Address [address] [place] [phone] Phone Care Team Providers Care Swimming Teacher Name Role Phone Unavailable Primary Care Provider Unavailabl e Encounter Details Date Type Department Care Team (Late st Contact Info) Description 05/04/2017 Documentation [facility] Family Medicine [address] [place] [address] Family Medicine, Physician [facility] [place] [address] Social History Tobacco Use Types Packs/Day Years [...]
--- OUTSIDE RECORDS SUMMARY | 2024-11-20 12:54 | XMS_ITS | Encounter Summary ---
Author Organization [facility] Address [address] [place] [address] Phone Care Team Providers Care Manager Battery Name Role Phone Unavailable Primary Care Provider Unavailabl e Encounter Details Date Type Department Care Team (Late st Contact Info) Description 12/25/2017 Patient Outreach [facility] [address] [place] [address] Dana Crockett MD [address] [place] [address] Social History Tobacco Use Types Packs/Day Years [...]
--- OUTSIDE RECORDS SUMMARY | 2024-11-20 12:54 | XMS_ITS | Encounter Summary ---
Author Organization [facility] Address [address] [place] [address] Phone Care Team Providers Care Plant Controls Specialist Name Role Phone Unavailable Primary Care Provider Unavailabl e Encounter Details Date Type Department Care Team (Late st Contact Info) Description 06/14/2017 Conversion Encounter [facility] - [address] [address] Social History Tobacco Use Types Packs/Day Years [...]
--- OUTSIDE RECORDS SUMMARY | 2024-11-20 12:54 | XMS_ITS | Encounter Summary ---
Author Organization [facility] Address [address] [place] [address] Phone Care Team Providers Care Occupational Therapist Home Based Name Role Phone Unavailable Primary Care Provider Unavailabl e Encounter Details Date Type Department Care Team (Late st Contact Info) Description 11/14/2012 Documentation [facility] Family Medicine [address] [place] [address] Family Medicine, Physician [facility] [place] [address] Social History Tobacco Use Types Packs/Day Years [...]
--- OUTSIDE RECORDS SUMMARY | 2024-11-20 12:54 | XMS_ITS | Encounter Summary ---
Author Organization [facility] Address [address] [place] [address] Phone Care Team Providers Care Manager Sharepoint Name Role Phone Unavailable Primary Care Provider Unavailabl e Encounter Details Date Type Department Care Team (Late st Contact Info) Description 08/17/2010 Documentation [facility] [place] [address] [place] [address] Family Medicine, Physician [facility] [place] [address] Social History Tobacco Use Types Packs/Day Years [...]
--- OUTSIDE RECORDS SUMMARY | 2024-11-20 12:54 | XMS_ITS | Clinical Summary ---
Author Organization [facility] Address [address] [place] [address] Care Team Providers Care Scientific Glass Blower Name Role Phone Unavailable Primary Care Provider Unavailabl e Social History Tobacco Use Types Packs/Day Years Used Date Smoking Tobacco: Never Assessed Sex and Gender Information Value Date Recorded Sex Assigned at Not on file Gender Identity Not on file Sexual Orientation Not on file Plan of Treatment Health Maintenance Due Date Last Done Comments HPV Vaccines (1 - Male 3-dos e series) 2014 DTaP,Tdap,and Td Vaccines (1 - Tdap) 2018 Hepatitis B Vaccines (1 of 3 - 19+ 3-dose series) 2018 Depression Screening 06/23/2024 HIV Screening 06/23/2024 Hepatitis C Screening 06/23/2024 Social Influencers of Health Screening 06/23/2024 COVID-19 Vaccine ( - 2023-2 5 season) 2024 Influenza Vaccine (#1) 2024 HIB Vaccines Aged Out No longer eligi ble based on patient's age to complete this topic Hepatitis A Vaccines Aged Out No long er eligible based on patient's age to complete this topic IPV Vaccines Aged Out No longer eligi ble based on patient's age to complete this topic MMR Vaccines Aged Out No longer eligi ble based on patient's age to complete this topic Meningococcal ACWY Vaccine Aged Out N o longer eligible based on patient's age to complete this topic Pneumococcal Vaccine: Pediat rics (0 to 5 Years) and At-Risk Patients (6 to 64 Years) Aged Out No longer eligible b ased on patient's age to complete this topic RSV Immunization Patients Un tatyana 20 months Aged Out No longer eligible b ased on patient's age to complete this topic Varicella Vaccines Aged Out No longer eligible based on patient's age to complete this topic
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
== END 2024-11-20 12:08 | disposition home or self-care (01) ==
PROVIDERS: Visit Provider Internal Medicine
DX: Z00.00 Encounter for general adult medical examination without abnormal findings (principal); F31.9 Bipolar disorder, unspecified; E66.9 Obesity, unspecified; Z68.34 Body mass index [BMI] 34.0-34.9, adult; E78.2 Mixed hyperlipidemia; E55.9 Vitamin D deficiency, unspecified; F84.0 Autistic disorder; F79 Unspecified intellectual disabilities

== ENCOUNTER → 2024-11-20 10:50 | Outpatient (BNVA) | payer OTHER, SELFPAY | PROVIDERS: Visit Provider Internal Medicine | DX: Z00.00 Encounter for general adult medical examination without abnormal findings (principal); E78.2 Mixed hyperlipidemia; E55.9 Vitamin D deficiency, unspecified; F84.0 Autistic disorder; F31.9 Bipolar disorder, unspecified; F79 Unspecified intellectual disabilities; E66.9 Obesity, unspecified | CPT/HCPCS: 96127; 99395 ==

== ENCOUNTER 2025-01-15 10:32 | Emergency (ER) | payer OTHER, SELFPAY ==
--- NOTE | ~2025-01-15 | CT_ITS ---
EXAMINATION: CT ABDOMEN AND PELVIS WITH CONTRAST CLINICAL INFORMATION: Lower abdominal pain. Nausea. Vomiting. Diarrhea. COMPARISON: December 10, 2023. TECHNIQUE: Multidetector volumetric images were obtained from the superior aspect of the liver through the pubic symphysis following administration 85 mL of Omnipaque 350 intravenous contrast. Sagittal and coronal reformatted images were obtained on the technologist's workstation. Oral contrast: No This CT examination was performed using dose optimization techniques as appropriate, variously including the following: *Automated exposure control *Adjustment of mA and/or kV according to patient size (this includes techniques or standardized protocols for targeted exams where dose is matched to indication/reason for exam; i.e. extremities or head) *Use of iterative reconstruction technique. DLP: 1006 mGy centimeter. FINDINGS: LUNG BASES: Patchy pulmonary groundglass in the periphery of the lung bases. LIVER, GALLBLADDER, AND BILIARY TREE: Liver measures 18 cm. No focal mass. No intrahepatic biliary ductal dilatation. Portal veins and hepatic veins are patent. No pericholecystic fluid collection or gallbladder wall thickening. Common bile duct measures 2 mm. PANCREAS: No focal lesion. No peripancreatic fluid collection. No main pancreatic ductal dilatation. SPLEEN: 12 cm. No focal lesion. ADRENAL GLANDS: No nodular lesions. KIDNEYS AND URETERS: No renal mass. No hydronephrosis. No nephrolithiasis. BLADDER: Fluid-filled nearly collapsed. GASTROINTESTINAL TRACT: Appendix is normal. Few scattered diverticula in the left hemicolon. Gas and fluid-filled nondistended left hemicolon. Gas and fluid-filled small bowel loops. Subsegmental areas of wall thickening in the distal ileal loops. No ascites. No pneumoperitoneum. No pneumatosis intestinalis. ABDOMINAL WALL: No gross umbilical hernia. LYMPH NODES: Nonspecific mildly prominent lymph nodes, mesenteric. VASCULAR: No aneurysm or dissection, abdominal aorta. PELVIC VISCERA: Nonenlarged. OSSEOUS STRUCTURES: Mild multilevel thoracolumbar spondylosis more conspicuous at L5-S1. No acute fracture. CT/CT abdomen pelvis w IV con IMPRESSION: Consider mild enteritis. Hepatosplenomegaly. Fleischner guidelines were followed. Electronically signed by: Lowell Hoang MD 01/15/2025 02:00 PM EDT
[2025-01-15 10:47] VITALS: BP 146/90; PULSE 95; RESP 18; TEMP 36.7; O2SAT 97; BMI 42.8
[2025-01-15 11:07] LABS: MANUAL DIFF FLAG NO
[2025-01-15 11:09] LABS: Basophils Percent Auto 0.4 % (0-2); Eosinophils Absolute Auto 0.1 X10*3/uL (0.0-0.4); Eosinophils Percent Auto 1.7 % (0-4); Hematocrit 44.5 % (42.0-52.0); Hemoglobin 15.9 g/dl (14.0-18.0); Imm Gran Abs Auto 0.02 X10*3/uL (0.00-0.03); Imm Gran Pct Auto 0.4 % (0.0-0.4); Lymphocytes Absolute Auto 0.9 X10*3/uL (1.2-4.9); Lymphocytes Percent Auto 16.9 % (20-40); Mean Corpuscular HGB Conc 35.7 g/dl (31.0-36.0); Mean Corpuscular Hemoglobin 29.4 pg (27.0-33.0); Mean Corpuscular Volume 82.4 fL (80.0-98.0); Mean Platelet Volume 11.4 fL (9.4-12.4); Monocytes Absolute Auto 0.3 X10*3/uL (0.1-1.2); Monocytes Percent Auto 5.5 % (2-11); Neutrophils Percent Auto 75.1 % (45-73); Platelet Count 152 X10*3/uL (160-400); Red Cell Distribution Width 12.1 % (11.0-16.0); White Blood Count 5.3 X10*3/uL (4.8-10.8)
[2025-01-15 11:24] LABS: Alanine Aminotransferase 44 U/L (0-40); Alkaline Phosphatase 77 U/L (39-117); Anion Gap 11 (12-20); Aspartate Amino Transferase 31 U/L (5-37); Bilirubin Direct 0.1 mg/dL (0.0-0.5); Bilirubin Total 0.3 mg/dL (0.0-1.0); Blood Urea Nitrogen 12 mg/dL (9-16); Calcium 8.7 mg/dL (8.4-10.2); Carbon Dioxide 25 mmol/L (22-29); Chloride 108 mmol/L (96-108); Creatinine Clr Calc Pharmacy 158.1; Estimated Glomerular Filt Rate > 60; Glucose Random 128 mg/dL (60-115); Lipase 24 U/L (8-78); Potassium 3.9 mmol/L (3.3-5.1); Sodium 140 mmol/L (135-145); Total Protein 7.4 g/dL (6.5-8.0)
--- NOTE | 2025-01-15 11:48 | ED.ABDPAIN ---
HPI - Abdominal Pain General Chief Complaint: Abdominal Pain Stated Complaint: abd pain Time Seen by Provider: 01/15/25 11:48 Source: patient, RN notes reviewed and old records reviewed Mode of arrival: ambulatory History of Present Illness ED Provider: Christy Fountain PA-C HPI narrative: 24-year-old male with a past medical history HLD, vitamin-D deficiency, bipolar, autism spectrum disorder, intellectual disability, presenting to ED complaining of lower abdominal pain since last night with associated nausea, vomiting, diarrhea. Denies fever, chills, dysuria /hematuria, flank pain Related Data Home Medications ?Medication ?Instructions ?Recorded ?Confirmed aripiprazole 15 mg tablet 15 mg PO QAM 09/17/20 11/20/24 hydroxyzine HCl 25 mg tablet 25 mg PO BID PRN Anxiety 09/17/20 11/20/24 prazosin 5 mg capsule 5 mg PO BEDTIME PRN Sleep 09/17/20 11/20/24 trazodone 150 mg tablet 150 mg PO BEDTIME PRN Sleep 09/17/20 11/20/24 oxcarbazepine 300 mg tablet 600 mg PO BID 07/05/22 11/20/24 Previous Rx's ?Medication ?Instructions ?Recorded cholecalciferol (vitamin D3) 50 50 mcg PO DAILY 90 days #90 caps 11/20/24 mcg (2,000 unit) capsule Allergies Allergy/AdvReac Type Severity Reaction Status Date / Time apple AdvReac Severe DIARRHEA Verified 01/15/25 10:50 POTATO JUICE Allergy Intermediate RASH Uncoded 11/20/24 11:58 Review of Systems Review of Systems Yes all other systems are reviewed and are negative Constitutional: Reports as per HPI [facility] Past Medical History Attestation statement: The following information was validated with the patient. Source: old records reviewed Medical History (Updated 01/15/25 @ 14:47 by VIVI Richards) Mixed hyperlipidemia Vitamin D deficiency Right knee pain Obesity (BMI 30-39.9) Bipolar disorder Autism spectrum disorder Inversion sprain of right ankle Syncope Intellectual disability COVID-19 Surgical History History of placement of ear tubes Family History Family History Father No problems noted. Mother Heart problem Social History Social History Housing: House Alcohol intake: never Patient Tobacco Use Status: Never used Tobacco e-Cigarette/Vaping Use: Never Used Second Hand Smoke Exposure: Yes Advance Directives Date on File: 11/10/21 service: No Current occupational status: disabled Cognitive needs: No Hearing needs: No Vision needs: No Physical Exam ED Vital Signs: Vital Signs - 24 hr 01/15/25 10:47 01/15/25 14:47 01/15/25 15:05 Temperature 98.0 F 97.8 F 97.8 F Pulse Rate 95 74 74 Respiratory Rate 18 16 16 Blood Pressure 146/90 H 131/75 131/75 Pulse Oximetry 97 100 100 Oxygen Delivery Method Room Air Room Air BMI result Body Mass Index 42.8 Const General: cooperative, healthy appearing and no acute distress Orientation/consciousness: patient oriented x3 Limitations: no limitations HENMT Head: Yes normal to inspection and Yes atraumatic Ears: hearing grossly normal bilaterally General nose exam: Normal external nose present Face and sinus: Yes normal facial exam Eyes General: appearance normal, both eyes and all related structures EOM: EOMs intact bilaterally Neck Neck: Yes normal visual inspection and Yes no meningeal signs Resp Effort & Inspection: normal respiratory effort and no respiratory distress Cardio Rate: regular rate GI Inspection: Yes normal to inspection Palpation (GI): Soft to palpation, Tenderness to palpation present (GI) ( lower abdominal) suprapubicly; with no rebound tenderness, no guarding and not rigid General: Yes no CVA tenderness Back/Spine/Pelvis Back: no CVA tenderness Skin Rashes: no rashes Wounds: no wounds Neuro General: patient oriented x3, tone normal and no meningeal signs Cranial nerves: Yes CN's II-XII intact bilaterally Gait exam (Neuro): Normal gait present Extrem General: Yes normal to inspection Course Course Course Narrative: - labs and UA reassuring CT abdomen pelvis w IV con IMPRESSION: Consider mild enteritis. Hepatosplenomegaly. Fleischner guidelines were followed. > no active diarrhea or vomiting since ED arrival. Results discussed with patient including worrisome signs and symptoms and strict return precautions, and when to return to the emergency department. They verbalized understanding and feel safe for discharge at this time. Medical Decision Making Medical Decision Making MDM Narrative: 24-year-old male with a past medical history HLD, vitamin-D deficiency, bipolar, autism spectrum disorder, intellectual disability, presenting to ED complaining of lower abdominal pain since last night with associated nausea, vomiting, diarrhea. on exam vital signs stable, NAD, nontoxic appearing, physical exam as noted above with lower abdominal/ suprapubic reproducible tenderness, no CVAT. Concern for appendicitis vs diverticulitis vs UTI/cystitis. Lower suspicion for renal stones/pyelo, cholecystitis / lithiasis or pancreatitis at this time Plan: Labs, UA, CT, IVF, re-evaluate Please refer to course for remaining clinical decision making, interpretation of labs/imaging results, and discussions with consultants and/or family members. Differential Diagnosis Differential Diagnoses: The differential diagnosis associated with the presentation includes As above Admission/Observation Consideration of admission/observation: Escalation of care including admission/observation considered Lab Data MDM Lab Attestation statement: I reviewed the patient's lab results. 01/15/25 11:04 01/15/25 11:04 Labs: Lab Results 01/15/25 01/15/25 Range/Units 11:04 11:54 WBC 5.3 (4.8-10.8) X10*3/uL RBC 5.40 (4.60-5.80) X10*6/uL Hgb 15.9 (14.0-18.0) g/dl Hct 44.5 (42.0-52.0) % MCV 82.4 (80.0-98.0) fL MCH 29.4 (27.0-33.0) pg MCHC 35.7 (31.0-36.0) g/dl RDW 12.1 (11.0-16.0) % Plt Count 152 L (160-400) X10*3/uL MPV 11.4 (9.4-12.4) fL Immature Gran % (Auto) 0.4 (0.0-0.4) % Neut % (Auto) 75.1 H (45-73) % Lymph % (Auto) 16.9 L (20-40) % [place] % (Auto) 5.5 (2-11) % Eos % (Auto) 1.7 (0-4) % Baso % (Auto) 0.4 (0-2) % Lymph # (Auto) 0.9 L (1.2-4.9) X10*3/uL [place] # (Auto) 0.3 (0.1-1.2) X10*3/uL Eos # (Auto) 0.1 (0.0-0.4) X10*3/uL Baso # (Auto) 0.0 (0.0-0.2) X10*3/uL Abs Immat Gran (auto) 0.02 (0.00-0.03) X10*3/uL Absolute Neuts (auto) 4.0 (2.0-8.3) x10*3/uL Absolute Nucleated RBC 0.000 (0.0-0.012) X10*3/uL Nucleated RBC % (auto) 0.0 (0.0-0.2) /100WBC Sodium 140 (135-145) mmol/L Potassium 3.9 (3.3-5.1) mmol/L Chloride 108 (96-108) mmol/L Carbon Dioxide 25 (22-29) mmol/L Anion Gap 11 L (12-20) BUN 12 (9-16) mg/dL Creatinine 0.93 (0.5-1.4) mg/dL Estim Creat Clear Calc 158.1 Estimated GFR > 60 Random Glucose 128 H (60-115) mg/dL Calcium 8.7 D (8.4-10.2) mg/dL Magnesium 1.8 (1.6-2.6) mg/dL Total Bilirubin 0.3 (0.0-1.0) mg/dL Direct Bilirubin 0.1 (0.0-0.5) mg/dL AST 31 (5-37) U/L ALT 44 H (0-40) U/L Alkaline Phosphatase 77 (39-117) U/L Total Protein 7.4 (6.5-8.0) g/dL Albumin 4.0 (3.5-5.0) g/dL Lipase 24 (8-78) U/L Urine Color Dark Yellow Urine Appearance Clear Urine pH 5.5 (5.0-9.0) Ur Specific [place] >= 1.030 H (1.005-1.025) Urine Protein Trace (Neg-Trace) mg/dL Urine Glucose (UA) Negative (Negative) mg/dL Urine Ketones Trace (Negative) mg/dL Urine Blood Negative (Negative) Urine Nitrite Negative (Negative) Ur Leukocyte Esterase Negative (Negative) Independent Interpretation I performed an independent interpretation of an: CT Scan Radiology Impression Discussion of test interpretation with radiology: I have reviewed the radiologist's reading. External Record Review External record reviewed: Inpatient record, Office record, Outpatient record, Prior outpatient labs, Prior outpatient radiology, Primary care record and Outside ED record Tests considered The following testing was considered but not selected: As above Prescription Management I considered prescription management with: Pain Medication Chronic Conditions Patient?s care impacted by: Other ( autism, intellectual disability, HLD) Social Determinants Patient?s care significantly limited by Social Determinants of Health including: Inadequate housing, Problems related to primary support group and Other Social Determinant of Health Medications Administered Discontinued Medications Generic Name Dose Route Start Last Admin Trade Name Freq PRN Reason Stop Dose Admin Sodium Chloride 1,000 mls @ 999 mls/hr 01/15/25 12:15 01/15/25 12:19 Ns IV 01/15/25 13:15 999 mls/hr .Q1H1M AMBAR Administration Iohexol 100 ml 01/15/25 12:59 01/15/25 13:00 Iohexol 350 Mg/Ml 100 Ml Infus..Btl IV 01/15/25 13:00 85 ml ONCE ONE Administration Ketorolac Tromethamine 15 mg 01/15/25 12:05 01/15/25 12:20 Ketorolac Tromethamine 15 Mg/Ml Vial IVPUSH 01/15/25 12:06 15 mg ONCE ONE Administration Discharge Plan Discharge Clinical Impression: Enteritis Patient Disposition: Home, Self-Care Instructions: Enteritis (ED) Additional Instructions: Your CT scan shows enteritis. Make sure you are staying hydrated at home, drink plenty of fluids Follow-up with your primary care doctor No antibiotics are needed at this time If her symptoms persist or worsen you constant worsening abdominal pain, nausea, vomiting, diarrhea return to the ED Prescriptions: No Action prazosin 5 mg capsule 5 mg PO BEDTIME PRN (Reason: Sleep) trazodone 150 mg tablet 150 mg PO BEDTIME PRN (Reason: Sleep) hydroxyzine HCl 25 mg tablet 25 mg PO BID PRN (Reason: Anxiety) Rx Instructions: Pharmacy noted prescription was 1-2 25 mg tabs BID PRN aripiprazole 15 mg tablet 15 mg PO QAM oxcarbazepine 300 mg tablet 600 mg PO BID cholecalciferol (vitamin D3) 50 mcg (2,000 unit) capsule 50 mcg PO DAILY 90 Days Qty: 90 3RF Referrals: Kamran Lee MD [Primary Care Provider] - 5 days Interventions: ED Discharge Assessment Last Done: 01/15/25 15:05 Discharge Date/Time: 01/15/25 15:06 Print Language: Mozambican
[2025-01-15 12:06] LABS: Appearance Urine Clear; Color Urine Dark Yellow; Glucose Urine UA Negative (Negative); Leukocyte Esterase Urine Negative (Negative); Nitrite Urine Negative (Negative); PH 5.5 (5.0-9.0); Specific Gravity - Urine >= 1.030 (1.005-1.025); Urine Blood Negative (Negative); Urine Ketones Trace mg/dL (Negative); Urine Protein Trace mg/dL (Neg-Trace)
[2025-01-15] MEDS: 0.9 % Sodium Chloride 1,000 ML 999 ML IV (12:19)
[2025-01-15] MEDS: Ketorolac Tromethamine 15 MG/ML VIAL IVPUSH (12:20)
[2025-01-15 12:36] LABS: Magnesium 1.8 mg/dL (1.6-2.6)
[2025-01-15] MEDS: iohexoL 350 MG/ML 100 ML INFUS..BTL IV (13:00)
[2025-01-15 14:47] VITALS: BP 131/75; PULSE 74; RESP 16; TEMP 36.6; O2SAT 100
[2025-01-15 15:05] VITALS: BP 131/75; PULSE 74; RESP 16; TEMP 36.6; O2SAT 100
== END 2025-01-15 15:06 | disposition home or self-care (01) ==
PROVIDERS: Physician Assistant; Emergency Provider Emergency Medicine; PCP Internal Medicine
DX: K52.9 Noninfective gastroenteritis and colitis, unspecified (principal); R11.2 Nausea with vomiting, unspecified
CPT/HCPCS: 36415; 74177; 80048; 80076; 81003; 83690; 83735; 85025; 96374; 99284; J1885; Q9967

== ENCOUNTER → 2025-01-15 12:05 | Outpatient (BNV) | payer OTHER, SELFPAY | PROVIDERS: Emergency Provider Emergency Medicine; PCP Internal Medicine; Visit Provider Radiology Diagnostic Radiology | DX: R16.2 Hepatomegaly with splenomegaly, not elsewhere classified (principal) | CPT/HCPCS: 74177 ==

== ENCOUNTER 2025-01-18 19:11 | Inpatient (IN) | payer OTHER, SELFPAY ==
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
[2025-01-18 19:29] VITALS: BP 131/84; BP 140/80; PULSE 84; PULSE 90; RESP 16; TEMP 36.9; O2SAT 95; O2SAT 99; BMI 35.3
[2025-01-18 19:44] LABS: MANUAL DIFF FLAG NO
[2025-01-18 19:46] LABS: Basophils Percent Auto 0.6 % (0-2); Eosinophils Absolute Auto 0.2 X10*3/uL (0.0-0.4); Eosinophils Percent Auto 3.8 % (0-4); Hematocrit 44.1 % (42.0-52.0); Hemoglobin 15.4 g/dl (14.0-18.0); Imm Gran Abs Auto 0.02 X10*3/uL (0.00-0.03); Imm Gran Pct Auto 0.3 % (0.0-0.4); Mean Corpuscular HGB Conc 34.9 g/dl (31.0-36.0); Mean Corpuscular Hemoglobin 29.4 pg (27.0-33.0); Mean Corpuscular Volume 84.3 fL (80.0-98.0); Mean Platelet Volume 11.3 fL (9.4-12.4); Monocytes Absolute Auto 0.4 X10*3/uL (0.1-1.2); Neutrophils Absolute Auto 4.6 x10*3/uL (2.0-8.3); Neutrophils Percent Auto 73.3 % (45-73); Platelet Count 171 X10*3/uL (160-400); Red Blood Count 5.23 X10*6/uL (4.60-5.80); Red Cell Distribution Width 11.9 % (11.0-16.0); White Blood Count 6.3 X10*3/uL (4.8-10.8)
[2025-01-18 19:54] LABS: Appearance Urine Clear; Color Urine Yellow; Glucose Urine UA Negative (Negative); Leukocyte Esterase Urine Negative (Negative); Nitrite Urine Negative (Negative); Specific Gravity - Urine 1.015 (1.005-1.025); Urine Blood Negative (Negative); Urine Ketones Negative (Negative); Urine Protein Negative (Neg-Trace)
[2025-01-18 19:59] LABS: Bacteria Urine None Seen (None Seen); Hyaline Casts Urine 0-2 /LPF (0-2); RBC Urine 0-2 /HPF (0-2); Squamous Epithelial Cell Urine 0-2 /HPF (0-2); WBC Urine 0-5 /HPF (0-5)
[2025-01-18 20:02] LABS: Alanine Aminotransferase 33 U/L (0-40); Alkaline Phosphatase 73 U/L (39-117); Anion Gap 13 (12-20); Aspartate Amino Transferase 22 U/L (5-37); Bilirubin Total 0.3 mg/dL (0.0-1.0); Blood Urea Nitrogen 10 mg/dL (9-16); Calcium 8.6 mg/dL (8.4-10.2); Carbon Dioxide 25 mmol/L (22-29); Chloride 107 mmol/L (96-108); Creatinine Clr Calc Pharmacy 196.6; Estimated Glomerular Filt Rate > 60; Ethanol < 10 mg/dL; Glucose Random 107 mg/dL (60-115); Potassium 3.7 mmol/L (3.3-5.1); Sodium 141 mmol/L (135-145); Total Protein 7.4 g/dL (6.5-8.0)
[2025-01-18 20:03] LABS: Amphetamine Screen Urine Not Detected (Not Detect); Barbiturates, Urine Not Detected (Not Detect); Benzodiazepines Screen Urine Not Detected (Not Detect); Buprenorphine Scr Not Detected (Not Detect); Cannabinoid Screen Urine Not Detected (Not Detect); Cocaine Screen Urine Not Detected (Not Detect); Fentanyl, urine Not Detected (Not Detect); Methadone Screen, Urine Not Detected (Not Detect); Opiate Screen Urine Not Detected (Not Detect); Oxycodone Screen Urine Not Detected (Not Detect); Phencyclidine Screen Urine Not Detected (Not Detect)
[2025-01-18 20:03] LABS: Acetaminophen LAB < 3 mcg/mL (<30); Salicylate < 5.0 mg/dL (15-30)
--- NOTE | 2025-01-18 22:00 | PC.NURSE ---
patient has been calm/cooperative since arrival. on arrival was changed into [facility] clothes and belongings secured. 1:1 sitter. pt has been conversating with sitter. nad. requested for this RN not to speak with family. states si with plan to use knife, unsure of what caused these thoughts, states onset today. states has been taking medications. ?psychiatrist is retiring and needs new one? awaiting care team eval.
[2025-01-18 22:17] VITALS: BP 133/72; PULSE 81; RESP 16; TEMP 36.8; O2SAT 97
[2025-01-19] MEDS: Acetaminophen 325 MG TABLET 650 MG PO (03:16)
--- NOTE | 2025-01-19 03:19 | PC.NURSE ---
pt reporting headache, medicated per MAR
[2025-01-19 06:31] VITALS: BP 131/71; PULSE 74; RESP 18; TEMP 36.7; O2SAT 94
[2025-01-19 07:45] VITALS: BP 121/78; PULSE 74; RESP 18; TEMP 37.1; O2SAT 95
--- NOTE | 2025-01-19 09:11 | ECG_ITS ---
Test Reason : check qtc Blood Pressure : */* mmHG Vent. Rate : 73 BPM Atrial Rate : 73 BPM P-R Int : 180 ms QRS Dur : 96 ms QT Int : 396 ms P-R-T Axes : 26 46 12 degrees QTcB Int : 436 ms Normal sinus rhythm Nonspecific ST abnormality Abnormal ECG When compared with ECG of 30-Jun-2024 19:05, No significant change was found Referred By: Toni Rosa Electronically Signed By: LYNDSEY IVEY MD
--- NOTE | 2025-01-19 12:04 | PHA.MEDREC ---
Addendum entered by Khai Silva RPh 01/19/25 13:43: Reviewed by [facility] Original Note: Pharmacy Consult ? Medication Reconciliation Pharmacy reviewed med rec done by nursing. Claims match what is confirmed.
[2025-01-19 14:15] LABS: Anion Gap 10 (12-20); Carbon Dioxide 27 mmol/L (22-29); Chloride 108 mmol/L (96-108); Potassium 4.1 mmol/L (3.3-5.1); Sodium 141 mmol/L (135-145); Total Protein 7.4 g/dL (6.5-8.0)
[2025-01-19 14:19] LABS: Alanine Aminotransferase 31 U/L (0-40); Albumin Level 4.4 g/dL (3.5-5.0); Alkaline Phosphatase 75 U/L (39-117); Aspartate Amino Transferase 21 U/L (5-37); Bilirubin Total 0.3 mg/dL (0.0-1.0); Blood Urea Nitrogen 13 mg/dL (9-16); Calcium 9.2 mg/dL (8.4-10.2); Creatinine Clr Calc Pharmacy 165.4; Estimated Glomerular Filt Rate > 60; Glucose Fasting 115 mg/dL (60-99)
--- NOTE | 2025-01-19 14:30 | PC.NURSE ---
report given to M5 RN, patient belongings missing, no note from RN who collected patient belongings, no inventory list done. security notified, ED charge nurse notified. inpatient rn and patient told that when belongings are found they will be transferred upstairs to patient.
[2025-01-19 14:35] VITALS: BP 146/71; PULSE 102; TEMP 36.3; O2SAT 96
[2025-01-19] MEDS: ARIPiprazole 15 MG TABLET PO (16:36)
--- NOTE | 2025-01-19 16:45 | MHC.EDTECH ---
This tech along with a nurse and another tech searched for patients belongings and they were not in any of the areas that we store patients belongings, a nurse from the overnight shift made a note stating belongings were secured but did not specify where belongings went. RN Aware
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
[2025-01-19 20:00] VITALS: BP 133/75; PULSE 80; RESP 16; O2SAT 93
[2025-01-19] MEDS: OXcarbazepine 300 MG TABLET 600 MG PO (21:24)
[2025-01-20 08:22] VITALS: BP 135/68; PULSE 65; TEMP 36.4; O2SAT 96
[2025-01-20] MEDS: OXcarbazepine 300 MG TABLET 600 MG PO ×2 (08:42→20:29)
[2025-01-20] MEDS: ARIPiprazole 15 MG TABLET PO (08:42)
[2025-01-20] MEDS: Cholecalciferol (Vitamin D3) 25 MCG TABLET 50 MCG PO (08:42)
[2025-01-20 08:44] LABS: Cholesterol 203 mg/dL (<200); HDL Cholesterol 29 mg/dL (>40); LDL Cholesterol Calculated 137 mg/dL (<100); Triglycerides 187 mg/dL (<150)
[2025-01-20 08:58] LABS: TSH reflex Free T4 4.16 uIU/mL (0.32-4.0)
[2025-01-20 09:27] LABS: Estimated Average Glucose 103 mg/dL; Hemoglobin A1C 142.8993 umol/L; Hemoglobin A1c % 5.2 % (<6.0)
[2025-01-20 09:32] LABS: Free T4 (Free Thyroxine) 0.82 ng/dL (0.71-1.85)
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
[2025-01-20 20:00] VITALS: BP 137/94; PULSE 81; TEMP 36.4; O2SAT 96
[2025-01-21 08:00] VITALS: BP 139/63; PULSE 73; TEMP 36.8; O2SAT 95
[2025-01-21] MEDS: Cholecalciferol (Vitamin D3) 25 MCG TABLET 50 MCG PO (08:20)
[2025-01-21] MEDS: ARIPiprazole 15 MG TABLET PO (08:20)
[2025-01-21] MEDS: OXcarbazepine 300 MG TABLET 600 MG PO ×2 (08:21→19:34)
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
[2025-01-21] MEDS: hydrOXYzine HCL 25 MG TABLET PO (15:24)
[2025-01-21] MEDS: Magnesium Hydrox/Alum Hydrox 30 ML ORAL.SUSP PO (19:34)
[2025-01-21 19:39] VITALS: BP 132/90; PULSE 120; RESP 16; TEMP 36.6; O2SAT 95
--- NOTE | 2025-01-22 00:14 | PM.PSYDC ---
DS: Providers Provider Date of Service: 01/22/25 Date of admission: 01/19/25 12:36 Date of discharge: 01/22/25 Primary care physician: Unknown Physician Attending physician on admission: Stefaon Davidson Discharging clinician: Yue Pack DS: Diagnosis Discharge Diagnosis (1) Bipolar disorder: Status: Deleted (2) Autism spectrum disorder: Status: Deleted (3) Intellectual disability: Status: Acute (4) Mixed hyperlipidemia: Status: Acute DS: Medications Discharge Medications Home Medications: Home Medications ?Medication ?Instructions ?Recorded ?Confirmed aripiprazole 15 mg tablet 15 mg PO QAM 09/17/20 01/19/25 hydroxyzine HCl 25 mg tablet 25 mg PO BID PRN Anxiety 09/17/20 01/19/25 prazosin 5 mg capsule 5 mg PO BEDTIME PRN Sleep 09/17/20 01/19/25 trazodone 150 mg tablet 150 mg PO BEDTIME PRN Sleep 09/17/20 01/19/25 oxcarbazepine 300 mg tablet 600 mg PO BID 07/05/22 01/19/25 Previous Rx's ?Medication ?Instructions ?Recorded cholecalciferol (vitamin D3) 50 50 mcg PO DAILY 90 days #90 caps 11/20/24 mcg (2,000 unit) capsule Mental Status Exam Mental Status Exam Patient Appearance: Appropriate Patient Orientation: Person and Place Level of Consciousness: Alert Patient Behavior: Talkative Mood Description: Appropriate Affect Description: Appropriate Ability to Follow Directions: Good Speech Pattern: Spontaneous Speech Judgement: Fair Judgement and Insight: Baseline Data Data Completed and Pending Completed studies during hospitalization [Text1]: 01/18/25 01/18/25 01/19/25 19:40 19:47 13:46 WBC 6.3 RBC 5.23 Hgb 15.4 Hct 44.1 MCV 84.3 MCH 29.4 MCHC 34.9 RDW 11.9 Plt Count 171 MPV 11.3 Immature Gran % (Auto) 0.3 Neut % (Auto) 73.3 H Lymph % (Auto) 16.0 L [place] % (Auto) 6.0 Eos % (Auto) 3.8 Baso % (Auto) 0.6 Lymph # (Auto) 1.0 L [place] # (Auto) 0.4 Eos # (Auto) 0.2 Baso # (Auto) 0.0 Abs Immat Gran (auto) 0.02 Absolute Neuts (auto) 4.6 Absolute Nucleated RBC 0.000 Nucleated RBC % (auto) 0.0 Sodium 141 141 Potassium 3.7 4.1 Chloride 107 108 Carbon Dioxide 25 27 Anion Gap 13 10 L BUN 10 13 Creatinine 0.85 1.01 Estim Creat Clear Calc 196.6 165.4 Estimated GFR > 60 > 60 Random Glucose 107 Fasting Glucose 115 H Estimat Average Glucose Hemoglobin A1c % Calcium 8.6 9.2 D Total Bilirubin 0.3 0.3 AST 22 21 ALT 33 31 Alkaline Phosphatase 73 75 Total Protein 7.4 7.4 Albumin 4.0 4.4 Triglycerides Cholesterol LDL Cholesterol, Calc HDL Cholesterol TSH Free T4 Urine Color Yellow Urine Appearance Clear Urine pH 6.0 Ur Specific [place] 1.015 Urine Protein Negative Urine Glucose (UA) Negative Urine Ketones Negative Urine Blood Negative Urine Nitrite Negative Ur Leukocyte Esterase Negative Urine RBC 0-2 Urine WBC 0-5 Ur Squamous Epith Cells 0-2 Urine Bacteria None Seen Hyaline Casts 0-2 Salicylates < 5.0 L Urine Opiates Screen Not Detected Ur Buprenorphine Scrn Not Detected Ur Oxycodone Screen Not Detected Urine Methadone Screen Not Detected Urine Fentanyl Screen Not Detected Acetaminophen < 3 Ur Barbiturates Screen Not Detected Ur Phencyclidine Scrn Not Detected Ur Amphetamines Screen Not Detected U Benzodiazepines Scrn Not Detected Urine Cocaine Screen Not Detected U Marijuana (THC) Screen Not Detected Ethyl Alcohol < 10 01/20/25 01/20/25 07:59 08:00 WBC RBC Hgb Hct MCV MCH MCHC RDW Plt Count MPV Immature Gran % (Auto) Neut % (Auto) Lymph % (Auto) [place] % (Auto) Eos % (Auto) Baso % (Auto) Lymph # (Auto) [place] # (Auto) Eos # (Auto) Baso # (Auto) Abs Immat Gran (auto) Absolute Neuts (auto) Absolute Nucleated RBC Nucleated RBC % (auto) Sodium Potassium Chloride Carbon Dioxide Anion Gap BUN Creatinine Estim Creat Clear Calc Estimated GFR Random Glucose Fasting Glucose Estimat Average Glucose 103 Hemoglobin A1c % 5.2 Calcium Total Bilirubin AST ALT Alkaline Phosphatase Total Protein Albumin Triglycerides 187 H Cholesterol 203 H LDL Cholesterol, Calc 137 H HDL Cholesterol 29 L TSH 4.16 H Free T4 0.82 Urine Color Urine Appearance Urine pH Ur Specific [place] Urine Protein Urine Glucose (UA) Urine Ketones Urine Blood Urine Nitrite Ur Leukocyte Esterase Urine RBC Urine WBC Ur Squamous Epith Cells Urine Bacteria Hyaline Casts Salicylates Urine Opiates Screen Ur Buprenorphine Scrn Ur Oxycodone Screen Urine Methadone Screen Urine Fentanyl Screen Acetaminophen Ur Barbiturates Screen Ur Phencyclidine Scrn Ur Amphetamines Screen U Benzodiazepines Scrn Urine Cocaine Screen U Marijuana (THC) Screen Ethyl Alcohol DS: Summary Hospital Course Hospital Course: HPI: Patient is a 24-year-old male with history of ASD, intellectual disability, HLD, right ankle/knee pain, history of syncopal events, possible TBI and carries diagnosis of bipolar disorder who presents for dysregulated behavior with suicidal gesture in the face of recent stressful event and not taking medications. Patient is calm, in good behavioral and impulse control, polite and friendly on approach. Patient lives at home with his parents, siblings and nephews. This past week the family had a very stressful stressful event when patient is father had a stroke. Patient said I did a big flip out... He said the whole week was challenging; he did not feel like taking a shower and was getting irritated that his mother kept pushing him to do so. Patient said he does not really remember the specifics of the event when he grabbed the knife or made a comment about not wanting to live but said he was never actually suicidal and denies any SI, HI or any AVH. He says I have a low frustration tolerance... But he also says I learned my lesson... And he regrets his behaviors. Patient reports that he normally takes his medications and will continue to do so. He would like to go home as soon as he can. Hospital course: Patient pleasant, cooperative, friendly and in good behavioral and impulse control once on the unit. It seems that patient's decompensation was due to stressful event in the house following his father having a stroke. Patient self reports that he flipped out but that he is back to his regular self. This seems to be the case. Patient has already showered twice since coming to the unit and is asking to go home as soon as he can. Patient restarted on home medications. He remained at baseline in good behavioral/impulse control, denying psychiatric symptoms and feeling ready to go home. On the unit he is appropriate, friendly and social with peers. Discussed case with his mother who agrees that he is back to his regular self and ready to come home. Patient is at baseline and not in imminent risk of harm to self or others and is appropriate to return to the community for treatment. He is returning home to his supportive family. Patient's request for discharge honored Time spent discussing smoking cessation with patient: 3 to 10 minutes Status at Discharge Functional status at discharge: independent ambulation Overall status at discharge: patient is back to baseline Time Spent with Patient Time attestation: Total time managing care of this patient today ____ minutes. Discharge Plan Discharge Anticipated Discharge Date/Time: 01/22/25 11:30 Patient Disposition: Home, Self-Care Discharge Diagnosis: ASD; Bipolar Referrals: Physician,Unknown J [Primary Care Provider] - (Pt to follow up with PCP after discharge. ) Discharge Medications: Continued prazosin 5 mg capsule 5 mg PO BEDTIME PRN (Reason: Sleep) trazodone 150 mg tablet 150 mg PO BEDTIME PRN (Reason: Sleep) hydroxyzine HCl 25 mg tablet 25 mg PO BID PRN (Reason: Anxiety) Rx Instructions: Pharmacy noted prescription was 1-2 25 mg tabs BID PRN aripiprazole 15 mg tablet 15 mg PO QAM oxcarbazepine 300 mg tablet 600 mg PO BID cholecalciferol (vitamin D3) 50 mcg (2,000 unit) capsule 50 mcg PO DAILY 90 Days Qty: 90 3RF Discharge Orders: Discharge Order (Routine); Ordered 01/22/25 Ordered By: Stefano Davidson Diet: Regular diet Activity on Discharge: As tolerated Stand Alone Forms: Patient Portal Discharge page, Community Support Print Language: German Care Plan Goals: Maintain mood and safe behaviors Take medications as prescribed Practice coping skills Continue with outpatient providers and reach out to them as needed Health Concerns: Mood stability and behaviors Elevated cholesterol Vitamin-D deficiency Plan of Treatment: Follow up with your PCP, psychiatric provider and other outpatient providers regarding above concerns Take medications as prescribed Assessment: Risk assessment at time of discharge:? Patient was interviewed prior to discharge and found to be fully oriented and without any SI or HI. Patient has improved insight and judgment and wants to continue treatment. Patient is not in imminent risk of harm to self or others and has a safety plan that includes presenting to the closest ER or calling 911 if feeling unsafe.? Patient has been observed closely by nursing and unit staff throughout admission; patient has not engaged in any behaviors that suggest dangerousness to self or others and has demonstrated appropriate behaviors and impulse control Discharge Date/Time: 01/22/25 11:43
[2025-01-22 07:00] VITALS: BMI 34.1
[2025-01-22 08:00] VITALS: BP 168/78; PULSE 83; TEMP 36.6; O2SAT 96
[2025-01-22] MEDS: Cholecalciferol (Vitamin D3) 25 MCG TABLET 50 MCG PO (08:48)
[2025-01-22] MEDS: OXcarbazepine 300 MG TABLET 600 MG PO (08:49)
[2025-01-22] MEDS: ARIPiprazole 15 MG TABLET PO (08:49)
--- NOTE | 2025-01-22 19:35 | HO.PSYCHPN ---
Subjective Subjective Date of Service: 01/22/25 Reason For Visit: Suicidal Interim History: Discharge today with guardian. Denies SI,HI,AH, VH. No sx of acute psychosis, rashad are noted Medication Compliance: Yes Review of Systems Review of Systems denies Mental Status Exam Mental Status Exam Patient Appearance: Appropriate Patient Orientation: Person and Place Level of Consciousness: Alert Patient Behavior: Talkative Mood Description: Appropriate Affect Description: Appropriate Ability to Follow Directions: Good Speech Pattern: Spontaneous Speech Judgement: Fair Judgement and Insight: Baseline Diagnostics Vital Signs (24Hr): Vital Signs - 24 hr 01/21/25 19:39 01/22/25 08:00 Temperature 97.8 F 97.8 F Pulse Rate 120 H 83 Respiratory Rate 16 Blood Pressure 132/90 H 168/78 H Pulse Oximetry 95 96 Oxygen Delivery Method Room Air Room Air BMI result Body Mass Index 34.1 Labs 01/18/25 19:40 01/19/25 13:46 Medications Allergies Allergies Allergy/AdvReac Type Severity Reaction Status Date / Time apple AdvReac Severe DIARRHEA Verified 01/18/25 19:31 POTATO JUICE Allergy Intermediate RASH Uncoded 01/18/25 19:31 Assessment & Plan Assessment & Plan (1) Bipolar disorder: Qualifiers: Active/Remission status: remission status unspecified Qualified Code(s): F31.9 - Bipolar disorder, unspecified Status: Acute Code(s): F31.9 - Bipolar disorder, unspecified (2) Autism spectrum disorder: Status: Acute Code(s): F84.0 - Autistic disorder (3) Intellectual disability: Status: Acute Code(s): F79 - Unspecified intellectual disabilities (4) Mixed hyperlipidemia: Status: Acute Code(s): E78.2 - Mixed hyperlipidemia Plan Patient is a 24-year-old male with history of ASD, intellectual disability, HLD, right ankle/knee pain, history of syncopal events, possible TBI and carries diagnosis of bipolar disorder who presents for dysregulated behavior with suicidal gesture in the face of recent stressful event and not taking medications. Patient is calm, in good behavioral and impulse control, polite and friendly on approach. Patient lives at home with his parents, siblings and nephews. This past week the family had a very stressful stressful event when patient is father had a stroke. Patient said I did a big flip out... He said the whole week was challenging; he did not feel like taking a shower and was getting irritated that his mother kept pushing him to do so. Patient said he does not really remember the specifics of the event when he grabbed the knife or made a comment about not wanting to live but said he was never actually suicidal and denies any SI, HI or any AVH. He says I have a low frustration tolerance... But he also says I learned my lesson... And he regrets his behaviors. Patient reports that he normally takes his medications and will continue to do so. He would like to go home as soon as he can. Hospital course/Formulation/clinical reasoning: It seems that patient's decompensation is due to stressful event in the house following his father having a stroke. Patient self reports that he flipped out but that he is back to his regular self. He is in good behavioral and impulse control now on the unit. Patient has already showered twice since coming to the unit and is asking to go home as soon as he can. 01/21 Patient remains in good behavioral and impulse control, no complaints, no requests can denies psychiatric symptoms. Patient is friendly and social with peers on the unit, appropriate with peers and staff. He feels ready to go home. Social work discussed with patient's mother who agrees that patient is back to his regular self and okay to come home 01/22 Discharge with mother. Patient is at baseline and not in imminent risk of harm to self or others. He is appropriate to return to the community for treatment. He is returning home to his supportive family. Patient's request for discharge honored Plan: CV Q 15 minute checks Abilify 15 mg daily Trileptal 600 mg b.i.d. Vitamin-D 3 mcg daily Reason for continued inpatient stay Substantial Risk for: stable for discharge Time Spent With Patient Time: Total time managing care of this patient today ____ minutes.
== END 2025-01-22 11:43 | disposition home or self-care (01) | DRG 753 ==
LOC: HO.ED 01-19 09:16 → HO.PM5 01-19 12:49
PROVIDERS: Admitting Provider Psychiatry & Neurology Psychiatry; Emergency Provider Emergency Medicine; Visit Provider Psychiatry & Neurology Psychiatry
DX: F31.9 Bipolar disorder, unspecified (principal); F79 Unspecified intellectual disabilities; E78.2 Mixed hyperlipidemia; F84.0 Autistic disorder; Z79.899 Other long term (current) drug therapy
CPT/HCPCS: 36415; 80053; 80061; 80143; 80179; 80307; 81001; 83036; 84439; 84443; 85025; 93005; 99285; S9485

== ENCOUNTER → 2025-01-19 09:11 | Outpatient (BNV) | payer OTHER, SELFPAY | PROVIDERS: Emergency Provider Emergency Medicine; Visit Provider Internal Medicine Cardiovascular Disease | DX: R94.31 Abnormal electrocardiogram [ECG] [EKG] (principal); Z13.6 Encounter for screening for cardiovascular disorders | CPT/HCPCS: 93010 ==

== ENCOUNTER → 2025-01-19 12:36 | Outpatient (BNV) | payer OTHER, SELFPAY | PROVIDERS: Admitting Provider Psychiatry & Neurology Psychiatry; Emergency Provider Emergency Medicine; Visit Provider Psychiatry & Neurology Psychiatry | DX: F31.9 Bipolar disorder, unspecified (principal); F84.0 Autistic disorder; F79 Unspecified intellectual disabilities; E78.2 Mixed hyperlipidemia | CPT/HCPCS: 99232 ==

== ENCOUNTER 2025-02-12 21:06 | Emergency (ER) | payer OTHER, SELFPAY ==
--- NOTE | ~2025-02-12 | XR_ITS ---
CLINICAL HISTORY: L shoulder reduction --- Additional Notes or Special Instructions: give us 15-trevon m inutes (until 2 30am) 1 view left shoulder Comparison: CR - XR SHOULDER LT MIN 2V - 02/12/25 22:26 EDT Findings: Single frontal radiograph of the left shoulder. No gross abnormality identified. IMPRESSION: Limited single frontal radiograph of the left shoulder with grossly improved alignment. This document has been electronically signed by: Edouard Kenney MD, PHD on 02/13/2025 04:08:53
--- NOTE | ~2025-02-12 | XR_ITS ---
CLINICAL HISTORY: pain post fall Exam: AP, Grashey, and scapular Y-views of the left shoulder. Comparison: None. Findings: There is inferior and anterior positioning of the humeral head in relation to the glenoid. However, no debbie dislocation is identified. AC joint is anatomically aligned. No fracture. Impression: Anterior and inferior subluxation of the humeral head in relation to the glenoid without debbie dislocation. This raises the possibility of large joint effusion or rotator cuff tear resulting in abnormal alignment between the humeral head and glenoid. Axillary view may be beneficial for further anatomic evaluation. This document has been electronically signed by: Gunnar Buck MD on 02/12/2025 23:32:35
[2025-02-12 21:43] VITALS: BP 126/72; PULSE 115; RESP 18; TEMP 36.2; O2SAT 97; BMI 30.4
--- OUTSIDE RECORDS SUMMARY | 2025-02-12 23:49 | XMS_ITS | Encounter Summary ---
Author Organization [facility] Address [address] [place] [phone] Phone Care Team Providers Care Alternative Dispute Resolution Mediator Name Role Phone Unavailable Primary Care Provider Unavailabl e Encounter Details Date Type Department Care Team (Late st Contact Info) Description 05/03/2017 Documentation [facility] [place] Family Medicine [address] [place] [address] Family Medicine, [place] [address] Social History Tobacco Use Types Packs/Day Years [...]
--- OUTSIDE RECORDS SUMMARY | 2025-02-12 23:49 | XMS_ITS | Clinical Summary ---
Author Organization [facility] Address [address] [place] [address] Phone Care Team Providers Care Emergency Room Tech Name Role Phone Unavailable Primary Care Provider [...] SI/HI Now followed by DR Sanders at [facility] Assessment & Plan (06/06/2020 10:57 AM EDT): On medication prescribed by Dr Sanders at [facility]. Assessment & Plan (06/04/2020 9:43 AM EDT): [...] to those you have been getting from [facility] - such as in home therapy. PDD [...] Date Behavior problem in child 07/10/2011 Immunizations Immunization Administration Dates Next Due DTaP 5 09/16/2004, [...] Other No family histo ry of *Sudden /IN under 55, Family history of *Heart Disease, [...] Additional history exists Procedures * Due to [place] [employer] law, this organization might not be sharing sensitive test results. Procedure Name Priority Date/Time Associated Diagnosis Comments LIPID PANEL Routine 07/08/2019 3:49 PM EDT Mood disorder HEMOGLOBIN A1C Routine 07/08/2019 3:49 PM EDT Mood disorder from Last 3 Months or Most Recently Relevant to Health Maintenance Results * Due to [place] [employer] law, this organization might not be sharing sensitive test results. * Hemoglobin A1c (07/08/2019 3:49 PM EDT) Hemoglobin A1C 5.1 (4-6) % [facility] Comment: HEMOGLOBIN A1C(%) ?? GLUCOSE CONTROL INDEX ?<6% ? EXCELLENT ?6-7% ?VERY GOOD ?7-8% ?GOOD ?8-10% ? FAIR ?>10% ?POOR Hemoglobin (Hb) A1c testing is performed by Barrett Lizy-quant immunoassay. Any cause of shortened erythrocyte survival will reduce exposure of erythrocytes to glucose with a consequent decrease in Hb A1c (%). Testing performed or reported by [facility], a Service of [facility], [address] [place] [id number] Blood 07/08/2019 3:49 PM EDT 07/08/2019 3:54 PM EDT Dana Crockett MD LAB BLOOD ORDERABLES Final R esult Performing Organization Address [facility] de Phone Number [facility] * (ABNORMAL) Lipid panel (07/08/2019 3:49 PM EDT) [facility] Cholesterol, Total 171(H) (<170) MG/DL [facility] HDL 32(L) (>45) MG/DL [facility] Non-HDL Cholesterol 139(H) (<120) MG/DL [facility] Comment: Testing performed or reported by [facility], a Service of [facility], [address] [place] [id number] Blood 07/08/2019 3:49 PM EDT 07/08/2019 3:54 PM EDT Dana Crockett MD LAB BLOOD ORDERABLES Final R Munogenicsult Performing Organization Address [facility] de Phone Number [facility] from Last 3 Months or Most Recently Relevant to Health Maintenance Insurance [facility] NON PCC
--- OUTSIDE RECORDS SUMMARY | 2025-02-12 23:49 | XMS_ITS | Clinical Summary ---
Author Organization [facility] ity Address [address] [place] [address] Care Team Providers Care Ribbon Tier Name Role Phone Unavailable Primary Care Provider Unavailabl e Social History Tobacco Use Types Packs/Day Years Used Date Smoking Tobacco: Never Assessed Sex and Gender Information Value Date Recorded Sex Assigned at Not on file Legal Sex Male 1:27 AM EST Gender Identity Not on file Sexual Orientation [...] Influencers of Health Screening 06/23/2024 COVID-19 Vaccine (1 - 2023-2 5 season) 2024 Influenza Vaccine (Season Ended) 2025 HIB Vaccines Aged Out No longer eligi [...] patient's age to complete this topic Meningococcal B Vaccine Aged Out No l onger eligible based on patient's age to complete [...]
--- OUTSIDE RECORDS SUMMARY | 2025-02-12 23:49 | XMS_ITS | Encounter Summary ---
Author Organization [facility] Address [address] [place] [address] Phone Care Team Providers Care Environment Coordinator Name Role Phone Unavailable Primary Care Provider Unavailabl e Encounter Details Date Type Department Care Team (Late st Contact Info) Description 01/03/2016 Documentation [facility] [place] Family Medicine [address] [place] [address] Family Medicine, [place] [address] Social History Tobacco Use Types Packs/Day Years [...]
--- OUTSIDE RECORDS SUMMARY | 2025-02-12 23:49 | XMS_ITS | Encounter Summary ---
Author Organization [facility] Address [address] [place] [address] Phone Care Team Providers Care Pepper Picker Name Role Phone Unavailable Primary Care Provider Unavailabl e Encounter Details Date Type Department Care Team (Late st Contact Info) Description 11/09/2011 Documentation [facility] [place] Family Medicine [address] [place] [address] Family Medicine, Physician [facility] [place] [address] Social History Tobacco Use Types Packs/Day Years [...]
--- OUTSIDE RECORDS SUMMARY | 2025-02-12 23:49 | XMS_ITS | Encounter Summary ---
Author Organization [facility] Address [address] [place] [address] Phone Care Team Providers Care Chemical Laboratory Chief Name Role Phone Unavailable Primary Care Provider Unavailabl e Encounter Details Date Type Department Care Team (Late st Contact Info) Description 08/17/2010 Documentation [facility] [place] [address] [place] [address] Family Medicine, [facility]ician [facility] [place] [address] Social History Tobacco Use Types Packs/Day Years [...]
--- OUTSIDE RECORDS SUMMARY | 2025-02-12 23:49 | XMS_ITS | Encounter Summary ---
Author Organization [facility] Address [address] [place] [address] Phone Care Team Providers Care Senior Label Specialist Name Role Phone Unavailable Primary Care Provider Unavailabl e Encounter Details Date Type Department Care Team (Late st Contact Info) Description 05/04/2017 Documentation [facility] [place] [address] [place] [address] Family Medicine, Physician [facility] [place] [address] Social History Tobacco Use Types Packs/Day Years [...]
--- OUTSIDE RECORDS SUMMARY | 2025-02-12 23:49 | XMS_ITS | Encounter Summary ---
Author Organization [facility] Address [address] [place] [address] Phone Care Team Providers Care Retail Sales Director Name Role Phone Unavailable Primary Care Provider Unavailabl e Encounter Details Date Type Department Care Team (Late st Contact Info) Description 05/14/2017 Documentation [facility] [place] [address] [place] [address] Family Medicine, Physician [facility] [place] [address] Social History Tobacco Use Types Packs/Day Years [...]
--- OUTSIDE RECORDS SUMMARY | 2025-02-12 23:49 | XMS_ITS | Encounter Summary ---
Author Organization [facility] Address [address] [place] [address] Phone Care Team Providers Care Commercial Fisher Name Role Phone Unavailable Primary Care Provider Unavailabl e Encounter Details Date Type Department Care Team (Late st Contact Info) Description 06/14/2017 Conversion Encounter [facility] - [address] [address] Social History Tobacco Use Types Packs/Day Years [...]
--- OUTSIDE RECORDS SUMMARY | 2025-02-12 23:49 | XMS_ITS | Encounter Summary ---
Author Organization [facility] Address [address] [place] [address] Phone Care Team Providers Care Marine Fire Fighter Name Role Phone Unavailable Primary Care Provider Unavailabl e Encounter Details Date Type Department Care Team (Late st Contact Info) Description 12/25/2017 Patient Outreach [facility] [place] [address] [place] [address] Dana Crockett MD [address] [place] [address] Social History Tobacco Use Types Packs/Day Years [...]
--- OUTSIDE RECORDS SUMMARY | 2025-02-12 23:49 | XMS_ITS | Encounter Summary ---
Author Organization [facility] Address [address] [place] [address] Phone Care Team Providers Care Machine Marker Name Role Phone Unavailable Primary Care Provider Unavailabl e Reason for Visit * Reason Comments Med Refill Encounter Details Date Type Department Care Team (Late st Contact Info) Description 01/30/2019 Refill [facility] [place] [address] [place] [address] Venessa Can, RUBÉN [address] [address] Nightmares Social History Tobacco Use Types Packs/Day [...] He has a med eval appt at [facility] in February. He needs psychiatry to prescribe his psych meds. * Telephone Encounter - Dana Crockett MD - 01/30/2019 6:32 PM EDT Glenn was seeing Dr Younger. Pt was seeing counselor at [facility]. He was in [facility] recently. 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 He had a meltdown and his counselor was [facility]and [facility] for [facility]4 day. They were unable to treat him. Family has been trying to find programs for him. He is scheduled for a med eval at [facility] - was supposed to be seen last [...] and is on Prazosin. Dept of [facility] does not support family getting guardianship. [facility] recommended a follow up program which then [...]
--- OUTSIDE RECORDS SUMMARY | 2025-02-12 23:49 | XMS_ITS | Encounter Summary ---
Author Organization [facility] Address [address] [place] [address] Phone Care Team Providers Care Carton Folder Name Role Phone Unavailable Primary Care Provider Unavailabl e Encounter Details Date Type Department Care Team (Late st Contact Info) Description 11/14/2012 Documentation [facility] [place] Family Medicine [address] [place] [address] Family Medicine, Physician [place] [address] Social History Tobacco Use Types Packs/Day Years [...]
--- OUTSIDE RECORDS SUMMARY | 2025-02-12 23:49 | XMS_ITS | Encounter Summary ---
Author Organization [facility] Address [address] [place] [address] Phone Care Team Providers Care Superintendent Pipelines Name Role Phone Unavailable Primary Care Provider Unavailabl e Encounter Details Date Type Department Care Team (Late st Contact Info) Description 12/31/2015 Documentation [facility] [place] Family Medicine [address] [place] [address] Family Medicine, Physician [facility] [place] [address] Social History Tobacco Use Types Packs/Day Years [...]
--- OUTSIDE RECORDS SUMMARY | 2025-02-12 23:49 | XMS_ITS | Encounter Summary ---
Author Organization [facility] Address [address] [place] [address] Phone Care Team Providers Care Cemetery Laborer Name Role Phone Unavailable Primary Care Provider Unavailabl e Encounter Details Date Type Department Care Team (Late st Contact Info) Description 09/13/2016 Documentation [facility] [place] [address] [place] [address] Family Medicine, Physician [facility] [place] [address] Social History Tobacco Use Types Packs/Day Years [...]
[2025-02-13] VITALS (11 sets, daily range): BP systolic 126–148; BP diastolic 76–94; PULSE 76–102; RESP 16–20; TEMP 36.6–36.9; O2SAT 95–99
--- NOTE | 2025-02-13 01:18 | ED_ITS ---
HPI - Extremity Problem General Chief complaint: Extremity Injury, Upper Stated complaint: left arm inj Time Seen by Provider: 02/13/25 01:10 Source: patient Mode of arrival: ambulatory Limitations: no limitations History of Present Illness ED Provider: Dr. Catalina Amaro HPI Narrative: Patient comes to the emergency room complaining of left shoulder pain. Patient states that 2 days ago he was playing basketball and fell into his left shoulder. Patient states that since then he has been unable to abduct his left arm. Patient states that it hurts quite a bit. Patient denies hitting his head or losing consciousness Related Data Home Medications ?Medication ?Instructions ?Recorded ?Confirmed aripiprazole 15 mg tablet 15 mg PO QAM 09/17/20 01/19/25 hydroxyzine HCl 25 mg tablet 25 mg PO BID PRN Anxiety 09/17/20 01/19/25 prazosin 5 mg capsule 5 mg PO BEDTIME PRN Sleep 09/17/20 01/19/25 trazodone 150 mg tablet 150 mg PO BEDTIME PRN Sleep 09/17/20 01/19/25 oxcarbazepine 300 mg tablet 600 mg PO BID 07/05/22 01/19/25 Previous Rx's ?Medication ?Instructions ?Recorded cholecalciferol (vitamin D3) 50 50 mcg PO DAILY 90 days #90 caps 11/20/24 mcg (2,000 unit) capsule ibuprofen 600 mg tablet 600 mg PO TID PRN pain #30 tabs 02/13/25 Allergies Allergy/AdvReac Type Severity Reaction Status Date / Time apple AdvReac Severe DIARRHEA Verified 02/12/25 21:45 POTATO JUICE Allergy Intermediate RASH Uncoded 01/18/25 19:31 Review of Systems Review of Systems: Constitutional : No Weight loss, No Fever, No Chills, No Night Sweats, No Fatigue, No Malaise ENT/Mouth : No Hearing loss, No Ear Pain, No Nasal Congestion, No Sinus Pain, No Hoarseness, No sore throat, No Rhinorrhea, No Swallowing Difficulty Eyes: No Eye Pain, No Swelling, No Redness, No Foreign Body, No Discharge, No Vision Changes Cardiovascular : No Chest Pain, No SOB, No Dyspnea on Exertion, No Orthopnea, No Edema, No Palpitations Respiratory : No Cough, No Sputum, No Wheezing, No Smoke Exposure, No Dyspnea Gastrointestinal : No Nausea, No Vomiting, No Diarrhea, No Constipation, No abdominal Pain, No Hematochezia, No Melena Genitourinary : no irregular bleeding, No Dysuria, No Urinary Frequency, No Hematuria, No Urinary Incontinence, No Urgency, No Flank Pain, No Urinary Flow Changes, No Hesitancy Musculoskeletal : Complaining of left shoulder pain No Myalgias, No Joint Swelling Skin : No Skin Lesions, No rash Neuro : No Weakness, No Numbness, No Paresthesias, No Loss of Consciousness, No Dizziness, No Headache Psych : No Anxiety/Panic, No Depression, No SI/HI/AH/VH, No Social Issues, Heme/Lymph: No Bruising, No Bleeding,No Lymphadenopathy Endocrine : No Polyuria, No Polydipsia, No Temperature Intolerance [facility] Past Medical History Medical History (Updated 02/13/25 @ 04:39 by Catalina Amaro MD) Mixed hyperlipidemia Vitamin D deficiency Right knee pain Obesity (BMI 30-39.9) Inversion sprain of right ankle Syncope Intellectual disability COVID-19 Surgical History History of placement of ear tubes Family History Family History Father No problems noted. Mother Heart problem Social History Social History Household Members: Family and Other Household Members Other:: Mom, stepdad, sister, brother, 2 nephews Housing: House Do you presently have visiting nurse or other home services: No Alcohol intake: never Patient Tobacco Use Status: Never used Tobacco e-Cigarette/Vaping Use: Never Used Second Hand Smoke Exposure: Yes Advance Directives: Yes Advance Directives on File: Yes Advance Directives Date on File: 11/10/21 Do you have a plan to hurt others: No Plan service: No Current occupational status: disabled Sexual orientation: Don't Know Cognitive needs: No Hearing needs: No Vision needs: No Physical Exam Vital Signs: Vital Signs: Last Vital Signs Temp 97.9 F 02/13/25 03:51 Pulse 76 02/13/25 03:51 Resp 16 02/13/25 03:51 BP 138/81 02/13/25 03:51 Pulse Ox 99 02/13/25 03:51 O2 Del Method Room Air 02/13/25 02:00 Oxygen Flow Rate 3 02/13/25 03:32 BMI result Body Mass Index 30.4 Const: Other: Appearance: Alert. Oriented X3. No acute distress. Eyes: Pupils equal, round and reactive to light. ENT: Pharynx normal. Neck: Normal inspection. Neck supple. No lymph nodes noted. No crepitus CVS: Normal heart rate and rhythm. Pulses normal. Normal S1 and S2 Respiratory: No respiratory distress. Breath sounds normal. No Wheezing. No rales Abdomen: Soft and nontender. No rigidity. No distention. Skin: Skin warm and dry. Normal skin color. Normal skin turgor. Extremities: No lower extremity edema. Patient is unable to abduct or move his left arm at all due to severe pain at the shoulder. Neuro: Oriented X 3. No motor deficit. No sensory deficit. Moving all extremities. No slurred speech. CN 2 through 12 grossly intact Psych: calm, cooperative, normal affect Medical Decision Making Medical Decision Making MDM Narrative: I discussed the shoulder x-ray with the patient. Patient has a subluxation of the shoulder. We will try to reduce it. I discussed with the patient 22 reduce the shoulder with regional lidocaine versus moderate sedation. Patient states that he would like to try to do it without lidocaine or sedation. If it hurts too much, he will be agreeable to proceed with sedation. Patient states that the last time had that he had anything to eat or drink was approximately 3 hours ago. After a very minimal attempt, patient states it hurts so much and prefers to do moderate sedation. Since patient ate 3 hours ago, we will proceed with ketamine Patient has history of autism. Patient is alert and oriented x3, able to have a coherent conversation. Patient states that he sinus his own legal documents. Patient received 1 milligram/kilogram of ketamine. Patient had no complications. The subluxation of the left shoulder was easily reduced with 1 attempt X-ray status post reduction shows significant improvement. Patient's arm was placed in a sling Patient will follow-up with his primary care physician and Orthopedics Differential Diagnosis Differential Diagnoses: The differential diagnosis associated with the presentation includes (Arm contusion, shoulder fracture, dislocations versus subluxation) Independent Interpretation I performed an independent interpretation of an: Plain X-Ray Radiology Impression Discussion of test interpretation with radiology: I have reviewed the radiolog ist's reading. Radiologist Impression: Anterior and inferior subluxation of the humeral head in relation to the glenoid without debbie dislocation. This raises the possibility of large joint effusion or rotator cuff tear resulting in abnormal alignment between the humeral head and glenoid. Axillary view may be beneficial for further anatomic evaluation. Shoulder x-ray 2: Single frontal radiograph of the left shoulder. No gross abnormality identified. IMPRESSION: Limited single frontal radiograph of the left shoulder with grossly improved alignment. Critical Care Time Critical Care Time Critical Care Time: Yes Total Critical Care Time: 45 Attestation: I have personally provided critical care time. Time includes review of lab data, radiology results, discussion with consultants, and monitoring for potential decompensation. Intervention performed as documented. Discharge Plan Discharge Clinical Impression: Shoulder subluxation, left Patient Disposition: Home, Self-Care Instructions: Shoulder Dislocation (ED) Additional Instructions: Please follow-up with your primary care physician tomorrow. If you have any worsening or new symptoms, please return to the emergency room or call 911 Prescriptions: New ibuprofen 600 mg tablet 600 mg PO TID PRN (Reason: pain) Qty: 30 0RF No Action prazosin 5 mg capsule 5 mg PO BEDTIME PRN (Reason: Sleep) trazodone 150 mg tablet 150 mg PO BEDTIME PRN (Reason: Sleep) hydroxyzine HCl 25 mg tablet 25 mg PO BID PRN (Reason: Anxiety) Rx Instructions: Pharmacy noted prescription was 1-2 25 mg tabs BID PRN aripiprazole 15 mg tablet 15 mg PO QAM oxcarbazepine 300 mg tablet 600 mg PO BID cholecalciferol (vitamin D3) 50 mcg (2,000 unit) capsule 50 mcg PO DAILY 90 Days Qty: 90 3RF Referrals: Cheyenne Fonseca PA-C [Physician Geological Technical Officer] - 02/16/25 Print Language: Indonesian
--- NOTE | 2025-02-13 03:16 | PC.NURSE ---
ketamine given at [address] barboza at bedside. 1.13ml given iv.
--- NOTE | 2025-02-13 03:28 | PC.NURSE ---
pt tolerated procedure. father at bedside, pt talking in full sentences at this time.
--- NOTE | 2025-02-13 03:38 | PC.NURSE ---
good cms to left hand palp pulses, arm in sling. pt is awake talking and singing. pt is alert and oriented to the procedure, father at bedside, vitals stable.
--- NOTE | 2025-02-13 06:09 | PC.NURSE ---
pharmacy called multiple time to enter the 500mg/per 5ml bottle of ketamine. in house pharmacy was passed down the task of entering it in the computor. waiting to scan against it.
[2025-02-13] MEDS: Ketamine HCl 500 MG/5 ML VIAL 113 MG IVPUSH (06:19)
--- NOTE | 2025-02-13 06:20 | PC.NURSE ---
ketamine order just in the system and charted against it.
== END 2025-02-13 05:04 | disposition home or self-care (01) ==
PROVIDERS: Emergency Provider Emergency Medicine; PCP Internal Medicine
DX: S43.012A Anterior subluxation of left humerus, initial encounter (principal); S43.032A Inferior subluxation of left humerus, initial encounter; W01.0XXA Fall on same level from slipping, tripping and stumbling without subsequent striking against object, initial encounter; Y93.67 Activity, basketball; Y92.310 Basketball court as the place of occurrence of the external cause; Y99.9 Unspecified external cause status
CPT/HCPCS: 73030; 96374; 99284; 99285

== ENCOUNTER → 2025-02-12 22:20 | Outpatient (BNV) | payer OTHER, SELFPAY | PROVIDERS: PCP Internal Medicine; Visit Provider Radiology Diagnostic Radiology | DX: S49.92XA Unspecified injury of left shoulder and upper arm, initial encounter (principal) | CPT/HCPCS: 73030 ==

== ENCOUNTER → 2025-02-13 02:17 | Outpatient (BNV) | payer OTHER, SELFPAY | PROVIDERS: Emergency Provider Emergency Medicine; PCP Internal Medicine; Visit Provider General Practice | DX: S49.92XA Unspecified injury of left shoulder and upper arm, initial encounter (principal) | CPT/HCPCS: 73020 ==

== ENCOUNTER 2025-02-19 22:38 | Emergency (ER) | payer OTHER, SELFPAY ==
[2025-02-19 22:42] VITALS: BP 115/81; PULSE 111; RESP 18; TEMP 37.1; O2SAT 97; BMI 33.9
--- OUTSIDE RECORDS SUMMARY | 2025-02-20 00:53 | XMS_ITS | Encounter Summary ---
Author Organization [facility] Address [address] [place] [address] Phone Care Team Providers Care Folder Tier Name Role Phone Unavailable Primary Care Provider Unavailabl e Encounter Details Date Type Department Care Team (Late st Contact Info) Description 06/14/2017 Conversion Encounter [facility] - [address] [address] Social History Tobacco Use Types Packs/Day Years [...]
--- OUTSIDE RECORDS SUMMARY | 2025-02-20 00:53 | XMS_ITS | Encounter Summary ---
Author Organization [facility] Address [address] [place] [address] Phone Care Team Providers Care Intel Analyst Name Role Phone Unavailable Primary Care Provider Unavailabl e Encounter Details Date Type Department Care Team (Late st Contact Info) Description 12/25/2017 Patient Outreach [facility] [place] [address] [place] [address] Dana Crockett MD [address] [place] [address] Social History Tobacco Use Types Packs/Day Years [...]
--- OUTSIDE RECORDS SUMMARY | 2025-02-20 00:53 | XMS_ITS | Encounter Summary ---
Author Organization [facility] Address [address] [place] [address] Phone Care Team Providers Care Chipper Feeder Name Role Phone Unavailable Primary Care Provider Unavailabl e Encounter Details Date Type Department Care Team (Late st Contact Info) Description 09/13/2016 Documentation [facility] [place] [address] [place] [address] Family Medicine, Physician [place] [address] Social History Tobacco Use Types Packs/Day Years [...]
--- OUTSIDE RECORDS SUMMARY | 2025-02-20 00:53 | XMS_ITS | Encounter Summary ---
Author Organization [facility] Address [address] [place] [address] Phone Care Team Providers Care Rail Express Clerk Name Role Phone Unavailable Primary Care Provider Unavailabl e Encounter Details Date Type Department Care Team (Late st Contact Info) Description 11/14/2012 Documentation [facility] [place] Family Medicine [address] [place] [address] Family Medicine, Physician [facility] [place] [address] Social History Tobacco Use Types Packs/Day Years [...]
--- OUTSIDE RECORDS SUMMARY | 2025-02-20 00:53 | XMS_ITS | Encounter Summary ---
Author Organization [facility] Address [address] [place] [address] Phone Care Team Providers Care It Applications Analyst Name Role Phone Unavailable Primary Care Provider Unavailabl e Encounter Details Date Type Department Care Team (Late st Contact Info) Description 12/31/2015 Documentation [facility] [place] [address] [place] [address] Family Medicine, Physician [facility] [place] [address] Social History Tobacco Use Types Packs/Day Years [...]
--- OUTSIDE RECORDS SUMMARY | 2025-02-20 00:53 | XMS_ITS | Encounter Summary ---
Author Organization [facility] Address [address] [place] [address] Phone Care Team Providers Care Health Occupations Instructor Name Role Phone Unavailable Primary Care Provider Unavailabl e Encounter Details Date Type Department Care Team (Late st Contact Info) Description 01/03/2016 Documentation [facility] [place] Family Medicine [address] [place] [address] Family Medicine, Physician [facility] [place] [address] Social History Tobacco Use Types Packs/Day Years [...]
--- OUTSIDE RECORDS SUMMARY | 2025-02-20 00:53 | XMS_ITS | Clinical Summary ---
Author Organization [facility] Address [address] [place] [address] Phone Care Team Providers Care Automatic Pinsetter Mechanic Name Role Phone Unavailable Primary Care Provider [...] SI/HI Now followed by DR Sanders at [facility] Assessment & Plan (06/06/2020 10:57 AM EDT): On medication prescribed by Dr Sanders at [facility]. Assessment & Plan (06/04/2020 9:43 AM EDT): Father does not know what meds he is on. Followed by psychiatrist Dr Sanders and sees a therapist. Assessment & Plan (02/11/2018 10:56 AM EDT): Followed by Dr Yuonger. On Trazodone for sleep and Aripiprazole for [...] to those you have been getting from [facility] [place] - such as in home therapy. PDD [...] Brother cirilo Alive Father ana Alive Half-Sister adroe Alive Maternal Grandfather Maternal Grandmother Mother ana maría Alive Other No family histo ry of *Sudden /[place] under 55, Family history of *Heart Disease, [...] Additional history exists Procedures * Due to [place] [employer] law, this organization might not be sharing sensitive test results. Procedure Name Priority Date/Time Associated Diagnosis Comments LIPID PANEL Routine 07/08/2019 3:49 PM EDT Mood disorder HEMOGLOBIN A1C Routine 07/08/2019 3:49 PM EDT Mood disorder from Last 3 Months or Most Recently Relevant to Health Maintenance Results * Due to [place] [employer]ume law, this organization might not be sharing sensitive test results. * Hemoglobin A1c (07/08/2019 3:49 PM EDT) Hemoglobin A1C 5.1 (4-6) % [facility] Comment: HEMOGLOBIN A1C(%) ?? GLUCOSE CONTROL INDEX ?<6% ? EXCELLENT ?6-7% ?VERY GOOD ?7-8% ?GOOD ?8-10% ? FAIR ?>10% ?POOR Hemoglobin (Hb) A1c testing is performed by Barrett Lizy-quant immunoassay. Any cause of shortened erythrocyte survival will reduce exposure of erythrocytes to glucose with a consequent decrease in Hb A1c (%). Testing performed or reported by [facility], a Service of [facility], [address] [place] [address] Blood 07/08/2019 3:49 PM EDT 07/08/2019 3:54 PM EDT Dana Crockett MD LAB BLOOD ORDERABLES Final R esult Performing Organization Address [facility] de Phone Number [facility] * (ABNORMAL) Lipid panel (07/08/2019 3:49 PM EDT) [facility] Cholesterol, Total 171(H) (<170) MG/DL [facility] HDL 32(L) (>45) MG/DL [facility] Non-HDL Cholesterol 139(H) (<120) MG/DL [facility] Comment: Testing performed or reported by [facility], a Service of [facility], [address] [place] [id number] Blood 07/08/2019 3:49 PM EDT 07/08/2019 3:54 PM EDT Dana Crockett MD LAB BLOOD ORDERABLES Final R [employer] Performing Organization Address [facility] de Phone Number [facility] from Last 3 Months or Most Recently Relevant to Health Maintenance Insurance [facility] NON PCC
--- OUTSIDE RECORDS SUMMARY | 2025-02-20 00:53 | XMS_ITS | Clinical Summary ---
Author Organization [facility] it[facility] Address [address] [place] [address] Care Team Providers Care President Commercial Bank Name Role Phone Unavailable Primary Care Provider [...]
--- OUTSIDE RECORDS SUMMARY | 2025-02-20 00:53 | XMS_ITS | Encounter Summary ---
Author Organization [facility] Address [address] [place] [address] Phone Care Team Providers Care Waterproofer Helper Name Role Phone Unavailable Primary Care Provider Unavailabl e Encounter Details Date Type Department Care Team (Late st Contact Info) Description 05/04/2017 Documentation [facility] [place] Family Medicine [address] [place] [address] Family Medicine, Physician [facility] [place] [address] Social History Tobacco Use Types Packs/Day Years [...]
--- OUTSIDE RECORDS SUMMARY | 2025-02-20 00:53 | XMS_ITS | Encounter Summary ---
Author Organization [facility] Address [address] [place] [address] Phone Care Team Providers Care Medical Associate Name Role Phone Unavailable Primary Care Provider Unavailabl e Encounter Details Date Type Department Care Team (Late st Contact Info) Description 05/14/2017 Documentation [facility] [place] [address] [place] [address] Family Medicine, Physician [facility] [place] [address] Social History Tobacco Use Types Packs/Day Years [...]
--- OUTSIDE RECORDS SUMMARY | 2025-02-20 00:53 | XMS_ITS | Encounter Summary ---
Author Organization [facility] Address [address] [place] [address] Phone Care Team Providers Care Mortgage Loan Reviewer Name Role Phone Unavailable Primary Care Provider Unavailabl e Encounter Details Date Type Department Care Team (Late st Contact Info) Description 08/17/2010 Documentation [facility] [place] Family Medicine [address] [place] [address] Family Medicine, Physician [facility] [place] [address] Social History Tobacco Use Types Packs/Day Years [...]
--- OUTSIDE RECORDS SUMMARY | 2025-02-20 00:53 | XMS_ITS | Encounter Summary ---
Author Organization [facility] Address [address] [place] [address] Phone Care Team Providers Care Underground Conduit Installer Name Role Phone Unavailable Primary Care Provider Unavailabl e Encounter Details Date Type Department Care Team (Late st Contact Info) Description 05/03/2017 Documentation [facility] [place] [address] [place] [address] Family Medicine, Physician [facility] [place] [address] Social History Tobacco Use Types Packs/Day Years [...]
--- OUTSIDE RECORDS SUMMARY | 2025-02-20 00:53 | XMS_ITS | Encounter Summary ---
Author Organization [facility] Address [address] [place] [address] Phone Care Team Providers Care Supervisor Refractory Products Name Role Phone Unavailable Primary Care Provider Unavailabl e Reason for Visit * Reason Comments Med Refill Encounter Details Date Type Department Care Team (Late st Contact Info) Description 01/30/2019 Refill [facility] [place] [address] [place] [address] Venessa Can, RUBÉN [address] [address] Nightmares Social History Tobacco Use Types Packs/Day [...] has a med eval appt at [facility] in February. He needs psychiatry to prescribe his psych meds. * Telephone Encounter - Dana Crockett MD - 01/30/2019 6:32 PM EDT Glenn was seeing Dr Younger. Pt [facility] [place] [facility] [facility] was [facility]. 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 He had a meltdown and his counselor was calledand sent him to [facility] where he was for 3-4 day. They were unable to treat him. Family has been trying to find programs for him. He is scheduled for a med eval at [facility] - was supposed to be seen last [...] viera and is on Prazosin. Dept of [facility] does not support family getting guardianship. [facility] recommended a follow up program which [...]
== END 2025-02-20 01:23 | disposition left against medical advice (07) ==
PROVIDERS: Emergency Provider Emergency Medicine
DX: M25.512 Pain in left shoulder (principal); Z53.21 Procedure and treatment not carried out due to patient leaving prior to being seen by health care provider
CPT/HCPCS: 99281

== ENCOUNTER 2025-02-28 01:48 | Emergency (ER) | payer OTHER, SELFPAY ==
[2025-02-28 01:53] VITALS: BP 115/85; RESP 18; TEMP 36.6; O2SAT 98; BMI 30.4
--- NOTE | 2025-02-28 02:36 | ED.GENADULT ---
HPI - General Adult General Chief complaint: Eye Problems Stated complaint: eye problems Time Seen by Provider: 02/28/25 02:34 Source: patient Mode of arrival: ambulatory Limitations: no limitations History of Present Illness ED Provider: JOSE ROBERTO MOORE PA-C HPI narrative: 24-year-old male with pmhx of HLD, vitamin-D deficiency, bipolar, autism spectrum disorder, intellectual disability presents to the ED with complaints of left eye redness and itching x10 hours. Patient reports waking with his left eye crusted shut. Admits to watery discharge and itching of the left eye. Admits to itching the eye incessantly. He is not recall getting anything in the eye. Denies foreign body sensation. Patient reports history of seasonal allergies and takes Benadryl with his last dose being the morning of 02/27/2025. Patient reports associated congestion and rhinorrhea. Patient denies eye pain, vision changes, fever, chills, chest pain, cough, N/V/D. He does not wear corrective lenses. Related Data Home Medications ?Medication ?Instructions ?Recorded ?Confirmed aripiprazole 15 mg tablet 15 mg PO QAM 09/17/20 01/19/25 hydroxyzine HCl 25 mg tablet 25 mg PO BID PRN Anxiety 09/17/20 01/19/25 prazosin 5 mg capsule 5 mg PO BEDTIME PRN Sleep 09/17/20 01/19/25 trazodone 150 mg tablet 150 mg PO BEDTIME PRN Sleep 09/17/20 01/19/25 oxcarbazepine 300 mg tablet 600 mg PO BID 07/05/22 01/19/25 Previous Rx's ?Medication ?Instructions ?Recorded cholecalciferol (vitamin D3) 50 50 mcg PO DAILY 90 days #90 caps 11/20/24 mcg (2,000 unit) capsule ibuprofen 600 mg tablet 600 mg PO TID PRN pain #30 tabs 02/13/25 erythromycin 5 mg/gram (0.5 %) eye 0.5 inch ophthalmic-Left QID 7 02/28/25 ointment days #3.5 grams Allergies Allergy/AdvReac Type Severity Reaction Status Date / Time apple AdvReac Severe DIARRHEA Verified 02/28/25 01:54 POTATO JUICE Allergy Intermediate RASH Uncoded 02/19/25 22:48 Review of Systems Review of Systems: Yes all other systems are reviewed and are negative [facility] Past Medical History Attestation statement: The following information was validated with the patient. Source: old records reviewed and nursing notes reviewed Medical History Mixed hyperlipidemia Vitamin D deficiency Right knee pain Obesity (BMI 30-39.9) Inversion sprain of right ankle Syncope Intellectual disability COVID-19 Surgical History History of placement of ear tubes Family History Family History Father No problems noted. Mother Heart problem Social History Social History Household Members: Family and Other Household Members Other:: Mom, stepdad, sister, brother, 2 nephews Housing: House Do you presently have visiting nurse or other home services: No Alcohol intake: never Patient Tobacco Use Status: Never used Tobacco Smoked in Last 30 Days: No e-Cigarette/Vaping Use: Never Used Second Hand Smoke Exposure: Yes Use of substances other than those prescribed or required for medical reasons: No Advance Directives: Yes Advance Directives on File: Yes Advance Directives Date on File: 11/10/21 Do you have a plan to hurt others: No Plan service: No Current occupational status: disabled Sexual orientation: Don't Know Cognitive needs: No Hearing needs: No Vision needs: No Physical Exam ED Vital Signs: Vital Signs - 24 hr 02/28/25 01:53 02/28/25 03:50 Temperature 97.9 F 97.6 F Pulse Rate 82 Respiratory Rate 18 18 Blood Pressure 115/85 144/89 H Pulse Oximetry 98 96 Oxygen Delivery Method Room Air Room Air BMI result Body Mass Index 30.4 Afebrile. Vital signs stable. General: Well appearing, in no acute distress. Skin: Warm, dry, intact. No rashes or lesions. Head: Normocephalic, atraumatic. EENT: Hearing is intact b/l. +Left conjunctival injection. crusting and purulent discharge noted to medial canthus of left eye. Right conjuctiva mildly erythematous. No periorbital swelling. No enophthalmous or exopthalmous. No hazy cornea. No corrective lenses. Visual acuity OD 20/100 OS 20/50 IOP OD (14), IOP OS (14). On tetracaine exam, mild horizotal reuptake to cornea at 6oclock suggesting abrasion. No ulceration. No dendritic lesions. Sclera is anicteric. PERRLA. EOM intact. no entrapment, no photophobia. Moist mucous membranes.? Neck: Supple without LAD.? Cardiac: Chest wall symmetric. RRR. Lungs: Normal respiratory effort without accessory muscle use. CTA bilaterally. Ext: Upper and lower extremities atraumatic, without tenderness, deformity, swelling or erythema. Neuro: AOx3. Normal speech. Course Course Course Narrative: 0340 -- patient's workup is consistent with corneal abrasion and bacterial conjunctivitis. I will be prescribing patient erythromycin ointment for treatment. Patient has remained stable throughout ED visit today. Discussed worrisome signs and symptoms and when to return to the ED. All questions answered at this time. Patient is agreeable with disposition and stable for discharge. Medications Administered Discontinued Medications Generic Name Dose Route Start Last Admin Trade Name Freq PRN Reason Stop Dose Admin Fluorescein Sodium 1 strip 02/28/25 02:45 02/28/25 03:35 Fluorescein Sodium Strip EYE-BOTH 02/28/25 02:46 1 strip ONCE ONE Administration Tetracaine HCl 1 drop 02/28/25 02:47 02/28/25 03:35 Tetracaine Hcl/Pf 0.5% Oph Merly 4 Ml Drops EYE-BOTH 02/28/25 02:48 1 drop ONCE ONE Administration Medical Decision Making Medical Decision Making [facility] Narrative: 24-year-old male with pmhx of HLD, vitamin-D deficiency, bipolar, autism spectrum disorder, intellectual disability presents to the ED with complaints of left eye redness and itching x10 hours. Afebrile. Vital signs stable. On exam, Left conjunctival injection. crusting and purulent discharge noted to medial canthus of left eye. Right conjuctiva mildly erythematous. No periorbital swelling. No enophthalmous or exopthalmous. No hazy cornea. No corrective lenses. Visual acuity OD 20/100 OS 20/50 IOP OD (14), IOP OS (14). On tetracaine exam, mild horizotal reuptake to cornea at 6oclock suggesting abrasion. No ulceration. No dendritic lesions. Sclera is anicteric. PERRLA. EOM intact. no entrapment, no photophobia. Moist mucous membranes.? Differential diagnosis includes corneal abrasion, corneal foreign body, viral vs bacterial conjunctivitis, allergic conjunctivitis. Unlikely preseptal or orbital cellulitis, acute angle closure glaucoma, iritis, keratitis, scleritis, uveitis, herpes ophthalmicus. Plan for visual acuity, tetracaine, fluorescein stain, eye examination, re-evaluation Differential Diagnosis Differential Diagnoses: The differential diagnosis associated with the presentation includes As above Admission/Observation Not indicated External Record Review External record reviewed: Inpatient record Prescription Management I considered prescription management with: Antibiotic (Erythromycin) Social Determinants Patient?s care significantly limited by Social Determinants of Health including: Other Social Determinant of Health Critical Care Time Critical Care Time Critical Care Time: No Discharge Plan Discharge Clinical Impression: Corneal abrasion, left, Bacterial conjunctivitis Patient Disposition: Home, Self-Care Instructions: Corneal Abrasion (ED), Conjunctivitis (ED) Additional Instructions: You were evaluated in the ED today for left eye irritation. You have an abrasion to your left cornea. I also have concern for a bacterial infection of the eye called bacterial conjunctivitis. See home care instructions. Treatment for this is with antibiotic eye ointment. Instill this into your left eye 4 times daily for 7 days. Follow up with your primary care doctor. Return with any new or worsening symptoms. In the case of an emergency call 911. Prescriptions: New erythromycin 5 mg/gram (0.5 %) ointment 0.5 inch ophthalmic-Left QID 7 Days Qty: 3.5 0RF No Action prazosin 5 mg capsule 5 mg PO BEDTIME PRN (Reason: Sleep) trazodone 150 mg tablet 150 mg PO BEDTIME PRN (Reason: Sleep) hydroxyzine HCl 25 mg tablet 25 mg PO BID PRN (Reason: Anxiety) Rx Instructions: Pharmacy noted prescription was 1-2 25 mg tabs BID PRN aripiprazole 15 mg tablet 15 mg PO QAM oxcarbazepine 300 mg tablet 600 mg PO BID ibuprofen 600 mg tablet 600 mg PO TID PRN (Reason: pain) Qty: 30 0RF cholecalciferol (vitamin D3) 50 mcg (2,000 unit) capsule 50 mcg PO DAILY 90 Days Qty: 90 3RF Referrals: Physician,None [Primary Care Provider] - Interventions: ED Discharge Assessment Last Done: 02/28/25 03:50 Discharge Date/Time: 02/28/25 03:51 Print Language: Ghanaian
[2025-02-28] MEDS: Tetracaine HCl/PF 0.5% Oph Sol 4 ML DROPS 1 DROP EYE-BOTH (03:35)
[2025-02-28] MEDS: Fluorescein Sodium STRIP 1 STRIP EYE-BOTH (03:35)
--- OUTSIDE RECORDS SUMMARY | 2025-02-28 03:46 | XMS_ITS | Encounter Summary ---
Author Organization [facility] Address [address] [place] [address] Phone Care Team Providers Care Contact Lens Polisher Name Role Phone Unavailable Primary Care Provider Unavailabl e Encounter Details Date Type Department Care Team (Late st Contact Info) Description 06/14/2017 Conversion Encounter [facility] - [address] [address] Social History Tobacco Use Types Packs/Day Years [...]
--- OUTSIDE RECORDS SUMMARY | 2025-02-28 03:46 | XMS_ITS | Clinical Summary ---
Author Organization [facility] Address [address] [place] [phone] Phone Care Team Providers Care Monitor Worker Name Role Phone Unavailable Primary Care Provider [...] Now followed by DR Sanders at [facility] Assessment & Plan (06/06/2020 10:57 AM EDT): On medication prescribed by Dr Sanders at [facility]. Assessment & Plan (06/04/2020 9:43 AM [...] to those you have been getting from [facility] - such as in home therapy. PDD [...] Additional history exists Procedures * Due to [place] Patient[employer] law, this organization might not be sharing sensitive test results. Procedure Name Priority Date/Time Associated Diagnosis Comments LIPID PANEL Routine 07/08/2019 3:49 PM EDT Mood disorder HEMOGLOBIN A1C Routine 07/08/2019 3:49 PM EDT Mood disorder from Last 3 Months or Most Recently Relevant to Health Maintenance Results * Due to [place] Patient[employer] law, this organization might not be sharing sensitive test results. * Hemoglobin A1c (07/08/2019 3:49 PM EDT) Hemoglobin A1C 5.1 (4-6) % [facility] Comment: HEMOGLOBIN A1C(%) ?? GLUCOSE CONTROL INDEX ?<6% ? EXCELLENT ?6-7% ?VERY GOOD ?7-8% ?GOOD ?8-10% ? FAIR ?>10% ?POOR Hemoglobin (Hb) A1c testing is performed by Barrett Lizy-quant immunoassay. Any cause of shortened erythrocyte survival will reduce exposure of erythrocytes to glucose with a consequent decrease in Hb A1c (%). Testing performed or reported by [facility], a Service of [facility], [address] [place] [id number] Blood 07/08/2019 3:49 PM EDT 07/08/2019 3:54 PM EDT Dana Crockett MD LAB BLOOD ORDERABLES Final R esult Performing Organization Address [facility] de Phone Number [facility] * (ABNORMAL) Lipid panel (07/08/2019 3:49 PM EDT) [facility] Cholesterol, Total 171(H) (<170) MG/DL [facility] HDL 32(L) (>45) MG/DL [facility] Non-HDL Cholesterol 139(H) (<120) MG/DL [facility] Comment: Testing performed or reported by [facility], a Service of [facility], [address] [place] [address] Blood 07/08/2019 3:49 PM EDT 07/08/2019 3:54 PM EDT Dana Crockett MD LAB BLOOD ORDERABLES Final R Inversiones.comult Performing Organization Address [facility] de Phone Number [facility] from Last 3 Months or Most Recently Relevant to Health Maintenance Insurance [facility] NON PCC
--- OUTSIDE RECORDS SUMMARY | 2025-02-28 03:46 | XMS_ITS | Encounter Summary ---
Author Organization [facility] Address [address] [place] [address] Phone Care Team Providers Care Photo Cartographer Name Role Phone Unavailable Primary Care Provider Unavailabl e Encounter Details Date Type Department Care Team (Late st Contact Info) Description 05/03/2017 Documentation [facility] Family Medicine [address] [place] [address] Family Medicine, Physician [facility] [place] [address] Social History Tobacco Use Types Packs/Day Years [...]
--- OUTSIDE RECORDS SUMMARY | 2025-02-28 03:46 | XMS_ITS | Encounter Summary ---
Author Organization [facility] Address [address] [place] [address] Phone Care Team Providers Care Concrete Truck Driver Name Role Phone Unavailable Primary Care Provider Unavailabl e Encounter Details Date Type Department Care Team (Late st Contact Info) Description 11/14/2012 Documentation [facility] [place] Family Medicine [address] [place] [address] Family Medicine, Physician [facility] [place] [address] Social History Tobacco Use Types Packs/Day Years [...]
--- OUTSIDE RECORDS SUMMARY | 2025-02-28 03:46 | XMS_ITS | Encounter Summary ---
Author Organization [facility] Address [address] [place] [address] Phone Care Team Providers Care Service Parts Driver Name Role Phone Unavailable Primary Care Provider Unavailabl e Encounter Details Date Type Department Care Team (Late st Contact Info) Description 05/14/[address] [facility] [place] Family Medicine [address] [place] [address] Family Medicine, Physician [facility] [place] [address] Social History Tobacco Use Types Packs/Day Years [...]
--- OUTSIDE RECORDS SUMMARY | 2025-02-28 03:46 | XMS_ITS | Encounter Summary ---
Author Organization [facility] Address [address] [place] [phone] Phone Care Team Providers Care Rerolling Machine Operator Name Role Phone Unavailable Primary Care Provider Unavailabl e Encounter Details Date Type Department Care Team (Late st Contact Info) Description 08/17/2010 Documentation [facility] [place] [address] [place] [address] Family Medicine, Physician [facility] [place] [address] Social History Tobacco Use Types Packs/Day Years [...]
--- OUTSIDE RECORDS SUMMARY | 2025-02-28 03:46 | XMS_ITS | Encounter Summary ---
Author Organization [facility] Address [address] [place] [address] Phone Care Team Providers Care Personnel Coordinator Name Role Phone Unavailable Primary Care Provider Unavailabl e Encounter Details Date Type Department Care Team (Late st Contact Info) Description 05/04/2017 Documentation [facility] [place] Medicine [address] [place] [address] Family Medicine, Physician [place] [address] Social History Tobacco Use Types Packs/Day Years [...]
--- OUTSIDE RECORDS SUMMARY | 2025-02-28 03:46 | XMS_ITS | Encounter Summary ---
Author Organization [facility] Address [address] [place] [address] Phone Care Team Providers Care Computer Information Science Professor Name Role Phone Unavailable Primary Care Provider Unavailabl e Encounter Details Date Type Department Care Team (Late st Contact Info) Description 09/13/2016 Documentation [facility] [address] [place] [address] Family Medicine, Physician [facility] [place] [address] Social History Tobacco Use Types Packs/Day Years [...]
--- OUTSIDE RECORDS SUMMARY | 2025-02-28 03:46 | XMS_ITS | Clinical Summary ---
Author Organization [facility] Address [address] [place] [address] Care Team Providers Care Offal Trimmer Name Role Phone Unavailable Primary Care Provider [...]
--- OUTSIDE RECORDS SUMMARY | 2025-02-28 03:46 | XMS_ITS | Encounter Summary ---
Author Organization [facility] Address [address] [place] [address] Phone Care Team Providers Care Scissors Sharpener Name Role Phone Unavailable Primary Care Provider Unavailabl e Encounter Details Date Type Department Care Team (Late st Contact Info) Description 12/25/2017 Patient Outreach [facility] [place] [address] [place] [address] Dana Crockett MD [address] [place] [address] Social History Tobacco Use Types Packs/Day Years [...]
--- OUTSIDE RECORDS SUMMARY | 2025-02-28 03:46 | XMS_ITS | Encounter Summary ---
Author Organization [facility] Address [address] [place] [address] Phone Care Team Providers Care Baker Chef Name Role Phone Unavailable Primary Care Provider Unavailabl e Encounter Details Date Type Department Care Team (Late st Contact Info) Description 01/03/2016 Documentation [facility] [place] Family Medicine [address] [place] [address] Family Medicine, Physician [facility] [place] [address] Social History Tobacco Use Types Packs/Day Years [...]
--- OUTSIDE RECORDS SUMMARY | 2025-02-28 03:46 | XMS_ITS | Encounter Summary ---
Author Organization [facility] Address [address] [place] [address] Phone Care Team Providers Care Shut Off Worker Name Role Phone Unavailable Primary Care Provider Unavailabl e Reason for Visit * Reason Comments Med Refill Encounter Details Date Type Department Care Team (Late st Contact Info) Description 01/30/2019 Refill [facility] [place] [address] [place] [address] Venessa Can, RUBÉN [address] [address] Nightmares Social History Tobacco Use Types Packs/Day [...] has a med eval appt at [facility] in February. He needs psychiatry to prescribe his psych meds. * Telephone Encounter - Dana Crockett MD - 01/30/2019 6:32 PM EDT Glenn was seeing Dr Younger. Pt was seeing [place] [facility]. He was in [facility] recently. 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 He had a meltdown and his counselor was calledand sent him to [facility] where he was for 3-4 day. They were unable to treat him. Family has been trying to find programs for him. He is scheduled for a med eval at [facility] - was supposed to be seen last [...] viera and is on Prazosin. Dept of [facility] does not support family getting guardianship. [facility] recommended a follow up program which [...]
--- OUTSIDE RECORDS SUMMARY | 2025-02-28 03:46 | XMS_ITS | Encounter Summary ---
Author Organization [facility] Address [address] [place] [address] Phone Care Team Providers Care Manager General Name Role Phone Unavailable Primary Care Provider Unavailabl e Encounter Details Date Type Department Care Team (Late st Contact Info) Description 12/31/2015 Documentation [facility] [place] Family Medicine [address] [place] [address] Family Medicine, Physician [facility] [place] [address] Social History Tobacco Use Types Packs/Day Years [...]
[2025-02-28 03:50] VITALS: BP 144/89; PULSE 82; RESP 18; TEMP 36.4; O2SAT 96
== END 2025-02-28 03:51 | disposition home or self-care (01) ==
PROVIDERS: Emergency Provider Internal Medicine
DX: H10.9 Unspecified conjunctivitis (principal); S05.02XA Injury of conjunctiva and corneal abrasion without foreign body, left eye, initial encounter; X58.XXXA Exposure to other specified factors, initial encounter; H57.12 Ocular pain, left eye; Y93.9 Activity, unspecified; Y92.9 Unspecified place or not applicable; Y99.9 Unspecified external cause status
CPT/HCPCS: 99283; 99284

== ENCOUNTER 2025-03-12 08:29 | Outpatient (REF) | payer OTHER, SELFPAY ==
--- NOTE | ~2025-03-12 | XR_ITS ---
CLINICAL HISTORY: M25.512 - Pain in left shoulder 2 view left shoulder Comparison: CR - XR SHOULDER LT MIN 2V - 02/13/25 03:09 EDT Findings: Bones intact. No dislocations. No significant arthritic change. No erosions. No radiopaque foreign body. IMPRESSION: 1. No acute findings This document has been electronically signed by: India Gomez MD on 03/12/2025 14:33:47
--- OUTSIDE RECORDS SUMMARY | 2025-03-12 09:24 | XMS_ITS | Encounter Summary ---
Author Organization [facility] Address [address] [place] [address] Phone Care Team Providers Care Medical Office Assistant Name Role Phone Unavailable Primary Care Provider Unavailabl e Encounter Details Date Type Department Care Team (Late st Contact Info) Description 05/14/2017 Documentation [facility] [place] [address] [place] [address] Family Medicine, Physician [facility] [place] [address] Social History Tobacco Use Types Packs/Day Years [...]
--- OUTSIDE RECORDS SUMMARY | 2025-03-12 09:24 | XMS_ITS | Encounter Summary ---
Author Organization [facility] Address [address] [place] [address] Phone Care Team Providers Care Gas Appliance Servicer Name Role Phone Unavailable Primary Care Provider Unavailabl e Reason for Visit * Reason Comments Med Refill Encounter Details Date Type Department Care Team (Late st Contact Info) Description 01/30/2019 Refill [facility] [place] [address] [place] [address] Venessa Can, RUBÉN [address] [address] Nightmares Social History Tobacco Use Types Packs/Day [...] He has a med eval appt at [facility] in February. He needs psychiatry to prescribe his psych meds. * Telephone Encounter - Dana Crockett MD - 01/30/2019 6:32 PM EDT Glenn was seeing Dr Younger. Pt was seeing counselor at [facility]. He was in [facility] recently. 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 He had a meltdown and his counselor was calledand sent him to [facility] where he was for 3-4 day. They were unable to treat him. Family has been trying to find programs for him. He is scheduled for a med eval at [facility] - was supposed to be [...] viera and is on Prazosin. Dept of [facility] does not support family getting guardianship. [facility] recommended a follow up program which [...]
--- OUTSIDE RECORDS SUMMARY | 2025-03-12 09:24 | XMS_ITS | Clinical Summary ---
Author Organization [facility] Address [address] [place] [address] Phone Care Team Providers Care Reinforcing Steel Placer Name Role Phone Unavailable Primary Care Provider [...] SI/HI Now followed by DR Sanders at [facility] Assessment & Plan (06/06/2020 10:57 AM EDT): On medication prescribed by Dr Sanders at [facility]. Assessment & Plan (06/04/2020 9:43 AM [...] to those you have been getting from [facility] - such as in home therapy. PDD [...] Additional history exists Procedures * Due to [employer] law, this organization might not be sharing sensitive test results. Procedure Name Priority Date/Time Associated Diagnosis Comments LIPID PANEL Routine 07/08/2019 3:49 PM EDT Mood disorder HEMOGLOBIN A1C Routine 07/08/2019 3:49 PM EDT Mood disorder from Last 3 Months or Most Recently Relevant to Health Maintenance Results * Due to [place] [employer] law, this organization might not be sharing sensitive test results. * Hemoglobin A1c (07/08/2019 3:49 PM EDT) Hemoglobin A1C 5.1 (4-6) % [facility] Comment: HEMOGLOBIN A1C(%) ?? GLUCOSE CONTROL INDEX ?<6% ? EXCELLENT ?6-7% ?VERY GOOD ?7-8% ?GOOD ?8-10% ? FAIR ?>10% ?POOR Hemoglobin (Hb) A1c testing is performed by Barrett Lizy-quant immunoassay. Any cause of shortened erythrocyte survival will reduce exposure of erythrocytes to glucose with a consequent decrease in Hb A1c (%). Testing performed or reported by [facility], a Service of [facility], [address] [place] [address] Blood 07/08/2019 3:49 PM EDT 07/08/2019 3:54 PM EDT Dana Crockett MD LAB BLOOD ORDERABLES Final R esult Performing Organization Address [facility] de Phone Number [facility] * (ABNORMAL) Lipid panel (07/08/2019 3:49 PM EDT) [facility] Cholesterol, Total 171(H) (<170) MG/DL [facility] HDL 32(L) (>45) MG/DL [facility] Non-HDL Cholesterol 139(H) (<120) MG/DL [facility] Comment: Testing performed or reported by [facility], a Service of [facility], [address] [place] [address] Blood 07/08/2019 3:49 PM EDT 07/08/2019 3:54 PM EDT Dana Crockett MD LAB BLOOD ORDERABLES Final R Plurchaseult Performing Organization Address [facility] de Phone Number [facility] from Last 3 Months or Most Recently Relevant to Health Maintenance Insurance [id number] NON PCC
--- OUTSIDE RECORDS SUMMARY | 2025-03-12 09:24 | XMS_ITS | Encounter Summary ---
Author Organization [facility] Address [address] [place] [address] Phone Care Team Providers Care Manufacturing Advisor Name Role Phone Unavailable Primary Care Provider Unavailabl e Encounter Details Date Type Department Care Team (Late st Contact Info) Description 05/04/2017 Documentation [facility] [place] [address] [place] [address] Family Medicine, Physician [facility] [place] [address] Social History Tobacco Use Types Packs/Day Years [...]
--- OUTSIDE RECORDS SUMMARY | 2025-03-12 09:24 | XMS_ITS | Encounter Summary ---
Author Organization [facility] Address [address] [place] [address] Phone Care Team Providers Care Rim Technician Name Role Phone Unavailable Primary Care Provider Unavailabl e Encounter Details Date Type Department Care Team (Late st Contact Info) Description 06/14/2017 Conversion Encounter [facility] - [address] [address] Social History Tobacco Use Types Packs/Day Years [...]
--- OUTSIDE RECORDS SUMMARY | 2025-03-12 09:24 | XMS_ITS | Encounter Summary ---
Author Organization [facility] Address [address] [place] [address] Phone Care Team Providers Care Manager Ccu Name Role Phone Unavailable Primary Care Provider Unavailabl e Encounter Details Date Type Department Care Team (Late st Contact Info) Description 12/31/2015 Documentation [facility] [place] [address] [place] [address] Family Medicine, Physician [facility] [address] Social History Tobacco Use Types Packs/Day Years [...]
--- OUTSIDE RECORDS SUMMARY | 2025-03-12 09:24 | XMS_ITS | Encounter Summary ---
Author Organization [facility] Address [address] [place] [address] Phone Care Team Providers Care Tool Inspector Name Role Phone Unavailable Primary Care Provider Unavailabl e Encounter Details Date Type Department Care Team (Late st Contact Info) Description 09/13/2016 Documentation [facility] [place] Family Medicine [address] [place] [address] Family Medicine, Physician [facility] [place] [address] Social History Tobacco Use Types Packs/Day Years [...]
--- OUTSIDE RECORDS SUMMARY | 2025-03-12 09:24 | XMS_ITS | Encounter Summary ---
Author Organization [facility] Address [address] [place] [address] Phone Care Team Providers Care Steward/Stewardess Deck Name Role Phone Unavailable Primary Care Provider Unavailabl e Encounter Details Date Type Department Care Team (Late st Contact Info) Description 11/14/2012 Documentation [facility] [place] [address] [place] [address] Family Medicine, Physician [facility] [place] [address] Social History Tobacco Use Types Packs/Day Years [...]
--- OUTSIDE RECORDS SUMMARY | 2025-03-12 09:24 | XMS_ITS | Encounter Summary ---
Author Organization [facility] Address [address] [place] [address] Phone Care Team Providers Care Sharepoint Developer Name Role Phone Unavailable Primary Care Provider Unavailabl e Encounter Details Date Type Department Care Team (Late st Contact Info) Description 11/09/2011 Documentation [facility] [place] [address] [place] [address] Family Medicine, Physician [facility] [place] [address] Social History Tobacco Use Types Packs/Day Years [...]
--- OUTSIDE RECORDS SUMMARY | 2025-03-12 09:24 | XMS_ITS | Encounter Summary ---
Author Organization [facility] Address [address] [place] [address] Phone Care Team Providers Care Jr. Systems Administrator Name Role Phone Unavailable Primary Care Provider Unavailabl e Encounter Details Date Type Department Care Team (Late st Contact Info) Description 12/25/2017 Patient Outreach [facility] [address] [place] [address] Dana Crockett MD [address] [place] [address] Social History Tobacco Use Types Packs/Day Years [...]
--- OUTSIDE RECORDS SUMMARY | 2025-03-12 09:24 | XMS_ITS | Encounter Summary ---
Author Organization [facility] Address [address] [place] [address] Phone Care Team Providers Care Hospital Medical Assistant Name Role Phone Unavailable Primary Care Provider Unavailabl e Encounter Details Date Type Department Care Team (Late st Contact Info) Description 08/17/2010 Documentation [facility] [place] Family Medicine [address] [place] [address] Family Medicine, Physician [facility] [place] [address] Social History Tobacco Use Types Packs/Day Years [...]
--- OUTSIDE RECORDS SUMMARY | 2025-03-12 09:24 | XMS_ITS | Clinical Summary ---
Author Organization [facility] ity Address [address] [place] [address] Care Team Providers Care Ship Rigger Name Role Phone Unavailable Primary Care Provider [...]
--- OUTSIDE RECORDS SUMMARY | 2025-03-12 09:24 | XMS_ITS | Encounter Summary ---
Author Organization [facility] Address [address] [place] [address] Phone Care Team Providers Care Correctional Security Officer Name Role Phone Unavailable Primary Care Provider Unavailabl e Encounter Details Date Type Department Care Team (Late st Contact Info) Description 01/03/2016 Documentation [facility] [place] Family Medicine [address] [place] [address] Family Medicine, Physician [facility] [place] [address] Social History Tobacco Use Types Packs/Day Years [...]
--- OUTSIDE RECORDS SUMMARY | 2025-03-12 09:24 | XMS_ITS | Encounter Summary ---
Author Organization [facility] Address [address] [place] [address] Phone Care Team Providers Care Forestry Aid Name Role Phone Unavailable Primary Care Provider Unavailabl e Encounter Details Date Type Department Care Team (Late st Contact Info) Description 05/03/2017 Documentation [facility] [place] [address] [place] [address] Family Medicine, Physician [facility] [address] Social History Tobacco Use Types Packs/Day Years [...]
== END 2025-03-12 08:30 | disposition home or self-care (01) ==
LOC: HO.HOSX 08:29
PROVIDERS: PCP Internal Medicine; Visit Provider Physician Assistant
DX: Z09 Encounter for follow-up examination after completed treatment for conditions other than malignant neoplasm (principal); M25.512 Pain in left shoulder; S43.002A Unspecified subluxation of left shoulder joint, initial encounter; W01.0XXA Fall on same level from slipping, tripping and stumbling without subsequent striking against object, initial encounter; Y93.67 Activity, basketball; Y92.9 Unspecified place or not applicable; Y99.9 Unspecified external cause status
CPT/HCPCS: 73030; 99202

== ENCOUNTER 2025-03-12 08:29 | Outpatient (AMB) | payer OTHER, SELFPAY ==
--- NOTE | 2025-03-12 08:32 | A.OFFVIS_ITS ---
Vital Signs 03/12/25 08:34 Height 6 ft 4 in Weight 287 lb BMI 34.9 Intake Visit Reasons: ER f/u Left shoulder dislocation Intake Note: Glenn is a 24 year old male who presents today for an ER follow up of left shoulder, DOI 02/11/25. Patient was seen at [facility] ER 2 days after he had a fall on his left shoulder while he was playing basketball. While at the ER his shoulder was reduced and placed in a sling. Today patient reports feels like not not in socket and still can move arm. Only taking ibuprofen 600mg TID PRN that was prescribed by ED. Pain Scale-9.5 Allergies apple Adverse Reaction (Severe, Verified 03/12/25 08:35) DIARRHEA POTATO JUICE Allergy (Intermediate, Uncoded 02/19/25 22:48) RASH Medication List - Last Reconciled 03/12/25 by Arnoldo Larson PA-C aripiprazole 15 mg PO QAM cholecalciferol (vitamin D3) 50 mcg PO DAILY 90 days erythromycin 0.5 inches ophthalmic-Left QID 7 days hydroxyzine HCl 25 mg PO BID PRN ibuprofen 600 mg PO TID PRN oxcarbazepine 600 mg PO BID prazosin 5 mg PO BEDTIME PRN trazodone 150 mg PO BEDTIME PRN HPI HPI ER f/u Left shoulder dislocation: Details: 24-year-old gentleman presents to the office today for an injury he sustained to his shoulder on 02/11. He states he fell on the shoulder and felt as though his shoulder dislocated. He was seen in the emergency department where x-rays were obtained and did show some subluxation of the shoulder. There was a reduction which did show that the anatomy was improved on postreduction x-rays. He presents today feeling as though his shoulder is cut in half. [facility] Medical History Mixed hyperlipidemia Vitamin D deficiency Right knee pain Obesity (BMI 30-39.9) Inversion sprain of right ankle Syncope Intellectual disability COVID-19 Surgical History History of placement of ear tubes Family History Father No problems noted. Mother Heart problem Social History Household Members: Family and Other Household Members Other:: Mom, stepdad, sister, brother, 2 nephews Housing: House Do you presently have visiting nurse or other home services: No Alcohol intake: never Patient Tobacco Use Status: Never used Tobacco e-Cigarette/Vaping Use: Never Used Second Hand Smoke Exposure: Yes Advance Directives Date on File: 11/10/21 service: No Current occupational status: disabled Sexual orientation: Don't Know Cognitive needs: No Hearing needs: No Vision needs: No Review of Systems Const All systems reviewed & are unremarkable except as noted in HPI and below Physical Exam Vital Signs: BMI result Body Mass Index 34.9 Const General: cooperative and no acute distress Orientation/consciousness: patient oriented x3 Resp Effort & Inspection: normal respiratory effort and able to speak in complete sentences Cardio Peripheral pulses: Peripheral pulses 2+ throughout Neuro General: patient oriented x3 Extrem Other: Left shoulder normal to inspection. The patient is holding his arm in a guarded position. He is able to forward flex and abduct the arm. He is able to externally rotate. No sensation of instability with range of motion. Results Reviewed Results Reviewed: X-rays of the left shoulder obtained in the office today show glenohumeral joint intact. Assessment & Plan Assessment & Plan (1) Shoulder subluxation, left: Code(s): S43.002A - Unspecified subluxation of left shoulder joint, initial encounter Category: Medical Plan: I feel as though he had a subluxation injury opposed to a true dislocation. I recommend a course of physical therapy to work on rotator cuff and periscapular stabilization exercises. He can slowly increase activities as his symptoms allow if there is any questions or concerns she will contact our office otherwise follow up as needed. Orders: Orders XR shoulder LT min 2V Today M25.512 - Pain in left shoulder Coding Level of Care Code New Pt Level 3 (11422) Complex EM visit Add On G2211 Diagnoses Shoulder subluxation, left S43.002A
[2025-03-12 08:34] VITALS: BMI 34.9
--- OUTSIDE RECORDS SUMMARY | 2025-03-12 08:50 | XMS_ITS | Encounter Summary ---
Author Organization [facility] Address [address] [place] [address] Phone Care Team Providers Care Cryptography Teacher Name Role Phone Unavailable Primary Care Provider Unavailabl e Encounter Details Date Type Department Care Team (Late st Contact Info) Description 11/09/2011 Documentation [facility] [place] [address] [place] [address] Family Medicine, Physician [facility] [place] [address] Social History Tobacco Use Types Packs/Day Years [...]
--- OUTSIDE RECORDS SUMMARY | 2025-03-12 08:50 | XMS_ITS | Encounter Summary ---
Author Organization [facility] Address [address] [place] [address] Phone Care Team Providers Care Form Setter Metal Road Forms Name Role Phone Unavailable Primary Care Provider Unavailabl e Encounter Details Date Type Department Care Team (Late st Contact Info) Description 05/14/2017 Documentation [facility] [place] [address] [place] [address] Family Medicine, Physician [facility] [place] [address] Social History Tobacco Use Types Packs/Day Years [...]
--- OUTSIDE RECORDS SUMMARY | 2025-03-12 08:50 | XMS_ITS | Clinical Summary ---
Author Organization [facility] ity Address [address] [place] [address] Care Team Providers Care Agency Appointments Supervisor Name Role Phone Unavailable Primary Care Provider [...]
--- OUTSIDE RECORDS SUMMARY | 2025-03-12 08:50 | XMS_ITS | Encounter Summary ---
Author Organization [facility] Address [address] [place] [address] Phone Care Team Providers Care Lead Sales Consultant Name Role Phone Unavailable Primary Care Provider Unavailabl e Encounter Details Date Type Department Care Team (Late st Contact Info) Description 01/03/2016 Documentation [facility] [place] [address] [place] [address] Family Medicine, Physician [facility] [place] [address] Social History Tobacco Use Types Packs/Day Years [...]
--- OUTSIDE RECORDS SUMMARY | 2025-03-12 08:50 | XMS_ITS | Encounter Summary ---
Author Organization [facility] Address [address] [place] [address] Phone Care Team Providers Care School Attendance Secretary Name Role Phone Unavailable Primary Care Provider Unavailabl e Encounter Details Date Type Department Care Team (Late st Contact Info) Description 11/14/2012 Documentation [facility] [place] [address] [place] [address] Family Medicine, Physician [facility] [place] [address] Social History Tobacco Use Types Packs/Day Years [...]
--- OUTSIDE RECORDS SUMMARY | 2025-03-12 08:50 | XMS_ITS | Encounter Summary ---
Author Organization [facility] Address [address] [place] [address] Phone Care Team Providers Care Animal Trainer Supervisor Name Role Phone Unavailable Primary Care Provider Unavailabl e Encounter Details Date Type Department Care Team (Late st Contact Info) Description 08/17/2010 Documentation [facility] [place] [address] [place] [address] Family Medicine, Physician [place] [address] Social History Tobacco Use Types Packs/Day Years [...]
--- OUTSIDE RECORDS SUMMARY | 2025-03-12 08:50 | XMS_ITS | Encounter Summary ---
Author Organization [facility] Address [address] [place] [address] Phone Care Team Providers Care Landman Name Role Phone Unavailable Primary Care Provider Unavailabl e Encounter Details Date Type Department Care Team (Late st Contact Info) Description 12/25/2017 Patient Outreach [facility] [address] [place] [address] Dana Crockett MD [address] [place] [address] Social History Tobacco Use Types Packs/Day Years [...]
--- OUTSIDE RECORDS SUMMARY | 2025-03-12 08:50 | XMS_ITS | Encounter Summary ---
Author Organization [facility] Address [address] [place] [address] Phone Care Team Providers Care Cryptologic Supervisor Name Role Phone Unavailable Primary Care Provider Unavailabl e Encounter Details Date Type Department Care Team (Late st Contact Info) Description 09/13/2016 Documentation [facility] [place] [address] [place] [address] Family Medicine, Physician [facility] [place] [address] Social History Tobacco Use Types Packs/Day Years [...]
--- OUTSIDE RECORDS SUMMARY | 2025-03-12 08:50 | XMS_ITS | Encounter Summary ---
Author Organization [facility] Address [address] [place] [address] Phone Care Team Providers Care Analysis Evaluator Name Role Phone Unavailable Primary Care Provider Unavailabl e Encounter Details Date Type Department Care Team (Late st Contact Info) Description 05/03/2017 Documentation [facility] [place] Family Medicine [address] [place] [address] Family Medicine, Physician [facility] [place] [address] Social History Tobacco Use Types Packs/Day Years [...]
--- OUTSIDE RECORDS SUMMARY | 2025-03-12 08:50 | XMS_ITS | Clinical Summary ---
Author Organization [facility] Address [address] [place] [address] Phone Care Team Providers Care Canvas Goods Fabricator Name Role Phone Unavailable Primary Care Provider [...] SI/HI Now followed by DR Sanders at [facility] Assessment & Plan (06/06/2020 10:57 AM EDT): On medication prescribed by Dr Sanders at [facility]. Assessment & Plan (06/04/2020 9:43 AM EDT): [...] to those you [place] getting [place] [facility] such as in [place] therapy. PDD [...] Other No family histo ry of *Sudden /AR under 55, Family history of *Heart Disease, [...] Additional history exists Procedures * Due to [employer] law, this organization might not be sharing sensitive test results. Procedure Name Priority Date/Time Associated Diagnosis Comments LIPID PANEL Routine 07/08/2019 3:49 PM EDT Mood disorder HEMOGLOBIN A1C Routine 07/08/2019 3:49 PM EDT Mood disorder from Last 3 Months or Most Recently Relevant to Health Maintenance Results * Due to [employer] law, this organization might not be sharing sensitive test results. * Hemoglobin A1c (07/08/2019 3:49 PM EDT) Hemoglobin A1C 5.1 (4-6) % [facility] Comment: HEMOGLOBIN A1C(%) ?? GLUCOSE CONTROL INDEX ?<6% ? EXCELLENT ?6-7% ?VERY GOOD ?7-8% ?GOOD ?8-10% ? FAIR ?>10% ?POOR Hemoglobin (Hb) A1c testing is performed by Barrett Lizy-quant immunoassay. Any cause of shortened erythrocyte survival will reduce exposure of erythrocytes to glucose with a consequent decrease in Hb A1c (%). Testing performed or reported by [facility], a Service of [facility], [address] [place] [address] Blood 07/08/2019 3:49 PM EDT 07/08/2019 3:54 PM EDT Dana Crockett MD LAB BLOOD ORDERABLES Final R esult Performing Organization Address [facility] de Phone Number [facility] * (ABNORMAL) Lipid panel (07/08/2019 3:49 PM EDT) [facility] Cholesterol, Total 171(H) (<170) MG/DL [facility] HDL 32(L) (>45) MG/DL [facility] Non-HDL Cholesterol 139(H) (<120) MG/DL [facility] Comment: Testing performed or reported by [facility], a Service of [facility], [address] [place] [address] Blood 07/08/2019 3:49 PM EDT 07/08/2019 3:54 PM EDT Dana Crockett MD LAB BLOOD ORDERABLES Final R Caring in Placeult Performing Organization Address [facility] de Phone Number [facility] from Last 3 Months or Most Recently Relevant to Health Maintenance Insurance [facility] NON PCC
--- OUTSIDE RECORDS SUMMARY | 2025-03-12 08:50 | XMS_ITS | Encounter Summary ---
Author Organization [facility] Address [address] [place] [address] Phone Care Team Providers Care Contracts Representative Name Role Phone Unavailable Primary Care Provider Unavailabl e Reason for Visit * Reason Comments Med Refill Encounter Details Date Type Department Care Team (Late st Contact Info) Description 01/30/2019 Refill [facility] [place] [address] [place] [address] Venessa Can, RUBÉN [address] [address] Nightmares Social History Tobacco Use Types Packs/Day [...] He has a med eval appt at [facility] in February. He needs psychiatry to prescribe his psych meds. * Telephone Encounter - Dana Crockett MD - 01/30/2019 6:32 PM EDT Glenn was seeing Dr Younger. Pt was seeing counselor at [facility]. He was in [facility] recently. 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 He had a meltdown and his counselor was calledand sent him to [place] where he was for 3-4 day. They were unable to treat him. Family has been trying to find programs for him. He is scheduled for a med eval at [facility] - was supposed to be seen last [...] viera and is on Prazosin. Dept of [facility] does not support family getting guardianship. [facility] recommended a follow up program which [...]
--- OUTSIDE RECORDS SUMMARY | 2025-03-12 08:50 | XMS_ITS | Encounter Summary ---
Author Organization [facility] Address [address] [place] [address] Phone Care Team Providers Care Learning Support Resource Room Teacher Name Role Phone Unavailable Primary Care Provider Unavailabl e Encounter Details Date Type Department Care Team (Late st Contact Info) Description 12/31/2015 Documentation [facility] [place] [address] [place] [address] Family Medicine, [place] [address] Social History Tobacco Use Types Packs/Day Years [...]
--- OUTSIDE RECORDS SUMMARY | 2025-03-12 08:50 | XMS_ITS | Encounter Summary ---
Author Organization [facility] Address [address] [place] [address] Phone Care Team Providers Care Custom Marine Canvas Fabricator Name Role Phone Unavailable Primary Care Provider Unavailabl e Encounter Details Date Type Department Care Team (Late st Contact Info) Description 06/14/2017 Conversion Encounter [facility] - [address] [address] Social History Tobacco Use Types Packs/Day Years [...]
--- OUTSIDE RECORDS SUMMARY | 2025-03-12 08:50 | XMS_ITS | Encounter Summary ---
Author Organization [facility] Address [address] [place] [address] Phone Care Team Providers Care Broke Beater Operator Name Role Phone Unavailable Primary Care Provider Unavailabl e Encounter Details Date Type Department Care Team (Late st Contact Info) Description 05/04/2017 Documentation [facility] [place] [address] [place] [address] Family Medicine, Physician [facility] [place] [address] Social History Tobacco Use Types Packs/Day Years [...]
== END 2025-03-12 09:17 | disposition home or self-care (01) ==
LOC: HO.HOS 08:30
PROVIDERS: PCP Internal Medicine; Visit Provider Physician Assistant
DX: S43.002A Unspecified subluxation of left shoulder joint, initial encounter (principal)
CPT/HCPCS: 99203; G2211

== ENCOUNTER → 2025-03-12 09:03 | Outpatient (BNV) | payer OTHER, SELFPAY | PROVIDERS: PCP Internal Medicine; Visit Provider Radiology Diagnostic Radiology | DX: M25.512 Pain in left shoulder (principal) | CPT/HCPCS: 73030 ==

== ENCOUNTER 2025-05-10 18:30 | Emergency (ER) | payer OTHER, SELFPAY ==
--- NOTE | ~2025-05-10 | XR_ITS ---
CLINICAL HISTORY: left shoulder pain 3 view left shoulder Comparison: Left shoulder x-ray from 03/12/2025 Findings: Mild early degenerative change and/or osteoarthritis of the left AC joint of the 5th borderline widening previous injury considered. No acute displaced fracture. No dislocation. Mild atelectasis in the [id number]. IMPRESSION: 1. No acute fracture or dislocation. 2. Mild degenerative change with borderline widening of the left AC joint. This document has been electronically signed by: Stefano Jane MD on 05/10/2025 19:30:41
[2025-05-10 18:41] VITALS: BP 138/73; PULSE 86; RESP 16; TEMP 36.3; O2SAT 96; BMI 34.2
--- NOTE | 2025-05-10 18:45 | ED.GENADULT ---
HPI - General Adult General Chief complaint: Extremity Injury, Upper Stated complaint: left shoulder pain/ possible dislocation Time Seen by Provider: 05/10/25 19:39 Source: patient Mode of arrival: ambulatory Limitations: no limitations History of Present Illness ED Provider: HPI narrative: Patient's history of recurrent dislocation apparently went to bed normally woke up with pain in the left shoulder unable to raise the left arm of the head similar to that when he had fractures in the past no other injuries Related Data Home Medications ?Medication ?Instructions ?Recorded ?Confirmed aripiprazole 15 mg tablet 15 mg PO QAM 09/17/20 03/12/25 hydroxyzine HCl 25 mg tablet 25 mg PO BID PRN Anxiety 09/17/20 03/12/25 prazosin 5 mg capsule 5 mg PO BEDTIME PRN Sleep 09/17/20 03/12/25 trazodone 150 mg tablet 150 mg PO BEDTIME PRN Sleep 09/17/20 03/12/25 oxcarbazepine 300 mg tablet 600 mg PO BID 07/05/22 03/12/25 Previous Rx's ?Medication ?Instructions ?Recorded cholecalciferol (vitamin D3) 50 50 mcg PO DAILY 90 days #90 caps 11/20/24 mcg (2,000 unit) capsule ibuprofen 600 mg tablet 600 mg PO TID PRN pain #30 tabs 02/13/25 erythromycin 5 mg/gram (0.5 %) eye 0.5 inch ophthalmic-Left QID 7 02/28/25 ointment days #3.5 grams ibuprofen 600 mg tablet 600 mg PO Q6H PRN fever or pain 05/10/25 #30 tabs Allergies Allergy/AdvReac Type Severity Reaction Status Date / Time apple AdvReac Severe DIARRHEA Verified 05/10/25 18:45 POTATO JUICE Allergy Intermediate RASH Uncoded 02/19/25 22:48 Review of Systems Review of Systems: Yes all other systems are reviewed and are negative PMFSH Past Medical History Medical History Mixed hyperlipidemia Vitamin D deficiency Right knee pain Obesity (BMI 30-39.9) Inversion sprain of right ankle Syncope Intellectual disability COVID-19 Surgical History History of placement of ear tubes Family History Family History Father No problems noted. Mother Heart problem Social History Social History Household Members: Family and Other Household Members Other:: Mom, stepdad, sister, brother, 2 nephews Housing: House Do you presently have visiting nurse or other home services: No Alcohol intake: never Patient Tobacco Use Status: Never used Tobacco e-Cigarette/Vaping Use: Never Used Second Hand Smoke Exposure: Yes Advance Directives Date on File: 11/10/21 service: No Current occupational status: disabled Sexual orientation: Don't Know Cognitive needs: No Hearing needs: No Vision needs: No Physical Exam ED Vital Signs: Vital Signs - 24 hr 05/10/25 18:41 05/10/25 20:38 Temperature 97.4 F 98 F Pulse Rate 86 89 Respiratory Rate 16 18 Blood Pressure 138/73 159/89 H Pulse Oximetry 96 99 Oxygen Delivery Method Room Air BMI result Body Mass Index 34.2 Appearance: Alert. Oriented X3. No acute distress. Eyes: PERRLA, No Nystagmus ENT: Pharynx normal. Oral Mucosa moist Neck: Normal inspection. Neck supple. CVS: Normal heart rate and rhythm. Pulses normal. Respiratory: No respiratory distress. Equal air entry bilateral, no wheezing/rales/rhonchi Abdomen: Soft and nontender. Bowel sounds are present, no mass palpable, no CVA tenderness Skin: Skin warm and dry. Normal skin color. Normal skin turgor. Extremities: No lower extremity edema. No calf tenderness right shoulder diffuse tenderness painful abduction above 90 degrees no motor weakness Neuro: Oriented X 3. No motor deficit. No sensory deficit.No cerebellar signs , cranial nerves II-XII intact Course Course Course Narrative: Medical screening exam performed. Please refer to detailed history, exam, evaluation, and management by primary provider. History of injury to the left shoulder, states was lying on it and heard a popping sensation. Check x-ray. Medications Administered Discontinued Medications Generic Name Dose Route Start Last Admin Trade Name Freq PRN Reason Stop Dose Admin Ibuprofen 600 mg 05/10/25 19:56 05/10/25 20:07 Ibuprofen 600 Mg Tablet PO 05/10/25 19:57 600 mg ONCE ONE Administration Medical Decision Making Medical Decision Making [facility] Narrative: Rotator cuff tendinitis clinically give him a sling x-ray negative for fracture or dislocation Discharge Plan Discharge Clinical Impression: Acute pain of left shoulder Patient Disposition: Home, Self-Care Instructions: Shoulder Pain (ED) Additional Instructions: Your x-rays negative for fracture or dislocation you have arthritis of the left shoulder Take ibuprofen for pain Wear sling for support as needed Prescriptions: New ibuprofen 600 mg tablet 600 mg PO Q6H PRN (Reason: fever or pain) Qty: 30 0RF No Action prazosin 5 mg capsule 5 mg PO BEDTIME PRN (Reason: Sleep) trazodone 150 mg tablet 150 mg PO BEDTIME PRN (Reason: Sleep) hydroxyzine HCl 25 mg tablet 25 mg PO BID PRN (Reason: Anxiety) Rx Instructions: Pharmacy noted prescription was 1-2 25 mg tabs BID PRN aripiprazole 15 mg tablet 15 mg PO QAM oxcarbazepine 300 mg tablet 600 mg PO BID ibuprofen 600 mg tablet 600 mg PO TID PRN (Reason: pain) Qty: 30 0RF erythromycin 5 mg/gram (0.5 %) ointment 0.5 inch ophthalmic-Left QID 7 Days Qty: 3.5 0RF cholecalciferol (vitamin D3) 50 mcg (2,000 unit) capsule 50 mcg PO DAILY 90 Days Qty: 90 3RF Interventions: ED Discharge Assessment Last Done: 05/10/25 20:38 Discharge Date/Time: 05/10/25 20:39 Print Language: Latvian
--- OUTSIDE RECORDS SUMMARY | 2025-05-10 19:36 | XMS_ITS | Clinical Summary ---
Author Organization [facility] ity Address [address] [place] [address] Care Team Providers Care Cranberry Grower Name Role Phone Unavailable Primary Care Provider [...] 2023-2 5 season) 2024 Influenza Vaccine (#1) 2025 HIB Vaccines Aged Out No longer [...] 5 Years) and At-Risk Patients (6 to 49 Years) Aged Out No longer eligible b ased on patient's age to complete this topic RSV Immunization Patients Un tatyana 20 months Aged Out No longer eligible b ased on patient's age to complete this topic Varicella Vaccines Aged Out No longer eligible based on patient's age to complete this topic
[2025-05-10 20:38] VITALS: BP 159/89; PULSE 89; RESP 18; TEMP 36.6; O2SAT 99
== END 2025-05-10 20:39 | disposition home or self-care (01) ==
PROVIDERS: Emergency Provider Internal Medicine; PCP Internal Medicine
DX: M25.512 Pain in left shoulder (principal); Z79.899 Other long term (current) drug therapy
CPT/HCPCS: 73030; 99283; 99284

== ENCOUNTER → 2025-05-10 18:45 | Outpatient (BNV) | payer OTHER, SELFPAY | PROVIDERS: Emergency Provider Internal Medicine; PCP Internal Medicine; Visit Provider Radiology Neuroradiology | DX: M25.512 Pain in left shoulder (principal) | CPT/HCPCS: 73030 ==

== ENCOUNTER 2025-05-14 09:00 | Outpatient (RCR) | payer OTHER, SELFPAY ==
--- NOTE | 2025-04-02 10:28 | MHC.PT.EP ---
[facility] [place] Office [place] Office [place] Office [address] Masters [address] [phone] F: [phone] F: [phone] F: [phone] F: [phone] Physical Therapy Plan of Care Date of Evaluation: 04/02/25 Date of Surgery: Diagnosis: LEFT shoulder subluxation ( Dx) RS Assessment: Glenn is a 24 y.o. male with intellectual disability who comes to visit with his father. He is referred to PT by Arnoldo Larson PA-C of [facility] with Dx of LEFT shoulder subluxation he sustained playing basketball. Patient impairments include poor posture, pain, limited shoulder ROM, weakness L shoulder. Patient current functional limitations are reaching overhead, reaching behind back, lifting anything with UE. Patient will benefit from skilled PT to address aforementioned impairments and functional limitations to meet established goals. Frequency and Duration: The patient will be seen 1-2x/week for 4 weeks Short Term Goals: 2 weeks Patient demonstrates consistency and independence with HEP to self manage symptoms. Patient presents without holding arm in splinted position to reduce pain and muscle tension. Long-Term Goals: 4 weeks Patient presents with increased L shoulder flexion 120 degrees to be able to reach top of head to perform ADLs. Patient presents with increased L shoulder ER strength 4/5 to be able to hold grocery bag. Treatment Plan: Modalities to reduce pain, spasms and effusion. Manual therapy to restore motion and function. Therapeutic exercise to improve strength and flexibility. Neuromuscular re-education for posture and balance. Therapeutic activities to return to functional activities of daily living. Electronically signed by: Tamera Machado, PT, DPT Please sign and return to therapist. Thank you for your referral.
--- NOTE | 2025-05-21 09:45 | MHC.PT.DC ---
[facility] [place] Office [place] Office [place] Office [address] Santa Masters [address] [phone] F: [phone] F: [phone] F: [phone] F: [phone] Physical Therapy Discharge Report Diagnosis: LEFT shoulder subluxation ( Dx) RS Date of Surgery: Date of Evaluation: 04/02/25 Date of Discharge: 05/21/25 Treatments to Date: 4 Cancellations to Date: No Shows to Date: Discharge Status: Achieved Goals Improved Function Independent with HEP Discharge Summary: Glenn presents with near full AAROM into ER, remains limited into flexion some fear avoidance of pain and muscle guarding. But overall he is making great progress with less pain. We discuss continuing with PT or independent HEP due to progress. He reports feeling like he can continue with HEP as he can do all his ADLs without pain now. 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 Electronically signed by: Tamera Machado, PT, DPT Please sign and return to therapist. Thank you for your referral.
== END 2025-05-21 09:46 | disposition home or self-care (01) ==
LOC: HO.PT 09:00
PROVIDERS: PCP Internal Medicine; Visit Provider Physician Assistant
DX: S43.002D Unspecified subluxation of left shoulder joint, subsequent encounter (principal)
CPT/HCPCS: 97110; 97140; 97161; 97162; 97530; 97535

== ENCOUNTER 2025-07-23 18:24 | Emergency (ER) | payer OTHER, SELFPAY ==
--- NOTE | ~2025-07-23 | XR_ITS ---
CLINICAL HISTORY: pain 3 view left shoulder Comparison: CR - XR SHOULDER LT MIN 2V - 05/10/25 18:55 EDT DX - XR SHOULDER LT MIN 2V - 03/12/25 09:03 EDT CR - XR SHOULDER LT MIN 2V - 02/13/25 03:09 EDT CR - XR SHOULDER LT MIN 2V - 02/12/25 22:26 EDT Findings: No fractures or dislocations. No significant arthritic change. No erosions. No radiopaque foreign body. IMPRESSION: 1. No acute findings If symptoms persist, consider MRI of the left shoulder. This document has been electronically signed by: Vel Rome MD on 07/23/2025 20:32:56
[2025-07-23 19:04] VITALS: BP 133/85; PULSE 76; RESP 14; TEMP 36.2; O2SAT 96; BMI 26.2
--- NOTE | 2025-07-23 19:07 | ED.GENADULT ---
HPI - General Adult General Chief complaint: General Medical Stated complaint: left shoulder pain and right armpit pain Time Seen by Provider: 07/23/25 21:31 Source: patient Mode of arrival: ambulatory Limitations: no limitations History of Present Illness ED Provider: Dr. Catalina Amaro HPI narrative: Patient comes to the emergency room complaining of chronic left shoulder pain for several months. Patient denies any new injuries. Also, patient complaining of bilateral axilla rash. Patient states it feels like it rogers and states that he has noticed a now has an odor to it despite proper hygiene. Patient denies fever chills. Related Data Home Medications ?Medication ?Instructions ?Recorded ?Confirmed aripiprazole 15 mg tablet 15 mg PO QAM 09/17/20 03/12/25 hydroxyzine HCl 25 mg tablet 25 mg PO BID PRN Anxiety 09/17/20 03/12/25 prazosin 5 mg capsule 5 mg PO BEDTIME PRN Sleep 09/17/20 03/12/25 trazodone 150 mg tablet 150 mg PO BEDTIME PRN Sleep 09/17/20 03/12/25 oxcarbazepine 300 mg tablet 600 mg PO BID 07/05/22 03/12/25 Previous Rx's ?Medication ?Instructions ?Recorded cholecalciferol (vitamin D3) 50 50 mcg PO DAILY 90 days #90 caps 11/20/24 mcg (2,000 unit) capsule ibuprofen 600 mg tablet 600 mg PO TID PRN pain #30 tabs 02/13/25 erythromycin 5 mg/gram (0.5 %) eye 0.5 inch ophthalmic-Left QID 7 02/28/25 ointment days #3.5 grams ibuprofen 600 mg tablet 600 mg PO Q6H PRN fever or pain 05/10/25 #30 tabs clotrimazole 1 % topical cream 1 appl topical BID 4 weeks #45 07/23/25 (Lotrimin AF (clotrimazole)) grams Allergies Allergy/AdvReac Type Severity Reaction Status Date / Time apple AdvReac Severe DIARRHEA Verified 07/23/25 19:09 POTATO JUICE Allergy Intermediate RASH Uncoded 02/19/25 22:48 Review of Systems Review of Systems: Constitutional : No Weight loss, No Fever, No Chills, No Night Sweats, No Fatigue, No Malaise ENT/Mouth : No Hearing loss, No Ear Pain, No Nasal Congestion, No Sinus Pain, No Hoarseness, No sore throat, No Rhinorrhea, No Swallowing Difficulty Eyes: No Eye Pain, No Swelling, No Redness, No Foreign Body, No Discharge, No Vision Changes Cardiovascular : No Chest Pain, No SOB, No Dyspnea on Exertion, No Orthopnea, No Edema, No Palpitations Respiratory : No Cough, No Sputum, No Wheezing, No Smoke Exposure, No Dyspnea Gastrointestinal : No Nausea, No Vomiting, No Diarrhea, No Constipation, No abdominal Pain, No Hematochezia, No Melena Genitourinary : no irregular bleeding, No Dysuria, No Urinary Frequency, No Hematuria, No Urinary Incontinence, No Urgency, No Flank Pain, No Urinary Flow Changes, No Hesitancy Musculoskeletal : No joint pain, No Myalgias, No Joint Swelling Skin : Complaining of a rash under both axilla, foul-smelling Neuro : No Weakness, No Numbness, No Paresthesias, No Loss of Consciousness, No Dizziness, No Headache Psych : No Anxiety/Panic, No Depression, No SI/HI/AH/VH, No Social Issues, Heme/Lymph: No Bruising, No Bleeding,No Lymphadenopathy Endocrine : No Polyuria, No Polydipsia, No Temperature Intolerance PMFSH Past Medical History Medical History Mixed hyperlipidemia Vitamin D deficiency Right knee pain Obesity (BMI 30-39.9) Inversion sprain of right ankle Syncope Intellectual disability COVID-19 Surgical History History of placement of ear tubes Family History Family History Father No problems noted. Mother Heart problem Social History Social History Household Members: Family and Other Household Members Other:: Mom, stepdad, sister, brother, 2 nephews Housing: House Do you presently have visiting nurse or other home services: No Alcohol intake: never Patient Tobacco Use Status: Never used Tobacco e-Cigarette/Vaping Use: Never Used Second Hand Smoke Exposure: Yes Advance Directives: Yes Advance Directives on File: Yes Advance Directives Date on File: 01/13/22 Do you have a plan to hurt others: No Plan service: No Current occupational status: disabled Sexual orientation: Don't Know Cognitive needs: No Hearing needs: No Vision needs: No Physical Exam ED Exam Exam: Appearance: Alert. Oriented X3. No acute distress. Eyes: Pupils equal, round and reactive to light. ENT: Pharynx normal. Neck: Normal inspection. Neck supple. No lymph nodes noted. No crepitus CVS: Normal heart rate and rhythm. Pulses normal. Normal S1 and S2 Respiratory: No respiratory distress. Breath sounds normal. No Wheezing. No rales Abdomen: Soft and nontender. No rigidity. No distention. Skin: Skin warm and dry. Normal skin color. Normal skin turgor. In the axilla bilaterally, patient has candidiasis. Extremities: No lower extremity edema. No Lacerations. No Rash. Patient is able to flex and extend bilateral wrists and elbows, patient is able to abduct bilateral arms to 180 degrees Neuro: Oriented X 3. No motor deficit. No sensory deficit. Moving all extremities. No slurred speech. CN 2 through 12 grossly intact Psych: calm, cooperative, normal affect Vital Signs: Vital Signs - 24 hr 07/23/25 19:04 Temperature 97.2 F Pulse Rate 76 Respiratory Rate 14 Blood Pressure 133/85 Pulse Oximetry 96 Oxygen Delivery Method Room Air BMI result Body Mass Index 26.2 Course Course Course Narrative: This is an RME: Additional HPI, ROS, PE not included below will be deferred to primary provider. RME assessment and note performed by: Alla Matt PA-C This is a 24-year-old male who presents emergency department with concerns of left shoulder pain and right armpit rash. Patient with a history of autism spectrum disorder, difficult to get a history from. Reports prior dislocation in the left shoulder. Plan: X-ray left shoulder Medical Decision Making Medical Decision Making MDM Narrative: X-ray of the left shoulder does not show any acute abnormality Differential Diagnosis Differential Diagnoses: The differential diagnosis associated with the presentation includes (Candidiasis versus dermatitis, chronic arthralgia) Independent Interpretation I performed an independent interpretation of an: Plain X-Ray Radiology Impression Discussion of test interpretation with radiology: I have reviewed the radiologist's reading. Radiologist Impression: 1. No acute findings If symptoms persist, consider MRI of the left shoulder. This document has been electronically signed by: Vel Rome MD on Discharge Plan Discharge Clinical Impression: Candidiasis, Chronic left shoulder pain Patient Disposition: Home, Self-Care Instructions: Oral Candidiasis (ED), Arthralgia (ED) Additional Instructions: Please follow-up with your primary care physician tomorrow. If you have any worsening or new symptoms, please return to the emergency room or call 911 Prescriptions: New clotrimazole [Lotrimin AF (clotrimazole)] 1 % cream 1 appl topical BID 28 Days Qty: 45 1RF No Action prazosin 5 mg capsule 5 mg PO BEDTIME PRN (Reason: Sleep) trazodone 150 mg tablet 150 mg PO BEDTIME PRN (Reason: Sleep) hydroxyzine HCl 25 mg tablet 25 mg PO BID PRN (Reason: Anxiety) Rx Instructions: Pharmacy noted prescription was 1-2 25 mg tabs BID PRN aripiprazole 15 mg tablet 15 mg PO QAM oxcarbazepine 300 mg tablet 600 mg PO BID ibuprofen 600 mg tablet 600 mg PO TID PRN (Reason: pain) Qty: 30 0RF erythromycin 5 mg/gram (0.5 %) ointment 0.5 inch ophthalmic-Left QID 7 Days Qty: 3.5 0RF ibuprofen 600 mg tablet 600 mg PO Q6H PRN (Reason: fever or pain) Qty: 30 0RF cholecalciferol (vitamin D3) 50 mcg (2,000 unit) capsule 50 mcg PO DAILY 90 Days Qty: 90 3RF Print Language: Vietnamese
--- OUTSIDE RECORDS SUMMARY | 2025-07-23 20:13 | XMS_ITS | Encounter Summary ---
Author Organization [facility] Address [address] [place] [address] Phone Care Team Providers Care Finish Mill Operator Name Role Phone Unavailable Primary Care Provider Unavailabl e Reason for Visit * Reason Comments Med Refill Encounter Details Date Type Department Care Team (Late st Contact Info) Description 01/30/2019 Refill [facility] [address] [place] [address] Venessa Can, RUBÉN [address] [address] Nightmares Social History Tobacco Use Types Packs/Day [...] He has a med eval appt at [facility] in February. He needs psychiatry to prescribe his psych meds. * Telephone Encounter - Dana Crockett MD - 01/30/2019 6:32 PM EDT Glenn was seeing Dr Younger. Pt was seeing counselor at [facility]. He was in [facility] recently. 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 He had a meltdown and his counselor was calledand sent him to [facility] where he was for 3-4 day. They were unable to treat him. Family has been trying to find programs for him. He is scheduled for a med eval at [facility] - was supposed to be [...] and is on Prazosin. Dept of [facility] does not support family getting guardianship. [facility] recommended a follow up program which [...]
--- OUTSIDE RECORDS SUMMARY | 2025-07-23 20:13 | XMS_ITS | Encounter Summary ---
Author Organization [facility] Address [address] [place] [address] Phone Care Team Providers Care Tool Planner Name Role Phone Unavailable Primary Care Provider Unavailabl e Encounter Details Date Type Department Care Team (Late st Contact Info) Description 11/09/2011 Documentation [facility] [place] [facility] [address] [place] [address] Family Medicine, Physician [facility] [place] [address] Social History Tobacco Use Types Packs/Day Years [...]
--- OUTSIDE RECORDS SUMMARY | 2025-07-23 20:13 | XMS_ITS | Encounter Summary ---
Author Organization [facility] Address [address] [place] [address] Phone Care Team Providers Care Pipe Stem Repairer Name Role Phone Unavailable Primary Care Provider Unavailabl e Encounter Details Date Type Department Care Team (Late st Contact Info) Description 08/17/2010 Documentation [facility] [place] [facility] [address] [place] [address] Family Medicine, Physician [facility] [place] [address] Social History Tobacco Use Types Packs/Day Years [...]
--- OUTSIDE RECORDS SUMMARY | 2025-07-23 20:13 | XMS_ITS | Encounter Summary ---
Author Organization [facility] Address [address] [place] [address] Phone Care Team Providers Care Data Compiler Name Role Phone Unavailable Primary Care Provider Unavailabl e Encounter Details Date Type Department Care Team (Late st Contact Info) Description 09/13/2016 Documentation [facility] [address] [place] [address] Family Medicine, Physician [place] [address] Social History Tobacco Use Types Packs/Day Years [...]
--- OUTSIDE RECORDS SUMMARY | 2025-07-23 20:13 | XMS_ITS | Clinical Summary ---
Author Organization [facility] Address [address] [place] [address] Phone Care Team Providers Care Manager Inventory Management Name Role Phone Unavailable Primary Care Provider [...] to those you have been getting from [facility] - such as in home therapy. PDD [...] Other No family histo ry of *Sudden /MS under 55, Family history of *Heart Disease, [...] 79 06/06/2020 10:53 AM EDT Temperature 36.5 C (97.7 F) 06/06/2020 10:53 AM EDT Respiratory Rate - - Oxygen Saturation 97% [...] LDL-C/Cholesterol 07/08/2020 07/08/2019, 11/07/2013 Influenza Vaccines (#1) 2025 07/08/20 20, 07/08/2019, 12/24/2018, Additional history exists COVID-19 Vaccine (3 - 2024- season) 2025 04/10/2021, 03/20/2021 DTaP,Tdap,and Td Vaccines (9 - [...] Additional history exists Procedures * Due to [place] [employer] law, this organization might not be sharing sensitive test results. Procedure Name Priority Date/Time Associated Diagnosis Comments LIPID PANEL Routine 07/08/2019 3:49 PM EDT Mood disorder HEMOGLOBIN A1C Routine 07/08/2019 3:49 PM EDT Mood disorder from Last 3 Months or Most Recently Relevant to Health Maintenance Results * Due to [place] [employer] law, this organization might not be sharing sensitive test results. * Hemoglobin A1c (07/08/2019 3:49 PM EDT) Hemoglobin A1C 5.1 (4-6) % [facility] Comment: HEMOGLOBIN A1C(%) GLUCOSE CONTROL INDEX <6% EXCELLENT 6-7% VERY GOOD 7-8% GOOD 8-10% FAIR >10% POOR Hemoglobin (Hb) A1c testing is performed by [employer] Lizy-quant immunoassay. Any cause of shortened erythrocyte survival will reduce exposure of erythrocytes to glucose with a consequent decrease in Hb A1c (%). Testing performed or reported by [facility], a Service of [address] [address] Blood 07/08/2019 3:49 PM EDT 07/08/2019 3:54 PM EDT Dana Crockett MD LAB BLOOD ORDERABLES Final R esult Performing Organization Address [facility] Co de Phone Number [facility] * (ABNORMAL) Lipid panel (07/08/2019 3:49 PM EDT) [facility] Cholesterol, Total 171(H) (<170) MG/DL [facility] HDL 32(L) (>45) MG/DL [facility] Non-HDL Cholesterol 139(H) (<120) MG/DL [facility] Comment: Testing performed or reported by [facility], a Service of [address] [address] Blood 07/08/2019 3:49 PM EDT 07/08/2019 3:54 PM EDT Dana Crockett MD LAB BLOOD ORDERABLES Final R esult Performing Organization Address [facility] Co de Phone Number [facility] from Last 3 Months or Most Recently Relevant to Health Maintenance Insurance [employer]
--- OUTSIDE RECORDS SUMMARY | 2025-07-23 20:13 | XMS_ITS | Encounter Summary ---
Author Organization [facility] Address [address] [place] [address] Phone Care Team Providers Care Telecasting Technician Name Role Phone Unavailable Primary Care Provider Unavailabl e Encounter Details Date Type Department Care Team (Late st Contact Info) Description 06/14/2017 Conversion Encounter [facility] - [address] [address] Social History Tobacco Use Types Packs/Day Years [...]
--- OUTSIDE RECORDS SUMMARY | 2025-07-23 20:13 | XMS_ITS | Encounter Summary ---
Author Organization [facility] Address [address] [place] [phone] Phone Care Team Providers Care Shampoo Assistant Name Role Phone Unavailable Primary Care Provider Unavailabl e Encounter Details Date Type Department Care Team (Late st Contact Info) Description 12/31/2015 Documentation [facility] [place] Family Medicine [address] [place] [address] Family Medicine, Physician [facility] [place] [address] Social History Tobacco Use Types Packs/Day Years [...]
--- OUTSIDE RECORDS SUMMARY | 2025-07-23 20:13 | XMS_ITS | Encounter Summary ---
Author Organization [facility] Address [address] [place] [phone] Phone Care Team Providers Care Jewelry Sales Representative Name Role Phone Unavailable Primary Care Provider Unavailabl e Encounter Details Date Type Department Care Team (Late st Contact Info) Description 12/25/2017 Patient Outreach [facility] [place] [address] [place] [address] Dana Crockett MD [address] [place] [address] Social History Tobacco Use Types Packs/Day Years [...]
--- OUTSIDE RECORDS SUMMARY | 2025-07-23 20:13 | XMS_ITS | Encounter Summary ---
Author Organization [facility] Address [address] [place] [phone] Phone Care Team Providers Care Grants Specialist Name Role Phone Unavailable Primary Care Provider Unavailabl e Encounter Details Date Type Department Care Team (Late st Contact Info) Description 11/14/2012 Documentation [facility] [place] Family Medicine [address] [place] [address] Family Medicine, Physician [facility] [place] [address] Social History Tobacco Use Types Packs/Day Years [...]
--- OUTSIDE RECORDS SUMMARY | 2025-07-23 20:13 | XMS_ITS | Encounter Summary ---
Author Organization [facility] Address [address] [place] [phone] Phone Care Team Providers Care Glass Blowing Lathe Operator Name Role Phone Unavailable Primary Care Provider Unavailabl e Encounter Details Date Type Department Care Team (Late st Contact Info) Description 01/03/2016 Documentation [facility] [place] Family Medicine [address] [place] [address] Family Medicine, [place] [address] Social History Tobacco Use Types Packs/Day Years [...]
--- OUTSIDE RECORDS SUMMARY | 2025-07-23 20:13 | XMS_ITS | Encounter Summary ---
Author Organization [facility] Address [address] [place] [phone] Phone Care Team Providers Care Board Worker Name Role Phone Unavailable Primary Care Provider Unavailabl e Encounter Details Date Type Department Care Team (Late st Contact Info) Description 05/03/2017 Documentation [facility] [place] [address] [place] [address] Family Medicine, Physician [facility] [place] [address] Social History Tobacco Use Types Packs/Day Years [...]
--- OUTSIDE RECORDS SUMMARY | 2025-07-23 20:13 | XMS_ITS | Encounter Summary ---
Author Organization [facility] Address [address] [place] [address] Phone Care Team Providers Care Route Sales Delivery Driver Name Role Phone Unavailable Primary Care Provider Unavailabl e Encounter Details Date Type Department Care Team (Late st Contact Info) Description 05/14/2017 Document[place] [facility] [place] [address] [place] [address] Family Medicine, Physician [facility] [place] [address] Social History Tobacco Use Types Packs/Day Years [...]
--- OUTSIDE RECORDS SUMMARY | 2025-07-23 20:13 | XMS_ITS | Encounter Summary ---
Author Organization [facility] Address [address] [place] [phone] Phone Care Team Providers Care Lead Java J2Ee Developer Name Role Phone Unavailable Primary Care Provider Unavailabl e Encounter Details Date Type Department Care Team (Late st Contact Info) Description 05/04/2017 [place] [facility] [place] [address] [place] [address] Family Medicine, Physician [facility] [place] [address] Social History Tobacco Use Types Packs/Day Years [...]
[2025-07-23 22:00] VITALS: BP 128/81; PULSE 68; RESP 16; TEMP 36.2; O2SAT 94
[2025-07-23 22:02] VITALS: BP 128/81; PULSE 68; RESP 16; TEMP 36.2; O2SAT 94
== END 2025-07-23 22:03 | disposition home or self-care (01) ==
PROVIDERS: Emergency Provider Emergency Medicine
DX: M25.512 Pain in left shoulder (principal); B37.9 Candidiasis, unspecified; Z79.899 Other long term (current) drug therapy
CPT/HCPCS: 73030; 99282; 99283

== ENCOUNTER → 2025-07-23 19:08 | Outpatient (BNV) | payer OTHER, SELFPAY | PROVIDERS: Visit Provider Radiology Diagnostic Radiology | DX: M25.512 Pain in left shoulder (principal) | CPT/HCPCS: 73030 ==

== ENCOUNTER 2025-08-04 16:51 | Emergency (ER) | payer OTHER, SELFPAY ==
[2025-08-04 16:59] VITALS: BP 170/110; PULSE 89; O2SAT 97; BMI 39.9
[2025-08-04 17:02] VITALS: BP 136/87; PULSE 88; RESP 20; TEMP 36.6; O2SAT 98
--- NOTE | 2025-08-04 17:06 | ED.GENADULT ---
HPI - General Adult General Chief complaint: Wound/Laceration Stated complaint: LAC R finger, bleeding controlled wound covered Time Seen by Provider: 08/04/25 17:04 Source: patient, family, EMS, RN notes reviewed and old records reviewed Mode of arrival: EMS History of Present Illness ED Provider: Jennifer HPI narrative: Patient is a 24-year-old male with history of autism spectrum disorder, bipolar disorder, hyperlipidemia, obesity, intellectual disability presenting to the emergency department via EMS with brother who reports that patient was opening a window in which the glasses already broken. Brother states that the window slipped down and the broken edge of glass caused a laceration to patient's hand. They deny any concern for foreign body. Unsure last Tdap. Patient states he is afraid to move fingers due to pain. Denies numbness/tingling. complaint: hand laceration Related Data Home Medications ?Medication ?Instructions ?Recorded ?Confirmed aripiprazole 15 mg tablet 15 mg PO QAM 09/17/20 03/12/25 hydroxyzine HCl 25 mg tablet 25 mg PO BID PRN Anxiety 09/17/20 03/12/25 prazosin 5 mg capsule 5 mg PO BEDTIME PRN Sleep 09/17/20 03/12/25 trazodone 150 mg tablet 150 mg PO BEDTIME PRN Sleep 09/17/20 03/12/25 oxcarbazepine 300 mg tablet 600 mg PO BID 07/05/22 03/12/25 Previous Rx's ?Medication ?Instructions ?Recorded cholecalciferol (vitamin D3) 50 50 mcg PO DAILY 90 days #90 caps 11/20/24 mcg (2,000 unit) capsule ibuprofen 600 mg tablet 600 mg PO TID PRN pain #30 tabs 02/13/25 erythromycin 5 mg/gram (0.5 %) eye 0.5 inch ophthalmic-Left QID 7 02/28/25 ointment days #3.5 grams ibuprofen 600 mg tablet 600 mg PO Q6H PRN fever or pain 05/10/25 #30 tabs clotrimazole 1 % topical cream 1 appl topical BID 4 weeks #45 07/23/25 (Lotrimin AF (clotrimazole)) grams Allergies Allergy/AdvReac Type Severity Reaction Status Date / Time apple AdvReac Severe DIARRHEA Verified 08/04/25 17:03 POTATO JUICE Allergy Intermediate RASH Uncoded 10/07/25 17:03 Review of Systems Review of Systems: As per HPI Yes all other systems are reviewed and are negative Constitutional: Constitutional: Reports as per HPI [facility] Past Medical History Medical History Mixed hyperlipidemia Vitamin D deficiency Right knee pain Obesity (BMI 30-39.9) Inversion sprain of right ankle Syncope Intellectual disability COVID-19 Surgical History History of placement of ear tubes Family History Family History Father No problems noted. Mother Heart problem Social History Social History Household Members: Family and Other Household Members Other:: Mom, stepdad, sister, brother, 2 nephews Housing: House Do you presently have visiting nurse or other home services: No Alcohol intake: never Patient Tobacco Use Status: Never used Tobacco e-Cigarette/Vaping Use: Never Used Second Hand Smoke Exposure: Yes Advance Directives: Yes Advance Directives on File: Yes Advance Directives Date on File: 11/10/21 service: No Current occupational status: disabled Sexual orientation: Don't Know Cognitive needs: No Hearing needs: No Vision needs: No Physical Exam ED Vital Signs: Vital Signs - 24 hr 08/04/25 17:02 Temperature 97.9 F Pulse Rate 88 Respiratory Rate 20 Blood Pressure 136/87 Pulse Oximetry 98 Oxygen Delivery Method Room Air BMI result Body Mass Index 39.9 Vital signs have been reviewed and appear to be correct. Blood pressure normal. Heart rate normal. Respiratory rate normal. Temperature normal. Oxygen saturation normal. Const General: cooperative, healthy appearing and no acute distress Orientation/consciousness: oriented to person, oriented to place, oriented to time and patient oriented x3 Limitations: no limitations HENMT Head: Yes normocephalic and Yes atraumatic Ears: external ears normal General nose exam: Normal external nose present Face and sinus: Yes face symmetric Mouth: oropharynx normal and moist mucous membranes Throat: Yes uvula midline Eyes Pupils: Equal, round and reactive pupils present Neck Neck: Yes normal visual inspection and Yes supple Resp Effort & Inspection: normal respiratory effort and able to speak in complete sentences Auscultation: clear to auscultation bilaterally Cardio Rate: regular rate Rhythm: regular rhythm Heart sounds: S1 normal heart sound present and S2 normal heart sound present GI Palpation (GI): Soft to palpation and nontender Auscultation: normoactive bowel sounds General: Yes no CVA tenderness Back/Spine/Pelvis Back: no CVA tenderness Skin General skin exam: elasticity normal and turgor normal Neuro General: oriented to person, oriented to place, oriented to time, patient oriented x3, moves all extremities, no focal motor deficits and CN's II-XI intact bilaterally Cranial nerves: Yes Equal, round and reactive pupils present Cognition (Neuro): normal cognition Extrem General: Yes full ROM, Yes no pedal edema and Yes no calf tenderness Right upper extremity: Extremity exam: right hand Details: neuromotor exam normal, neurosensory exam normal, vascular exam Details: radial pulse present, ulnar pulse present and normal capillary refill, normal ROM of fingers and laceration dorsal hand dorsal aspect Details: flap (over 3rd MCP joint) and with motor nerve function intact, dorsal hand Details: avulsion (superficial, over 2nd MCP joint) Psych Mental Status: mental status grossly normal Affect: normal affect Thought process: Normal thought process present Medications Administered Discontinued Medications Generic Name Dose Route Start Last Admin Trade Name Freq PRN Reason Stop Dose Admin Bacitracin 1 appl 08/04/25 17:05 08/04/25 17:12 Bacitracin Oint 0.9 Gm Packet TOPICAL 08/04/25 17:06 1 appl ONCE ONE Administration Protocol Diphtheria/Tetanus/Acell Pertussis 0.5 ml 08/04/25 17:10 08/04/25 17:16 Diphth,Pertus(Acell),Tet Adult 0.5 Ml Syringe IM 08/04/25 17:11 0.5 ml .ONCE ONE Administration Lidocaine HCl 1 appl 08/04/25 17:05 08/04/25 17:12 Lidocaine 4 % Cream Kit TOPICAL 08/04/25 17:06 1 appl ONCE ONE Administration Protocol Lidocaine HCl 5 ml 08/04/25 17:05 08/04/25 17:12 Lidocaine Hcl 1 % Mpf 5 Ml Vial INFILTRATI 08/04/25 17:06 5 ml ONCE ONE Administration Procedures Laceration Laceration 1: Site: hand Side (If applicable): right Size (cm): 2 Description: flap and irregular Depth: simple, single layer Local Anesthetic: lidocaine 1% Amount of anesthesia used (mL): 2 Pre-repair: wound explored, irrigated extensively and deep structures intact Skin layer closed with: other (prolene) Size (cm): 5-0 Number of sutures: 7 Technique: simple, interrupted Medical Decision Making Medical Decision Making [facility] Narrative: Patient is a 24-year-old male with history of autism spectrum disorder, bipolar disorder, hyperlipidemia, obesity, intellectual disability presenting to the emergency department via EMS with brother who reports that patient was opening a window in which the glasses already broken. On exam patient is awake, A+Ox3, VS WNL, afebrile, normal neurological exam without focal deficits, physical exam findings as above. Given reported symptoms and physical exam findings, initial differential includes but is not limited to avulsion, laceration. Patient and mother deny concern for foreign body. Laceration repaired as per procedure note with 7 sutures. Wound care instructions and return precautions discussed with patient and mother at bedside. Patient placed in wrist splint to avoid flexing fingers and laceration is over joint. Patient verbalized understanding of and agreement with plan. Differential Diagnosis Differential Diagnoses: The differential diagnosis associated with the presentation includes As per [facility] Independent Historian Clinical information obtained from an independent historian. History obtained from or confirmed by: Other (Brother) External Record Review External record reviewed: Inpatient record, Office record and Outpatient record Discharge Plan Discharge Clinical Impression: Laceration of hand, right Patient Disposition: Home, Self-Care Instructions: Care For Your Stitches (DC), Laceration (DC), Stitches Removal (ED) Additional Instructions: You have been evaluated in the emergency department today for a laceration to your hand. Your laceration was repaired in the emergency department with sutures (stitches). Please keep the area surrounding the laceration clean and dry and keep dressing in place for the next 24 hours. After that please change the dressing and assess the wound daily. Do not submerge the wound in water until the stitches has been removed and the wound has fully healed (no washing dishes, swimming, hot tubs, etc. and ESPECIALLY no outdoor water). Wear the splint provided to avoid bending the fingers of your right hand. Keep the area out of direct sunlight for the next 6 months to help prevent scarring. You should have the sutures removed in 7-10 days. If you develop fever, redness, swelling at the site of your laceration, or thick yellow drainage please come back to the ER for a wound check. Prescriptions: No Action prazosin 5 mg capsule 5 mg PO BEDTIME PRN (Reason: Sleep) trazodone 150 mg tablet 150 mg PO BEDTIME PRN (Reason: Sleep) hydroxyzine HCl 25 mg tablet 25 mg PO BID PRN (Reason: Anxiety) Rx Instructions: Pharmacy noted prescription was 1-2 25 mg tabs BID PRN aripiprazole 15 mg tablet 15 mg PO QAM oxcarbazepine 300 mg tablet 600 mg PO BID clotrimazole [Lotrimin AF (clotrimazole)] 1 % cream 1 appl topical BID 28 Days Qty: 45 1RF ibuprofen 600 mg tablet 600 mg PO TID PRN (Reason: pain) Qty: 30 0RF erythromycin 5 mg/gram (0.5 %) ointment 0.5 inch ophthalmic-Left QID 7 Days Qty: 3.5 0RF ibuprofen 600 mg tablet 600 mg PO Q6H PRN (Reason: fever or pain) Qty: 30 0RF cholecalciferol (vitamin D3) 50 mcg (2,000 unit) capsule 50 mcg PO DAILY 90 Days Qty: 90 3RF Print Language: Bulgarian
[2025-08-04] MEDS: Lidocaine 4 % Cream KIT 1 APPL TOPICAL (17:12)
[2025-08-04] MEDS: Lidocaine HCl 1 % MPF 5 ML VIAL INFILTRATI (17:12)
[2025-08-04] MEDS: Diphth,Pertus(ACell),Tet Adult 0.5 ML SYRINGE IM (17:16)
[2025-08-04 18:16] VITALS: BP 136/87; PULSE 88; RESP 20; TEMP 36.6; O2SAT 98
--- OUTSIDE RECORDS SUMMARY | 2025-08-04 19:00 | XMS_ITS | Clinical Summary ---
Author Organization [facility] Address [address] [place] [address] Care Team Providers Care Road Hogger Operator Name Role Phone Unavailable Primary Care [...] of 3 - 19+ 3-dose series) 2018 HIV Screening 06/23/2024 Hepatitis C Screening 06/23/2024 Social Influencers of Health Screening 06/23/2024 Depression Screening 10/29/2024 COVID-19 Vaccine (1 - 2023-2 5 season) 2025 Influenza Vaccine (#1) 2025 RSV Immunization Adult Patie nts (1 - 1-dose 75+ series) 2074 HIB Vaccines Aged Out No longer eligi [...]
== END 2025-08-04 18:19 | disposition home or self-care (01) ==
PROVIDERS: Emergency Provider Student in an Organized Health Care Education/Training Program
DX: S61.411A Laceration without foreign body of right hand, initial encounter (principal); W25.XXXA Contact with sharp glass, initial encounter; Y93.9 Activity, unspecified; Y92.9 Unspecified place or not applicable; Y99.9 Unspecified external cause status; Z23 Encounter for immunization
CPT/HCPCS: 12001; 90471; 90715; 99282; 99284; J2003

== ENCOUNTER 2025-08-08 00:37 | Emergency (ER) | payer OTHER, SELFPAY ==
[2025-08-08 00:42] VITALS: BP 133/101; PULSE 88; RESP 20; TEMP 37; O2SAT 96; BMI 33.9
--- NOTE | 2025-08-08 00:46 | ED.GENADULT ---
HPI - General Adult General Chief complaint: Nausea/Vomiting/Diarrhea Stated complaint: drank 3-2l soda since this morning. non diabetic Time Seen by Provider: 08/08/25 00:46 History of Present Illness ED Provider: Moe ABDUL narrative: The patient is a 24-year-old male with a history of autism and bipolar disorder who says that he has not been well since around 14:00 in the afternoon yesterday when he drank 3 bottles of soda which were 2 L each. He says that he has felt dizzy and shaky and somewhat nauseated since then. He also has some left flank pain. His family brought him to the emergency department. No chest pain or shortness of breath. There has been no vomiting although he has had some nausea. Related Data Home Medications ?Medication ?Instructions ?Recorded ?Confirmed aripiprazole 15 mg tablet 15 mg PO QAM 09/17/20 03/12/25 hydroxyzine HCl 25 mg tablet 25 mg PO BID PRN Anxiety 09/17/20 03/12/25 prazosin 5 mg capsule 5 mg PO BEDTIME PRN Sleep 09/17/20 03/12/25 trazodone 150 mg tablet 150 mg PO BEDTIME PRN Sleep 09/17/20 03/12/25 oxcarbazepine 300 mg tablet 600 mg PO BID 07/05/22 03/12/25 Previous Rx's ?Medication ?Instructions ?Recorded cholecalciferol (vitamin D3) 50 50 mcg PO DAILY 90 days #90 caps 11/20/24 mcg (2,000 unit) capsule ibuprofen 600 mg tablet 600 mg PO TID PRN pain #30 tabs 02/13/25 erythromycin 5 mg/gram (0.5 %) eye 0.5 inch ophthalmic-Left QID 7 02/28/25 ointment days #3.5 grams ibuprofen 600 mg tablet 600 mg PO Q6H PRN fever or pain 05/10/25 #30 tabs clotrimazole 1 % topical cream 1 appl topical BID 4 weeks #45 07/23/25 (Lotrimin AF (clotrimazole)) grams Allergies Allergy/AdvReac Type Severity Reaction Status Date / Time apple AdvReac Severe DIARRHEA Verified 08/08/25 00:44 POTATO JUICE Allergy Intermediate RASH Uncoded 08/08/25 00:44 Review of Systems Review of Systems: Yes all other systems are reviewed and are negative PMFSH Past Medical History Medical History Mixed hyperlipidemia Vitamin D deficiency Right knee pain Obesity (BMI 30-39.9) Inversion sprain of right ankle Syncope Intellectual disability COVID-19 Surgical History History of placement of ear tubes Family History Family History Father No problems noted. Mother Heart problem Social History Social History Household Members: Family and Other Household Members Other:: Mom, stepdad, sister, brother, 2 nephews Housing: House Do you presently have visiting nurse or other home services: No Alcohol intake: never Patient Tobacco Use Status: Never used Tobacco e-Cigarette/Vaping Use: Never Used Second Hand Smoke Exposure: Yes Advance Directives: Yes Advance Directives on File: Yes Advance Directives Date on File: 11/10/21 service: No Current occupational status: disabled Sexual orientation: Don't Know Cognitive needs: No Hearing needs: No Vision needs: No Physical Exam ED Vital Signs: Vital Signs - 24 hr 08/08/25 00:42 08/08/25 03:37 08/08/25 04:31 Temperature 98.6 F 98.7 F 98.7 F Pulse Rate 88 68 68 Respiratory Rate 20 16 16 Blood Pressure 133/101 H 142/83 H 142/83 H Pulse Oximetry 96 97 97 Oxygen Delivery Method Room Air Room Air Room Air BMI result Body Mass Index 33.9 Const Other: The patient is a poorly kempt, chronically ill-appearing 24-year-old. He was awake and alert. He was holding his eyes closed with the most part. He seemed preoccupied with his symptoms. HENMT Other: No facial asymmetry. The patient has poor dentition. Tongue is midline. Mucous membranes moist. No obvious acute intraoral abnormality. Eyes Other: The patient seemed to prefer keeping his eyes closed but he would open them. When open the eyes appeared normal. Pupils were round equal and reactive to light, extraocular movements were intact, no definite nystagmus. Neck Neck: Yes normal visual inspection, Yes full ROM and Yes no meningeal signs Resp Effort & Inspection: normal respiratory effort Auscultation: clear to auscultation bilaterally Cardio Rate: regular rate Rhythm: regular rhythm Heart sounds: S1 normal heart sound present and S2 normal heart sound present GI Other: The abdomen was soft and did not seem particularly tender. Back/Spine/Pelvis Other: Equivocal left-sided CVA percussion tenderness. Skin Other: Skin was pale and dry. He has a dressing on the dorsum of the right hand where he had sutures placed a few days ago. Neuro Other: The patient was awake and alert. He has a an unusual demeanor which I think is baseline for him. He seems to prefer keeping his eyes closed. However pupils are round equal, extraocular movements are intact, face is symmetrical, tongue is midline, speech is without aphasia or dysarthria. He seems to have symmetrical tone in his extremities. No obvious focal neurological finding. General: no meningeal signs Extrem Other: The patient was wearing his splint on his right wrist has a result of his recent right hand injury. His extremities were otherwise unremarkable. Medications Administered Discontinued Medications Generic Name Dose Route Start Last Admin Trade Name Juarez PRN Reason Stop Dose Admin Diazepam 5 mg 08/08/25 01:44 08/08/25 02:21 Diazepam 10 Mg/2 Ml Cartridge IVPUSH 08/08/25 01:45 5 mg STAT STA Administration Sodium Chloride 1,000 mls @ 999 mls/hr 08/08/25 01:45 08/08/25 03:49 Ns IV 08/08/25 02:45 Infused .Q1H1M AMBAR Infusion Medical Decision Making Medical Decision Making [facility] Narrative: The patient is a 24-year-old male with autism who presents with dizziness. No significant physical findings on exam. My suspicion is that this may be a manifestation of anxiety. He was given IV fluids and a dose of IV diazepam. He felt considerably better and requested discharge home. Lab Data 08/08/25 02:13 08/08/25 02:13 Labs: Lab Results 08/08/25 Range/Units 02:13 WBC 6.8 (4.8-10.8) X10*3/uL RBC 5.36 (4.60-5.80) X10*6/uL Hgb 15.6 (14.0-18.0) g/dl Hct 44.1 (42.0-52.0) % MCV 82.3 (80.0-98.0) fL MCH 29.1 (27.0-33.0) pg MCHC 35.4 (31.0-36.0) g/dl RDW 12.0 (11.0-16.0) % Plt Count 174 (160-400) X10*3/uL MPV 11.0 (9.4-12.4) fL Immature Gran % (Auto) 0.3 (0.0-0.4) % Neut % (Auto) 59.8 (45-73) % Lymph % (Auto) 29.2 (20-40) % [place] % (Auto) 7.7 (2-11) % Eos % (Auto) 2.1 (0-4) % Baso % (Auto) 0.9 (0-2) % Lymph # (Auto) 2.0 (1.2-4.9) X10*3/uL [place] # (Auto) 0.5 (0.1-1.2) X10*3/uL Eos # (Auto) 0.1 (0.0-0.4) X10*3/uL Baso # (Auto) 0.1 (0.0-0.2) X10*3/uL Abs Immat Gran (auto) 0.02 (0.00-0.03) X10*3/uL Absolute Neuts (auto) 4.0 (2.0-8.3) x10*3/uL Absolute Nucleated RBC 0.000 (0.0-0.012) X10*3/uL Nucleated RBC % (auto) 0.0 (0.0-0.2) /100WBC Sodium 142 (135-145) mmol/L Potassium 4.2 (3.3-5.1) mmol/L Chloride 109 H (96-108) mmol/L Carbon Dioxide 25 (22-29) mmol/L Anion Gap 12 (12-20) BUN 15 (9-16) mg/dL Creatinine 0.95 (0.5-1.4) mg/dL Estim Creat Clear Calc 154.5 Estimated GFR > 60 Random Glucose 94 (60-115) mg/dL Calcium 8.8 (8.4-10.2) mg/dL Magnesium 2.0 (1.6-2.6) mg/dL Total Bilirubin 0.2 (0.0-1.0) mg/dL Direct Bilirubin < 0.2 (0.0-0.5) mg/dL AST 25 (5-37) U/L ALT 26 (0-40) U/L Alkaline Phosphatase 77 (39-117) U/L C-Reactive Protein 0.92 H (< or = 0.50) mg/dL Total Protein 6.7 (6.5-8.0) g/dL Albumin 3.8 (3.5-5.0) g/dL Lipase 30 (8-78) U/L Ethyl Alcohol < 10 mg/dL Independent Interpretation I performed an independent interpretation of an: EKG Interpretation: EKG at 01:47 shows normal sinus rhythm at 70 beats per minute. No significant change from previous EKGs. Discharge Plan Discharge Clinical Impression: Dizziness Patient Disposition: Home, Self-Care Additional Instructions: Your testing in the emergency room today is reassuring. Please be careful with drinking soda in the future. Continue all of your regular medications. Follow up with your primary care doctor soon. Return to the emergency room if you feel significantly worse. Prescriptions: No Action prazosin 5 mg capsule 5 mg PO BEDTIME PRN (Reason: Sleep) trazodone 150 mg tablet 150 mg PO BEDTIME PRN (Reason: Sleep) hydroxyzine HCl 25 mg tablet 25 mg PO BID PRN (Reason: Anxiety) Rx Instructions: Pharmacy noted prescription was 1-2 25 mg tabs BID PRN aripiprazole 15 mg tablet 15 mg PO QAM oxcarbazepine 300 mg tablet 600 mg PO BID clotrimazole [Lotrimin AF (clotrimazole)] 1 % cream 1 appl topical BID 28 Days Qty: 45 1RF ibuprofen 600 mg tablet 600 mg PO TID PRN (Reason: pain) Qty: 30 0RF erythromycin 5 mg/gram (0.5 %) ointment 0.5 inch ophthalmic-Left QID 7 Days Qty: 3.5 0RF ibuprofen 600 mg tablet 600 mg PO Q6H PRN (Reason: fever or pain) Qty: 30 0RF cholecalciferol (vitamin D3) 50 mcg (2,000 unit) capsule 50 mcg PO DAILY 90 Days Qty: 90 3RF Referrals: Kamran Lee MD [Primary Care Provider, Internal Medicine] Interventions: ED Discharge Assessment Last Done: 08/08/25 04:31 Discharge Date/Time: 08/08/25 04:39 Print Language: Djiboutian
--- OUTSIDE RECORDS SUMMARY | 2025-08-08 01:04 | XMS_ITS | Encounter Summary ---
Author Organization [facility] Address [address] [place] [address] Phone Care Team Providers Care Professional Architect Name Role Phone Unavailable Primary Care Provider Unavailabl e Encounter Details Date Type Department Care Team (Late st Contact Info) Description 12/25/2017 Patient Outreach [facility] [place] [address] [place] [address] Dana Crockett MD [address] [place] [address] Social History Tobacco Use Types Packs/Day Years [...]
--- OUTSIDE RECORDS SUMMARY | 2025-08-08 01:04 | XMS_ITS | Encounter Summary ---
Author Organization [facility] Address [address] [place] [address] Phone Care Team Providers Care Recruit Instructor Name Role Phone Unavailable Primary Care Provider Unavailabl e Encounter Details Date Type Department Care Team (Late st Contact Info) Description 12/31/2015 Documentation [facility] [place] [address] [place] [address] Family Medicine, Physician [facility] [place] [address] Social History Tobacco Use Types Packs/Day Years [...]
--- OUTSIDE RECORDS SUMMARY | 2025-08-08 01:04 | XMS_ITS | Encounter Summary ---
Author Organization [facility] Address [address] [place] [address] Phone Care Team Providers Care Hand Glove Cleaner Name Role Phone Unavailable Primary Care Provider Unavailabl e Encounter Details Date Type Department Care Team (Late st Contact Info) Description 06/14/2017 Conversion Encounter [facility] - [address] [address] Social History Tobacco Use Types Packs/Day Years [...]
--- OUTSIDE RECORDS SUMMARY | 2025-08-08 01:04 | XMS_ITS | Clinical Summary ---
Author Organization [facility] ity Address [address] [place] [address] Care Team Providers Care Securities Adviser Name Role Phone Unavailable Primary Care Provider [...]
--- OUTSIDE RECORDS SUMMARY | 2025-08-08 01:04 | XMS_ITS | Encounter Summary ---
Author Organization [facility] Address [address] [place] [address] Phone Care Team Providers Care Mate Relief Name Role Phone Unavailable Primary Care Provider Unavailabl e Encounter Details Date Type Department Care Team (Late st Contact Info) Description 05/04/[address] [facility] [place] Family Medicine [address] [place] [address] Family Medicine, [place] [address] Social History Tobacco Use Types Packs/Day Years [...]
--- OUTSIDE RECORDS SUMMARY | 2025-08-08 01:04 | XMS_ITS | Encounter Summary ---
Author Organization [facility] Address [address] [place] [address] Phone Care Team Providers Care Hand Stapler Name Role Phone Unavailable Primary Care Provider Unavailabl e Encounter Details Date Type Department Care Team (Late st Contact Info) Description 08/17/2010 Documentation [facility] [place] Family Medicine [address] [place] [address] Family Medicine, Physician [facility] [place] [address] Social History Tobacco Use Types Packs/Day Years [...]
--- OUTSIDE RECORDS SUMMARY | 2025-08-08 01:04 | XMS_ITS | Encounter Summary ---
Author Organization [facility] Address [address] [place] [address] Phone Care Team Providers Care Group Sales Manager Name Role Phone Unavailable Primary Care Provider Unavailabl e Encounter Details Date Type Department Care Team (Late st Contact Info) Description 05/14/2017 Documentation [facility] [place] [address] [place] [address] Family Medicine, Physician [place] [address] Social History Tobacco Use Types Packs/Day Years [...]
--- OUTSIDE RECORDS SUMMARY | 2025-08-08 01:04 | XMS_ITS | Encounter Summary ---
Author Organization [facility] Address [address] [place] [address] Phone Care Team Providers Care Area Development Consultant Name Role Phone Unavailable Primary Care Provider Unavailabl e Encounter Details Date Type Department Care Team (Late st Contact Info) Description 05/03/2017 Document[place] [facility] [place] [address] [place] [address] Family Medicine, Physician [facility] [place] [address] Social History Tobacco Use Types Packs/Day Years [...]
--- OUTSIDE RECORDS SUMMARY | 2025-08-08 01:04 | XMS_ITS | Encounter Summary ---
Author Organization [facility] Address [address] [place] [address] Phone Care Team Providers Care Auto Service Mechanic Name Role Phone Unavailable Primary Care Provider Unavailabl e Encounter Details Date Type Department Care Team (Late st Contact Info) Description 11/14/2012 Documentation [facility] [place] [address] [place] [address] Family Medicine, Physician [facility] [place] [address] Social History Tobacco Use Types Packs/Day Years [...]
--- OUTSIDE RECORDS SUMMARY | 2025-08-08 01:04 | XMS_ITS | Clinical Summary ---
Author Organization [facility] Address [address] [place] [address] Phone Care Team Providers Care Email Developer Name Role Phone Unavailable Primary Care [...] SI/HI Now followed by DR Sanders at [facility] Assessment & Plan (06/06/2020 10:57 AM EDT): On medication prescribed by Dr Sanders at [facility]. Assessment & Plan (06/04/2020 9:43 AM EDT): [...] to those you have been getting from [facility] - such as in home therapy. PDD [...] Other No family histo ry of *Sudden /MT under 55, Family history of *Heart Disease, [...] Additional history exists Procedures * Due to [place] Dropcam law, this organization might not be sharing sensitive test results. Procedure Name Priority Date/Time Associated Diagnosis Comments LIPID PANEL Routine 07/08/2019 3:49 PM EDT Mood disorder HEMOGLOBIN A1C Routine 07/08/2019 3:49 PM EDT Mood disorder from Last 3 Months or Most Recently Relevant to Health Maintenance Results * Due to [place] Dropcam law, this organization might not be sharing sensitive test results. * Hemoglobin A1c (07/08/2019 3:49 PM EDT) Hemoglobin A1C 5.1 (4-6) % [facility] Comment: HEMOGLOBIN A1C(%) GLUCOSE CONTROL INDEX <6% EXCELLENT 6-7% VERY GOOD 7-8% GOOD 8-10% FAIR >10% POOR Hemoglobin (Hb) A1c testing is performed by Barrett Lizy-quant immunoassay. Any cause of shortened erythrocyte survival will reduce exposure of erythrocytes to glucose with a consequent decrease in Hb A1c (%). Testing performed or reported by [facility], a Service of [address] [address] Blood 07/08/2019 3:49 PM EDT 07/08/2019 3:54 PM EDT Dana Crockett MD LAB BLOOD ORDERABLES Final R esult Performing Organization Address [facility] Co de Phone Number [facility] * (ABNORMAL) Lipid panel (07/08/2019 3:49 PM EDT) [facility] Cholesterol, Total 171(H) (<170) MG/DL [facility] HDL 32(L) (>45) MG/DL [facility] Non-HDL Cholesterol 139(H) (<120) MG/DL [facility] Comment: Testing performed or reported by [facility], a Service of [address] [address] Blood 07/08/2019 3:49 PM EDT 07/08/2019 3:54 PM EDT Dana Crockett MD LAB BLOOD ORDERABLES Final R esult Performing Organization Address [facility] Co de Phone Number [facility] from Last 3 Months or Most Recently Relevant to Health Maintenance Insurance [facility] NON PCC
--- OUTSIDE RECORDS SUMMARY | 2025-08-08 01:04 | XMS_ITS | Encounter Summary ---
Author Organization [facility] Address [address] [place] [address] Phone Care Team Providers Care Designer And Patternmaker Name Role Phone Unavailable Primary Care Provider Unavailabl e Encounter Details Date Type Department Care Team (Late st Contact Info) Description 01/03/2016 Documentation [facility] [place] [address] [place] [address] Family Medicine, Physician [facility] [place] [address] Social History Tobacco Use Types Packs/Day Years [...]
--- OUTSIDE RECORDS SUMMARY | 2025-08-08 01:04 | XMS_ITS | Encounter Summary ---
Author Organization [facility] Address [address] [place] [address] Phone Care Team Providers Care Robotics Software Engineer Name Role Phone Unavailable Primary Care Provider Unavailabl e Encounter Details Date Type Department Care Team (Late st Contact Info) Description 09/13/2016 Documentation [facility] [place] [address] [place] [address] Family Medicine, Physician [facility] [place] [address] Social History Tobacco Use Types Packs/Day Years [...]
--- OUTSIDE RECORDS SUMMARY | 2025-08-08 01:04 | XMS_ITS | Encounter Summary ---
Author Organization [facility] Address [address] [place] [address] Phone Care Team Providers Care Slab Stripper Name Role Phone Unavailable Primary Care Provider Unavailabl e Encounter Details Date Type Department Care Team (Late st Contact Info) Description 11/09/2011 Documentation [place] [facility] [address] [place] [address] Family Medicine, Physician [facility] [place] [address] Social History Tobacco Use Types Packs/Day Years [...]
--- OUTSIDE RECORDS SUMMARY | 2025-08-08 01:05 | XMS_ITS | Encounter Summary ---
Author Organization [facility] Address [address] [place] [address] Phone Care Team Providers Care Refinery Operator Helper Name Role Phone Unavailable Primary Care Provider Unavailabl e Reason for Visit * Reason Comments Med Refill Encounter Details Date Type Department Care Team (Late st Contact Info) Description 01/30/2019 Refill [facility] [place] [address] [place] [address] Venessa Can, RUBÉN [address] [address] Nightmares Social History Tobacco Use Types Packs/Day [...] has a med eval appt at [facility] in February. He needs psychiatry to prescribe his psych meds. * Telephone Encounter - Dana Crockett MD - 01/30/2019 6:32 PM EDT Glenn was seeing Dr Younger. Pt was seeing counselor at [facility]. He was in [facility] recently. 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 He had a meltdown and his counselor was calledand sent him to [facility] where he was for 3-4 day. They were unable to treat him. Family has been trying to find programs for him. He is scheduled for a med eval at [facility] - was supposed to be seen last [...] viera and is on Prazosin. Dept of [facility] does not support family getting guardianship. [facility] recommended a follow up program which [...]
--- NOTE | 2025-08-08 01:36 | PC.NURSE ---
Assumed care of pt, presents with dizziness, nausea, and left side flank s/p drinking x3 2L soda bottles, pt states the pain started approxiamately 5pm yesterday, father is at bedside, 5/10 pain non-radiating
--- NOTE | 2025-08-08 01:38 | ECG_ITS ---
Test Reason : DIZZINESS Blood Pressure : */* mmHG Vent. Rate : 70 BPM Atrial Rate : 70 BPM P-R Int : 176 ms QRS Dur : 96 ms QT Int : 398 ms P-R-T Axes : 19 22 24 degrees QTcB Int : 429 ms Normal sinus rhythm Nonspecific ST abnormality Abnormal ECG When compared with ECG of 19-Jan-2025 09:26, No significant change was found Referred By: Toni Rosa Electronically Signed By: LYNDSEY IVEY MD
[2025-08-08 02:17] LABS: MANUAL DIFF FLAG NO
[2025-08-08 02:19] LABS: Hematocrit 44.1 % (42.0-52.0); Hemoglobin 15.6 g/dl (14.0-18.0); Imm Gran Abs Auto 0.02 X10*3/uL (0.00-0.03); Imm Gran Pct Auto 0.3 % (0.0-0.4); Lymphocytes Absolute Auto 2.0 X10*3/uL (1.2-4.9); Mean Corpuscular HGB Conc 35.4 g/dl (31.0-36.0); Mean Corpuscular Hemoglobin 29.1 pg (27.0-33.0); Mean Corpuscular Volume 82.3 fL (80.0-98.0); NRBC Abs Auto 0.000 X10*3/uL (0.0-0.012); NRBC Pct Auto 0.0 /100WBC (0.0-0.2); Platelet Count 174 X10*3/uL (160-400); Red Blood Count 5.36 X10*6/uL (4.60-5.80); White Blood Count 6.8 X10*3/uL (4.8-10.8)
[2025-08-08] MEDS: diazePAM 10 MG/2 ML CARTRIDGE 5 MG IVPUSH (02:21)
[2025-08-08 02:37] LABS: Alanine Aminotransferase 26 U/L (0-40); Albumin Level 3.8 g/dL (3.5-5.0); Alkaline Phosphatase 77 U/L (39-117); Anion Gap 12 (12-20); Aspartate Amino Transferase 25 U/L (5-37); Blood Urea Nitrogen 15 mg/dL (9-16); Calcium 8.8 mg/dL (8.4-10.2); Carbon Dioxide 25 mmol/L (22-29); Chloride 109 mmol/L (96-108); Creatinine Clr Calc Pharmacy 154.5; Estimated Glomerular Filt Rate > 60; Lipase 30 U/L (8-78); Magnesium 2.0 mg/dL (1.6-2.6); Potassium 4.2 mmol/L (3.3-5.1); Sodium 142 mmol/L (135-145); Total Protein 6.7 g/dL (6.5-8.0)
[2025-08-08 03:37] VITALS: BP 142/83; PULSE 68; RESP 16; TEMP 37.1; O2SAT 97
[2025-08-08 04:31] VITALS: BP 142/83; PULSE 68; RESP 16; TEMP 37.1; O2SAT 97
== END 2025-08-08 04:39 | disposition home or self-care (01) ==
PROVIDERS: Emergency Provider Emergency Medicine; PCP Internal Medicine
DX: R11.2 Nausea with vomiting, unspecified (principal); R42 Dizziness and giddiness; R10.22 Pelvic and perineal pain left side; R94.31 Abnormal electrocardiogram [ECG] [EKG]; Z79.899 Other long term (current) drug therapy
CPT/HCPCS: 36415; 80048; 80076; 80307; 83690; 83735; 85025; 86140; 93005; 96361; 96374; 99284; 99285; J3360

== ENCOUNTER → 2025-08-08 01:38 | Outpatient (BNV) | payer OTHER, SELFPAY | PROVIDERS: Emergency Provider Emergency Medicine; PCP Internal Medicine; Visit Provider Internal Medicine Cardiovascular Disease | DX: R94.31 Abnormal electrocardiogram [ECG] [EKG] (principal); R42 Dizziness and giddiness | CPT/HCPCS: 93010 ==

== ENCOUNTER 2025-08-14 09:44 | Emergency (ER) | payer OTHER, SELFPAY ==
[2025-08-14 09:46] VITALS: BP 125/69; PULSE 89; RESP 18; TEMP 36.1; O2SAT 94; BMI 33.2
--- NOTE | 2025-08-14 10:06 | ED.GENADULT ---
HPI - General Adult General Chief complaint: General Medical Stated complaint: suture removal Time Seen by Provider: 08/14/25 09:54 Source: patient Mode of arrival: ambulatory Limitations: no limitations History of Present Illness ED Provider: VIVI Galvez HPI narrative: 24-year-old male presents for suture removal to right hand. Offers no complaints. Related Data Home Medications ?Medication ?Instructions ?Recorded ?Confirmed aripiprazole 15 mg tablet 15 mg PO QAM 09/17/20 03/12/25 hydroxyzine HCl 25 mg tablet 25 mg PO BID PRN Anxiety 09/17/20 03/12/25 prazosin 5 mg capsule 5 mg PO BEDTIME PRN Sleep 09/17/20 03/12/25 trazodone 150 mg tablet 150 mg PO BEDTIME PRN Sleep 09/17/20 03/12/25 oxcarbazepine 300 mg tablet 600 mg PO BID 07/05/22 03/12/25 Previous Rx's ?Medication ?Instructions ?Recorded cholecalciferol (vitamin D3) 50 50 mcg PO DAILY 90 days #90 caps 11/20/24 mcg (2,000 unit) capsule ibuprofen 600 mg tablet 600 mg PO TID PRN pain #30 tabs 02/13/25 erythromycin 5 mg/gram (0.5 %) eye 0.5 inch ophthalmic-Left QID 7 02/28/25 ointment days #3.5 grams ibuprofen 600 mg tablet 600 mg PO Q6H PRN fever or pain 05/10/25 #30 tabs clotrimazole 1 % topical cream 1 appl topical BID 4 weeks #45 07/23/25 (Lotrimin AF (clotrimazole)) grams Allergies Allergy/AdvReac Type Severity Reaction Status Date / Time apple AdvReac Severe DIARRHEA Verified 08/14/25 09:49 POTATO JUICE Allergy Intermediate RASH Uncoded 08/08/25 00:44 Review of Systems Review of Systems: Yes all other systems are reviewed and are negative PMFSH Past Medical History Attestation statement: The following information was validated with the patient. Source: old records reviewed and nursing notes reviewed Medical History Mixed hyperlipidemia Vitamin D deficiency Right knee pain Obesity (BMI 30-39.9) Inversion sprain of right ankle Syncope Intellectual disability COVID-19 Surgical History History of placement of ear tubes Family History Family History Father No problems noted. Mother Heart problem Social History Social History Household Members: Family and Other Household Members Other:: Mom, stepdad, sister, brother, 2 nephews Housing: House Do you presently have visiting nurse or other home services: No Alcohol intake: never Patient Tobacco Use Status: Never used Tobacco e-Cigarette/Vaping Use: Never Used Second Hand Smoke Exposure: Yes Advance Directives: Yes Advance Directives on File: Yes Advance Directives Date on File: 11/10/21 service: No Current occupational status: disabled Sexual orientation: Don't Know Cognitive needs: No Hearing needs: No Vision needs: No Physical Exam ED Exam Exam: Appearance: Alert.? Oriented X3.? No acute distress.? Head: Normocephalic, atraumatic, no step-offs or deformities Eyes: Pupils equal, round and reactive to light.? Neck: Normal inspection.? Neck supple.? CVS: Pulses normal.? Respiratory: No respiratory distress.? Skin: Skin warm and dry.? Normal skin color.? Normal skin turgor.?+ right hand w/ 6 stitches no erythema warmth or signs of infection Extremities: No lower extremity edema.? No calf ttp. 5/5 strength to bilateral upper and lower extremities Neuro: Oriented X 3.? No motor deficit.? No sensory deficit. Vital Signs: Vital Signs - 24 hr 08/14/25 09:46 Temperature 97.0 F Pulse Rate 89 Respiratory Rate 18 Blood Pressure 125/69 Pulse Oximetry 94 Oxygen Delivery Method Room Air BMI result Body Mass Index 33.2 vss Course Reevaluation(s) Reevaluation #1: Sutures removed, it was difficult to remove some of the sutures as he had a very thick scab overlying. I explained that there could be 1 retained suture and if this is a case he could come back to get it removed after it falls off. He was not tolerating me removing part of the scab very well. Educated patient on diagnosis and treatment plan, answered all question, patient verbalizes understanding. At this time patient will be discharged home, advised to return with new or worsening symptoms. Educated on worrisome signs and symptoms and when to return. At this time I feel comfortable discharge home. Time: 10:08 Medical Decision Making Medical Decision Making MDM Narrative: 24-year-old male presents for suture removal to right hand Right hand with [address]. No signs of infection This is likely simple suture removal no signs of cellulitis or osteomyelitis. Plan remove sutures Differential Diagnosis Differential Diagnoses: The differential diagnosis associated with the presentation includes (This is likely simple suture removal no signs of cellulitis osteomyelitis.) External Record Review External record reviewed: Inpatient record, Office record, Outpatient record, Prior outpatient labs, Prior outpatient radiology, Primary care record and Outside ED record Discharge Plan Discharge Clinical Impression: Visit for suture removal Patient Disposition: Home, Self-Care Instructions: Stitches Removal (ED) Additional Instructions: Take your medications as prescribed. If you were prescribed antibiotics today, it is important that you take your medication to their entirety, do not skip any doses, do not finish them early. Follow-up with your primary care provider this week. Return to the emergency department with new or worsening symptoms. Such as fevers, chills, chest pain, shortness of breath, nausea, vomiting, dizziness, headache, vision changes, lethargy In case of emergency call 911 Prescriptions: No Action prazosin 5 mg capsule 5 mg PO BEDTIME PRN (Reason: Sleep) trazodone 150 mg tablet 150 mg PO BEDTIME PRN (Reason: Sleep) hydroxyzine HCl 25 mg tablet 25 mg PO BID PRN (Reason: Anxiety) Rx Instructions: Pharmacy noted prescription was 1-2 25 mg tabs BID PRN aripiprazole 15 mg tablet 15 mg PO QAM oxcarbazepine 300 mg tablet 600 mg PO BID clotrimazole [Lotrimin AF (clotrimazole)] 1 % cream 1 appl topical BID 28 Days Qty: 45 1RF ibuprofen 600 mg tablet 600 mg PO TID PRN (Reason: pain) Qty: 30 0RF erythromycin 5 mg/gram (0.5 %) ointment 0.5 inch ophthalmic-Left QID 7 Days Qty: 3.5 0RF ibuprofen 600 mg tablet 600 mg PO Q6H PRN (Reason: fever or pain) Qty: 30 0RF cholecalciferol (vitamin D3) 50 mcg (2,000 unit) capsule 50 mcg PO DAILY 90 Days Qty: 90 3RF Referrals: Kamran Lee MD [Primary Care Provider, Internal Medicine] Print Language: Ukrainian
[2025-08-14 11:32] VITALS: BP 125/69; PULSE 89; RESP 18; TEMP 36.1; O2SAT 94
--- OUTSIDE RECORDS SUMMARY | 2025-08-14 11:47 | XMS_ITS | Encounter Summary ---
Author Organization [facility] Address [address] [place] [address] Phone Care Team Providers Care Flight Test Engineer Name Role Phone Unavailable Primary Care Provider Unavailabl e Encounter Details Date Type Department Care Team (Late st Contact Info) Description 11/09/2011 [place] [facility] [place] [address] [place] [address] Family Medicine, Physician [place] [address] Social History Tobacco Use Types Packs/Day Years [...]
--- OUTSIDE RECORDS SUMMARY | 2025-08-14 11:47 | XMS_ITS | Encounter Summary ---
Author Organization [facility] Address [address] [place] [address] Phone Care Team Providers Care Director Of Reimbursement Name Role Phone Unavailable Primary Care Provider Unavailabl e Encounter Details Date Type Department Care Team (Late st Contact Info) Description 12/25/2017 Patient Outreach [facility] [place] [address] [place] [address] Dana Crockett MD [address] [place] [address] Social History Tobacco Use Types Packs/Day Years [...]
--- OUTSIDE RECORDS SUMMARY | 2025-08-14 11:48 | XMS_ITS | Encounter Summary ---
Author Organization [facility] Address [address] [place] [address] Phone Care Team Providers Care Record Changer Assembler Name Role Phone Unavailable Primary Care Provider Unavailabl e Encounter Details Date Type Department Care Team (Late st Contact Info) Description 06/14/2017 Conversion Encounter [facility] - [address] [address] Social History Tobacco Use Types Packs/Day Years [...]
--- OUTSIDE RECORDS SUMMARY | 2025-08-14 11:48 | XMS_ITS | Encounter Summary ---
Author Organization [facility] Address [address] [place] [address] Phone Care Team Providers Care Carbide Powder Processor Name Role Phone Unavailable Primary Care Provider Unavailabl e Encounter Details Date Type Department Care Team (Late st Contact Info) Description 09/13/2016 Documentation [facility] [place] [address] [place] [address] Family Medicine, Physician [facility] [place] [address] Social History Tobacco Use Types Packs/Day Years [...]
--- OUTSIDE RECORDS SUMMARY | 2025-08-14 11:48 | XMS_ITS | Encounter Summary ---
Author Organization [facility] Address [address] [place] [address] Phone Care Team Providers Care Sql Manager Name Role Phone Unavailable Primary Care Provider Unavailabl e Encounter Details Date Type Department Care Team (Late st Contact Info) Description 05/14/2017 Documentation [facility] [place] [address] [place] [address] Family Medicine, Physician [place] [place] [address] Social History Tobacco Use Types Packs/Day Years [...]
--- OUTSIDE RECORDS SUMMARY | 2025-08-14 11:48 | XMS_ITS | Encounter Summary ---
Author Organization [facility] Address [address] [place] [address] Phone Care Team Providers Care Teacher Tutor Name Role Phone Unavailable Primary Care Provider Unavailabl e Reason for Visit * Reason Comments Med Refill Encounter Details Date Type Department Care Team (Late st Contact Info) Description 01/30/2019 Refill [facility] [place] [address] [place] [address] Venessa Can, RUBÉN [address] [address] Nightmares Social History Tobacco Use Types Packs/Day [...] He has a med eval appt at [facility] in February. He needs psychiatry to prescribe his psych meds. * Telephone Encounter - Dana Crockett MD - 01/30/2019 6:32 PM EDT Glenn was seeing Dr Younger. [place] [facility] [place] He [facility] recently. 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 He had a meltdown and his counselor was calledand sent him to [facility] where he was for 3-4 day. They were unable to treat him. Family has been trying to find programs for him. He is scheduled for a med eval at [facility] - was supposed to be seen [...] viera and is on Prazosin. Dept of [facility] does not support family getting guardianship. [facility] recommended a follow up program which [...]
--- OUTSIDE RECORDS SUMMARY | 2025-08-14 11:48 | XMS_ITS | Clinical Summary ---
Author Organization [facility] Address [address] [place] [address] Phone Care Team Providers Care Wellness Ambassador Name Role Phone Unavailable Primary Care Provider [...] SI/HI Now followed by DR Sanders at [facility] Assessment & Plan (06/06/2020 10:57 AM EDT): On medication prescribed by Dr Sanders at [facility]. Assessment & Plan (06/04/2020 9:43 AM [...] to those you have been getting [place] [facility] - such as in home therapy. PDD [...] Other No family histo ry of *Sudden /[place] under 55, Family history of *Heart Disease, [...] Additional history exists Procedures * Due to [place] CY[place]RA law, this organization might not be sharing sensitive test results. Procedure Name Priority Date/Time Associated Diagnosis Comments LIPID PANEL Routine 07/08/2019 3:49 PM EDT Mood disorder HEMOGLOBIN A1C Routine 07/08/2019 3:49 PM EDT Mood disorder from Last 3 Months or Most Recently Relevant to Health Maintenance Results * Due to [place] CYBRA law, this organization might not be sharing sensitive test results. * Hemoglobin A1c (07/08/2019 3:49 PM EDT) Hemoglobin A1C 5.1 (4-6) % [facility] Comment: HEMOGLOBIN A1C(%) GLUCOSE CONTROL INDEX <6% EXCELLENT 6-7% VERY GOOD 7-8% GOOD 8-10% FAIR >10% POOR Hemoglobin (Hb) A1c testing is performed by Barrett Lizy-quant immunoassay. Any cause of shortened erythrocyte survival will reduce exposure of erythrocytes to glucose with a consequent decrease in Hb A1c (%). Testing performed or reported by [facility], a Service of [address] [address] Blood 07/08/2019 3:49 PM EDT 07/08/2019 3:54 PM EDT Dana Crockett MD LAB BLOOD ORDERABLES Final R esult Performing Organization Address [facility] Co de Phone Number [facility] * (ABNORMAL) Lipid panel (07/08/2019 3:49 PM EDT) [facility] Cholesterol, Total 171(H) (<170) MG/DL [facility] HDL 32(L) (>45) MG/DL [facility] Non-HDL Cholesterol 139(H) (<120) MG/DL [facility] Comment: Testing performed or reported by [facility], a Service of [address] [address] Blood 07/08/2019 3:49 PM EDT 07/08/2019 3:54 PM EDT Dana Crockett MD LAB BLOOD ORDERABLES Final R esult Performing Organization Address [facility] Co de Phone Number [facility] from Last 3 Months or Most Recently Relevant to Health Maintenance Insurance [facility] NON PCC
--- OUTSIDE RECORDS SUMMARY | 2025-08-14 11:48 | XMS_ITS | Encounter Summary ---
Author Organization [facility] Address [address] [place] [address] Phone Care Team Providers Care Attending Urologist Name Role Phone Unavailable Primary Care Provider Unavailabl e Encounter Details Date Type Department Care Team (Late st Contact Info) Description 05/04/2017 [place] [facility] [place] [address] [place] [address] Family Medicine, Physician [facility] [place] [address] Social History Tobacco Use Types Packs/Day Years [...]
--- OUTSIDE RECORDS SUMMARY | 2025-08-14 11:48 | XMS_ITS | Encounter Summary ---
Author Organization [facility] Address [address] [place] [address] Phone Care Team Providers Care Artificial Limb Fitter Name Role Phone Unavailable Primary Care Provider Unavailabl e Encounter Details Date Type Department Care Team (Late st Contact Info) Description 05/03/2017 Documentation [facility] [place] [address] [place] [address] Family Medicine, Physician [place] [address] Social History Tobacco Use Types Packs/Day Years [...]
--- OUTSIDE RECORDS SUMMARY | 2025-08-14 11:48 | XMS_ITS | Encounter Summary ---
Author Organization [facility] Address [address] [place] [address] Phone Care Team Providers Care Paper Rewinder Name Role Phone Unavailable Primary Care Provider Unavailabl e Encounter Details Date Type Department Care Team (Late st Contact Info) Description 08/17/2010 Documentation [facility] [place] [address] [place] [address] Family Medicine, [place] [address] Social History Tobacco Use Types Packs/Day Years [...]
--- OUTSIDE RECORDS SUMMARY | 2025-08-14 11:48 | XMS_ITS | Encounter Summary ---
Author Organization [facility] Address [address] [place] [address] Phone Care Team Providers Care Nature Photographer Name Role Phone Unavailable Primary Care Provider Unavailabl e Encounter Details Date Type Department Care Team (Late st Contact Info) Description 11/14/2012 Documentation [facility] [place] [address] [place] [address] Family Medicine, Physician [facility] [place] [address] Social History Tobacco Use Types Packs/Day Years [...]
--- OUTSIDE RECORDS SUMMARY | 2025-08-14 11:48 | XMS_ITS | Clinical Summary ---
Author Organization [facility] ity Address [address] [place] [address] Care Team Providers Care Telegraph Installer Name Role Phone Unavailable Primary Care [...]
--- OUTSIDE RECORDS SUMMARY | 2025-08-14 11:48 | XMS_ITS | Encounter Summary ---
Author Organization [facility] Address [address] [place] [address] Phone Care Team Providers Care Knock Up Assembler Name Role Phone Unavailable Primary Care Provider Unavailabl e Encounter Details Date Type Department Care Team (Late st Contact Info) Description 01/03/2016 Documentation [facility] [place] [address] [place] [address] Family Medicine, Physician [facility] [place] [address] Social History Tobacco Use Types Packs/Day Years [...]
--- OUTSIDE RECORDS SUMMARY | 2025-08-14 11:48 | XMS_ITS | Encounter Summary ---
Author Organization [facility] Address [address] [place] [address] Phone Care Team Providers Care Seismograph Recorder Name Role Phone Unavailable Primary Care Provider Unavailabl e Encounter Details Date Type Department Care Team (Late st Contact Info) Description 12/31/2015 Documentation [facility] [place] [address] [place] [address] Family Medicine, [place] [address] Social History Tobacco Use Types Packs/Day Years [...]
== END 2025-08-14 11:32 | disposition home or self-care (01) ==
PROVIDERS: Emergency Provider Emergency Medicine; PCP Internal Medicine
DX: Z48.02 Encounter for removal of sutures (principal); Z79.899 Other long term (current) drug therapy
CPT/HCPCS: 99282

== ENCOUNTER 2025-10-11 00:22 | Emergency (ER) | payer OTHER, SELFPAY ==
[2025-10-11 00:54] VITALS: BP 155/81; PULSE 116; RESP 18; TEMP 36.7; O2SAT 97; BMI 34.1
[2025-10-11 02:14] LABS: Resp Syncy Virus RNA Qual PCR NEGATIVE (Negative); SARS COV2 PCR INHOUSE NEGATIVE (Negative)
--- OUTSIDE RECORDS SUMMARY | 2025-10-11 02:16 | XMS_ITS | Encounter Summary ---
Author Organization [facility] Address [address] [place] [address] Phone Care Team Providers Care Mill Hand Plate Mill Name Role Phone Unavailable Primary Care Provider Unavailabl e Reason for Visit * Reason Comments Med Refill Encounter Details Date Type Department Care Team (Late st Contact Info) Description 01/30/2019 Refill [facility] [place] [address] [place] [address] Venessa Can, RUBÉN [address] [address] Nightmares Social History Tobacco Use Types Packs/Day [...] Dr Younger. Pt was seeing counselor [facility] 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 He had a meltdown and his counselor was calledand [facility] he was for [facility]-4 day. [...] viera and is on Prazosin. Dept of [facility] does not support family getting guardianship. [facility] recommended a follow up program which [...]
--- OUTSIDE RECORDS SUMMARY | 2025-10-11 02:16 | XMS_ITS | Clinical Summary ---
Author Organization [facility] Address [address] [place] [address] Phone Care Team Providers Care Production Underwriter Name Role Phone Unavailable Primary Care Provider [...] SI/HI Now followed by DR Sanders at [facility] Assessment & Plan (06/06/2020 10:57 AM EDT): On medication prescribed by Dr Sanders at [facility]. Assessment & Plan (06/04/2020 9:43 AM EDT): [...] to those you have been getting from [facility] - such as in home therapy. PDD [...] Other No family histo ry of *Sudden /[place] under 55, Family history of *Heart Disease, [...] Additional history exists Procedures * Due to [place] law, this organization might not be sharing sensitive test results. Procedure Name Priority Date/Time Associated Diagnosis Comments LIPID PANEL Routine 07/08/2019 3:49 PM EDT Mood disorder HEMOGLOBIN A1C Routine 07/08/2019 3:49 PM EDT Mood disorder from Last 3 Months or Most Recently Relevant to Health Maintenance Results * Due to [place] law, this organization might not be sharing sensitive test results. * Hemoglobin A1c (07/08/2019 3:49 PM EDT) Hemoglobin A1C 5.1 (4-6) % [facility] Comment: HEMOGLOBIN A1C(%) GLUCOSE CONTROL INDEX <6% EXCELLENT 6-7% VERY GOOD 7-8% GOOD 8-10% FAIR >10% POOR Hemoglobin (Hb) A1c testing is performed by Barrett Lizy-quant immunoassay. Any cause of shortened erythrocyte survival will reduce exposure of erythrocytes to glucose with a consequent decrease in Hb A1c (%). Testing performed or reported by [facility], a Service of [address] [address] Blood 07/08/2019 3:49 PM EDT 07/08/2019 3:54 PM EDT Dana Crockett MD LAB BLOOD ORDERABLES Final R esult Performing Organization Address [facility] Co de Phone Number [facility] * (ABNORMAL) Lipid panel (07/08/2019 3:49 PM EDT) [facility] [address] Cholesterol, Total 171(H) (<170) MG/DL [facility] HDL 32(L) (>45) MG/DL [facility] Non-HDL Cholesterol 139(H) (<120) MG/DL [facility] Comment: Testing performed or reported by [facility], a Service of [address] [address] Blood 07/08/2019 3:49 PM EDT 07/08/2019 3:54 PM EDT Dana Crockett MD LAB BLOOD ORDERABLES Final R esult Performing Organization Address [facility] Co de Phone Number [facility] from Last 3 Months or Most Recently Relevant to Health Maintenance Insurance [facility] NON PCC
--- OUTSIDE RECORDS SUMMARY | 2025-10-11 02:16 | XMS_ITS | Encounter Summary ---
Author Organization [facility] Address [address] [place] [address] Phone Care Team Providers Care Motor Vehicle Parts Interpreter Name Role Phone Unavailable Primary Care Provider Unavailabl e Encounter Details Date Type Department Care Team (Late st Contact Info) Description 06/14/2017 Conversion Encounter [facility] - [address] [address] Social History Tobacco Use Types Packs/Day Years [...]
--- OUTSIDE RECORDS SUMMARY | 2025-10-11 02:16 | XMS_ITS | Clinical Summary ---
Author Organization [facility] ity Address [address] [place] [address] Care Team Providers Care Pan Devulcanizer Name Role Phone Unavailable Primary Care Provider [...] Depression Screening 10/29/2024 COVID-19 Vaccine (1 - 2024-2 6 season) 2025 Influenza Vaccine (#1) 2025 RSV [...]
--- OUTSIDE RECORDS SUMMARY | 2025-10-11 02:16 | XMS_ITS | Encounter Summary ---
Author Organization [facility] Address [address] [place] [address] Phone Care Team Providers Care Adobe Developer Name Role Phone Unavailable Primary Care Provider Unavailabl e Encounter Details Date Type Department Care Team (Late st Contact Info) Description 11/14/2012 Documentation [facility] [place] [address] [place] [address] Family Medicine, Physician [place] [address] Social History Tobacco Use Types Packs/Day Years [...]
--- OUTSIDE RECORDS SUMMARY | 2025-10-11 02:16 | XMS_ITS | Encounter Summary ---
Author Organization [facility] Address [address] [place] [address] Phone Care Team Providers Care Hotel Dining Room Cashier Name Role Phone Unavailable Primary Care Provider Unavailabl e Encounter Details Date Type Department Care Team (Late st Contact Info) Description 08/17/2010 Documentation [facility] [place] [address] [place] [address] Family Medicine, Physician [facility] [place] [address] Social History Tobacco Use Types Packs/Day Years [...]
--- OUTSIDE RECORDS SUMMARY | 2025-10-11 02:16 | XMS_ITS | Encounter Summary ---
Author Organization [facility] Address [address] [place] [phone] Phone Care Team Providers Care Refuge Manager Name Role Phone Unavailable Primary Care Provider Unavailabl e Encounter Details Date Type Department Care Team (Late st Contact Info) Description 09/13/2016 Documentation [facility] [place] Family Medicine [address] [place] [address] Family Medicine, Physician [facility] [place] [address] Social History Tobacco Use Types Packs/Day Years [...]
--- OUTSIDE RECORDS SUMMARY | 2025-10-11 02:16 | XMS_ITS | Encounter Summary ---
Author Organization [facility] Address [address] [place] [phone] Phone Care Team Providers Care Health Lead Name Role Phone Unavailable Primary Care Provider Unavailabl e Encounter Details Date Type Department Care Team (Late st Contact Info) Description 12/25/2017 Patient Outreach [facility] [place] [address] [place] [address] Dana Crockett MD [address] [place] [address] Social History Tobacco Use Types Packs/Day Years [...]
--- OUTSIDE RECORDS SUMMARY | 2025-10-11 02:16 | XMS_ITS | Encounter Summary ---
Author Organization [facility] Address [address] [place] [address] Phone Care Team Providers Care Secondary Spanish Teacher Name Role Phone Unavailable Primary Care Provider Unavailabl e Encounter Details Date Type Department Care Team (Late st Contact Info) Description 05/04/2017 Documentation [facility] [place] Family Medicine [address] [place] [address] Family Medicine, [place] [address] Social History Tobacco Use Types Packs/Day Years [...]
--- OUTSIDE RECORDS SUMMARY | 2025-10-11 02:16 | XMS_ITS | Encounter Summary ---
Author Organization [facility] Address [address] [place] [address] Phone Care Team Providers Care Pig Iron Loader Name Role Phone Unavailable Primary Care Provider Unavailabl e Encounter Details Date Type Department Care Team (Late st Contact Info) Description 05/03/2017 Documentation [facility] [place] Medicine [address] [place] [address] Family Medicine, [place] [address] Social History Tobacco Use Types Packs/Day Years [...]
--- OUTSIDE RECORDS SUMMARY | 2025-10-11 02:16 | XMS_ITS | Encounter Summary ---
Author Organization [facility] Address [address] [place] [address] Phone Care Team Providers Care Meter Repairer Helper Name Role Phone Unavailable Primary Care Provider Unavailabl e Encounter Details Date Type Department Care Team (Late st Contact Info) Description 01/03/2016 Documentation [facility] [place] [address] [place] [address] Family Medicine, Physician [facility] [address] Social History Tobacco Use Types Packs/Day Years [...]
--- OUTSIDE RECORDS SUMMARY | 2025-10-11 02:16 | XMS_ITS | Encounter Summary ---
Author Organization [facility] Address [address] [place] [phone] Phone Care Team Providers Care Robotic Weld Technician Name Role Phone Unavailable Primary Care Provider Unavailabl e Encounter Details Date Type Department Care Team (Late st Contact Info) Description 11/09/2011 Documentation [facility] [place] [address] [place] [address] Family Medicine, Physician [place] [address] Social History Tobacco Use Types Packs/Day Years [...]
--- OUTSIDE RECORDS SUMMARY | 2025-10-11 02:16 | XMS_ITS | Encounter Summary ---
Author Organization [facility] Address [address] [place] [address] Phone Care Team Providers Care Sales Administrator Name Role Phone Unavailable Primary Care Provider Unavailabl e Encounter Details Date Type Department Care Team (Late st Contact Info) Description 12/31/[address] [facility] [place] Family Medicine [address] [place] [address] Family Medicine, Physician [facility] [place] [address] Social History Tobacco Use Types Packs/Day Years [...]
--- OUTSIDE RECORDS SUMMARY | 2025-10-11 02:16 | XMS_ITS | Encounter Summary ---
Author Organization [facility] Address [address] [place] [phone] Phone Care Team Providers Care Planning Aide Name Role Phone Unavailable Primary Care Provider Unavailabl e Encounter Details Date Type Department Care Team (Late st Contact Info) Description 05/14/2017 Documentation [facility] [place] [address] [place] [address] Family Medicine, Physician [facility] [place] [address] Social History Tobacco Use Types Packs/Day Years [...]
[2025-10-11 02:30] LABS: IDNOW Serial# 16C4AD1C; Strep A Nucleic Acid Negative (Negative)
[2025-10-11 03:12] VITALS: BP 129/65; PULSE 101; RESP 16; TEMP 36.6; O2SAT 96
--- NOTE | 2025-10-11 03:41 | ED.GENADULT ---
HPI - General Adult General Chief complaint: Ear Problems Stated complaint: pain behind ear Time Seen by Provider: 10/11/25 02:08 Source: patient Limitations: no limitations History of Present Illness ED Provider: Eva Zaldivar PA-C HPI narrative: 24-year-old male with a history of recurrent ear infection, autism spectrum disorder, bipolar disorder, intellectual disability, morbid obesity, and hyperlipidemia who presents with right ear pain x1 day. Patient states the right ear is throbbing, with the associated sore throat. Denies fever. Related Data Home Medications ?Medication ?Instructions ?Recorded ?Confirmed aripiprazole 15 mg tablet 15 mg PO QAM 09/17/20 03/12/25 hydroxyzine HCl 25 mg tablet 25 mg PO BID PRN Anxiety 09/17/20 03/12/25 prazosin 5 mg capsule 5 mg PO BEDTIME PRN Sleep 09/17/20 03/12/25 trazodone 150 mg tablet 150 mg PO BEDTIME PRN Sleep 09/17/20 03/12/25 oxcarbazepine 300 mg tablet 600 mg PO BID 07/05/22 03/12/25 Previous Rx's ?Medication ?Instructions ?Recorded cholecalciferol (vitamin D3) 50 50 mcg PO DAILY 90 days #90 caps 11/20/24 mcg (2,000 unit) capsule ibuprofen 600 mg tablet 600 mg PO TID PRN pain #30 tabs 02/13/25 erythromycin 5 mg/gram (0.5 %) eye 0.5 inch ophthalmic-Left QID 7 02/28/25 ointment days #3.5 grams ibuprofen 600 mg tablet 600 mg PO Q6H PRN fever or pain 05/10/25 #30 tabs clotrimazole 1 % topical cream 1 appl topical BID 4 weeks #45 07/23/25 (Lotrimin AF (clotrimazole)) grams amoxicillin 500 mg capsule 500 mg PO Q12H #19 caps 10/11/25 ibuprofen 600 mg tablet 600 mg PO Q6H PRN fever or pain 10/11/25 #30 tabs Allergies Allergy/AdvReac Type Severity Reaction Status Date / Time apple AdvReac Severe DIARRHEA Verified 10/11/25 00:57 POTATO JUICE Allergy Intermediate RASH Uncoded 08/08/25 00:44 Review of Systems Review of Systems: Yes all other systems are reviewed and are negative Constitutional: Constitutional: Denies fatigue and Denies fever(s) ENT: Reports otalgia and Reports sore throat Respiratory: Respiratory: Denies cough Endocrine: Endocrine: Denies fatigue PMFSH Past Medical History Attestation statement: The following information was validated with the patient. Medical History Mixed hyperlipidemia Vitamin D deficiency Right knee pain Obesity (BMI 30-39.9) Inversion sprain of right ankle Syncope Intellectual disability COVID-19 Surgical History History of placement of ear tubes Family History Family History Father No problems noted. Mother Heart problem Social History Social History Household Members: Family and Other Household Members Other:: Mom, stepdad, sister, brother, 2 nephews Housing: House Do you presently have visiting nurse or other home services: No Alcohol intake: never Patient Tobacco Use Status: Never used Tobacco e-Cigarette/Vaping Use: Never Used Second Hand Smoke Exposure: Yes Advance Directives: Yes Advance Directives on File: Yes Advance Directives Date on File: 11/10/21 Do you have a plan to hurt others: No Plan service: No Current occupational status: disabled Sexual orientation: Don't Know Cognitive needs: No Hearing needs: No Vision needs: No Physical Exam ED Vital Signs: Vital Signs - 24 hr 10/11/25 00:54 10/11/25 03:12 Temperature 98.0 F 97.9 F Pulse Rate 116 H 101 H Respiratory Rate 18 16 Blood Pressure 155/81 H 129/65 Pulse Oximetry 97 96 Oxygen Delivery Method Room Air Room Air BMI result Body Mass Index 34.1 Const Other: Alert Orientation/consciousness: patient oriented x3 HENMT Other: Cerumen impaction noted on the right, partial view of right TM, it is dull with the erythema, the entire processes uncomfortable for the patient, no focal tenderness swelling or redness no warmth of the right mastoid, oropharynx is erythematous, tonsils prominent bilaterally no exudate, no trismus no drooling no swelling inferior to the jawline Resp Effort & Inspection: normal respiratory effort Cardio Other: Normal peripheral perfusion Skin Other: Warm dry no rash Neuro General: patient oriented x3, gait normal, no focal motor deficits and CN's II-XI intact bilaterally Psych Other: Cooperative Medications Administered Discontinued Medications Generic Name Dose Route Start Last Admin Trade Name Juarez PRN Reason Stop Dose Admin Dexamethasone Sodium Phosphate 10 mg 10/11/25 02:29 10/11/25 02:34 Dexamethasone Sod Phosphate 10 Mg/Ml Vial PO 10/11/25 02:30 10 mg ONCE ONE Administration Docusate Sodium 200 mg 10/11/25 02:30 10/11/25 02:33 Docusate Sodium 100 Mg/10 Ml Liquid PO 10/11/25 02:31 200 mg ONCE ONE Administration Ibuprofen 600 mg 10/11/25 02:29 10/11/25 02:34 Ibuprofen 600 Mg Tablet PO 10/11/25 02:30 600 mg ONCE ONE Administration Medical Decision Making Medical Decision Making MDM Narrative: 24-year-old male with a history of recurrent ear infection, autism spectrum disorder, bipolar disorder, intellectual disability, morbid obesity, and hyperlipidemia who presents with right ear pain x1 day. Denies fever. Problem: Psychiatric illness, intellectual disability History: Per patient I have considered the following differential diagnoses: Strep pharyngitis, RPA, AIRCRAFT ENGINE ASSEMBLER, om, OE, serous otitis, mastoiditis, viral syndrome Plan: Viral panel and strep screen ordered from triage, both are negative. The patient has had recurrent otitis media on the right, the exam was very painful, I was able to partially view the TM, we will be treating for otitis media. No evidence of RPA or AIRCRAFT ENGINE ASSEMBLER on my exam. And there are no exam findings consistent with mastoiditis. I have independently reviewed the following tests: Labs: Viral panel negative, strep screen negative Differential Diagnosis Differential Diagnoses: The differential diagnosis associated with the presentation includes See [facility] Admission/Observation Consideration of admission/observation: Escalation of care including admission/observation considered Not applicable Lab Data [facility] Lab Attestation statement: I reviewed the patient's lab results. Labs: Lab Results 10/11/25 Range/Units 01:22 Influenza Type A (PCR) NEGATIVE (Negative) Influenza Type B (PCR) NEGATIVE (Negative) RSV RNA Qual (PCR) NEGATIVE (Negative) SARS-CoV-2 RNA (RT-PCR) NEGATIVE (Negative) S. pyogenes GrpA HUMBERTO Negative (Negative) Discharge Plan Discharge Clinical Impression: Otitis media Qualifiers: Otitis media type: unspecified Chronicity: acute Qualified Code(s): H66.90 - Otitis media, unspecified, unspecified ear Patient Disposition: Home, Self-Care Instructions: Ear Infection (ED) Additional Instructions: You were found to have an inner ear infection on the right side. See home care instructions. Take the amoxicillin as directed. Take ibuprofen 600 mg every 6 hours with food for your pain. Follow up with your primary care provider as needed. Prescriptions: New amoxicillin 500 mg capsule 500 mg PO Q12H Qty: 19 0RF ibuprofen 600 mg tablet 600 mg PO Q6H PRN (Reason: fever or pain) Qty: 30 0RF No Action prazosin 5 mg capsule 5 mg PO BEDTIME PRN (Reason: Sleep) trazodone 150 mg tablet 150 mg PO BEDTIME PRN (Reason: Sleep) hydroxyzine HCl 25 mg tablet 25 mg PO BID PRN (Reason: Anxiety) Rx Instructions: Pharmacy noted prescription was 1-2 25 mg tabs BID PRN aripiprazole 15 mg tablet 15 mg PO QAM oxcarbazepine 300 mg tablet 600 mg PO BID clotrimazole [Lotrimin AF (clotrimazole)] 1 % cream 1 appl topical BID 28 Days Qty: 45 1RF ibuprofen 600 mg tablet 600 mg PO TID PRN (Reason: pain) Qty: 30 0RF erythromycin 5 mg/gram (0.5 %) ointment 0.5 inch ophthalmic-Left QID 7 Days Qty: 3.5 0RF ibuprofen 600 mg tablet 600 mg PO Q6H PRN (Reason: fever or pain) Qty: 30 0RF cholecalciferol (vitamin D3) 50 mcg (2,000 unit) capsule 50 mcg PO DAILY 90 Days Qty: 90 3RF Print Language: Kosovan
[2025-10-11 04:22] VITALS: BP 131/94; PULSE 110; RESP 18; TEMP 36.6; O2SAT 95
[2025-10-11 04:29] VITALS: BP 131/94; PULSE 110; RESP 18; TEMP 36.6; O2SAT 95
== END 2025-10-11 04:30 | disposition home or self-care (01) ==
PROVIDERS: Emergency Provider Emergency Medicine
DX: H66.91 Otitis media, unspecified, right ear (principal); F84.0 Autistic disorder; E78.5 Hyperlipidemia, unspecified; Z03.818 Encounter for observation for suspected exposure to other biological agents ruled out; F31.9 Bipolar disorder, unspecified; Z79.899 Other long term (current) drug therapy
CPT/HCPCS: 87637; 87651; 99283; J1100

== ENCOUNTER 2025-10-22 14:53 | Emergency (ER) | payer OTHER, SELFPAY ==
[2025-10-22 15:08] VITALS: BP 155/90; PULSE 100; RESP 18; TEMP 36.6; O2SAT 98; BMI 34.2
--- NOTE | 2025-10-22 15:08 | ED.GENADULT ---
HPI - General Adult General Chief complaint: Dental/Oral Stated complaint: right side pain from head to mouth Time Seen by Provider: 10/22/25 16:43 Source: patient, RN notes reviewed and old records reviewed Mode of arrival: ambulatory Limitations: no limitations History of Present Illness ED Provider: BIBI Bryant HPI narrative: 24-year-old male with medical history of autism spectrum disorder, bipolar disorder, HLD, intellectual disability, presents to the ED due to 5 days of right-sided dental pain radiating to the right side of his head and causing R sided headache and pain when looking to the right. Denies chest pain, shortness of breath, abdominal pain, nausea, vomiting, visual changes, diarrhea, urinary symptoms MD complaint: Right-sided dental pain causing headache Related Data Home Medications ?Medication ?Instructions ?Recorded ?Confirmed aripiprazole 15 mg tablet 15 mg PO QAM 09/17/20 03/12/25 hydroxyzine HCl 25 mg tablet 25 mg PO BID PRN Anxiety 09/17/20 03/12/25 prazosin 5 mg capsule 5 mg PO BEDTIME PRN Sleep 09/17/20 03/12/25 trazodone 150 mg tablet 150 mg PO BEDTIME PRN Sleep 09/17/20 03/12/25 oxcarbazepine 300 mg tablet 600 mg PO BID 07/05/22 03/12/25 Previous Rx's ?Medication ?Instructions ?Recorded cholecalciferol (vitamin D3) 50 50 mcg PO DAILY 90 days #90 caps 11/20/24 mcg (2,000 unit) capsule ibuprofen 600 mg tablet 600 mg PO TID PRN pain #30 tabs 02/13/25 erythromycin 5 mg/gram (0.5 %) eye 0.5 inch ophthalmic-Left QID 7 02/28/25 ointment days #3.5 grams ibuprofen 600 mg tablet 600 mg PO Q6H PRN fever or pain 05/10/25 #30 tabs clotrimazole 1 % topical cream 1 appl topical BID 4 weeks #45 07/23/25 (Lotrimin AF (clotrimazole)) grams amoxicillin 500 mg capsule 500 mg PO Q12H #19 caps 10/11/25 ibuprofen 600 mg tablet 600 mg PO Q6H PRN fever or pain 10/11/25 #30 tabs amoxicillin 875 mg-potassium 1 tab PO BID #20 tabs 10/22/25 clavulanate 125 mg tablet ketorolac 10 mg tablet 10 mg PO Q8H PRN pain 3 days #9 10/22/25 tabs Allergies Allergy/AdvReac Type Severity Reaction Status Date / Time apple AdvReac Severe DIARRHEA Verified 10/22/25 15:09 POTATO JUICE Allergy Intermediate RASH Uncoded 10/22/25 15:09 Review of Systems Review of Systems: Yes all other systems are reviewed and are negative PMFSH Past Medical History Attestation statement: The following information was validated with the patient. Source: old records reviewed and nursing notes reviewed Medical History Mixed hyperlipidemia Vitamin D deficiency Right knee pain Obesity (BMI 30-39.9) Inversion sprain of right ankle Syncope Intellectual disability COVID-19 Surgical History History of placement of ear tubes Family History Family History Father No problems noted. Mother Heart problem Social History Social History Household Members: Family and Other Household Members Other:: Mom, stepdad, sister, brother, 2 nephews Housing: House Do you presently have visiting nurse or other home services: No Alcohol intake: never Patient Tobacco Use Status: Never used Tobacco e-Cigarette/Vaping Use: Never Used Second Hand Smoke Exposure: Yes Advance Directives: Yes Advance Directives on File: Yes Advance Directives Date on File: 11/10/21 Do you have a plan to hurt others: No Plan service: No Current occupational status: disabled Sexual orientation: Don't Know Cognitive needs: No Hearing needs: No Vision needs: No Physical Exam ED Vital Signs: Vital Signs - 24 hr 10/22/25 15:08 10/22/25 16:41 Temperature 98 F 98.3 F Pulse Rate 100 80 Respiratory Rate 18 16 Blood Pressure 155/90 H 156/93 H Pulse Oximetry 98 98 Oxygen Delivery Method Room Air Room Air BMI result Body Mass Index 34.2 GENERAL APPEARANCE: ?AxOx4, nontoxic appearing, no acute distress. HEENT: ?NC, AT. MMM. EOMI, clear conjunctiva, oropharynx clear. TTP of R sided jaw, but is able to open mouth fully without difficulty or pain, teeth with multiple extensive dental caries, poor dentition, no identifiable abscess on the gumline, tolerating oral secretions without difficulty NECK: ?Supple without lymphadenopathy.? No stiffness or restricted ROM. HEART:? Normal rate and regular rhythm, normal S1/S2, no m/r/g LUNGS:? CTAB, moving air well. No crackles or wheezes are heard. ABDOMEN: ?Soft, nontender, nondistended with good bowel sounds heard. BACK: No CVAT, no obvious deformity. EXTREMITIES: ?Without cyanosis, clubbing or edema. NEUROLOGICAL: ?Grossly nonfocal. Alert and oriented, moving all 4 extremities. Observed to ambulate with normal gait. Skin: ?Warm and dry without any rash. Course Course Course Narrative: This is a Rapid Medical Examination (RME) performed by Lore Pond PA-C in triage. Full HPI, ROS, assessment and treatment plan per primary provider in the Main ED. Hx: 24 yo M here w/ right dental/face pain, jaw pain, headache x5 days. PE/vitals: afebrile. pain w/ opening mouth. noted swelling to right cheek/jaw, multiple dental caries. Plan: labs Medications Administered Discontinued Medications Generic Name Dose Route Start Last Admin Trade Name Tommyq PRN Reason Stop Dose Admin Acetaminophen 975 mg 10/22/25 16:52 10/22/25 17:25 Acetaminophen 325 Mg Tablet PO 10/22/25 16:53 975 mg ONCE ONE Administration Amoxicillin/Clavulanate Potassium 875 mg 10/22/25 18:12 10/22/25 18:16 Amoxicillin/Potassium Clav 875 Mg Tablet PO 10/22/25 18:13 875 mg ONCE ONE Administration Dexamethasone 10 mg 10/22/25 16:50 10/22/25 17:26 Dexamethasone 2 Mg Tablet PO 10/22/25 16:51 10 mg ONCE ONE Administration Ketorolac Tromethamine 30 mg 10/22/25 16:50 10/22/25 17:28 Ketorolac Tromethamine 30 Mg/Ml Vial IM 10/22/25 16:51 30 mg ONCE ONE Administration Medical Decision Making Medical Decision Making MDM Narrative: 24-year-old male with medical history of autism spectrum disorder, bipolar disorder, HLD, intellectual disability, presents to the ED due to 5 days of right-sided dental pain radiating to the right side of his head and causing R sided headache and pain when looking to the right. VS on initial observation-BP 155/90, pulse rate of 100, respiratory rate of 18, afebrile with oral temp of 90?, O2 saturation 98% on room air. On physical exam patient is nontoxic appearing, patient has tenderness to palpation to the right side of the jaw, without trismus, patient is able to open his mouth fully without difficulty, patient with poor dentition and multiple dental caries however no identifiable abscess along the gumline. EOMI, no nystagmus noted, no mastoid tenderness, lungs clear to auscultation bilaterally, cardiac exam reveals normal rate and rhythm without murmurs/rubs/gallops, lower extremities without edema -Patient medicated with 10 mg Decadron, 975 p.o. Tylenol, 30 mg IM Toradol for pain relief Labs without leukocytosis/leukopenia, no left shift, no evidence of anemia, no electrolyte abnormality, inflammatory markers CRP and ESR WNL Patient with 5 days of right-sided dental pain radiating to the right side of his causing headache without visual changes. We will trial getting patient's pain under control with 10 mg Decadron, 975 p.o. Tylenol, 30 mg IM Toradol for pain relief and we will reassess. Low suspicion for Sukhjinder's angina as there is no submental, sublingual swelling, or trismus noted on exam. Course 17:47- patient's pain has improved considerably after medication. Patient without leukocytosis, afebrile, with improved pain, no submental/sublingual edema or induration, no indication for advanced imaging at this time. Patient being discharged with a 10 day course of Augmentin to cover for dental infection. Patient states that he has dentist to follow up with. I also discussed with the patient that he should follow up with his primary care doctor to ensure resolution of his symptoms. I counseled patient on strict return precautions. Patient feels well enough to go home for self-care and is in agreement with the plan. Differential Diagnosis Differential Diagnoses: The differential diagnosis associated with the presentation includes Abscess Cellulitis Dental infection Sukhjinder's angina Admission/Observation Consideration of admission/observation: Escalation of care including admission/observation considered Lab Data MDM Lab Attestation statement: I reviewed the patient's lab results. 10/22/25 15:26 10/22/25 15:25 Labs: Lab Results 10/22/25 10/22/25 Range/Units 15:25 15:26 WBC 5.5 (4.8-10.8) X10*3/uL RBC 5.95 H (4.60-5.80) X10*6/uL Hgb 17.2 (14.0-18.0) g/dl Hct 49.7 (42.0-52.0) % MCV 83.5 (80.0-98.0) fL MCH 28.9 (27.0-33.0) pg MCHC 34.6 (31.0-36.0) g/dl RDW 11.7 (11.0-16.0) % Plt Count 224 D (160-400) X10*3/uL MPV 11.3 (9.4-12.4) fL Immature Gran % (Auto) 0.4 (0.0-0.4) % Neut % (Auto) 55.8 (45-73) % Lymph % (Auto) 33.8 (20-40) % Fallon % (Auto) 7.5 (2-11) % Eos % (Auto) 1.8 (0-4) % Baso % (Auto) 0.7 (0-2) % Lymph # (Auto) 1.9 (1.2-4.9) X10*3/uL Fallon # (Auto) 0.4 (0.1-1.2) X10*3/uL Eos # (Auto) 0.1 (0.0-0.4) X10*3/uL Baso # (Auto) 0.0 (0.0-0.2) X10*3/uL Abs Immat Gran (auto) 0.02 (0.00-0.03) X10*3/uL Absolute Neuts (auto) 3.1 (2.0-8.3) x10*3/uL Absolute Nucleated RBC 0.000 (0.0-0.012) X10*3/uL Nucleated RBC % (auto) 0.0 (0.0-0.2) /100WBC ESR 10 (1-15) MM/HR Sodium 142 (135-145) mmol/L Potassium 3.7 (3.3-5.1) mmol/L Chloride 108 (96-108) mmol/L Carbon Dioxide 22 (22-29) mmol/L Anion Gap 16 (12-20) BUN 12 (9-16) mg/dL Creatinine 1.10 (0.5-1.4) mg/dL Estim Creat Clear Calc 141.8 Estimated GFR > 60 Random Glucose 138 H (60-115) mg/dL Calcium 9.3 (8.4-10.2) mg/dL Magnesium 2.0 (1.6-2.6) mg/dL Total Bilirubin 0.2 (0.0-1.0) mg/dL AST 31 (5-37) U/L ALT 34 (0-40) U/L Alkaline Phosphatase 87 (39-117) U/L C-Reactive Protein 0.42 (< or = 0.50) mg/dL Total Protein 7.6 (6.5-8.0) g/dL Albumin 4.5 (3.5-5.0) g/dL External Record Review External record reviewed: Inpatient record, Office record, Outpatient record and Prior outpatient labs Prescription Management I considered prescription management with: Antibiotic Patient being discharged with a 10 day course of Augmentin for bacterial coverage due to dental infection Chronic Conditions Patient?s care impacted by: Other (Autism spectrum disorder, bipolar disorder, intellectual disability) Social Determinants Patient?s care significantly limited by Social Determinants of Health including: Other Social Determinant of Health Discharge Plan Discharge Clinical Impression: Dental infection Patient Disposition: Home, Self-Care Additional Instructions: You were evaluated today and diagnosed with a dental infection. Take Augmentin exactly as prescribed for the full 10-day course, even if pain or swelling improves, and take it with food to reduce stomach upset. To manage pain at home, you are being prescribed a 3 day course of Toradol which is a strong NSAID medication like ibuprofen. While on this medication do not take any other NSAIDs such as ibuprofen, Motrin, Aleve, Advil, Naprosyn. You can take tylenol while on this medication. I encourage you to do salt water mouth rinses for additional pain relief. Please follow up with your primary care doctor, and your dentist as your tooth pain will return if you do not get this treated. Return to the emergency department immediately for worsening pain or swelling, fever, spreading redness, difficulty swallowing or breathing, drooling, trismus, facial or neck swelling, rash, vomiting, signs of an allergic reaction, or any new/worsening/concerning symptoms Prescriptions: New amoxicillin-pot clavulanate 875-125 mg tablet 1 tab PO BID Qty: 20 0RF ketorolac 10 mg tablet 10 mg PO Q8H PRN (Reason: pain) 3 Days Qty: 9 0RF No Action prazosin 5 mg capsule 5 mg PO BEDTIME PRN (Reason: Sleep) trazodone 150 mg tablet 150 mg PO BEDTIME PRN (Reason: Sleep) hydroxyzine HCl 25 mg tablet 25 mg PO BID PRN (Reason: Anxiety) Rx Instructions: Pharmacy noted prescription was 1-2 25 mg tabs BID PRN aripiprazole 15 mg tablet 15 mg PO QAM oxcarbazepine 300 mg tablet 600 mg PO BID clotrimazole [Lotrimin AF (clotrimazole)] 1 % cream 1 appl topical BID 28 Days Qty: 45 1RF amoxicillin 500 mg capsule 500 mg PO Q12H Qty: 19 0RF ibuprofen 600 mg tablet 600 mg PO Q6H PRN (Reason: fever or pain) Qty: 30 0RF ibuprofen 600 mg tablet 600 mg PO TID PRN (Reason: pain) Qty: 30 0RF erythromycin 5 mg/gram (0.5 %) ointment 0.5 inch ophthalmic-Left QID 7 Days Qty: 3.5 0RF ibuprofen 600 mg tablet 600 mg PO Q6H PRN (Reason: fever or pain) Qty: 30 0RF cholecalciferol (vitamin D3) 50 mcg (2,000 unit) capsule 50 mcg PO DAILY 90 Days Qty: 90 3RF Interventions: ED Discharge Assessment Last Done: 10/22/25 18:18 Discharge Date/Time: 10/22/25 18:19 Print Language: Israeli
[2025-10-22 15:46] LABS: MANUAL DIFF FLAG NO
[2025-10-22 15:50] LABS: Hematocrit 49.7 % (42.0-52.0); Hemoglobin 17.2 g/dl (14.0-18.0); Imm Gran Abs Auto 0.02 X10*3/uL (0.00-0.03); Imm Gran Pct Auto 0.4 % (0.0-0.4); Lymphocytes Absolute Auto 1.9 X10*3/uL (1.2-4.9); Mean Corpuscular HGB Conc 34.6 g/dl (31.0-36.0); Mean Corpuscular Hemoglobin 28.9 pg (27.0-33.0); Mean Corpuscular Volume 83.5 fL (80.0-98.0); NRBC Abs Auto 0.000 X10*3/uL (0.0-0.012); NRBC Pct Auto 0.0 /100WBC (0.0-0.2); Platelet Count 224 X10*3/uL (160-400); Red Blood Count 5.95 X10*6/uL (4.60-5.80); White Blood Count 5.5 X10*3/uL (4.8-10.8)
[2025-10-22 16:10] LABS: Alanine Aminotransferase 34 U/L (0-40); Albumin Level 4.5 g/dL (3.5-5.0); Alkaline Phosphatase 87 U/L (39-117); Anion Gap 16 (12-20); Aspartate Amino Transferase 31 U/L (5-37); Blood Urea Nitrogen 12 mg/dL (9-16); Calcium 9.3 mg/dL (8.4-10.2); Carbon Dioxide 22 mmol/L (22-29); Chloride 108 mmol/L (96-108); Creatinine Clr Calc Pharmacy 141.8; Estimated Glomerular Filt Rate > 60; Magnesium 2.0 mg/dL (1.6-2.6); Potassium 3.7 mmol/L (3.3-5.1); Sodium 142 mmol/L (135-145); Total Protein 7.6 g/dL (6.5-8.0)
[2025-10-22 16:41] VITALS: BP 156/93; PULSE 80; RESP 16; TEMP 36.8; O2SAT 98
--- OUTSIDE RECORDS SUMMARY | 2025-10-22 16:47 | XMS_ITS | Encounter Summary ---
Author Organization [facility] Address [address] [place] [phone] Phone Care Team Providers Care Anime Designer Name Role Phone Unavailable Primary Care Provider Unavailabl e Encounter Details Date Type Department Care Team (Late st Contact Info) Description 12/25/2017 Patient Outreach [facility] [place] [address] [place] [address] Dana Crockett MD [address] [place] [address] Social History Tobacco Use Types Packs/Day Years [...]
--- OUTSIDE RECORDS SUMMARY | 2025-10-22 16:47 | XMS_ITS | Encounter Summary ---
Author Organization [facility] Address [address] [place] [phone] Phone Care Team Providers Care Payroll And Benefits Analyst Name Role Phone Unavailable Primary Care Provider Unavailabl e Encounter Details Date Type Department Care Team (Late st Contact Info) Description 09/13/2016 Documentation [facility] [address] [place] [address] Family Medicine, Physician Count includes the [facility] [place] [address] Social History Tobacco Use Types Packs/Day Years [...]
--- OUTSIDE RECORDS SUMMARY | 2025-10-22 16:47 | XMS_ITS | Encounter Summary ---
Author Organization [facility] Address [address] [place] [phone] Phone Care Team Providers Care Sole Conforming Machine Operator Name Role Phone Unavailable Primary Care Provider Unavailabl e Encounter Details Date Type Department Care Team (Late st Contact Info) Description 11/14/2012 Documentation [facility] [place] [facility] [address] [place] [address] Family Medicine, [place] [address] Social History Tobacco Use Types Packs/Day Years [...]
--- OUTSIDE RECORDS SUMMARY | 2025-10-22 16:47 | XMS_ITS | Encounter Summary ---
Author Organization [facility] Address [address] [place] [phone] Phone Care Team Providers Care Director Of Media Name Role Phone Unavailable Primary Care Provider Unavailabl e Encounter Details Date Type Department Care Team (Late st Contact Info) Description 12/31/2015 Documentation [facility] [place] [address] [place] [address] Family Medicine, Physician [facility] [address] Social History Tobacco Use Types Packs/Day Years [...]
--- OUTSIDE RECORDS SUMMARY | 2025-10-22 16:47 | XMS_ITS | Encounter Summary ---
Author Organization [facility] Address [address] [place] [address] Phone Care Team Providers Care Recruitment Assistant Name Role Phone Unavailable Primary Care Provider Unavailabl e Reason for Visit * Reason Comments Med Refill Encounter Details Date Type Department Care Team (Late st Contact Info) Description 01/30/2019 Refill [facility] [place] [address] [place] [address] Venessa Can, RUBÉN [address] [address] Nightmares Social History Tobacco Use Types Packs/Day [...] has a med eval appt at [facility] in February. He needs psychiatry to prescribe his psych meds. * Telephone Encounter - Dana Crockett MD - 01/30/2019 6:32 PM EDT Glenn was seeing Dr Younger. Pt was seeing counselor at [facility]. He was in [facility] recently. 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 He had a meltdown and his counselor was calledand sent him to [facility] where he was for 3-4 day. They were unable to treat him. Family has been trying to find programs for him. He is scheduled for a med eval at [facility] - was supposed to be seen [...] and is on Prazosin. Dept of [facility] does not support family getting guardianship. [facility] recommended a follow up program which [...]
--- OUTSIDE RECORDS SUMMARY | 2025-10-22 16:47 | XMS_ITS | Encounter Summary ---
Author Organization [facility] Address [address] [place] [phone] Phone Care Team Providers Care Dental Floss Packer Name Role Phone Unavailable Primary Care Provider Unavailabl e Encounter Details Date Type Department Care Team (Late st Contact Info) Description 05/04/2017 Documentation [facility] [address] [place] [address] Family Medicine, Physician [facility] [place] [address] Social History Tobacco Use Types Packs/Day Years [...]
--- OUTSIDE RECORDS SUMMARY | 2025-10-22 16:47 | XMS_ITS | Encounter Summary ---
Author Organization [facility] Address [address] [place] [phone] Phone Care Team Providers Care Department Store General Manager Name Role Phone Unavailable Primary Care Provider Unavailabl e Encounter Details Date Type Department Care Team (Late st Contact Info) Description 05/14/2017 Documentation [facility] [place] [facility] [address] [place] [address] Family Medicine, Physician [facility] [place] [address] Social History Tobacco Use Types Packs/Day Years [...]
--- OUTSIDE RECORDS SUMMARY | 2025-10-22 16:47 | XMS_ITS | Clinical Summary ---
Author Organization [facility] ity Address [address] [place] [address] Care Team Providers Care Rn New Graduate Name Role Phone Unavailable Primary Care Provider [...]
--- OUTSIDE RECORDS SUMMARY | 2025-10-22 16:47 | XMS_ITS | Clinical Summary ---
Author Organization [facility] Address [address] [place] [phone] Phone Care Team Providers Care Metal Pourer Name Role Phone Unavailable Primary Care Provider [...] DR Sanders at [facility] Assessment & Plan (06/06/2020 10:57 AM EDT): On medication prescribed by Dr Sanders at [facility]. Assessment & Plan (06/04/2020 9:43 AM EDT): [...] to those you have been getting [place] [facility] - such as in home therapy. PDD [...] Other No family histo ry of *Sudden /SC under 55, Family history of *Heart Disease, [...] history exists Procedures * Due to [place] [employer] law, this organization might not be sharing sensitive test results. Procedure Name Priority Date/Time Associated Diagnosis Comments LIPID PANEL Routine 07/08/2019 3:49 PM EDT Mood disorder HEMOGLOBIN A1C Routine 07/08/2019 3:49 PM EDT Mood disorder from Last 3 Months or Most Recently Relevant to Health Maintenance Results * Due to [place] [employer] law, this organization might not be sharing sensitive test results. * Hemoglobin A1c (07/08/2019 3:49 PM EDT) Hemoglobin A1C 5.1 (4-6) % [facility] Comment: HEMOGLOBIN A1C(%) GLUCOSE CONTROL INDEX <6% EXCELLENT 6-7% VERY GOOD 7-8% GOOD 8-10% FAIR >10% POOR Hemoglobin (Hb) A1c testing is performed by Barrett Lizy-quant immunoassay. Any cause of shortened erythrocyte survival will reduce exposure of erythrocytes to glucose with a consequent decrease in Hb A1c (%). Testing performed or reported by [facility], a Service of [address] [address] Blood 07/08/2019 3:49 PM EDT 07/08/2019 3:54 PM EDT Dana Crockett MD LAB BLOOD ORDERABLES Final R esult Performing Organization Address [facility] Co de Phone Number [facility] * (ABNORMAL) Lipid panel (07/08/2019 3:49 PM EDT) [facility] Cholesterol, Total 171(H) (<170) MG/DL [facility] HDL 32(L) (>45) MG/DL [facility] Non-HDL Cholesterol 139(H) (<120) MG/DL [facility] Comment: Testing performed or reported by [facility], a Service of [address] [address] Blood 07/08/2019 3:49 PM EDT 07/08/2019 3:54 PM EDT Dana Crockett MD LAB BLOOD ORDERABLES Final R esult Performing Organization Address [facility] Co de Phone Number [facility] from Last 3 Months or Most Recently Relevant to Health Maintenance Insurance [facility] NON PCC
--- OUTSIDE RECORDS SUMMARY | 2025-10-22 16:47 | XMS_ITS | Encounter Summary ---
Author Organization [facility] Address [address] [place] [phone] Phone Care Team Providers Care Plunger Shovel Operator Name Role Phone Unavailable Primary Care Provider Unavailabl e Encounter Details Date Type Department Care Team (Late st Contact Info) Description 05/03/2017 Documentation [facility] Family Medicine [address] [place] [address] Family Medicine, Physician [facility] [place] [address] Social History Tobacco Use Types Packs/Day Years [...]
--- OUTSIDE RECORDS SUMMARY | 2025-10-22 16:47 | XMS_ITS | Encounter Summary ---
Author Organization [facility] Address [address] [place] [phone] Phone Care Team Providers Care Silvering Department Supervisor Name Role Phone Unavailable Primary Care Provider Unavailabl e Encounter Details Date Type Department Care Team (Late st Contact Info) Description 01/03/2016 Documentation [facility] [place] [address] [place] [address] Family Medicine, Physician [facility] [place] [address] Social History Tobacco Use Types Packs/Day Years [...]
--- OUTSIDE RECORDS SUMMARY | 2025-10-22 16:47 | XMS_ITS | Encounter Summary ---
Author Organization [facility] Address [address] [place] [phone] Phone Care Team Providers Care Conference Planning Manager Name Role Phone Unavailable Primary Care Provider Unavailabl e Encounter Details Date Type Department Care Team (Late st Contact Info) Description 06/14/2017 Conversion Encounter [facility] - [address] [address] Social History Tobacco Use Types Packs/Day Years [...]
--- OUTSIDE RECORDS SUMMARY | 2025-10-22 16:47 | XMS_ITS | Encounter Summary ---
Author Organization [facility] Address [address] [place] [address] Phone Care Team Providers Care Structural Layout Worker Name Role Phone Unavailable Primary Care Provider Unavailabl e Encounter Details Date Type Department Care Team (Late st Contact Info) Description 08/17/2010 Documentation [facility] [place] [address] [place] [address] Family Medicine, Physician [facility] [place] [address] Social History Tobacco Use Types Packs/Day Years [...]
--- OUTSIDE RECORDS SUMMARY | 2025-10-22 16:47 | XMS_ITS | Encounter Summary ---
Author Organization [facility] Address [address] [place] [phone] Phone Care Team Providers Care Youth Coordinator Name Role Phone Unavailable Primary Care Provider Unavailabl e Encounter Details Date Type Department Care Team (Late st Contact Info) Description 11/09/2011 Documentation [facility] [place] [address] [place] [address] Family Medicine, [place] [address] Social History Tobacco Use Types Packs/Day Years [...]
[2025-10-22 18:18] VITALS: BP 156/93; PULSE 80; RESP 16; TEMP 36.8; O2SAT 98
== END 2025-10-22 18:19 | disposition home or self-care (01) ==
PROVIDERS: Physician Assistant Medical; Emergency Provider Emergency Medicine; PCP Internal Medicine
DX: K04.7 Periapical abscess without sinus (principal); R51.9 Headache, unspecified; R68.84 Jaw pain; Z79.899 Other long term (current) drug therapy
CPT/HCPCS: 36415; 80053; 83735; 85025; 85652; 86140; 99284; J1885; J8540

== ENCOUNTER 2025-10-28 13:40 | Emergency (ER) | payer OTHER, SELFPAY ==
--- NOTE | ~2025-10-28 | XR_ITS ---
EXAMINATION: XR CHEST CLINICAL INFORMATION: sob/cough COMPARISON: 06/30/2024. TECHNIQUE: 2 views of the chest were obtained. FINDINGS: The cardiac, hilar, and mediastinal contours are normal. The lungs are clear bilaterally. There is no pneumothorax or pleural effusion. There is no focal osseous or soft tissue abnormality. XR/XR chest 2V IMPRESSION: Normal chest. Electronically signed by: Angel Rivera MD 10/28/2025 02:41 PM [facility]
--- NOTE | 2025-10-28 13:55 | ED.URI ---
HPI - URI/Sore Throat General Chief Complaint: General Medical Stated Complaint: LEDESMA x 2 DAYS, URI SX Time Seen by Provider: 10/28/25 16:28 Source: patient, RN notes reviewed and old records reviewed Mode of arrival: EMS Limitations: no limitations History of Present Illness ED Provider: Shannan HPI Narrative: 24-year-old male past medical history significant for autism spectrum disorder, bipolar disorder presents for evaluation of feeling unwell. He reports 2 days of cough, congestion, headache, sore throat. He denies any known sick contacts pain Denies any shortness of breath, chest pain. Denies any abdominal pain, nausea vomiting Related Data Home Medications ?Medication ?Instructions ?Recorded ?Confirmed aripiprazole 15 mg tablet 15 mg PO QAM 09/17/20 03/12/25 hydroxyzine HCl 25 mg tablet 25 mg PO BID PRN Anxiety 09/17/20 03/12/25 prazosin 5 mg capsule 5 mg PO BEDTIME PRN Sleep 09/17/20 03/12/25 trazodone 150 mg tablet 150 mg PO BEDTIME PRN Sleep 09/17/20 03/12/25 oxcarbazepine 300 mg tablet 600 mg PO BID 07/05/22 03/12/25 Previous Rx's ?Medication ?Instructions ?Recorded cholecalciferol (vitamin D3) 50 50 mcg PO DAILY 90 days #90 caps 11/20/24 mcg (2,000 unit) capsule ibuprofen 600 mg tablet 600 mg PO TID PRN pain #30 tabs 02/13/25 erythromycin 5 mg/gram (0.5 %) eye 0.5 inch ophthalmic-Left QID 7 02/28/25 ointment days #3.5 grams ibuprofen 600 mg tablet 600 mg PO Q6H PRN fever or pain 05/10/25 #30 tabs clotrimazole 1 % topical cream 1 appl topical BID 4 weeks #45 07/23/25 (Lotrimin AF (clotrimazole)) grams amoxicillin 500 mg capsule 500 mg PO Q12H #19 caps 10/11/25 ibuprofen 600 mg tablet 600 mg PO Q6H PRN fever or pain 10/11/25 #30 tabs amoxicillin 875 mg-potassium 1 tab PO BID #20 tabs 10/22/25 clavulanate 125 mg tablet ketorolac 10 mg tablet 10 mg PO Q8H PRN pain 3 days #9 10/22/25 tabs ibuprofen 600 mg tablet 600 mg PO Q6H PRN pain #20 tabs 10/28/25 Allergies Allergy/AdvReac Type Severity Reaction Status Date / Time apple AdvReac Severe DIARRHEA Verified 10/28/25 13:59 POTATO JUICE Allergy Intermediate RASH Uncoded 10/22/25 15:09 Review of Systems Constitutional: Constitutional: Reports body ache(s), Reports chills, Reports fever(s), Denies frequent falls, Reports headache(s) and Denies increased appetite Eyes: Eyes: Denies blurry vision ENT: Reports headache(s) and Reports sore throat Cardiovascular: Cardiovascular: Denies chest pain and Denies dyspnea on exertion Respiratory: Respiratory: Reports cough and Denies dyspnea on exertion Gastrointestinal: Gastrointestinal: Denies abdominal pain, Denies nausea and Denies vomiting Musculoskeletal: Musculoskeletal: Denies back pain Integumentary/Breasts: Skin/Breast: Denies rash Neurologic: Denies frequent falls and Reports headache(s) Psychiatric: Psychiatric: Denies anxiety [facility] Past Medical History Medical History Mixed hyperlipidemia Vitamin D deficiency Right knee pain Obesity (BMI 30-39.9) Inversion sprain of right ankle Syncope Intellectual disability COVID-19 Surgical History History of placement of ear tubes Family History Family History Father No problems noted. Mother Heart problem Social History Social History Household Members: Family and Other Household Members Other:: Mom, stepdad, sister, brother, 2 nephews Housing: House Do you presently have visiting nurse or other home services: No Alcohol intake: never Patient Tobacco Use Status: Never used Tobacco e-Cigarette/Vaping Use: Never Used Second Hand Smoke Exposure: Yes Advance Directives: Yes Advance Directives on File: Yes Advance Directives Date on File: 11/10/21 service: No Current occupational status: disabled Sexual orientation: Don't Know Cognitive needs: No Hearing needs: No Vision needs: No Physical Exam Vital Signs: Vital Signs: Last Vital Signs Temp 99.4 F 10/28/25 16:58 Pulse 118 H 10/28/25 16:58 Resp 20 10/28/25 16:58 BP 124/68 10/28/25 16:58 Pulse Ox 94 10/28/25 16:58 O2 Del Method Room Air 10/28/25 16:58 BMI result Body Mass Index 30.4 Const: General: healthy appearing, comfortable, no acute distress, alert and awake Nutritional Appearance: well nourished Orientation/consciousness: patient oriented x3 HEENT: Head: Yes normocephalic and Yes atraumatic Throat: Yes posterior oropharynx normal Eyes: Eyelids: Yes eyelids normal Conjunctivae: conjunctivae normal Sclerae: sclerae normal Corneas: corneas normal Pupils: Equal, round and reactive pupils present EOM: EOMs intact bilaterally Neck: Neck: Yes full ROM Resp: Effort & Inspection: normal respiratory effort, able to speak in complete sentences, no audible wheezes and not labored Auscultation: clear to auscultation bilaterally Cardio: Rate: tachycardic Rhythm: regular rhythm GI: Inspection: No distended Palpation (GI): Soft to palpation, not firm, nontender, no guarding and not rigid Skin: General skin exam: elasticity normal Neuro: General: patient oriented x3 Cranial nerves: Yes Equal, round and reactive pupils present and Yes Bilaterally intact EOM present Cognition (Neuro): normal cognition Course Course Course Narrative: This is a Rapid Medical Exam performed in triage by Christy Fountain PA-C. Full HPI, ROS and PE to be performed by primary ED provider. 24 yo M w/PMHx intellectual disability, HLD presenting to the ED via EMS c/o LEDESMA, feeling unwell, sore throat, cough, SOB, x2 days. +sick contact. admits to CP w/coughing PE: febrile 100.9, tachycardic, talking in complete sentences Plan: EKG, viral testing, CXR, rapid strep Reevaluation(s) Reevaluation #1: During my re-evaluation, the patient's vitals improved. His temp reduced to 99.4, his heart rate improved to 118 and regular, down from 140, and his respirations improved from 22 down to 18 Time: 16:37 Medications Administered Discontinued Medications Generic Name Dose Route Start Last Admin Trade Name Juarez PRN Reason Stop Dose Admin Ibuprofen 600 mg 10/28/25 14:01 10/28/25 14:23 Ibuprofen 600 Mg Tablet PO 10/28/25 14:02 600 mg ONCE ONE Administration Medical Decision Making Medical Decision Making [facility] Narrative: 24-year-old male presents for evaluation of flu-like symptoms. He did not fact test positive for influenza A. On arrival to the ED he was found to be tachycardic to 140, febrile to 100.6 and tachypneic at 22. During my re-evaluation these vital signs have improved after he was medicated with ibuprofen for antipyretics. Labs are largely reassuring, chest x-ray does not show any evidence of pneumonia. Discussed possible IV fluids the patient and he reports that he would like to drink fluids instead. educated him that he should drink water and or electrolyte supplementations Differential Diagnosis Differential Diagnoses: The differential diagnosis associated with the presentation includes Influenza COVID-19 Bronchitis Pneumonia Lab Data [facility] Lab Attestation statement: I reviewed the patient's lab results. Mild leukopenia and thrombocytopenia which can be consistent with a viral illness. No significant anemia. Electrolytes within normal limits. 10/28/25 14:11 10/28/25 14:11 Labs: Lab Results 10/28/25 10/28/25 Range/Units 14:07 14:11 WBC 4.4 L (4.8-10.8) X10*3/uL RBC 5.72 (4.60-5.80) X10*6/uL Hgb 16.8 (14.0-18.0) g/dl Hct 48.8 (42.0-52.0) % MCV 85.3 (80.0-98.0) fL MCH 29.4 (27.0-33.0) pg MCHC 34.4 (31.0-36.0) g/dl RDW 12.0 (11.0-16.0) % Plt Count 118 L D (160-400) X10*3/uL MPV 11.5 (9.4-12.4) fL Immature Gran % (Auto) 0.5 H (0.0-0.4) % Neut % (Auto) 63.7 (45-73) % Lymph % (Auto) 21.4 (20-40) % [place] % (Auto) 12.8 H (2-11) % Eos % (Auto) 0.9 (0-4) % Baso % (Auto) 0.7 (0-2) % Lymph # (Auto) 1.0 L (1.2-4.9) X10*3/uL [place] # (Auto) 0.6 (0.1-1.2) X10*3/uL Eos # (Auto) 0.0 (0.0-0.4) X10*3/uL Baso # (Auto) 0.0 (0.0-0.2) X10*3/uL Abs Immat Gran (auto) 0.02 (0.00-0.03) X10*3/uL Absolute Neuts (auto) 2.8 (2.0-8.3) x10*3/uL Absolute Nucleated RBC 0.000 (0.0-0.012) X10*3/uL Nucleated RBC % (auto) 0.0 (0.0-0.2) /100WBC Sodium 139 (135-145) mmol/L Potassium 3.6 (3.3-5.1) mmol/L Chloride 107 (96-108) mmol/L Carbon Dioxide 23 (22-29) mmol/L Anion Gap 13 (12-20) BUN 14 (9-16) mg/dL Creatinine 1.13 (0.5-1.4) mg/dL Estim Creat Clear Calc 137.7 Estimated GFR > 60 Random Glucose 113 (60-115) mg/dL Calcium 8.9 (8.4-10.2) mg/dL Magnesium 2.0 (1.6-2.6) mg/dL Total Bilirubin 0.4 (0.0-1.0) mg/dL Direct Bilirubin 0.2 (0.0-0.5) mg/dL AST 52 H (5-37) U/L ALT 102 H (0-40) U/L Alkaline Phosphatase 93 (39-117) U/L Total Protein 7.6 (6.5-8.0) g/dL Albumin 4.4 (3.5-5.0) g/dL Influenza Type A (PCR) POSITIVE A (Negative) Influenza Type B (PCR) NEGATIVE (Negative) RSV RNA Qual (PCR) NEGATIVE (Negative) SARS-CoV-2 RNA (RT-PCR) NEGATIVE (Negative) S. pyogenes GrpA HUMBERTO Negative (Negative) Independent Interpretation I performed an independent interpretation of an: EKG (Sinus tachycardia with a rate of 122 beats minute.) Radiology Impression Discussion of test interpretation with radiology: I have reviewed the radiologist's reading. Radiologist Impression: FINDINGS: The cardiac, hilar, and mediastinal contours are normal. The lungs are clear bilaterally. There is no pneumothorax or pleural effusion. There is no focal osseous or soft tissue abnormality. XR/XR chest 2V IMPRESSION: Normal chest. Electronically signed by: Angel Rivera MD 10/28/2025 02:41 PM [facility] Discharge Plan Discharge Clinical Impression: Influenza A Patient Disposition: Home, Self-Care Instructions: Influenza (ED) Additional Instructions: You tested positive for influena A It is important to drink lots of fluids (not soda) Use Ibuprofen/Tylenol for fevers and body aches. The rest of your tests looked reassuring Follow up with your doctor, and return for new or worsening symptoms Prescriptions: New ibuprofen 600 mg tablet 600 mg PO Q6H PRN (Reason: pain) Qty: 20 0RF No Action prazosin 5 mg capsule 5 mg PO BEDTIME PRN (Reason: Sleep) trazodone 150 mg tablet 150 mg PO BEDTIME PRN (Reason: Sleep) hydroxyzine HCl 25 mg tablet 25 mg PO BID PRN (Reason: Anxiety) Rx Instructions: Pharmacy noted prescription was 1-2 25 mg tabs BID PRN aripiprazole 15 mg tablet 15 mg PO QAM oxcarbazepine 300 mg tablet 600 mg PO BID clotrimazole [Lotrimin AF (clotrimazole)] 1 % cream 1 appl topical BID 28 Days Qty: 45 1RF amoxicillin 500 mg capsule 500 mg PO Q12H Qty: 19 0RF ibuprofen 600 mg tablet 600 mg PO Q6H PRN (Reason: fever or pain) Qty: 30 0RF amoxicillin-pot clavulanate 875-125 mg tablet 1 tab PO BID Qty: 20 0RF ketorolac 10 mg tablet 10 mg PO Q8H PRN (Reason: pain) 3 Days Qty: 9 0RF ibuprofen 600 mg tablet 600 mg PO TID PRN (Reason: pain) Qty: 30 0RF erythromycin 5 mg/gram (0.5 %) ointment 0.5 inch ophthalmic-Left QID 7 Days Qty: 3.5 0RF ibuprofen 600 mg tablet 600 mg PO Q6H PRN (Reason: fever or pain) Qty: 30 0RF cholecalciferol (vitamin D3) 50 mcg (2,000 unit) capsule 50 mcg PO DAILY 90 Days Qty: 90 3RF Interventions: ED Discharge Assessment Last Done: 10/28/25 16:58 Discharge Date/Time: 10/28/25 16:59 Print Language: Georgian
[2025-10-28 13:56] VITALS: BP 131/80; BP 131/83; PULSE 132; PULSE 140; RESP 22; TEMP 38.3; O2SAT 93; O2SAT 94; BMI 30.4
--- NOTE | 2025-10-28 13:58 | ECG_ITS ---
Test Reason : TACHY Blood Pressure : */* mmHG Vent. Rate : 122 BPM Atrial Rate : 122 BPM P-R Int : 158 ms QRS Dur : 92 ms QT Int : 322 ms P-R-T Axes : 47 150 34 degrees QTcB Int : 458 ms Sinus tachycardia Right axis deviation Abnormal ECG When compared with ECG of 08-Aug-2025 01:47, Vent. rate has increased by 52 bpm QRS axis Shifted right Referred By: Christy Fountain Electronically Signed By: NIKKY RYAN
[2025-10-28 14:28] LABS: MANUAL DIFF FLAG NO
[2025-10-28 14:32] LABS: Hematocrit 48.8 % (42.0-52.0); Hemoglobin 16.8 g/dl (14.0-18.0); Imm Gran Abs Auto 0.02 X10*3/uL (0.00-0.03); Imm Gran Pct Auto 0.5 % (0.0-0.4); Lymphocytes Absolute Auto 1.0 X10*3/uL (1.2-4.9); Mean Corpuscular HGB Conc 34.4 g/dl (31.0-36.0); Mean Corpuscular Hemoglobin 29.4 pg (27.0-33.0); Mean Corpuscular Volume 85.3 fL (80.0-98.0); NRBC Abs Auto 0.000 X10*3/uL (0.0-0.012); NRBC Pct Auto 0.0 /100WBC (0.0-0.2); Platelet Count 118 X10*3/uL (160-400); Red Blood Count 5.72 X10*6/uL (4.60-5.80); White Blood Count 4.4 X10*3/uL (4.8-10.8)
[2025-10-28 14:42] LABS: IDNOW Serial# 58CA691E; Strep A Nucleic Acid Negative (Negative)
[2025-10-28 14:43] LABS: Alanine Aminotransferase 102 U/L (0-40); Albumin Level 4.4 g/dL (3.5-5.0); Alkaline Phosphatase 93 U/L (39-117); Anion Gap 13 (12-20); Aspartate Amino Transferase 52 U/L (5-37); Blood Urea Nitrogen 14 mg/dL (9-16); Calcium 8.9 mg/dL (8.4-10.2); Carbon Dioxide 23 mmol/L (22-29); Chloride 107 mmol/L (96-108); Creatinine Clr Calc Pharmacy 137.7; Estimated Glomerular Filt Rate > 60; Magnesium 2.0 mg/dL (1.6-2.6); Potassium 3.6 mmol/L (3.3-5.1); Sodium 139 mmol/L (135-145); Total Protein 7.6 g/dL (6.5-8.0)
[2025-10-28 15:17] LABS: Resp Syncy Virus RNA Qual PCR NEGATIVE (Negative); SARS COV2 PCR INHOUSE NEGATIVE (Negative)
--- OUTSIDE RECORDS SUMMARY | 2025-10-28 16:45 | XMS_ITS | Encounter Summary ---
Author Organization [facility] Address [address] [place] [address] Phone Care Team Providers Care Principal Java Software Engineer Name Role Phone Unavailable Primary Care Provider Unavailabl e Encounter Details Date Type Department Care Team (Late st Contact Info) Description 05/03/2017 Documentation [facility] Family Medicine [address] [place] [address] Family Medicine, Physician [facility] [place] [address] Social History Tobacco Use Types Packs/Day Years [...]
--- OUTSIDE RECORDS SUMMARY | 2025-10-28 16:45 | XMS_ITS | Encounter Summary ---
Author Organization [facility] Address [address] [place] [address] Phone Care Team Providers Care Mechanical Design Engineer Name Role Phone Unavailable Primary Care Provider Unavailabl e Reason for Visit * Reason Comments Med Refill Encounter Details Date Type Department Care Team (Late st Contact Info) Description 01/30/2019 Refill [facility] [place] [address] [place] [address] Venessa Can, RUBÉN [address] [address] Nightmares Social History Tobacco Use Types Packs/Day [...] He has a med eval appt at [facility] in February. He needs psychiatry to prescribe his psych meds. * Telephone Encounter - Dana Crockett MD - 01/30/2019 6:32 PM EDT Glenn was seeing Dr Younger. Pt was seeing counselor at [facility]. He was in [facility] recently. 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 He had a meltdown and his counselor was calledand sent him to [facility] where he was for 3-4 day. They were unable to treat him. Family has been trying to find programs for him. He is scheduled for a med eval at [facility] - was supposed to be seen last [...] viera and is on Prazosin. Dept of [facility] does not support family getting guardianship. [facility] recommended a follow up program which then [...]
--- OUTSIDE RECORDS SUMMARY | 2025-10-28 16:45 | XMS_ITS | Clinical Summary ---
Author Organization [facility] Address [address] [place] [phone] Phone Care Team Providers Care Staff Radiologist Name Role Phone Unavailable Primary Care Provider [...] day and takes tylenol which helps His LEEDSMA was much worse prior to fainting. Assessment [...] to those you have been getting from [facility] [place] - such as in [...] Other No family histo ry of *Sudden /NM under 55, Family history of *Heart Disease, [...] Additional history exists Procedures * Due to [place] [employer] law, this organization might not be sharing sensitive test results. Procedure Name Priority Date/Time Associated Diagnosis Comments LIPID PANEL Routine 07/08/2019 3:49 PM EDT Mood disorder HEMOGLOBIN A1C Routine 07/08/2019 3:49 PM EDT Mood disorder from Last 3 Months or Most Recently Relevant to Health Maintenance Results * Due to [place] [employer] law, this organization might not be sharing sensitive test results. * Hemoglobin A1c (07/08/2019 3:49 PM EDT) Hemoglobin A1C 5.1 (4-6) % [facility] Comment: HEMOGLOBIN A1C(%) GLUCOSE CONTROL INDEX <6% EXCELLENT 6-7% VERY GOOD 7-8% GOOD 8-10% FAIR >10% POOR Hemoglobin (Hb) A1c testing is performed by Barrett Lizy-quant immunoassay. Any cause of shortened erythrocyte survival will reduce exposure of erythrocytes to glucose with a consequent decrease in Hb A1c (%). Testing performed or reported by [facility], a Service of [address] [address] Blood 07/08/2019 3:49 PM EDT 07/08/2019 3:54 PM EDT Dana Crockett MD LAB BLOOD ORDERABLES Final R esult Performing Organization Address [facility] Co de Phone Number [facility] * (ABNORMAL) Lipid panel (07/08/2019 3:49 PM EDT) [facility] Cholesterol, Total 171(H) (<170) MG/DL [facility] HDL 32(L) (>45) MG/DL [facility] Non-HDL Cholesterol 139(H) (<120) MG/DL [facility] Comment: Testing performed or reported by [facility], a Service of [address] [address] Blood 07/08/2019 3:49 PM EDT 07/08/2019 3:54 PM EDT Dana Crockett MD LAB BLOOD ORDERABLES Final R esult Performing Organization Address [facility] Co de Phone Number [facility] from Last 3 Months or Most Recently Relevant to Health Maintenance Insurance [facility] NON PCC
--- OUTSIDE RECORDS SUMMARY | 2025-10-28 16:45 | XMS_ITS | Encounter Summary ---
Author Organization [facility] Address [address] [place] [address] Phone Care Team Providers Care Security Rover Name Role Phone Unavailable Primary Care Provider Unavailabl e Encounter Details Date Type Department Care Team (Late st Contact Info) Description 05/14/2017 Documentation [facility] Family Medicine [address] [place] [address] Family Medicine, Physician [facility] [place] [address] Social History Tobacco Use Types Packs/Day Years [...]
--- OUTSIDE RECORDS SUMMARY | 2025-10-28 16:45 | XMS_ITS | Encounter Summary ---
Author Organization [facility] Address [address] [place] [address] Phone Care Team Providers Care Supervisory Historian Name Role Phone Unavailable Primary Care Provider Unavailabl e Encounter Details Date Type Department Care Team (Late st Contact Info) Description 06/14/2017 Conversion Encounter [facility] - [address] [address] Social History Tobacco Use Types Packs/Day Years [...]
--- OUTSIDE RECORDS SUMMARY | 2025-10-28 16:45 | XMS_ITS | Encounter Summary ---
Author Organization [facility] Address [address] [place] [address] Phone Care Team Providers Care Wheel Roller Name Role Phone Unavailable Primary Care Provider Unavailabl e Encounter Details Date Type Department Care Team (Late st Contact Info) Description 08/17/2010 Documentation [facility] Family Medicine [address] [place] [address] Family Medicine, Physician [facility] [place] [address] Social History Tobacco Use Types Packs/Day Years [...]
--- OUTSIDE RECORDS SUMMARY | 2025-10-28 16:45 | XMS_ITS | Encounter Summary ---
Author Organization [facility] Address [address] [place] [address] Phone Care Team Providers Care Tile Applicator Name Role Phone Unavailable Primary Care Provider Unavailabl e Encounter Details Date Type Department Care Team (Late st Contact Info) Description 12/31/2015 Documentation [facility] Family Medicine [address] [place] [address] Family Medicine, Physician [place] [address] Social History Tobacco Use Types Packs/Day Years [...]
--- OUTSIDE RECORDS SUMMARY | 2025-10-28 16:45 | XMS_ITS | Encounter Summary ---
Author Organization [facility] Address [address] [place] [address] Phone Care Team Providers Care Radio Electrician Name Role Phone Unavailable Primary Care Provider Unavailabl e Encounter Details Date Type Department Care Team (Late st Contact Info) Description 11/09/2011 Documentation [facility] Family Medicine [address] [place] [address] Family Medicine, Physician [facility] [place] [address] Social History Tobacco Use Types Packs/Day Years [...]
--- OUTSIDE RECORDS SUMMARY | 2025-10-28 16:45 | XMS_ITS | Encounter Summary ---
Author Organization [facility] Address [address] [place] [address] Phone Care Team Providers Care Planning Advisor Name Role Phone Unavailable Primary Care Provider Unavailabl e Encounter Details Date Type Department Care Team (Late st Contact Info) Description 09/13/2016 Documentation [facility] [place] [place] Family Medicine [address] [place] [address] Family Medicine, Physician [place] [address] Social History Tobacco Use Types Packs/Day Years [...]
--- OUTSIDE RECORDS SUMMARY | 2025-10-28 16:45 | XMS_ITS | Encounter Summary ---
Author Organization [facility] Address [address] [place] [address] Phone Care Team Providers Care Rooms Director Name Role Phone Unavailable Primary Care Provider Unavailabl e Encounter Details Date Type Department Care Team (Late st Contact Info) Description 05/04/2017 Documentation [facility] Family Medicine [address] [place] [address] Family Medicine, Physician [facility] [place] [address] Social History Tobacco Use Types Packs/Day Years [...]
--- OUTSIDE RECORDS SUMMARY | 2025-10-28 16:45 | XMS_ITS | Encounter Summary ---
Author Organization [facility] Address [address] [place] [address] Phone Care Team Providers Care Drying Machine Receiver Name Role Phone Unavailable Primary Care Provider Unavailabl e Encounter Details Date Type Department Care Team (Late st Contact Info) Description 01/03/2016 Documentation [facility] Family Medicine [address] [place] [address] Family Medicine, Physician [facility] [place] [address] Social History Tobacco Use Types Packs/Day Years [...]
--- OUTSIDE RECORDS SUMMARY | 2025-10-28 16:45 | XMS_ITS | Clinical Summary ---
Author Organization [facility] Address [address] [place] [address] Care Team Providers Care Hot Dog Vender Name Role Phone Unavailable Primary Care Provider [...]
--- OUTSIDE RECORDS SUMMARY | 2025-10-28 16:45 | XMS_ITS | Encounter Summary ---
Author Organization [facility] Address [address] [place] [address] Phone Care Team Providers Care Generating Plant Superintendent Name Role Phone Unavailable Primary Care Provider Unavailabl e Encounter Details Date Type Department Care Team (Late st Contact Info) Description 11/14/2012 Documentation [facility] Medicine [address] [place] [address] Family Medicine, Physician [facility] [place] [address] Social History Tobacco Use Types Packs/Day Years [...]
--- OUTSIDE RECORDS SUMMARY | 2025-10-28 16:45 | XMS_ITS | Encounter Summary ---
Author Organization [facility] Address [address] [place] [phone] Phone Care Team Providers Care Press Clippings Cutter And Paster Name Role Phone Unavailable Primary Care Provider Unavailabl e Encounter Details Date Type Department Care Team (Late st Contact Info) Description 12/25/2017 Patient Outreach [facility] [place] [address] [place] [address] Dana Crockett MD [address] [place] [address] Social History Tobacco Use Types Packs/Day Years [...]
[2025-10-28 16:57] VITALS: BP 124/68; PULSE 118; RESP 20; TEMP 37.4; O2SAT 94
[2025-10-28 16:58] VITALS: BP 124/68; PULSE 118; RESP 20; TEMP 37.4; O2SAT 94
== END 2025-10-28 16:59 | disposition home or self-care (01) ==
PROVIDERS: Physician Assistant; Emergency Provider Student in an Organized Health Care Education/Training Program; PCP Internal Medicine
DX: J10.1 Influenza due to other identified influenza virus with other respiratory manifestations (principal); F84.0 Autistic disorder; F31.9 Bipolar disorder, unspecified; Z79.899 Other long term (current) drug therapy; Z03.818 Encounter for observation for suspected exposure to other biological agents ruled out
CPT/HCPCS: 36415; 71046; 80048; 80076; 83735; 85025; 87637; 87651; 93005; 99284

== ENCOUNTER → 2025-10-28 13:58 | Outpatient (BNV) | payer OTHER, SELFPAY | PROVIDERS: Emergency Provider Student in an Organized Health Care Education/Training Program; PCP Internal Medicine; Visit Provider Internal Medicine | DX: R00.0 Tachycardia, unspecified (principal) | CPT/HCPCS: 93010 ==

== ENCOUNTER → 2025-10-28 13:58 | Outpatient (BNV) | payer OTHER, SELFPAY | PROVIDERS: Visit Provider Radiology Diagnostic Radiology | DX: R05.9 Cough, unspecified (principal); R50.9 Fever, unspecified | CPT/HCPCS: 71046 ==